=== PATIENT | female | born 1935 | race Caucasian/White ===

== ENCOUNTER → 2017-01-18 | Outpatient (CLI) | payer MEDICARE ==
[2017-01-18 13:00] LABS: Anion Gap 7 mmol/L; Blood Urea Nitrogen 14 mg/dL (7-17); Carbon Dioxide 29 mmol/L (22-30); Chloride 103 mmol/L (98-107); Non-African American GFR(MDRD) >60 (>60 ml/min/1.73 sqM); Potassium 4.6 mmol/L (3.5-5.1); Sodium 139 mmol/L (137-145)
== END | disposition home or self-care (01) ==
LOC: LABWHC1 11:47
PROVIDERS: ATTEND Internal Medicine Interventional Cardiology
DX: R06.02 Shortness of breath (principal); R60.0 Localized edema
CPT/HCPCS: 36415; 80051; 82565; 84520

== ENCOUNTER 2017-02-07 15:11 | Emergency (ER) | payer MEDICARE ==
[2017-02-07 15:19] VITALS: TEMP 97.7
--- NOTE | 2017-02-07 15:45 | ED ---
General Adult HPI - General Chief complaint: Shortness of Breath Stated complaint: fluid retention Time Seen by Provider: 02/07/17 15:21 Source: patient, RN notes reviewed, old records reviewed Mode of arrival: ambulatory Limitations: no limitations - History of Present Illness Initial comments: Chief complaint and history of present illness an 81-year-old female here because she had a 5 pound weight gain over the last day or so. Patient denies any shortness of breath or peripheral swelling. Has no other complaints. She was sent here for an investigation of the 5 pound weight gain. - Related Data Home Medications Medication Instructions Recorded Confirmed ALPRAZolam [Xanax] 0.5 mg PO BID 11/11/14 01/20/16 Aspirin 81 mg PO DAILY 11/11/14 01/26/16 Cholecalciferol [Vitamin D3] 2,000 unit PO DAILY 11/11/14 01/20/16 Doxycycline Hyclate [Vibramycin] 100 mg PO HS 11/11/14 01/20/16 Multivitamin/Iron/Folic Acid 1 tab PO DAILY 11/11/14 01/20/16 [Centrum Complete Multivit Tab] Simvastatin [Zocor] 10 mg PO HS 11/11/14 01/20/16 Temazepam [Restoril] 30 mg PO HS 11/11/14 01/20/16 DULoxetine HCL [Cymbalta] 30 mg PO HS 11/12/14 01/20/16 Baclofen [Lioresal] 10 mg PO BID 12/17/15 01/20/16 Fish Oil/Dha/Epa [Fish Oil 1,200 1 cap PO DAILY 12/18/15 01/20/16 mg Fish Oil] Folic Acid 0.8 mg PO DAILY 12/18/15 01/20/16 Sodium Bicarbonate 325 mg PO DAILY 12/18/15 01/20/16 Vitamin E (Dl,Tocopheryl Acet) 400 unit PO DAILY 12/18/15 01/20/16 [Vitamin E] Carvedilol [Coreg] 12.5 mg PO BID 01/20/16 01/20/16 amLODIPine [Norvasc] 5 mg PO HS 01/20/16 01/20/16 Previous Rx's Medication Instructions Recorded Furosemide [Lasix] 20 mg PO DAILY #10 tab 02/07/17 Allergies Allergy/AdvReac Type Severity Reaction Status Date / Time codeine Allergy Rash/Hives Verified 02/07/17 15:19 shellfish derived [Shellfish] Allergy Rash/Hives Verified 02/07/17 15:19 Review of Systems ROS Statement: Those systems with pertinent positive or pertinent negative responses have been documented in the HPI. Review of systems no headache or visual acuity changes no shortness of breath no wheezing no GI/ complaints no neuro complaints no deficits. All systems are reviewed Past medical problems significant for CHF, dementia, hyperlipidemia, hypertension, non-Hodgkin's lymphoma. Surgeries appendectomy, hysterectomy, tonsillectomy, total left knee replacement. Family history mother grandmother and aunt breast cancer. Patient has ALLERGIES to codeine and shellfish. Nonsmoker occasional glass of wine. ROS Other: All systems not noted in ROS Statement are negative. 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 per dr Reyna History of Any Multi-Drug Resistant Organisms: MRSA Date of last positivie culture/infection: 2013 MDRO Source:: unknown Past Surgical History: Appendectomy, Hysterectomy, Tonsillectomy Additional Past Surgical History / Comment(s): left knee replacement, breast biopsy which were benign - daughter states they there was some type of metal implanted in both breasts Past Anesthesia/Blood Transfusion Reactions: Previous Problems w/ Anesthesia Additional Past Anesthesia/Blood Transfusion Reaction / Comment(s): severe confusion for 2 weeks after surgery Past Psychological History: Depression Smoking Status: Never smoker - Past Family History Mother History Unknown: Yes Family Medical History: Cancer Additional Family Medical History / Comment(s): Breast Cancer General Exam - General Exam Comments Initial Comments: General: The patient is awake and alert, in no distress, and does not appear acutely ill. Here because of a 5 pound weight gain. Vital signs shows temperature 97.7 pulse 77 respiratory 20 pulse ox 170/77 and a pulse ox of 97% room air Eye: Pupils are equal, round and reactive to light, extra-ocular movements are intact ; there is normal conjunctiva bilaterally. No signs of icterus. History of cataract removal. Ears, nose, mouth and throat: There are moist mucous membranes and no oral lesions. Neck: The neck is supple, there is no tenderness , no JVD. Thyroid not enlarged, no anterior cervical lymphadenopathy. Cardiovascular: There is a regular rate and rhythm. No murmur, rub or gallop is appreciated. Respiratory: Lungs are clear to auscultation, respirations are non-labored, breath sounds are equal. No wheezes, stridor, rales, or rhonchi. Gastrointestinal: Soft, non-distended, non-tender abdomen without masses or organomegaly noted. There is no rebound or guarding present. No CVA tenderness. Bowel sounds are unremarkable. Back: There is no tenderness to palpation in the midline. There is no obvious deformity. No rashes noted. Musculoskeletal: Normal ROM, no tenderness, There is no pedal edema. There is no calf tenderness or swelling. Sensation intact. Pulses equal bilaterally 2+. Neurological: No complaint of a neuro deficits, no focal or lateralizing findings noted. No balance problems. Skin: Skin is warm and dry and no rashes or lesions are noted. Psychiatric: dementia Limitations: no limitations Course Vital Signs 02/07/17 15:15 Temperature 97.7 F Pulse Rate 77 Respiratory 20 Rate Blood Pressure 170/77 O2 Sat by Pulse 97 Oximetry Medical Decision Making - Medical Decision Making Medical decision making the patient's white count is 9 hemoglobin 13 hematocrit 39, potassium 4.4 with a BUN 19 creatinine 0.7 and GFR greater than 60. Glucose 12. BNP only 155. Chest x-ray was done and reviewed by radiologist his impression is heart is enlarged. There is no gross heart failure. Costophrenic angles are clear. There are no hilar masses. Thoracic aorta shows mild atheromatous change. Bony thorax is intact. Impression cardiomegaly. No active cardiopulmonary disease. No change. As read by Dr. Knight This time the patient does not show any indication of worsening failure. Advised to get her weight rechecked. And a follow with her family physician. The patient will be given 10 Lasix tablets 20 mg each to be taken if she continues to put on water weight. - Lab Data Result diagrams: 02/07/17 16:05 02/07/17 16:05 Lab Results 02/07/17 02/07/17 02/07/17 Range/Units 16:05 16:05 16:05 WBC 9.5 (3.8-10.6) k/uL RBC 3.76 L (3.80-5.40) m/uL Hgb 13.3 (11.4-16.0) gm/dL Hct 39.5 (34.0-46.0) % MCV 105.0 H (80.0-100.0) fL MCH 35.5 H (25.0-35.0) pg MCHC 33.8 (31.0-37.0) g/dL RDW 14.5 (11.5-15.5) % Plt Count 335 (150-450) k/uL Neutrophils % (Manual) 43.5 % Band Neutrophils % 2.5 % Lymphocytes % (Manual) 42.5 % Monocytes % (Manual) 6.0 % Eosinophils % (Manual) 5.0 % Basophils % (Manual) 0.5 % Neutrophils # (Manual) 4.4 (1.3-7.7) k/uL Lymphocytes # (Manual) 4.0 (1.0-4.8) k/uL Monocytes # (Manual) 0.6 (0-1.0) k/uL Eosinophils # (Manual) 0.5 (0-0.7) k/uL Basophils # (Manual) 0.0 (0-0.2) k/uL Nucleated RBCs 1 H (0-0) /100 WBC Manual Slide Review Performed Macrocytosis Moderate Target Cells Present Stomatocytes Present Sodium 138 (137-145) mmol/L Potassium 4.4 (3.5-5.1) mmol/L Chloride 102 (98-107) mmol/L Carbon Dioxide 27 (22-30) mmol/L Anion Gap 9 mmol/L BUN 19 H (7-17) mg/dL Creatinine 0.70 (0.52-1.04) mg/dL Est GFR (MDRD) Af Amer >60 (>60 ml/min/1.73 sqM) Est GFR (MDRD) Non-Af >60 (>60 ml/min/1.73 sqM) Glucose 102 H (74-99) mg/dL Calcium 9.2 (8.4-10.2) mg/dL Total Bilirubin 0.4 (0.2-1.3) mg/dL AST 40 H (14-36) U/L ALT 50 (9-52) U/L Alkaline Phosphatase 107 (38-126) U/L NT-Pro-B Natriuret Pep 155 pg/mL Total Protein 6.0 L (6.3-8.2) g/dL Albumin 3.9 (3.5-5.0) g/dL Disposition Clinical Impression: History of chronic CHF Disposition: HOME SELF-CARE Condition: Fair Instructions: Heart Failure (ED) Additional Instructions: Take 1 Lasix if you gained another several pounds and follow-up with your family physician. Return emergency room or see her family doctor developed shortness of breath. Prescriptions: Furosemide [Lasix] 20 mg PO DAILY #10 tab Referrals: Marcus Garrett MD [Primary Care Provider] - 1-2 days Time of Disposition: 17:19
[2017-02-07 16:24] LABS: ALT 50 U/L (9-52); AST 40 U/L (14-36); Alkaline Phosphatase 107 U/L (38-126); Anion Gap 9 mmol/L; Blood Urea Nitrogen 19 mg/dL (7-17); Calcium 9.2 mg/dL (8.4-10.2); Carbon Dioxide 27 mmol/L (22-30); Chloride 102 mmol/L (98-107); Glucose 102 mg/dL (74-99); Non-African American GFR(MDRD) >60 (>60 ml/min/1.73 sqM); Potassium 4.4 mmol/L (3.5-5.1); Sodium 138 mmol/L (137-145); Total Bilirubin 0.4 mg/dL (0.2-1.3)
[2017-02-07 16:38] LABS: Aty Lym Flag Slight; CH 35.7; CHCM 34.1; HCT 39.5 % (34.0-46.0); HDW 2.52; HGB 13.3 gm/dL (11.4-16.0); MCH 35.5 pg (25.0-35.0); MCHC 33.8 g/dL (31.0-37.0); Macrocytosis Moderate; Mean Platelet Volume 7.1; RBC 3.76 m/uL (3.80-5.40); RDW 14.5 % (11.5-15.5); WBC (Perox) 10.04
[2017-02-07 16:52] LABS: Add Differential Manual Differential; Manual Review Performed
[2017-02-07 16:58] LABS: Band Neutrophils % 2.5 %; Nucleated Red Blood Cells 1 /100 WBC (0-0); Total Cells Counted 200; WBC 9.5 k/uL (3.8-10.6)
[2017-02-07 17:01] LABS: Stomatocytes Present; Target Cells Present
--- NOTE | 2017-02-07 17:08 | XR ---
EXAMINATION TYPE: XR chest 2V DATE OF EXAM: 02/07/2017 COMPARISON: 01/17/2016 HISTORY: Fluid retention TECHNIQUE: Frontal and lateral views of the chest are obtained. FINDINGS: Heart is enlarged. There is no gross heart failure. Costophrenic angles are clear. There a re no hilar masses. Thoracic aorta shows mild atheromatous change. Bony thorax is intact. IMPRESSION: Cardiomegaly. No active cardiopulmonary disease. No change.
[2017-02-07 17:22] VITALS: BP 159/95; PULSE 83; RESP 16
== END 2017-02-07 18:30 | disposition home or self-care (01) ==
LOC: EC 15:11
DX: I50.9 Heart failure, unspecified (principal); E78.5 Hyperlipidemia, unspecified; I10 Essential (primary) hypertension; F32.9 Major depressive disorder, single episode, unspecified; F03.90 Unspecified dementia, unspecified severity, without behavioral disturbance, psychotic disturbance, mood disturbance, and anxiety; Z79.82 Long term (current) use of aspirin; Z79.899 Other long term (current) drug therapy; Z88.5 Allergy status to narcotic agent; Z91.013 Allergy to seafood; Z85.72 Personal history of non-Hodgkin lymphomas
CPT/HCPCS: 36415; 71020; 80053; 83880; 85025; 99285

== ENCOUNTER 2017-03-20 22:36 | Inpatient (IN) | payer MEDICARE ==
[2017-03-20] MEDS ORDERED: SODIUM CHLORIDE 0.9% 1,000 ML IV STA (23:13)
--- NOTE | 2017-03-20 23:15 | ED ---
SOB HPI - General Chief Complaint: Shortness of Breath Stated Complaint: chest pain Time Seen by Provider: 03/20/17 22:39 Source: patient Mode of arrival: EMS Limitations: no limitations - History of Present Illness Initial Comments: 81 years [place]. Noticed palpitation and chest pain around 9:30 and lasted for about a half an hour and no chest pain as his wall but she still short winded, she was nauseous and pain gets worse with deep breaths she denies any fever no chills. No headaches no neck stiffness no abdominal pain frequency urgency dysuria no symptoms of TIA or CVA - Related Data Home Medications Medication Instructions Recorded Confirmed ALPRAZolam [Xanax] 0.5 mg PO BID 11/11/14 03/20/17 Aspirin 81 mg PO DAILY 11/11/14 03/20/17 Cholecalciferol [Vitamin D3] 2,000 unit PO DAILY 11/11/14 03/20/17 Doxycycline Hyclate [Vibramycin] 100 mg PO HS 11/11/14 03/20/17 Multivitamin/Iron/Folic Acid 1 tab PO DAILY 11/11/14 03/20/17 [Centrum Complete Multivit Tab] Simvastatin [Zocor] 10 mg PO HS 11/11/14 03/20/17 Temazepam [Restoril] 30 mg PO HS 11/11/14 03/20/17 DULoxetine HCL [Cymbalta] 30 mg PO HS 11/12/14 03/20/17 Baclofen [Lioresal] 5 mg PO BID 12/17/15 03/20/17 Fish Oil/Dha/Epa [Fish Oil 1,200 1 cap PO DAILY 12/18/15 03/20/17 mg Fish Oil] Folic Acid 0.8 mg PO DAILY 12/18/15 03/20/17 Sodium Bicarbonate 325 mg PO DAILY 12/18/15 03/20/17 Vitamin E (Dl,Tocopheryl Acet) 400 unit PO DAILY 12/18/15 03/20/17 [Vitamin E] Carvedilol [Coreg] 12.5 mg PO BID 01/20/16 03/20/17 amLODIPine [Norvasc] 5 mg PO HS 01/20/16 03/20/17 Nitroglycerin Sl Tabs [Nitrostat] 0.4 mg PO Q5M PRN 03/20/17 03/20/17 Allergies Allergy/AdvReac Type Severity Reaction Status Date / Time codeine Allergy Rash/Hives Verified 02/07/17 15:19 iodine Allergy Rash/Hives Verified 03/20/17 23:13 shellfish derived [Shellfish] Allergy Rash/Hives Verified 03/20/17 23:13 Review of Systems ROS Statement: Those systems with pertinent positive or pertinent negative responses have been documented in the HPI. ROS Other: All systems not noted in ROS Statement are negative. 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 per dr Reyna History of Any Multi-Drug Resistant Organisms: MRSA Date of last positivie culture/infection: 2013 MDRO Source:: unknown Past Surgical History: Appendectomy, Hysterectomy, Tonsillectomy Additional Past Surgical History / Comment(s): left knee replacement, breast biopsy which were benign - daughter states they there was some type of metal implanted in both breasts Past Anesthesia/Blood Transfusion Reactions: Previous Problems w/ Anesthesia Additional Past Anesthesia/Blood Transfusion Reaction / Comment(s): severe confusion for 2 weeks after surgery Past Psychological History: Depression Smoking Status: Never smoker - Past Family History Mother History Unknown: Yes Family Medical History: Cancer Additional Family Medical History / Comment(s): Breast Cancer General Exam - General Exam Comments Initial Comments: General: The patient is awake and alert, in no distress, and does not appear acutely ill. Skin: Skin is warm and dry and no rashes or lesions are noted. Eye: Pupils are equal, round and reactive to light, extra-ocular movements are intact; there is normal conjunctiva bilaterally. Ears, nose, mouth and throat: There are moist mucous membranes and no oral lesions. Neck: The neck is supple, there is no tenderness or JVD. Cardiovascular: There is a regular rate and rhythm. No murmur, rub or gallop is appreciated. Respiratory: To auscultation bilateral, no wheezing no rhonchi no distress respiratory baires noticed Gastrointestinal: Soft, non-distended, non-tender abdomen without masses or organomegaly noted. There is no rebound or guarding present. Bowel sounds are unremarkable. Back: There is no tenderness to palpation in the midline. There is no obvious deformity. Musculoskeletal: Normal ROM, no tenderness, There is no pedal edema. There is no calf tenderness or swelling. No cords were appreciated. Neurological: CN II-XII intact, Cranial nerves III through XII are intact. There are no obvious motor or sensory deficits. Coordination appears grossly intact. Speech is normal. Psychiatric: Cooperative, appropriate mood & affect, normal judgment. Limitations: no limitations Course Vital Signs 03/20/17 03/20/17 03/21/17 22:40 23:26 00:24 Temperature 98.2 F 97.8 F Pulse Rate 85 89 82 Respiratory 20 16 18 Rate Blood Pressure 199/93 173/87 188/104 O2 Sat by Pulse 96 97 97 Oximetry EKG is normal sinus rhythm ventricular rate is 85 NV interval is 162 QRS duration is 98 QT/QTC 390/473 review of this EKG does not reveal any ST elevation or ST depression - Reevaluation(s) Reevaluation #1: 03/21/17 00:52 Visit was reassessed at 1245 her CBC, d-dimer, troponin, EKG are unremarkable chest x-ray showed myocardial megaly considering her high blood pressure and blood pressure was noticed on arrival is 199/93 and stating the same diamond Gaines is chest pain-free now considering her age and risk factors short episode for serial cardiac markers and cardiology consult she be admitted to Dr. Shamir wilson Medical Decision Making - Lab Data Result diagrams: 03/20/17 23:20 03/20/17 23:20 Lab Results 03/20/17 03/20/17 03/20/17 Range/Units 23:20 23:20 23:20 WBC 11.1 H (3.8-10.6) k/uL RBC 4.22 (3.80-5.40) m/uL Hgb 14.5 (11.4-16.0) gm/dL Hct 43.0 (34.0-46.0) % MCV 101.8 H (80.0-100.0) fL MCH 34.3 (25.0-35.0) pg MCHC 33.7 (31.0-37.0) g/dL RDW 14.3 (11.5-15.5) % Plt Count 395 (150-450) k/uL Neutrophils % 63 % Lymphocytes % 25 % Monocytes % 7 % Eosinophils % 1 % Basophils % 1 % Neutrophils # 7.0 (1.3-7.7) k/uL Lymphocytes # 2.8 (1.0-4.8) k/uL Monocytes # 0.8 (0-1.0) k/uL Eosinophils # 0.1 (0-0.7) k/uL Basophils # 0.1 (0-0.2) k/uL Macrocytosis Slight PT (9.0-12.0) sec INR (<1.2) APTT (22.0-30.0) sec D-Dimer (<0.60) mg/L FEU Sodium 132 L (137-145) mmol/L Potassium 4.0 (3.5-5.1) mmol/L Chloride 99 (98-107) mmol/L Carbon Dioxide 20 L (22-30) mmol/L Anion Gap 13 mmol/L BUN 12 (7-17) mg/dL Creatinine 0.70 (0.52-1.04) mg/dL Est GFR (MDRD) Af Amer >60 (>60 ml/min/1.73 sqM) Est GFR (MDRD) Non-Af >60 (>60 ml/min/1.73 sqM) Glucose 150 H (74-99) mg/dL Calcium 9.9 (8.4-10.2) mg/dL Total Bilirubin 0.8 (0.2-1.3) mg/dL AST 34 (14-36) U/L ALT 39 (9-52) U/L Alkaline Phosphatase 81 (38-126) U/L Total Creatine Kinase 134 (30-135) U/L CK-MB (CK-2) 2.9 H* (0.0-2.4) ng/mL CK-MB (CK-2) Rel Index 2.2 Troponin I <0.012 (0.000-0.034) ng/mL NT-Pro-B Natriuret Pep pg/mL Total Protein 6.8 (6.3-8.2) g/dL Albumin 4.6 (3.5-5.0) g/dL 03/20/17 03/20/17 Range/Units 23:20 23:20 WBC (3.8-10.6) k/uL RBC (3.80-5.40) m/uL Hgb (11.4-16.0) gm/dL Hct (34.0-46.0) % MCV (80.0-100.0) fL MCH (25.0-35.0) pg MCHC (31.0-37.0) g/dL RDW (11.5-15.5) % Plt Count (150-450) k/uL Neutrophils % % Lymphocytes % % Monocytes % % Eosinophils % % Basophils % % Neutrophils # (1.3-7.7) k/uL Lymphocytes # (1.0-4.8) k/uL Monocytes # (0-1.0) k/uL Eosinophils # (0-0.7) k/uL Basophils # (0-0.2) k/uL Macrocytosis PT 10.7 (9.0-12.0) sec INR 1.1 (<1.2) APTT 24.3 (22.0-30.0) sec D-Dimer 0.28 (<0.60) mg/L FEU Sodium (137-145) mmol/L Potassium (3.5-5.1) mmol/L Chloride (98-107) mmol/L Carbon Dioxide (22-30) mmol/L Anion Gap mmol/L BUN (7-17) mg/dL Creatinine (0.52-1.04) mg/dL Est GFR (MDRD) Af Amer (>60 ml/min/1.73 sqM) Est GFR (MDRD) Non-Af (>60 ml/min/1.73 sqM) Glucose (74-99) mg/dL Calcium (8.4-10.2) mg/dL Total Bilirubin (0.2-1.3) mg/dL AST (14-36) U/L ALT (9-52) U/L Alkaline Phosphatase (38-126) U/L Total Creatine Kinase (30-135) U/L CK-MB (CK-2) (0.0-2.4) ng/mL CK-MB (CK-2) Rel Index Troponin I (0.000-0.034) ng/mL NT-Pro-B Natriuret Pep 873 pg/mL Total Protein (6.3-8.2) g/dL Albumin (3.5-5.0) g/dL Disposition Clinical Impression: Chest pain Disposition: ADMITTED IP TO THIS HOSP Condition: Good Referrals: Marcus Garrett MD [Primary Care Provider] - 1-2 days
[2017-03-20 23:33] LABS: Basophils # (A) 0.1 k/uL (0-0.2); Basophils % (A) 1 %; CH 35.6; CHCM 35.2; Eosinophils # (A) 0.1 k/uL (0-0.7); Eosinophils % (A) 1 %; HDW 2.58; HGB 14.5 gm/dL (11.4-16.0); Luc # (Auto) 0.33; Luc % (Auto) 3; Lymphocytes # (A) 2.8 k/uL (1.0-4.8); Lymphocytes % (A) 25 %; MCH 34.3 pg (25.0-35.0); MCHC 33.7 g/dL (31.0-37.0); MCV 101.8 fL (80.0-100.0); Macrocytosis Slight; Mean Platelet Volume 7.3; Monocytes # (A) 0.8 k/uL (0-1.0); Monocytes % (A) 7 %; Neutrophils % (A) 63 %; RBC 4.22 m/uL (3.80-5.40); RDW 14.3 % (11.5-15.5); WBC 11.1 k/uL (3.8-10.6); WBC (Perox) 11.09
[2017-03-20 23:51] LABS: ALT 39 U/L (9-52); AST 34 U/L (14-36); Alkaline Phosphatase 81 U/L (38-126); Anion Gap 13 mmol/L; Blood Urea Nitrogen 12 mg/dL (7-17); Calcium 9.9 mg/dL (8.4-10.2); Carbon Dioxide 20 mmol/L (22-30); Chloride 99 mmol/L (98-107); Glucose 150 mg/dL (74-99); Non-African American GFR(MDRD) >60 (>60 ml/min/1.73 sqM); Sodium 132 mmol/L (137-145); Total Bilirubin 0.8 mg/dL (0.2-1.3); Total Protein 6.8 g/dL (6.3-8.2)
[2017-03-20 23:52] LABS: INR 1.1 (<1.2); Partial Thromboplastin Time 24.3 sec (22.0-30.0); Prothrombin Time 10.7 sec (9.0-12.0)
[2017-03-20 23:57] LABS: Creatine Kinase 134 U/L (30-135)
--- NOTE | 2017-03-21 00:06 | XR ---
EXAM: XR Chest, 2 Views CLINICAL HISTORY: Reason: difficulty breathing TECHNIQUE: Frontal and lateral views of the chest. COMPARISON: No relevant prior studies available. FINDINGS: Lungs: Unremarkable. No consolidation. Pleural space: No pleural effusion. No pneumothorax. Heart: Stable mild cardiomegaly. Mediastinum: Unremarkable. Bones/joints: No acute findings. IMPRESSION: Stable mild cardiomegaly. No consolidation or edema.
[2017-03-21 00:10] LABS: Troponin I <0.012 ng/mL (0.000-0.034)
[2017-03-21 00:22] LABS: Creatine Kinase MB 2.9 ng/mL (0.0-2.4)
[2017-03-21] MEDS ORDERED: HEPARIN SODIUM,PORCINE 5,000 UNIT/ML 1 ML VIAL IV ONE (00:54)
[2017-03-21] MEDS ORDERED: NITROGLYCERIN SL TABS 0.4 MG TAB SUBLINGUAL PRN (00:54)
[2017-03-21] MEDS ORDERED: HEPARIN SODIUM,PORCINE/D5W PMX 25,000 UNIT in DEXTROSE/WATER 1 500ML.BAG IV SCH (01:00)
[2017-03-21] MEDS ORDERED: NITROGLYCERIN OINT 1 INCH/GM PACKET TOPICAL STA (01:03)
[2017-03-21] MEDS ORDERED: ENALAPRILAT 1.25 MG/ML 1 ML VIAL IVP STA (01:04)
[2017-03-21] MEDS ORDERED: amLODIPine 5 MG TAB PO STA (01:56)
[2017-03-21] MEDS ORDERED: LORazepam 1 MG TAB PO STA (01:57)
[2017-03-21 03:02] VITALS: BMI 23.3
[2017-03-21] MEDS: SODIUM CHLORIDE 0.9% 1,000 ML IV SCH ×2 (04:02→12:33)
[2017-03-21 07:16] LABS: Creatine Kinase 127 U/L (30-135)
[2017-03-21 07:28] LABS: Troponin I <0.012 ng/mL (0.000-0.034)
[2017-03-21 07:31] LABS: Creatine Kinase MB 3.3 ng/mL (0.0-2.4)
[2017-03-21] MEDS ORDERED: NON-FORMULARY DRUG (Fish Oil/Dha/Epa [Fish Oil 1,200 Mg Fish Oil] 1 CAP) PO SCH (09:00)
[2017-03-21] MEDS ORDERED: ACETAMINOPHEN TAB 325 MG TAB PO PRN (09:18)
[2017-03-21] MEDS ORDERED: DOBUTamine DRIP for NUC MED 500 MG in DEXTROSE/WATER 1 250ML.BAG IV ONE (09:35)
[2017-03-21] MEDS ORDERED: cloNIDine 0.1 MG/24HR PATCH 1 PATCH PATCH TRANSDERM SCH (11:00)
[2017-03-21 12:19] LABS: Creatine Kinase 154 U/L (30-135)
[2017-03-21] MEDS: FOLIC ACID 1 MG TAB PO SCH (12:28)
[2017-03-21] MEDS: MULTIVITAMINS, THERA 1 EACH TAB PO SCH (12:28)
[2017-03-21 12:29] LABS: Troponin I <0.012 ng/mL (0.000-0.034)
[2017-03-21] MEDS: SODIUM BICARBONATE TAB 650 MG TAB PO SCH (12:29)
[2017-03-21] MEDS: CHOLECALCIFEROL 1,000 UNIT TAB PO SCH (12:29)
[2017-03-21] MEDS: BACLOFEN 10 MG TAB PO SCH ×2 (12:29→20:54)
[2017-03-21] MEDS: VITAMIN E (DL,TOCOPHERYL ACET) 400 UNIT CAP PO SCH (12:29)
[2017-03-21] MEDS: CARVEDILOL 12.5 MG TAB PO SCH ×2 (12:29→20:55)
[2017-03-21] MEDS: ALPRAZolam 0.5 MG TAB PO SCH ×2 (12:29→20:56)
[2017-03-21 12:33] LABS: Creatine Kinase MB 3.5 ng/mL (0.0-2.4)
--- NOTE | 2017-03-21 13:39 | P.HPIM ---
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 Patient presented complaining of shortness of breath with sweats along with left-sided chest pain that was squeezing and grabbing which started while she was working on a water pump. She stopped what she was doing and called EMS. She denies any nausea or vomiting. She states she has had 3 total episodes of the same with activity in the past few weeks. She denies any trauma to her chest. Patient was placed on the observation unit. Echocardiogram reveals mild tricuspid regurgitation, mild pulmonary hypertension, small pericardial effusion, mild concentric left ventricular hypertrophy, EF 50-55%, LV mildly dilated at 29-33. Cardiology has scheduled her for loop recorder to be placed tomorrow. Review of Systems All systems: negative Constitutional: Denies chills, Denies fever Eyes: denies blurred vision, denies pain Ears, nose, mouth and throat: Denies headache, Denies sore throat Cardiovascular: Reports chest pain, Reports shortness of breath, Denies palpitations Respiratory: Denies cough Gastrointestinal: Denies abdominal pain, Denies diarrhea, Denies nausea, Denies vomiting Genitourinary: Denies dysuria, Denies hematuria Musculoskeletal: Denies myalgias Integumentary: Denies pruritus, Denies rash Neurological: Denies numbness, Denies weakness Psychiatric: Denies anxiety, Denies depression Endocrine: Denies fatigue, Denies weight change 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 per dr Reyna History of Any Multi-Drug Resistant Organisms: MRSA Date of last positivie culture/infection: 2013 MDRO Source:: unknown Past Surgical History: Appendectomy, Hysterectomy, Orthopedic Surgery, Tonsillectomy Additional Past Surgical History / Comment(s): left knee replacement, breast biopsy which were benign - daughter states they there was some type of metal implanted in both breasts, bilat cataracts removed Past Anesthesia/Blood Transfusion Reactions: Previous Problems w/ Anesthesia Additional Past Anesthesia/Blood Transfusion Reaction / Comment(s): severe confusion for 2 weeks after surgery Past Psychological History: Depression Additional Psychological History / Comment(s): loss short term memory Smoking Status: Never smoker Past Alcohol Use History: None Reported, Occasional Past Drug Use History: None Reported - Past Family History Mother History Unknown: Yes Family Medical History: Cancer Additional Family Medical History / Comment(s): Mother in her 70s with history of heart murmur and Breast Cancer Father Additional Family Medical History / Comment(s): Patient does not know anything about her father. Brother(s) Additional Family Medical History / Comment(s): Patient has one half-brother with no history of coronary artery disease. Medications and Allergies Home Medications Medication Instructions Recorded Confirmed Type ALPRAZolam [Xanax] 0.5 mg PO BID 11/11/14 03/21/17 History Aspirin 81 mg PO DAILY 11/11/14 03/21/17 History Cholecalciferol [Vitamin D3] 2,000 unit PO DAILY 11/11/14 03/21/17 History Doxycycline Hyclate [Vibramycin] 100 mg PO HS 11/11/14 03/21/17 History Multivitamin/Iron/Folic Acid 1 tab PO DAILY 11/11/14 03/21/17 History [Centrum Complete Multivit Tab] Simvastatin [Zocor] 10 mg PO HS 11/11/14 03/21/17 History Temazepam [Restoril] 30 mg PO HS 11/11/14 03/21/17 History DULoxetine HCL [Cymbalta] 30 mg PO HS 11/12/14 03/21/17 History Baclofen [Lioresal] 5 mg PO BID 12/17/15 03/21/17 History Fish Oil/Dha/Epa [Fish Oil 1,200 1 cap PO DAILY 12/18/15 03/21/17 History mg Fish Oil] Folic Acid 0.8 mg PO DAILY 12/18/15 03/21/17 History Sodium Bicarbonate 325 mg PO DAILY 12/18/15 03/21/17 History Vitamin E (Dl,Tocopheryl Acet) 400 unit PO DAILY 12/18/15 03/21/17 History [Vitamin E] Carvedilol [Coreg] 12.5 mg PO BID 01/20/16 03/21/17 History amLODIPine [Norvasc] 5 mg PO HS 01/20/16 03/21/17 History Nitroglycerin Sl Tabs [Nitrostat] 0.4 mg PO Q5M PRN 03/20/17 03/21/17 History Allergies Allergy/AdvReac Type Severity Reaction Status Date / Time codeine Allergy Rash/Hives Verified 03/21/17 03:28 iodine Allergy Rash/Hives Verified 03/21/17 03:28 shellfish derived [Shellfish] Allergy Rash/Hives Verified 03/21/17 03:28 Physical Exam Vitals: Vital Signs Temp Pulse Pulse Pulse Resp BP BP 03/21/17 07:50 97.7 F 94 18 149/81 03/21/17 04:00 88 16 03/21/17 03:49 97.9 F 87 16 177/89 03/21/17 01:53 85 187/90 03/21/17 01:29 84 187/95 03/21/17 01:19 77 20 189/95 03/21/17 00:24 97.8 F 82 18 188/104 03/20/17 23:26 89 16 173/87 03/20/17 22:40 98.2 F 85 20 199/93 Pulse Ox 03/21/17 07:50 97 03/21/17 04:00 03/21/17 03:49 92 L 03/21/17 01:53 97 03/21/17 01:29 97 03/21/17 01:19 97 03/21/17 00:24 97 03/20/17 23:26 97 03/20/17 22:40 96 Intake and Output 03/20/17 03/21/17 03/21/17 22:59 06:59 14:59 Intake Total 280 Balance 280 Intake: Intake, IV Titration 280 Amount Heparin Sodium,Porcine/ 120 D5w Pmx 25,000 unit In Dextrose/Water 1 500ml. bag @ 12 UNITS/KG/HR 15. 45 mls/hr IV .Q24H SUDEEP Rx #:[id number] Sodium Chloride 0.9% 1, 160 000 ml @ 20 mls/hr IV . Q24H SUDEEP Rx#:[id number] Other: Voiding Method Bedpan # Voids 1 Weight 64.41 kg 58 kg Gen: This is an 81-year-old female. She is found in bed and appears to be in no acute distress. HEENT: Head is atraumatic, normocephalic. Pupils equal, round. Sclerae is anicteric. NECK: Supple. No JVD. No lymphadenopathy. No thyromegaly. LUNGS: Clear to auscultation. No wheezes or rhonchi. No intercostal retractions. HEART: Regular rate and rhythm. No murmur. Left anterior upper chest wall tenderness. ABDOMEN: Soft. Bowel sounds are present. No masses. No tenderness. EXTREMITIES: No pedal edema. No calf tenderness. NEUROLOGICAL: Patient is awake, alert and oriented x3. Cranial nerves 2 through 12 are grossly intact. Results CBC & Chem 7: 03/20/17 23:20 03/20/17 23:20 Labs: Abnormal Lab Results - Last 24 Hours (Table) 03/20/17 03/20/17 03/20/17 Range/Units 23:20 23:20 23:20 WBC 11.1 H (3.8-10.6) k/uL MCV 101.8 H (80.0-100.0) fL APTT (22.0-30.0) sec Sodium 132 L (137-145) mmol/L Carbon Dioxide 20 L (22-30) mmol/L Glucose 150 H (74-99) mg/dL CK-MB (CK-2) 2.9 H* (0.0-2.4) ng/mL 03/21/17 03/21/17 Range/Units 06:11 06:11 WBC (3.8-10.6) k/uL MCV (80.0-100.0) fL APTT 59.7 H (22.0-30.0) sec Sodium (137-145) mmol/L Carbon Dioxide (22-30) mmol/L Glucose (74-99) mg/dL CK-MB (CK-2) 3.3 H* (0.0-2.4) ng/mL Thrombosis Risk Factor Assmnt - DVT/VTE Prophylaxis DVT/VTE Prophylaxis: Pharmacologic Prophylaxis ordered - Choose All That Apply Each Factor Represents 1 point: Medical pt on bed rest Each Risk Factor Represents 3 Points: Age 75 years or older Thrombosis Risk Factor Assessment Total Risk Factor Score: 4 Thrombosis Risk Factor Assessment Level: Moderate Risk Assessment and Plan Plan: 1. Chest pain: Cardiology consult appreciated. Patient is scheduled for loop recorder tomorrow. 2. CAD: Continue aspirin, Lipitor, Coreg, Nitrostat 3. Hypertension: Continue Coreg 12.5 mg twice daily, Norvasc 5 mg at bedtime, Catapres patch. 4. Hyperlipidemia: On simvastatin 10 mg a day. 5. Anxiety attacks: On Xanax 0.5 mg twice a day as needed. 6. Chronic rosacea: On combination of doxycycline and MetroCream. Patient placed on the observation unit. Discharge plan: Return home Impression and plan of care have been directed as dictated by the signing physician. Caitlyn Bryan nurse practitioner acting as scribe for signing physician.
--- NOTE | 2017-03-21 13:57 | P.CRDCN ---
History of Present Illness Consult date: 03/21/17 Consult reason: sycope, chest pain, shortness of breath, other (weakness) History of present illness: This is an 81-year-old female who presented to ED with c/o chest pain and hypertension. She states she was cutting the grass and began to feel weak. She then started to feel some chest pain and became dizzy. She states she had a syncopal episode with positive loss of consciousness and woke up on the floor. She states upon waking up her pain was still there as a dull ache. Patient lives alone. She states she has had a similar episode 3 times over the previous month. She follows with Dr. Joann segundo as an outpatient. Her last visit with him was 09/26/2016. Upon examination today she is seen resting in bed in no acute distress. She denies any further episodes of chest pain, shortness of breath, dizziness, weakness, nausea, vomiting or diaphoresis. Her most recent echo done in the office 12/16/2015 shows ejection fraction of 40% with global left ventricular hypokinesis without heterogenicity. Left ventricular filling pattern suggests diastolic dysfunction. Repeat today shows ejection fraction has improved to 50-55%, mild tricuspid regurg, mild pulmonary hypertension, small pericardial effusion and mild LVH. Cardiac medications include Norvasc 5 mg by mouth daily, simvastatin 10 mg by mouth daily carvedilol 12.5 mg by mouth twice a day and aspirin 81 mg by mouth daily. Troponins are negative 3, hemoglobin 14.5, potassium 4.0. Review of Systems REVIEW OF SYSTEMS: Patient denies any chest discomfort. No shortness of breath. No diaphoresis. He denies headache, dizziness, blurred vision, double vision. No dyspnea on exertion. Patient denies any stomach discomfort. No nausea, vomiting. No hematochezia. No hematemesis. Denies any black stools or blood in his stools. No syncope. No palpitations. No cough. No recent fever or chills. Denies dysuria or hematuria. No muscle weakness or numbness. 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 per dr Axel History of Any Multi-Drug Resistant Organisms: MRSA Date of last positivie culture/infection: 2013 MDRO Source:: unknown Past Surgical History: Appendectomy, Hysterectomy, Orthopedic Surgery, Tonsillectomy Additional Past Surgical History / Comment(s): left knee replacement, breast biopsy which were benign - daughter states they there was some type of metal implanted in both breasts, bilat cataracts removed Past Anesthesia/Blood Transfusion Reactions: Previous Problems w/ Anesthesia Additional Past Anesthesia/Blood Transfusion Reaction / Comment(s): severe confusion for 2 weeks after surgery Past Psychological History: Depression Additional Psychological History / Comment(s): loss short term memory Smoking Status: Never smoker Past Alcohol Use History: None Reported, Occasional Past Drug Use History: None Reported - Past Family History Mother History Unknown: Yes Family Medical History: Cancer Additional Family Medical History / Comment(s): Breast Cancer Father Additional Family Medical History / Comment(s): Patient does not know anything about her father. Brother(s) Additional Family Medical History / Comment(s): Patient has one half-brother with no history of coronary artery disease. Medications and Allergies Home Medications Medication Instructions Recorded Confirmed Type ALPRAZolam [Xanax] 0.5 mg PO BID 11/11/14 03/21/17 History Aspirin 81 mg PO DAILY 11/11/14 03/21/17 History Cholecalciferol [Vitamin D3] 2,000 unit PO DAILY 11/11/14 03/21/17 History Doxycycline Hyclate [Vibramycin] 100 mg PO HS 11/11/14 03/21/17 History Multivitamin/Iron/Folic Acid 1 tab PO DAILY 11/11/14 03/21/17 History [Centrum Complete Multivit Tab] Simvastatin [Zocor] 10 mg PO HS 11/11/14 03/21/17 History Temazepam [Restoril] 30 mg PO HS 11/11/14 03/21/17 History DULoxetine HCL [Cymbalta] 30 mg PO HS 11/12/14 03/21/17 History Baclofen [Lioresal] 5 mg PO BID 12/17/15 03/21/17 History Fish Oil/Dha/Epa [Fish Oil 1,200 1 cap PO DAILY 12/18/15 03/21/17 History mg Fish Oil] Folic Acid 0.8 mg PO DAILY 12/18/15 03/21/17 History Sodium Bicarbonate 325 mg PO DAILY 12/18/15 03/21/17 History Vitamin E (Dl,Tocopheryl Acet) 400 unit PO DAILY 12/18/15 03/21/17 History [Vitamin E] Carvedilol [Coreg] 12.5 mg PO BID 01/20/16 03/21/17 History amLODIPine [Norvasc] 5 mg PO HS 01/20/16 03/21/17 History Nitroglycerin Sl Tabs [Nitrostat] 0.4 mg PO Q5M PRN 03/20/17 03/21/17 History Allergies Allergy/AdvReac Type Severity Reaction Status Date / Time codeine Allergy Rash/Hives Verified 03/21/17 03:28 iodine Allergy Rash/Hives Verified 03/21/17 03:28 shellfish derived [Shellfish] Allergy Rash/Hives Verified 03/21/17 03:28 Physical Exam Vitals: Vital Signs Temp Pulse Pulse Pulse Resp BP BP 03/21/17 08:00 18 03/21/17 07:50 97.7 F 94 18 149/81 03/21/17 04:00 88 16 03/21/17 03:49 97.9 F 87 16 177/89 03/21/17 01:53 85 187/90 03/21/17 01:29 84 187/95 03/21/17 01:19 77 20 189/95 03/21/17 00:24 97.8 F 82 18 188/104 03/20/17 23:26 89 16 173/87 03/20/17 22:40 98.2 F 85 20 199/93 Pulse Ox 03/21/17 08:00 03/21/17 07:50 97 03/21/17 04:00 03/21/17 03:49 92 L 03/21/17 01:53 97 03/21/17 01:29 97 03/21/17 01:19 97 03/21/17 00:24 97 03/20/17 23:26 97 03/20/17 22:40 96 Intake and Output 03/20/17 03/21/17 03/21/17 22:59 06:59 14:59 Intake Total 280 Balance 280 Intake: Intake, IV Titration 280 Amount Heparin Sodium,Porcine/ 120 D5w Pmx 25,000 unit In Dextrose/Water 1 500ml. bag @ 12 UNITS/KG/HR 15. 45 mls/hr IV .Q24H SUDEEP Rx #:[id number] Sodium Chloride 0.9% 1, 160 000 ml @ 20 mls/hr IV . Q24H SUDEEP Rx#:[id number] Other: Voiding Method Bedpan Bedpan # Voids 1 Weight 64.41 kg 58 kg GENERAL: This is a 81-year-old female in no apparent distress at the time of my examination. HEENT: Head is atraumatic, normocephalic. Pupils are equal, round. Sclerae anicteric. Conjunctivae are clear. Mucous membranes of the mouth are moist. Neck is supple. There is no jugular venous distention. No carotid bruit is heard. LUNGS: Clear to auscultation and precussion. No chest wall tenderness is noted on palpation or with deep breathing. HEART: Regular rate and rhythm without murmurs, rubs or gallops. S1 and S2 heard. ABDOMEN: Soft, nontender. Bowel sounds are heard. No organomegaly noted. EXTREMITIES: 2+ peripheral pulses with no evidence of peripheral edema and no calf tenderness noted]. NEUROLOGIC: Patient is awake, alert and oriented x3. Results 03/20/17 23:20 03/20/17 23:20 Cardiac Enzymes 03/20/17 03/20/17 03/21/17 Range/Units 23:20 23:20 06:11 AST 34 (14-36) U/L CK-MB (CK-2) 2.9 H* 3.3 H* (0.0-2.4) ng/mL Troponin I <0.012 <0.012 (0.000-0.034) ng/mL Coagulation 03/20/17 03/21/17 Range/Units 23:20 06:11 PT 10.7 (9.0-12.0) sec APTT 24.3 59.7 H (22.0-30.0) sec CBC 03/20/17 Range/Units 23:20 WBC 11.1 H (3.8-10.6) k/uL RBC 4.22 (3.80-5.40) m/uL Hgb 14.5 (11.4-16.0) gm/dL Hct 43.0 (34.0-46.0) % Plt Count 395 (150-450) k/uL Comprehensive Metabolic Panel 03/20/17 Range/Units 23:20 Sodium 132 L (137-145) mmol/L Potassium 4.0 (3.5-5.1) mmol/L Chloride 99 (98-107) mmol/L Carbon Dioxide 20 L (22-30) mmol/L BUN 12 (7-17) mg/dL Creatinine 0.70 (0.52-1.04) mg/dL Glucose 150 H (74-99) mg/dL Calcium 9.9 (8.4-10.2) mg/dL AST 34 (14-36) U/L ALT 39 (9-52) U/L Alkaline Phosphatase 81 (38-126) U/L Total Protein 6.8 (6.3-8.2) g/dL Albumin 4.6 (3.5-5.0) g/dL Current Medications Generic Name Dose Route Start Last Admin Trade Name Freq PRN Reason Stop Dose Admin Acetaminophen 650 mg 03/21/17 09:18 Tylenol Tab PO Q4HR PRN Fever and/ or Mild Pain Alprazolam 0.5 mg 03/21/17 09:00 Xanax PO BID [facility] Amlodipine Besylate 5 mg 03/21/17 21:00 Norvasc PO HS [facility] Aspirin 325 mg 03/22/17 09:00 Aspirin PO DAILY [facility] Atorvastatin Calcium 10 mg 03/21/17 21:00 Lipitor PO HS [facility] Baclofen 5 mg 03/21/17 09:00 Lioresal PO BID [facility] Carvedilol 12.5 mg 03/21/17 09:00 Coreg PO BID [facility] Cholecalciferol 2,000 unit 03/21/17 09:00 Vitamin D3 PO DAILY [facility] Clonidine HCl 1 patch 03/21/17 11:00 Catapres-Tts 0.1mg Patch TRANSDERM Q7D [facility] Doxycycline Monohydrate 100 mg 03/21/17 21:00 Vibramycin PO HS [facility] Duloxetine HCl 30 mg 03/21/17 21:00 Cymbalta PO HS [facility] Folic Acid 1 mg 03/21/17 09:00 Folic Acid PO DAILY [facility] Sodium Chloride 1,000 mls @ 20 mls/hr 03/21/17 01:00 03/21/17 04:02 Saline 0.9% IV 20 mls/hr .Q24H SUDEEP Administration Multivitamins 1 each 03/21/17 09:00 Theragran PO DAILY [facility] Nitroglycerin 0.4 mg 03/21/17 00:54 Nitrostat SUBLINGUAL Q5M PRN Chest Pain Sodium Bicarbonate 325 mg 03/21/17 09:00 Sodium Bicarbonate Tab PO DAILY [facility] Temazepam 30 mg 03/21/17 21:00 Restoril PO HS [facility] Vitamin E 400 unit 03/21/17 09:00 Vitamin E PO DAILY [facility] Intake and Output 03/20/17 03/21/17 03/21/17 22:59 06:59 14:59 Intake Total 280 Balance 280 Intake: Intake, IV Titration 280 Amount Heparin Sodium,Porcine/ 120 D5w Pmx 25,000 unit In Dextrose/Water 1 500ml. bag @ 12 UNITS/KG/HR 15. 45 mls/hr IV .Q24H SUDEEP Rx #:[id number] Sodium Chloride 0.9% 1, 160 000 ml @ 20 mls/hr IV . Q24H SUDEEP Rx#:[id number] Other: Voiding Method Bedpan Bedpan # Voids 1 Weight 64.41 kg 58 kg 03/20/17 23:20 03/20/17 23:20 - Imaging and Cardiology Echo: report reviewed - EKG Interpretation EKG: sinus rhythm, normal ST/T, no acute changes (When compared with EKG from ) Assessment and Plan Plan: ASSESSMENT 1. Chest pain, not indicative of acute coronary syndrome.. 2. Chronic stable CAD. 3. Hypertension. 4. Hyperlipidemia. 5. Syncopal episode. PLAN We will repeat echocardiogram. Dr. Pérez will place a loop recorder tomorrow. Risks and benefits explained to the patient with verbalized understanding. Questions answered. Patient is understanding of the procedure and fully prepared to move forward as recommended. Nurse Practitioner note has been reviewed, I agree with a documented findings and plan of care. Patient was seen and examined.
[2017-03-21] MEDS ORDERED: TEMAZEPAM 30 MG CAP PO SCH (21:00)
[2017-03-21] MEDS ORDERED: amLODIPine 5 MG TAB PO SCH (21:00)
[2017-03-21] MEDS ORDERED: ATORVASTATIN 10 MG TAB PO SCH (21:00)
[2017-03-21] MEDS ORDERED: DOXYCYCLINE 50 MG CAP PO SCH (21:00)
[2017-03-21] MEDS ORDERED: DULoxetine HCL 30 MG CAPSULE.DR PO SCH (21:00)
[2017-03-22] MEDS: SODIUM BICARBONATE TAB 650 MG TAB PO SCH (06:38)
[2017-03-22] MEDS: VITAMIN E (DL,TOCOPHERYL ACET) 400 UNIT CAP PO SCH (06:39)
[2017-03-22] MEDS: MULTIVITAMINS, THERA 1 EACH TAB PO SCH (06:40)
[2017-03-22] MEDS: FOLIC ACID 1 MG TAB PO SCH (06:40)
[2017-03-22] MEDS: CHOLECALCIFEROL 1,000 UNIT TAB PO SCH (06:40)
[2017-03-22] MEDS: BACLOFEN 10 MG TAB PO SCH (06:41)
[2017-03-22] MEDS: CARVEDILOL 12.5 MG TAB PO SCH (06:41)
[2017-03-22] MEDS: SODIUM CHLORIDE 0.9% 1,000 ML IV SCH ×2 (06:42→17:10)
[2017-03-22 07:30] VITALS: RESP 16
[2017-03-22 07:40] LABS: Cholesterol 163 mg/dL (<200); HDL Cholesterol 56 mg/dL (40-60); Triglycerides 193 mg/dL (<150)
--- NOTE | 2017-03-22 08:20 | ECHOF ---
Referral Reason:chest pain MEASUREMENTS -------- HEIGHT: 160.0 cm WEIGHT: 57.6 kg BP: 149/81 RVIDd: 3.4 cm (< 3.3) IVSd: 1.3 cm (0.6 - 1.1) LVIDd: 3.6 cm (3.9 - 5.3) LVPWd: 1.2 cm (0.6 - 1.1) IVSs: 1.7 cm LVIDs: 2.6 cm LVPWs: 1.8 cm LA Diam: 2.5 cm (2.7 - 3.8) LAESV Index (A-L): 32.53 ml/m Ao Diam: 3.5 cm (2.0 - 3.7) AV Cusp: 1.7 cm (1.5 - 2.6) MV EXCURSION: 14.230 mm (> 18.000) MV EF SLOPE: 91 mm/s (70 - 150) EPSS: 1.0 cm MV E Hayes: 0.67 m/s MV DecT: 197 ms MV A Hayes: 1.25 m/s MV E/A Ratio: 0.53 RAP: 5.00 mmHg RVSP: 36.61 mmHg FINDINGS -------- This was a technically difficult study with suboptimal apical views. The left ventricular size is normal. There is mild concentric left ventricular hypertrophy. Overall left ventricular systolic function is low-normal with, an EF between 50 - 55 %. The right ventricle is mildly enlarged. LA is midly dilated 29-33ml/m2. The right atrium is normal in size. 1.5mg of Definity was utilized for enhancement of images Interatrial septal aneurysm. Aortic valve is trileaflet and is mildly thickened. Mild mitral annular calcification present. Mild tricuspid regurgitation present. There is mild pulmonary hypertension. The right ventricular systolic pressure, as measured by Doppler, is 36.61mmHg. The pulmonic valve was not well visualized. The aortic root size is normal. Normal inferior vena cava with normal inspiratory collapse consistent with estimated right atrial pressure of 5 mmHg. There is a small pericardial effusion is located near the right ventricle. CONCLUSIONS -------- 1. This was a technically difficult study with suboptimal apical views. 2. Aortic valve is trileaflet and is mildly thickened. 3. Mild mitral annular calcification present. 4. Mild tricuspid regurgitation present. 5. There is mild pulmonary hypertension. 6. The right ventricular systolic pressure, as measured by Doppler, is 36.61mmHg. 7. The pulmonic valve was not well visualized. 8. The aortic root size is normal. 9. Normal inferior vena cava with normal inspiratory collapse consistent with estimated right atrial pressure of 5 mmHg. 10. There is a small pericardial effusion is located near the right ventricle. 11. The left ventricular size is normal. 12. There is mild concentric left ventricular hypertrophy. 13. Overall left ventricular systolic function is low-normal with, an EF between 50 - 55 %. 14. The right ventricle is mildly enlarged. 15. LA is midly dilated 29-33ml/m2. 16. The right atrium is normal in size. 17. 1.5mg of Definity was utilized for enhancement of images 18. Interatrial septal aneurysm. INTELLIGENCE CLERK: Quynh Mckee RDCS [facility] CAMPUSShirley
[2017-03-22] MEDS ORDERED: ASPIRIN 325 MG TAB PO SCH (09:00)
[2017-03-22] MEDS ORDERED: LIDOCAINE 2% INJ 20 MG/ML (20 ML MDV) ONE (10:16)
[2017-03-22] MEDS ORDERED: ceFAZolin 2 GM in SODIUM CHLORIDE 0.9% 100 ML IVPB STA (10:21)
[2017-03-22] MEDS ORDERED: SODIUM CHLORIDE 0.9% 500 ML IV ONE (10:26)
[2017-03-22] MEDS ORDERED: fentaNYL (PF) 50 MCG/ML 2 ML AMP ONE (10:43)
[2017-03-22] MEDS ORDERED: fentaNYL (PF) 50 MCG/ML 2 ML AMP IV ONE (10:45)
[2017-03-22] MEDS ORDERED: LIDOCAINE 2% INJ 20 MG/ML SQ ONE (10:53)
--- NOTE | 2017-03-22 11:15 | P.PCN ---
Date of Procedure: 03/22/17 Preoperative Diagnosis: Dizziness, palpitations and near syncope Postoperative Diagnosis: The same Procedure(s) Performed: Insertion of the loop recorder Implants: Indications for Procedure: Operative Findings: Description of Procedure: This 81-year-old female is admitted to the hospital with complaints of dizziness , palpitation and near syncope. Patient was evaluated by Dr. VC Jarquin. A loop recorder and chest was requested. Patient was brought to the lab in a fasting state. She was prepped and draped in the usual fashion. The skin in the third intercostal space on the left side was infiltrated with lidocaine. An incision was made after patient was given conscious sedation. The loop recorder was inserted in the standard fashion. Patient tolerated the procedure well. The signal strength was about 0.2. Stable segments are noted. The incision was closed with a single suture. Patient tolerated the procedure well. Final impression: 61 implantation of loop recorder. Conscious sedation: Patient was given 25 g of fentanyl for sedation. The duration is 20 minutes. Plan, patient is being transferred to the floor. Patient will be discharged later today
--- NOTE | 2017-03-22 12:14 | P.DS ---
Providers Date of admission: 03/21/17 00:54 Expected date of discharge: 03/22/17 Attending physician: Frederic Santamaria Consults: 03/21/17 00:54 Consult Physician Urgent Consulting Provider: Noel Pérez Consult Reason/Comments: Chest pain Do you want consulting provider notified?: Yes [facility] Course: This is an 81-year-old female patient of Dr. 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 David with past history of CVA, non-Hodgkin's lymphoma, chronic back pain, hypertension, hyperlipidemia. Patient presented complaining of shortness of breath with sweats along with left-sided chest pain that was squeezing and grabbing which started while she was working on a water pump. She stopped what she was doing and called EMS. She denies any nausea or vomiting. She states she has had 3 total episodes of the same with activity in the past few weeks. She denies any trauma to her chest. Patient was placed on the observation unit. Echocardiogram reveals mild tricuspid regurgitation, mild pulmonary hypertension, small pericardial effusion, mild concentric left ventricular hypertrophy, EF 50-55%, LV mildly dilated at 29-33. Cardiology has scheduled her for loop recorder to be placed tomorrow. 03/22: Cardiology has started the patient on a Catapres patch which they want for discharge. Patient underwent loop recorder placement today with Dr. Pérez. Patient is cleared for discharge home today. Patient lives at home with her daughter and there is concern the daughter needs more help taking care of her and case management is following. Discharge diagnoses: 1. Chest pain, chest wall pain reproducible 2. CAD 3. Hypertension 4. Hyperlipidemia 5. Anxiety attacks 6. Chronic rosacea Discharge plan: Return home Impression and plan of care have been directed as dictated by the signing physician. Caitlyn Bryan nurse practitioner acting as scribe for signing physician. Patient Condition at Discharge: Good Plan - Discharge Summary New Discharge Prescriptions: New cloNIDine 0.1 MG/24HR PATCH [Catapres-TTS] 1 patch TRANSDERM Q7D #4 patch Continue Simvastatin [Zocor] 10 mg PO HS Temazepam [Restoril] 30 mg PO HS Doxycycline Hyclate [Vibramycin] 100 mg PO HS ALPRAZolam [Xanax] 0.5 mg PO BID Cholecalciferol [Vitamin D3] 2,000 unit PO DAILY Aspirin 81 mg PO DAILY Multivitamin/Iron/Folic Acid [Centrum Complete Multivit Tab] 1 tab PO DAILY DULoxetine HCL [Cymbalta] 30 mg PO HS Baclofen [Lioresal] 5 mg PO BID Sodium Bicarbonate 325 mg PO DAILY Fish Oil/Dha/Epa [Fish Oil 1,200 mg Fish Oil] 1 cap PO DAILY Vitamin E (Dl,Tocopheryl Acet) [Vitamin E] 400 unit PO DAILY Folic Acid 0.8 mg PO DAILY Carvedilol [Coreg] 12.5 mg PO BID amLODIPine [Norvasc] 5 mg PO HS Nitroglycerin Sl Tabs [Nitrostat] 0.4 mg PO Q5M PRN PRN Reason: Chest Pain Discharge Medication List ALPRAZolam [Xanax] 0.5 mg PO BID 11/11/14 [History] Aspirin 81 mg PO DAILY 11/11/14 [History] Cholecalciferol [Vitamin D3] 2,000 unit PO DAILY 11/11/14 [History] Doxycycline Hyclate [Vibramycin] 100 mg PO HS 11/11/14 [History] Multivitamin/Iron/Folic Acid [Centrum Complete Multivit Tab] 1 tab PO DAILY [History] Simvastatin [Zocor] 10 mg PO HS 11/11/14 [History] Temazepam [Restoril] 30 mg PO HS 11/11/14 [History] DULoxetine HCL [Cymbalta] 30 mg PO HS 11/12/14 [History] Baclofen [Lioresal] 5 mg PO BID 12/17/15 [History] Fish Oil/Dha/Epa [Fish Oil 1,200 mg Fish Oil] 1 cap PO DAILY 12/18/15 [History] Folic Acid 0.8 mg PO DAILY 12/18/15 [History] Sodium Bicarbonate 325 mg PO DAILY 12/18/15 [History] Vitamin E (Dl,Tocopheryl Acet) [Vitamin E] 400 unit PO DAILY 12/18/15 [History] Carvedilol [Coreg] 12.5 mg PO BID 01/20/16 [History] amLODIPine [Norvasc] 5 mg PO HS 01/20/16 [History] Nitroglycerin Sl Tabs [Nitrostat] 0.4 mg PO Q5M PRN 03/20/17 [History] cloNIDine 0.1 MG/24HR PATCH [Catapres-TTS] 1 patch TRANSDERM Q7D #4 patch [Rx] Follow up Appointment(s)/Referral(s): Kristie David MD [STAFF PHYSICIAN] - 1 Week Marcsu Garrett MD [Primary Care Provider] - 1 Week Discharge Disposition: HOME WITH HOME HEALTH SERVICES
[2017-03-22 14:23] LABS: Potassium 4.1 mmol/L (3.5-5.1)
[2017-03-22 15:23] VITALS: BP 171/90; PULSE 75; TEMP 96.9
[2017-03-22] MEDS: ALPRAZolam 0.5 MG TAB PO SCH (17:10)
== END 2017-03-22 16:29 | disposition home health service (06) | DRG 261 ==
LOC: EC 22:36 → INTOOBSV 03-21 00:54 → OBSVTOIN 03-21 00:54 → 3OBS 03-21 00:54 → OBSVTOIN 03-22 11:09
PROVIDERS: ADMIT Internal Medicine; ATTEND Internal Medicine
PROC: 0JH602Z Insertion of Monitoring Device into Chest Subcutaneous Tissue and Fascia, Open Approach (ICD-10-PCS; principal; 2017-03-22 11:00)
DX: R07.89 Other chest pain (principal); I31.3 Pericardial effusion (noninflammatory); I25.10 Atherosclerotic heart disease of native coronary artery without angina pectoris; I11.0 Hypertensive heart disease with heart failure; F03.90 Unspecified dementia, unspecified severity, without behavioral disturbance, psychotic disturbance, mood disturbance, and anxiety; I50.9 Heart failure, unspecified; I27.2 Other secondary pulmonary hypertension; I36.1 Nonrheumatic tricuspid (valve) insufficiency; E78.5 Hyperlipidemia, unspecified; F32.9 Major depressive disorder, single episode, unspecified; R00.2 Palpitations; R06.02 Shortness of breath; R53.1 Weakness; R55 Syncope and collapse; G89.29 Other chronic pain; M54.9 Dorsalgia, unspecified; R93.1 Abnormal findings on diagnostic imaging of heart and coronary circulation; L71.9 Rosacea, unspecified; R41.3 Other amnesia; R11.0 Nausea; F41.9 Anxiety disorder, unspecified; M19.90 Unspecified osteoarthritis, unspecified site; Z79.2 Long term (current) use of antibiotics; Z90.49 Acquired absence of other specified parts of digestive tract; Z79.82 Long term (current) use of aspirin; Z79.899 Other long term (current) drug therapy; Z80.3 Family history of malignant neoplasm of breast; Z86.73 Personal history of transient ischemic attack (TIA), and cerebral infarction without residual deficits; Z96.652 Presence of left artificial knee joint; Z86.14 Personal history of Methicillin resistant Staphylococcus aureus infection; Z91.041 Radiographic dye allergy status; Z88.5 Allergy status to narcotic agent; Z91.013 Allergy to seafood; Z90.710 Acquired absence of both cervix and uterus; Z82.49 Family history of ischemic heart disease and other diseases of the circulatory system; Z98.42 Cataract extraction status, left eye; Z98.41 Cataract extraction status, right eye; Z85.72 Personal history of non-Hodgkin lymphomas; Z87.19 Personal history of other diseases of the digestive system
CPT/HCPCS: 33282; 36415; 71020; 80051; 80053; 80061; 82550; 82553; 83880; 84484; 85025; 85379; 85610; 85730; 93005; 93306; 93350

== ENCOUNTER 2019-01-14 14:59 | Observation (INO) | payer MEDICARE ==
[2019-01-14] MEDS ORDERED: SODIUM CHLORIDE 0.9% 500 ML 500 ML IV ONE (15:20)
[2019-01-14 15:39] LABS: Basophils % (A) 0 %; Eosinophils # (A) 0.1 k/uL (0-0.7); Eosinophils % (A) 0 %; HCT 44.2 % (34.0-46.0); HGB 14.8 gm/dL (11.4-16.0); Lymphocytes # (A) 1.9 k/uL (1.0-4.8); Lymphocytes % (A) 17 %; MCH 33.2 pg (25.0-35.0); MCHC 33.5 g/dL (31.0-37.0); MCV 98.9 fL (80.0-100.0); Mean Platelet Volume 7.2; Monocytes # (A) 0.6 k/uL (0-1.0); Monocytes % (A) 5 %; Neutrophils # (A) 8.6 k/uL (1.3-7.7); Neutrophils % (A) 76 %; Platelet Count 362 k/uL (150-450); RBC 4.47 m/uL (3.80-5.40); WBC 11.4 k/uL (3.8-10.6)
[2019-01-14 15:43] LABS: Glucose,Whole Blood 150 mg/dL (75-99)
--- NOTE | 2019-01-14 15:45 | ED ---
General Adult HPI - General Chief complaint: Altered Mental Status Stated complaint: Alterd Mental Status Time Seen by Provider: 01/14/19 15:19 Source: patient, RN notes reviewed, old records reviewed Mode of arrival: EMS Limitations: no limitations - History of Present Illness Initial comments: 83-year-old female history of dementia presents for evaluation of confusion and altered mental status. "EMS patient is normally alert and oriented 4. Throu ghout the day today she has been somewhat more confused. She is alert and oriented x 2 time my evaluation. She does seem confused. Unknown her exact degree of dementia. Patient denies any physical complaints time my evaluation. There is no reported vomiting or diarrhea. No reported fever. No pain complaints. She does take CBD oil, and states she took this this morning which is not atypical. - Related Data Home Medications Medication Instructions Recorded Confirmed Cholecalciferol [Vitamin D3 (25 2,000 unit PO DAILY 11/11/14 01/14/19 Mcg = 1000 Iu)] Doxycycline Hyclate [Vibramycin] 100 mg PO DAILY 11/11/14 01/14/19 Simvastatin [Zocor] 10 mg PO HS 11/11/14 01/14/19 Temazepam [Restoril] 30 mg PO HS PRN 11/11/14 01/14/19 DULoxetine HCL [Cymbalta] 30 mg PO DAILY 11/12/14 01/14/19 Baclofen [Lioresal] 5 mg PO BID 12/17/15 01/14/19 Folic Acid 0.8 mg PO DAILY 12/18/15 01/14/19 Sodium Bicarbonate 162.5 mg PO BID 12/18/15 01/14/19 Nitroglycerin Sl Tabs [Nitrostat] 0.4 mg PO Q5M PRN 03/20/17 01/14/19 Aspirin EC [Ecotrin Low Dose] 81 mg PO DAILY 01/14/19 01/14/19 Carvedilol [Coreg] 25 mg PO BID 01/14/19 01/14/19 Furosemide [Lasix] 20 mg PO BID 01/14/19 01/14/19 Potassium Chloride 10 meq PO DAILY 01/14/19 01/14/19 amLODIPine [Norvasc] 2.5 mg PO DAILY 01/14/19 01/14/19 Allergies Allergy/AdvReac Type Severity Reaction Status Date / Time codeine Allergy Rash/Hives Verified 01/14/19 15:45 iodine Allergy Rash/Hives Verified 01/14/19 15:45 shellfish derived [Shellfish] Allergy Rash/Hives Verified 01/14/19 15:45 Review of Systems ROS Statement: Those systems with pertinent positive or pertinent negative responses have been documented in the HPI. ROS Other: All systems not noted in ROS Statement are negative. 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 per dr Reyna History of Any Multi-Drug Resistant Organisms: MRSA Date of last positivie culture/infection: 2013 MDRO Source:: unknown Past Surgical History: Appendectomy, Hysterectomy, Orthopedic Surgery, Tonsillectomy Additional Past Surgical History / Comment(s): left knee replacement, breast biopsy which were benign - daughter states they there was some type of metal implanted in both breasts, bilat cataracts removed Past Anesthesia/Blood Transfusion Reactions: Previous Problems w/ Anesthesia Additional Past Anesthesia/Blood Transfusion Reaction / Comment(s): severe confusion for 2 weeks after surgery Past Psychological History: Depression Smoking Status: Never smoker Past Alcohol Use History: None Reported, Occasional Past Drug Use History: None Reported - Past Family History Father Additional Family Medical History / Comment(s): Patient does not know anything about her father. Brother(s) Additional Family Medical History / Comment(s): Patient has one half-brother with no history of coronary artery disease. Mother History Unknown: Yes Family Medical History: Cancer Additional Family Medical History / Comment(s): Mother in her 70s with history of heart murmur and Breast Cancer General Exam Limitations: no limitations General appearance: alert, in no apparent distress Head exam: Present: atraumatic, normocephalic Eye exam: Present: normal appearance, PERRL ENT exam: Present: mucous membranes dry Neck exam: Present: normal inspection. Absent: tenderness, meningismus Respiratory exam: Present: normal lung sounds bilaterally. Absent: respiratory distress, wheezes Cardiovascular Exam: Present: regular rate, normal rhythm GI/Abdominal exam: Present: soft. Absent: distended, tenderness, guarding, rebound Extremities exam: Present: normal inspection, normal capillary refill Neurological exam: Present: alert, CN II-XII intact. Absent: oriented X3, motor sensory deficit Psychiatric exam: Present: normal affect, normal mood Skin exam: Present: warm, dry, intact. Absent: cyanosis, diaphoretic Course Vital Signs 01/14/19 01/14/19 15:02 17:52 Temperature 98.6 F 98.6 F Pulse Rate 78 76 Respiratory 20 20 Rate Blood Pressure 157/83 141/75 O2 Sat by Pulse 96 97 Oximetry EKG Findings - EKG Comments: EKG Findings:: EKG: Normal sinus rhythm rate of 72, VA interval 158, QRS duration 84, QTC 470, no ST segment elevation Medical Decision Making - Medical Decision Making 83 -year-old female presenting for evaluation of confusion and altered mental status. Patient has nonfocal exam, moving all extremity. CT negative for intracranial hemorrhage or mass effect. Chest x-ray negative for focal pneumonia. She has mild leukocytosis 11.4, sodium is low at 131, she was ketones in her urine as well as 8 red blood cells. Consistent with dehydration and concern for UTI. Urine culture is pending. She will be admitted for IV antibiotics, IV hydration, as well as neurology consultation. Case is discussed with admitting physician. - Lab Data Result diagrams: 01/14/19 15:08 01/14/19 15:08 Lab Results 01/14/19 01/14/19 01/14/19 Range/Units 15:08 15:08 15:08 WBC 11.4 H (3.8-10.6) k/uL RBC 4.47 (3.80-5.40) m/uL Hgb 14.8 (11.4-16.0) gm/dL Hct 44.2 (34.0-46.0) % MCV 98.9 (80.0-100.0) fL MCH 33.2 (25.0-35.0) pg MCHC 33.5 (31.0-37.0) g/dL RDW 15.0 (11.5-15.5) % Plt Count 362 (150-450) k/uL Neutrophils % 76 % Lymphocytes % 17 % Monocytes % 5 % Eosinophils % 0 % Basophils % 0 % Neutrophils # 8.6 H (1.3-7.7) k/uL Lymphocytes # 1.9 (1.0-4.8) k/uL Monocytes # 0.6 (0-1.0) k/uL Eosinophils # 0.1 (0-0.7) k/uL Basophils # 0.0 (0-0.2) k/uL PT 10.6 (9.0-12.0) sec INR 1.0 (<1.2) APTT 23.1 (22.0-30.0) sec Sodium 131 L (137-145) mmol/L Potassium 3.6 (3.5-5.1) mmol/L Chloride 92 L (98-107) mmol/L Carbon Dioxide 28 (22-30) mmol/L Anion Gap 11 mmol/L BUN 14 (7-17) mg/dL Creatinine 0.59 (0.52-1.04) mg/dL Est GFR (CKD-EPI)AfAm >90 (>60 ml/min/1.73 sqM) Est GFR (CKD-EPI)NonAf 86 (>60 ml/min/1.73 sqM) Glucose 147 H (74-99) mg/dL POC Glucose (mg/dL) (75-99) mg/dL POC Glu Truck Crane Operator ID Calcium 10.3 H (8.4-10.2) mg/dL Total Bilirubin 1.2 (0.2-1.3) mg/dL AST 37 H (14-36) U/L ALT 20 (9-52) U/L Alkaline Phosphatase 64 (38-126) U/L Troponin I (0.000-0.034) ng/mL Total Protein 7.2 (6.3-8.2) g/dL Albumin 4.6 (3.5-5.0) g/dL Urine Color Urine Appearance (Clear) Urine pH (5.0-8.0) Ur Specific [place] (1.001-1.035) Urine Protein (Negative) Urine Glucose (UA) (Negative) Urine Ketones (Negative) Urine Blood (Negative) Urine Nitrite (Negative) Urine Bilirubin (Negative) Urine Urobilinogen (<2.0) mg/dL Ur Leukocyte Esterase (Negative) Urine RBC (0-5) /hpf Urine WBC (0-5) /hpf Urine Mucus (None) /hpf Urine Opiates Screen (NotDetected) Ur Oxycodone Screen (NotDetected) Urine Methadone Screen (NotDetected) Ur Propoxyphene Screen (NotDetected) Ur Barbiturates Screen (NotDetected) U Tricyclic Antidepress (NotDetected) Ur Phencyclidine Scrn (NotDetected) Ur Amphetamines Screen (NotDetected) U Methamphetamines Scrn (NotDetected) U Benzodiazepines Scrn (NotDetected) Urine Cocaine Screen (NotDetected) U Marijuana (THC) Screen (NotDetected) 01/14/19 01/14/19 01/14/19 Range/Units 15:08 15:40 15:41 WBC (3.8-10.6) k/uL RBC (3.80-5.40) m/uL Hgb (11.4-16.0) gm/dL Hct (34.0-46.0) % MCV (80.0-100.0) fL MCH (25.0-35.0) pg MCHC (31.0-37.0) g/dL RDW (11.5-15.5) % Plt Count (150-450) k/uL Neutrophils % % Lymphocytes % % Monocytes % % Eosinophils % % Basophils % % Neutrophils # (1.3-7.7) k/uL Lymphocytes # (1.0-4.8) k/uL Monocytes # (0-1.0) k/uL Eosinophils # (0-0.7) k/uL Basophils # (0-0.2) k/uL PT (9.0-12.0) sec INR (<1.2) APTT (22.0-30.0) sec Sodium (137-145) mmol/L Potassium (3.5-5.1) mmol/L Chloride (98-107) mmol/L Carbon Dioxide (22-30) mmol/L Anion Gap mmol/L BUN (7-17) mg/dL Creatinine (0.52-1.04) mg/dL Est GFR (CKD-EPI)AfAm (>60 ml/min/1.73 sqM) Est GFR (CKD-EPI)NonAf (>60 ml/min/1.73 sqM) Glucose (74-99) mg/dL POC Glucose (mg/dL) 150 H (75-99) mg/dL POC Glu Truck Crane Operator ID Radha Fontenot Calcium (8.4-10.2) mg/dL Total Bilirubin (0.2-1.3) mg/dL AST (14-36) U/L ALT (9-52) U/L Alkaline Phosphatase (38-126) U/L Troponin I 0.023 (0.000-0.034) ng/mL Total Protein (6.3-8.2) g/dL Albumin (3.5-5.0) g/dL Urine Color Light Yellow Urine Appearance Clear (Clear) Urine pH 6.5 (5.0-8.0) Ur Specific [place] 1.011 (1.001-1.035) Urine Protein 1+ H (Negative) Urine Glucose (UA) Negative (Negative) Urine Ketones 1+ H (Negative) Urine Blood Small H (Negative) Urine Nitrite Negative (Negative) Urine Bilirubin Negative (Negative) Urine Urobilinogen <2.0 (<2.0) mg/dL Ur Leukocyte Esterase Negative (Negative) Urine RBC 8 H (0-5) /hpf Urine WBC <1 (0-5) /hpf Urine Mucus Rare H (None) /hpf Urine Opiates Screen Not Detected (NotDetected) Ur Oxycodone Screen Not Detected (NotDetected) Urine Methadone Screen Not Detected (NotDetected) Ur Propoxyphene Screen Not Detected (NotDetected) Ur Barbiturates Screen Not Detected (NotDetected) U Tricyclic Antidepress Not Detected (NotDetected) Ur Phencyclidine Scrn Not Detected (NotDetected) Ur Amphetamines Screen Not Detected (NotDetected) U Methamphetamines Scrn Not Detected (NotDetected) U Benzodiazepines Scrn Detected H (NotDetected) Urine Cocaine Screen Not Detected (NotDetected) U Marijuana (THC) Screen Not Detected (NotDetected) Disposition Clinical Impression: Altered mental status, Hyponatremia, Dehydration Disposition: [facility] Condition: Stable Is patient prescribed a controlled substance at d/c from ED?: No Referrals: Marcus Garrett MD [Primary Care Provider] - 1-2 days Decision to Admit Reason: Admit from EC Decision Date: 01/14/19 Decision Time: 19:06
[2019-01-14 15:54] LABS: ALT 20 U/L (9-52); AST 37 U/L (14-36); Albumin 4.6 g/dL (3.5-5.0); Alkaline Phosphatase 64 U/L (38-126); Anion Gap 11 mmol/L; Blood Urea Nitrogen 14 mg/dL (7-17); Calcium 10.3 mg/dL (8.4-10.2); Carbon Dioxide 28 mmol/L (22-30); Chloride 92 mmol/L (98-107); Glucose 147 mg/dL (74-99); Potassium 3.6 mmol/L (3.5-5.1); Sodium 131 mmol/L (137-145); Total Bilirubin 1.2 mg/dL (0.2-1.3); Total Protein 7.2 g/dL (6.3-8.2)
[2019-01-14 16:08] LABS: Partial Thromboplastin Time 23.1 sec (22.0-30.0); Prothrombin Time 10.6 sec (9.0-12.0)
[2019-01-14 16:09] LABS: Appearance,Urine Clear (Clear); Bilirubin,Urine Negative (Negative); Blood,Urine Small (Negative); Color,Urine Light Yellow; Glucose,Urine (UA) Negative (Negative); Ketones,Urine 1+ (Negative); Leukocyte Esterase,Urine Negative (Negative); Mucus,Urine Rare /hpf; Nitrite,Urine Negative (Negative); PH, Urine 6.5 (5.0-8.0); Protein,Urine 1+ (Negative); RBC,Urine 8 /hpf (0-5); Specific Gravity,Urine 1.011 (1.001-1.035); Urobilinogen,Urine <2.0 mg/dL (<2.0); WBC,Urine <1 /hpf (0-5)
[2019-01-14 16:15] LABS: Amphetamine Screen,Urine Not Detected (NotDetected); Barbiturate Screen,Urine Not Detected (NotDetected); Benzodiazepines Screen,Urine Detected (NotDetected); Cocaine Screen,Urine Not Detected (NotDetected); Methadone Screen, Urine Not Detected (NotDetected); Opiate Screen,Urine Not Detected (NotDetected); Oxycodone Screen, Urine Not Detected (NotDetected); Phencyclidine Screen,Urine Not Detected (NotDetected); Tricyclic Antidepressant,Urine Not Detected (NotDetected); Urn Cannabinoid Scrn Not Detected (NotDetected)
--- NOTE | 2019-01-14 16:27 | XR ---
EXAMINATION TYPE: XR chest 2V DATE OF EXAM: 01/14/2019 COMPARISON: Prior chest x-ray 03/20/2017 HISTORY: Altered mental status, history of stage IV non-Hodgkin's lymphoma TECHNIQUE: Frontal and lateral views of the chest are obtained. FINDINGS: There is no focal air space opacity, pleural effusion, or pneumothorax seen. The cardiac silhouette size is stable. The osseous structures are intact. There is an overlying loop recorder o bryan the left heart. Eventration of the right hemidiaphragm is stable. Surgical clips present in the u pper abdomen. IMPRESSION: No acute cardiopulmonary process. Stable cardiomegaly.
--- NOTE | 2019-01-14 16:55 | CT ---
EXAMINATION TYPE: CT brain wo con DATE OF EXAM: 01/14/2019 COMPARISON: CT brain 11/11/2014 HISTORY: AMS, pt feeling nauseated CT DLP: 1083.4 mGycm Automated exposure control for dose reduction was used. Helical imaging through the brain FINDINGS: There is no hemorrhage or hydrocephalus. Cerebral vascular calcifications are present. Cortical atrop hy is stable. White matter low-attenuation shows a similar appearance to prior exam. The calvarium is intact. Paranasal sinuses and mastoid air cells are well aerated. IMPRESSION: STABLE EXAM, NO ACUTE ABNORMALITY. AGE-RELATED CHANGES OF ATROPHY AND PROBABLE CHRONIC SMALL VESSEL I SCHEMIA.
[2019-01-14] MEDS ORDERED: cefTRIAXone IN SWFI 1,000 MG/10 ML SYRINGE IVP STA (19:00)
[2019-01-14] MEDS ORDERED: ACETAMINOPHEN TAB 325 MG TAB PO PRN (19:02)
[2019-01-14] MEDS ORDERED: NALOXONE 0.4 MG/ML 1 ML VIAL IV PRN (19:02)
[2019-01-14] MEDS: SODIUM CHLORIDE 0.9% 1,000 ML IV SCH (19:07)
[2019-01-14] MEDS ORDERED: LORazepam 2 MG/ML INJ IV STA (19:35)
[2019-01-14 20:56] VITALS: BMI 23.8
[2019-01-15] MEDS ORDERED: NITROGLYCERIN SL TABS 0.4 MG TAB SUBLINGUAL PRN (01:18)
[2019-01-15] MEDS: TEMAZEPAM 30 MG CAP PO PRN ×2 (02:32→21:26)
[2019-01-15] MEDS: ATORVASTATIN 10 MG TAB PO SCH ×2 (02:32→21:25)
[2019-01-15] MEDS: BACLOFEN 10 MG TAB PO SCH ×3 (02:32→21:25)
[2019-01-15] MEDS: SODIUM CHLORIDE 0.9% 1,000 ML IV SCH ×2 (08:39→17:37)
[2019-01-15] MEDS ORDERED: FUROSEMIDE 20 MG TAB PO SCH (09:00)
[2019-01-15] MEDS ORDERED: DOXYCYCLINE 100 MG CAP PO SCH (09:00)
[2019-01-15] MEDS: DULoxetine HCL 30 MG CAPSULE.DR PO SCH (09:46)
[2019-01-15] MEDS: CARVEDILOL 12.5 MG TAB PO SCH ×2 (09:46→17:25)
[2019-01-15] MEDS: amLODIPine 2.5 MG TAB PO SCH (09:47)
[2019-01-15] MEDS: SODIUM BICARBONATE TAB 650 MG TAB PO SCH ×2 (09:47→21:26)
[2019-01-15] MEDS: ASPIRIN 81 MG PO SCH (09:47)
[2019-01-15] MEDS: POTASSIUM CHLORIDE ER 10 MEQ TAB.ER.PRT PO SCH (09:47)
[2019-01-15] MEDS: CHOLECALCIFEROL 1,000 UNIT TAB PO SCH (09:47)
[2019-01-15] MEDS: FOLIC ACID 1 MG TAB PO SCH (09:47)
--- NOTE | 2019-01-15 14:15 | P.HPIM ---
History of Present Illness H&P Date: 01/15/19 Chief Complaint: Confusion HISTORY AND PHYSICAL AND DISCHARGE SUMMARY: This is an 83-year-old female patient of Dr. Garrett with past medical history of dementia, hypertension, hyperlipidemia, TIA, non-Hodgkin's lymphoma in remission, stomach tumor which apparently is benign followed by Dr. Reyna. The patient came into [facility] emergency center due to confusion and altered mental status. She doesn't have known dementia. No nausea vomiting. No fever no chills. Patient is seen in the observation unit unable to give a reliable history and understands that she is confused. Patient presented to [facility] emergency center for evaluation, she was afebrile, vital signs stable, white count 11.4, creatinine 0.59. Blood sugar was 147, sodium 131 chloride 92. Potassium was 3.6. Hemoglobin 14.8. She underwent a CAT scan of the brain that was negative for intracranial hemorrhage or mass effect. Chest x-ray negative. Urinalysis revealed small amount of blood, nitrate and leukoesterase negative. Urine drug screen was positive for benzodiazepines, troponin 0.023. Patient was provided 1 dose of IV Rocephin, started on IV fluids and placed on the observation unit and consult placed with neurology. We will plan to continue IV fluids at 75 mL per hour and await input from neurology. Patient will be started on Aricept 5 mg daily. Review of Systems All systems: negative Constitutional: Reports weakness, Denies chills, Denies fatigue, Denies fever, Denies lethargy, Denies malaise, Denies poor appetite Eyes: denies blurred vision, denies pain Ears, nose, mouth and throat: Denies dysphagia, Denies headache, Denies sore throat, Denies vertigo Cardiovascular: Denies chest pain, Denies dyspnea on exertion, Denies edema, Denies leg edema, Denies shortness of breath, Denies syncope Respiratory: Denies cough, Denies cough with sputum, Denies dyspnea, Denies excessive sputum, Denies hemoptysis, Denies home oxygen Gastrointestinal: Denies abdominal pain, Denies diarrhea, Denies loss of appetit e, Denies nausea, Denies vomiting Genitourinary: Denies dysuria, Denies hematuria Musculoskeletal: Reports muscle weakness, Denies frequent falls, Denies myalgias Integumentary: Denies pruritus, Denies rash, Denies wounds Neurological: Reports confusion, Denies numbness, Denies weakness Psychiatric: Denies anxiety, Denies depression Endocrine: Denies fatigue, Denies weight change 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 per dr Reyna History of Any Multi-Drug Resistant Organisms: MRSA Date of last positivie culture/infection: 2013 MDRO Source:: unknown Past Surgical History: Appendectomy, Hysterectomy, Orthopedic Surgery, Tonsillectomy Additional Past Surgical History / Comment(s): left knee replacement, breast biopsy which were benign - daughter states they there was some type of metal implanted in both breasts, bilat cataracts removed Past Anesthesia/Blood Transfusion Reactions: Previous Problems w/ Anesthesia Additional Past Anesthesia/Blood Transfusion Reaction / Comment(s): severe confusion for 2 weeks after surgery Past Psychological History: Depression Additional Psychological History / Comment(s): loss short term memory Smoking Status: Never smoker Past Alcohol Use History: None Reported, Occasional Past Drug Use History: None Reported - Past Family History Father Additional Family Medical History / Comment(s): Patient does not know anything about her father. Brother(s) Additional Family Medical History / Comment(s): Patient has one half-brother with no history of coronary artery disease. Mother History Unknown: Yes Family Medical History: Cancer Additional Family Medical History / Comment(s): Mother in her 70s with his tory of heart murmur and Breast Cancer Medications and Allergies Home Medications Medication Instructions Recorded Confirmed Type Cholecalciferol [Vitamin D3 (25 2,000 unit PO DAILY 11/11/14 01/14/19 History Mcg = 1000 Iu)] Doxycycline Hyclate [Vibramycin] 100 mg PO DAILY 11/11/14 01/14/19 History Simvastatin [Zocor] 10 mg PO HS 11/11/14 01/14/19 History Temazepam [Restoril] 30 mg PO HS PRN 11/11/14 01/14/19 History DULoxetine HCL [Cymbalta] 30 mg PO DAILY 11/12/14 01/14/19 History Baclofen [Lioresal] 5 mg PO BID 12/17/15 01/14/19 History Folic Acid 0.8 mg PO DAILY 12/18/15 01/14/19 History Sodium Bicarbonate 162.5 mg PO BID 12/18/15 01/14/19 History Nitroglycerin Sl Tabs [Nitrostat] 0.4 mg PO Q5M PRN 03/20/17 01/14/19 History Aspirin EC [Ecotrin Low Dose] 81 mg PO DAILY 01/14/19 01/14/19 History Carvedilol [Coreg] 25 mg PO BID 01/14/19 01/14/19 History Furosemide [Lasix] 20 mg PO BID 01/14/19 01/14/19 History Potassium Chloride 10 meq PO DAILY 01/14/19 01/14/19 History amLODIPine [Norvasc] 2.5 mg PO DAILY 01/14/19 01/14/19 History Allergies Allergy/AdvReac Type Severity Reaction Status Date / Time codeine Allergy Rash/Hives Verified 01/14/19 15:45 iodine Allergy Rash/Hives Verified 01/14/19 15:45 shellfish derived [Shellfish] Allergy Rash/Hives Verified 01/14/19 15:45 Physical Exam Vitals: Vital Signs Temp Pulse Pulse Resp BP BP BP 01/15/19 07:25 97.8 F 77 18 127/67 01/15/19 03:16 98.7 F 79 18 129/62 01/15/19 03:14 18 01/14/19 23:53 70 18 01/14/19 20:20 98.2 F 70 18 146/75 01/14/19 20:00 17 01/14/19 19:45 98.0 F 75 18 109/65 01/14/19 19:18 17 01/14/19 17:52 98.6 F 76 20 141/75 01/14/19 15:02 98.6 F 78 20 157/83 Pulse Ox 01/15/19 07:25 95 01/15/19 03:16 95 01/15/19 03:14 01/14/19 23:53 01/14/19 20:20 93 L 01/14/19 20:00 01/14/19 19:45 97 01/14/19 19:18 01/14/19 17:52 97 01/14/19 15:02 96 Intake and Output 01/14/19 01/15/19 01/15/19 22:59 06:59 14:59 Other: # Voids 1 1 Weight 63.049 kg Gen: This is an 83-year-old female. Patient is resting in bed and appears to be comfortable and in no acute distress. HEENT: Head is atraumatic, normocephalic. Pupils equal, round. Sclerae is anicte shantelle. NECK: Supple. No JVD. No lymphadenopathy. No thyromegaly. LUNGS: Clear to auscultation. No wheezes or rhonchi. No intercostal retractions. HEART: Regular rate and rhythm. Systolic ejection murmur. ABDOMEN: Soft. Bowel sounds are present. No masses. No tenderness. EXTREMITIES: No pedal edema. No calf tenderness. NEUROLOGICAL: Patient is awake, alert and oriented x1. Cranial nerves 2 through 12 are grossly intact. Results CBC & Chem 7: 01/14/19 15:08 01/14/19 15:08 Labs: Abnormal Lab Results - Last 24 Hours (Table) 01/14/19 01/14/19 01/14/19 Range/Units 15:08 15:08 15:40 WBC 11.4 H (3.8-10.6) k/uL Neutrophils # 8.6 H (1.3-7.7) k/uL Sodium 131 L (137-145) mmol/L Chloride 92 L (98-107) mmol/L Glucose 147 H (74-99) mg/dL POC Glucose (mg/dL) (75-99) mg/dL Calcium 10.3 H (8.4-10.2) mg/dL AST 37 H (14-36) U/L Urine Protein 1+ H (Negative) Urine Ketones 1+ H (Negative) Urine Blood Small H (Negative) Urine RBC 8 H (0-5) /hpf Urine Mucus Rare H (None) /hpf U Benzodiazepines Scrn Detected H (NotDetected) 01/14/19 Range/Units 15:41 WBC (3.8-10.6) k/uL Neutrophils # (1.3-7.7) k/uL Sodium (137-145) mmol/L Chloride (98-107) mmol/L Glucose (74-99) mg/dL POC Glucose (mg/dL) 150 H (75-99) mg/dL Calcium (8.4-10.2) mg/dL AST (14-36) U/L Urine Protein (Negative) Urine Ketones (Negative) Urine Blood (Negative) Urine RBC (0-5) /hpf Urine Mucus (None) /hpf U Benzodiazepines Scrn (NotDetected) Microbiology - Last 24 Hours (Table) 01/14/19 17:02 Urine Culture - Preliminary Urine,Catheterized Thrombosis Risk Factor Assmnt - Choose All That Apply Each Risk Factor Represents 3 Points: Age 75 years or older Other congenital or acquired thrombophilia - If yes, enter type in comment: No Thrombosis Risk Factor Assessment Total Risk Factor Score: 3 Thrombosis Risk Factor Assessment Level: Moderate Risk Assessment and Plan Plan: 1. Mild hyponatremia secondary to dehydration. Continue IV fluids at 0.9 normal saline 75 mL per hour and hold Lasix. Repeat BMP in the morning. 2. Mental status changes secondary to dehydration and worsening dementia. Patient will be started on Aricept. Consult with neurology. 3. Dementia, possibly Alzheimer type. Continue folic acid 1 mg daily 4. Hyperlipidemia. Continue atorvastatin. 5. Hypertension. Continue Coreg 25 mg twice daily, Norvasc 2.5 mg daily, hold Lasix. 6. Recurrent depression. Continue Cymbalta 30 mg daily. 7. Chronic rosacea on doxycycline. Patient placed in the observation unit. Discharge plan: Impression and plan of care have been directed as dictated by the signing physician. Caitlyn Bryan nurse practitioner acting as scribe for signing physician.
[2019-01-15] MEDS ORDERED: DONEPEZIL 5 MG TAB PO SCH (21:00)
--- NOTE | 2019-01-15 21:14 | P.CNNES ---
History of Present Illness Consult date: 01/15/19 Reason for Consult: Altered mental status History of Present Illness: Patient is a 83-year-old female who came to the hospital for feeling weakness, heart bothering, heart fluttering, and chest pain. She states he has CHF also has non-Hodgkin's lymphoma stage IV, currently in remission. Neurology has been consulted first memory issues. Patient states that she has some history of word finding problems, occasionally, but has gotten worse in the last couple months. She feels her memory is getting worse. She forgets days, time, but still has not gotten lost. Denies any hallucinations. Denies any focal symptoms. Patient has been started on Aricept 5 mg daily in the hospital. Patient denies any history of tobacco use, drinks 1 glass of wine occasionally. Denies any hypertension or diabetes. Patient denies any family history of d ementia. Patient underwent computed tomography scan of the head, which revealed no acute process. Chest x-ray shows stable cardiomegaly EKG shows normal sinus rhythm. Her blood test shows a BBC 11.4 hemoglobin 14.8, platelets 362. PT/PTT is normal. Sodium 131, potassium 3.6, renal functions normal. Her AST is mildly elevated 37 but normal ALT. UA showed no signs of infection. Review of Systems As above. All other review of systems negative. 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 per dr Reyna History of Any Multi-Drug Resistant Organisms: MRSA Date of last positivie culture/infection: 2013 MDRO Source:: unknown Past Surgical History: Appendectomy, Hysterectomy, Orthopedic Surgery, Tonsillectomy Additional Past Surgical History / Comment(s): left knee replacement, breast biopsy which were benign - daughter states they there was some type of metal implanted in both breasts, bilat cataracts removed Past Anesthesia/Blood Transfusion Reactions: Previous Problems w/ Anesthesia Additional Past Anesthesia/Blood Transfusion Reaction / Comment(s): severe conf usion for 2 weeks after surgery Past Psychological History: Depression Additional Psychological History / Comment(s): loss short term memory Smoking Status: Never smoker Past Alcohol Use History: None Reported, Occasional Past Drug Use History: None Reported - Past Family History Father Additional Family Medical History / Comment(s): Patient does not know anything about her father. Brother(s) Additional Family Medical History / Comment(s): Patient has one half-brother with no history of coronary artery disease. Mother History Unknown: Yes Family Medical History: Cancer Additional Family Medical History / Comment(s): Mother in her 70s with history of heart murmur and Breast Cancer Medications and Allergies Home Medications Medication Instructions Recorded Confirmed Type Cholecalciferol [Vitamin D3 (25 2,000 unit PO DAILY 11/11/14 01/14/19 History Mcg = 1000 Iu)] Doxycycline Hyclate [Vibramycin] 100 mg PO DAILY 11/11/14 01/14/19 History Simvastatin [Zocor] 10 mg PO HS 11/11/14 01/14/19 History Temazepam [Restoril] 30 mg PO HS PRN 11/11/14 01/14/19 History DULoxetine HCL [Cymbalta] 30 mg PO DAILY 11/12/14 01/14/19 History Baclofen [Lioresal] 5 mg PO BID 12/17/15 01/14/19 History Folic Acid 0.8 mg PO DAILY 12/18/15 01/14/19 History Sodium Bicarbonate 162.5 mg PO BID 12/18/15 01/14/19 History Nitroglycerin Sl Tabs [Nitrostat] 0.4 mg PO Q5M PRN 03/20/17 01/14/19 History Aspirin EC [Ecotrin Low Dose] 81 mg PO DAILY 01/14/19 01/14/19 History Carvedilol [Coreg] 25 mg PO BID 01/14/19 01/14/19 History Furosemide [Lasix] 20 mg PO BID 01/14/19 01/14/19 History Potassium Chloride 10 meq PO DAILY 01/14/19 01/14/19 History amLODIPine [Norvasc] 2.5 mg PO DAILY 01/14/19 01/14/19 History Allergies Allergy/AdvReac Type Severity Reaction Status Date / Time codeine Allergy Rash/Hives Verified 01/14/19 15:45 iodine Allergy Rash/Hives Verified 01/14/19 15:45 shellfish derived [Shellfish] Allergy Rash/Hives Verified 01/14/19 15:45 Physical Examination - Vital Signs Vital Signs: Vital Signs Temp Pulse Resp BP BP Pulse Ox 01/15/19 19:14 97.6 F 77 14 128/62 98 01/15/19 16:00 97.7 F 78 16 94/55 91 L 01/15/19 15:06 77 18 01/15/19 11:49 77 18 01/15/19 08:00 77 18 01/15/19 07:25 97.8 F 77 18 127/67 95 01/15/19 03:16 98.7 F 79 18 129/62 95 01/15/19 03:14 18 01/14/19 23:53 70 18 Intake and Output 01/15/19 01/15/19 01/15/19 06:59 14:59 22:59 Intake Total 240 Balance 240 Intake: Oral 240 Other: # Voids 1 1 On examination patient is an elderly female, in no distress. She is alert and awake. She states it is spring season, but couldn't tell the month. She thinks is November, or December. She knows that she is in the hospital but does not know the name. He knows that she is in [facility] in [facility]. She thinks it's , although actually is Monday. 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 There is no carotid bruit or murmur heard. S1 and S2 audible. Her speech and language functions are normal. Attention and concentration fund of knowledge adequate. Sometimes she is word finding problem. Patient has positive palmomental reflex bilaterally, negative visuospatial apraxia. Clock drawing test was performed and appeared normal. On cranial nerve examination pupils are round and reacting, visual arnold are full, face is symmetric, tongue protrudes the midline, palatal elevation and sensation normal muscle strength is normal no ataxia. Reflexes are symmetric plantars downgoing. Sensory touch is normal. Tone and bulk of muscles normal. Results - Laboratory Findings CBC and BMP: 01/14/19 15:08 01/14/19 15:08 Abnormal Lab Findings: Abnormal Labs 01/14/19 01/14/19 01/14/19 15:08 15:08 15:40 WBC 11.4 H Neutrophils # 8.6 H Sodium 131 L Chloride 92 L Glucose 147 H POC Glucose (mg/dL) Calcium 10.3 H AST 37 H Urine Protein 1+ H Urine Ketones 1+ H Urine Blood Small H Urine RBC 8 H Urine Mucus Rare H U Benzodiazepines Scrn Detected H 01/14/19 15:41 WBC Neutrophils # Sodium Chloride Glucose POC Glucose (mg/dL) 150 H Calcium AST Urine Protein Urine Ketones Urine Blood Urine RBC Urine Mucus U Benzodiazepines Scrn Assessment and Plan Assessment: * Probable mild cognitive impairment versus early Alzheimer's dementia. * History of non-Hodgkin's lymphoma, stage IV, currently in remission. * CHF. Plan: * Agree with starting Aricept 5 mg daily for now. After 1 month, the dose can be increased to 10 mg daily. * We will check B12, folate, TSH. * Patient is otherwise neurologically clear for discharge.
[2019-01-16] MEDS: SODIUM CHLORIDE 0.9% 1,000 ML IV SCH (03:01)
[2019-01-16 04:48] LABS: Folate, Serum >24.0 ng/mL
[2019-01-16 08:08] VITALS: BP 109/62; PULSE 90; RESP 18; TEMP 97.8
[2019-01-16 08:26] LABS: Anion Gap 8 mmol/L; Blood Urea Nitrogen 19 mg/dL (7-17); Calcium 9.1 mg/dL (8.4-10.2); Carbon Dioxide 26 mmol/L (22-30); Chloride 104 mmol/L (98-107); Glucose 138 mg/dL (74-99); Potassium 3.2 mmol/L (3.5-5.1); Sodium 138 mmol/L (137-145)
--- NOTE | 2019-01-16 08:27 | P.DS ---
Providers Date of admission: 01/14/19 19:04 Expected date of discharge: 01/16/19 Attending physician: Junito Marcos Consults: 01/14/19 19:03 Consult Physician Routine Consulting Provider: Orestes Mccracken Consult Reason/Comments: Altered Mental status Do you want consulting provider notified?: Yes Primary care physician: [place] Hospital Course: This is an 83-year-old female patient of Dr. Garrett with past medical history of dementia, hypertension, hyperlipidemia, TIA, non-Hodgkin's lymphoma in remission, stomach tumor which apparently is benign followed by Dr. Reyna. The patient came into [facility] emergency center due to confusion and altered mental status. She doesn't have known dementia. No nausea vomiting. No fever no chills. Patient is seen in the observation unit unable to give a reliable history and understands that she is confused. Patient presented to [facility] emergency center for evaluation, she was afebrile, vital signs stable, white count 11.4, creatinine 0.59. Blood sugar was 147, sodium 131 chloride 92. Potassium was 3.6. Hemoglobin 14.8. She underwent a CAT scan of the brain that was negative for intracranial hemorrhage or mass effect. Chest x-ray negative. Urinalysis revealed small amount of blood, nitrate and leukoesterase negative. Urine drug screen was positive for benzodiazepines, troponin 0.023. Patient was provided 1 dose of IV Rocephin, started on IV fluids and placed on the observation unit and consult placed with neurology. We will plan to continue IV fluids at 75 mL per hour and await input from neurology. Patient will be started on Aricept 5 mg daily. 01/16: Patient has been seen by Dr. Mccracken and he agrees with starting Aricept and plan to increase after 1 month to 10 mg daily. B12, folate and TSH to be checked. Patient was cleared for discharge home. TSH 3.180, folate greater than 24 and vitamin B12 649. Repeat electrolytes today reveals sodium 138, potassium 3.2 and rhythm. Placed prior to discharge, chloride 104, CO2 26, BUN 19 creatinine 0.67. Patient's son is at the bedside and ready to take her home. Patient states that she is feeling much better from yesterday but still concerned regarding her memory. Patient is currently residing at [facility] and will return there with increased care. Patient will be discharged home today in stable condition. Discharge diagnoses: 1. Mild hyponatremia secondary to dehydration. 2. Mental status changes secondary to dehydration and worsening dementia. 3. Dementia, possibly Alzheimer type. 4. Hyperlipidemia. 5. Hypertension. 6. Recurrent depression. 7. Chronic rosacea Discharge plan: Return to [facility] Impression and plan of care have been directed as dictated by the signing physician. Caitlyn Bryan nurse practitioner acting as scribe for signing physician. Patient Condition at Discharge: Good Plan - Discharge Summary Discharge Rx Participant: Yes New Discharge Prescriptions: New Donepezil [Aricept] 5 mg PO HS #30 tab Continue Simvastatin [Zocor] 10 mg PO HS Temazepam [Restoril] 30 mg PO HS PRN PRN Reason: Insomnia Doxycycline Hyclate [Vibramycin] 100 mg PO DAILY Cholecalciferol [Vitamin D3 (25 Mcg = 1000 Iu)] 2,000 unit PO DAILY DULoxetine HCL [Cymbalta] 30 mg PO DAILY Baclofen [Lioresal] 5 mg PO BID Sodium Bicarbonate 162.5 mg PO BID Folic Acid 0.8 mg PO DAILY Nitroglycerin Sl Tabs [Nitrostat] 0.4 mg PO Q5M PRN PRN Reason: Chest Pain amLODIPine [Norvasc] 2.5 mg PO DAILY Aspirin EC [Ecotrin Low Dose] 81 mg PO DAILY Carvedilol [Coreg] 25 mg PO BID Potassium Chloride 10 meq PO DAILY Changed Furosemide [Lasix] 20 mg PO DAILY #0 Discharge Medication List Cholecalciferol [Vitamin D3 (25 Mcg = 1000 Iu)] 2,000 unit PO DAILY 11/11/14 [History] Doxycycline Hyclate [Vibramycin] 100 mg PO DAILY 11/11/14 [History] Simvastatin [Zocor] 10 mg PO HS 11/11/14 [History] Temazepam [Restoril] 30 mg PO HS PRN 11/11/14 [History] DULoxetine HCL [Cymbalta] 30 mg PO DAILY 11/12/14 [History] Baclofen [Lioresal] 5 mg PO BID 12/17/15 [History] Folic Acid 0.8 mg PO DAILY 12/18/15 [History] Sodium Bicarbonate 162.5 mg PO BID 12/18/15 [History] Nitroglycerin Sl Tabs [Nitrostat] 0.4 mg PO Q5M PRN 03/20/17 [History] Aspirin EC [Ecotrin Low Dose] 81 mg PO DAILY 01/14/19 [History] Carvedilol [Coreg] 25 mg PO BID 01/14/19 [History] Potassium Chloride 10 meq PO DAILY 01/14/19 [History] amLODIPine [Norvasc] 2.5 mg PO DAILY 01/14/19 [History] Donepezil [Aricept] 5 mg PO HS #30 tab 01/16/19 [Rx] Furosemide [Lasix] 20 mg PO DAILY #0 01/16/19 [Rx] Follow up Appointment(s)/Referral(s): Marcus Garrett MD [Primary Care Provider] - 1 Week Discharge Disposition: HOME WITH HOME HEALTH SERVICES
[2019-01-16] MEDS: BACLOFEN 10 MG TAB PO SCH (09:32)
[2019-01-16] MEDS: ASPIRIN 81 MG PO SCH (09:32)
[2019-01-16] MEDS: DULoxetine HCL 30 MG CAPSULE.DR PO SCH (09:33)
[2019-01-16] MEDS: FOLIC ACID 1 MG TAB PO SCH (09:33)
[2019-01-16] MEDS: CARVEDILOL 12.5 MG TAB PO SCH (09:33)
[2019-01-16] MEDS: SODIUM BICARBONATE TAB 650 MG TAB PO SCH (09:33)
[2019-01-16] MEDS: POTASSIUM CHLORIDE ER 10 MEQ TAB.ER.PRT PO SCH (09:33)
[2019-01-16] MEDS: CHOLECALCIFEROL 1,000 UNIT TAB PO SCH (09:33)
[2019-01-16] MEDS: amLODIPine 2.5 MG TAB PO SCH (09:33)
[2019-01-16] MEDS ORDERED: POTASSIUM CHLORIDE ER 20 MEQ TAB.ER PO STA (13:20)
== END 2019-01-16 14:04 | disposition home health service (06) ==
LOC: EC 14:59 → 1SOBS 19:04
PROVIDERS: ADMIT Internal Medicine; ATTEND Internal Medicine
DX: E86.0 Dehydration (principal); F03.90 Unspecified dementia, unspecified severity, without behavioral disturbance, psychotic disturbance, mood disturbance, and anxiety; E87.1 Hypo-osmolality and hyponatremia; I11.0 Hypertensive heart disease with heart failure; I50.9 Heart failure, unspecified; E78.5 Hyperlipidemia, unspecified; F33.9 Major depressive disorder, recurrent, unspecified; R41.3 Other amnesia; D13.1 Benign neoplasm of stomach; M19.90 Unspecified osteoarthritis, unspecified site; L71.9 Rosacea, unspecified; Z79.82 Long term (current) use of aspirin; Z79.2 Long term (current) use of antibiotics; Z79.899 Other long term (current) drug therapy; Z88.5 Allergy status to narcotic agent; Z91.013 Allergy to seafood; Z91.048 Other nonmedicinal substance allergy status; Z90.710 Acquired absence of both cervix and uterus; Z86.73 Personal history of transient ischemic attack (TIA), and cerebral infarction without residual deficits; Z85.71 Personal history of Hodgkin lymphoma; Z86.14 Personal history of Methicillin resistant Staphylococcus aureus infection; Z90.49 Acquired absence of other specified parts of digestive tract; Z98.42 Cataract extraction status, left eye; Z98.41 Cataract extraction status, right eye; Z98.82 Breast implant status; Z96.652 Presence of left artificial knee joint; Z80.3 Family history of malignant neoplasm of breast; Z82.49 Family history of ischemic heart disease and other diseases of the circulatory system
CPT/HCPCS: 96361 ×4; 96374; 96375; 99285; 36415; 93005; 80053; 80048; 84443; 82607; 82746; 84484; 85025; 85610; 85730; 81001; 80306; 87086; 71046; 70450; G0378 ×3; J2060; J0696

== ENCOUNTER 2019-01-28 20:31 | Observation (INO) | payer MEDICARE ==
[2019-01-28 20:59] LABS: Basophils # (A) 0.1 k/uL (0-0.2); Basophils % (A) 1 %; Eosinophils # (A) 0.3 k/uL (0-0.7); Eosinophils % (A) 2 %; HCT 41.2 % (34.0-46.0); HGB 14.1 gm/dL (11.4-16.0); Lymphocytes # (A) 2.7 k/uL (1.0-4.8); Lymphocytes % (A) 23 %; MCH 34.8 pg (25.0-35.0); MCHC 34.1 g/dL (31.0-37.0); MCV 101.9 fL (80.0-100.0); Macrocytosis Slight; Mean Platelet Volume 7.3; Monocytes # (A) 0.9 k/uL (0-1.0); Monocytes % (A) 8 %; Neutrophils # (A) 7.4 k/uL (1.3-7.7); Neutrophils % (A) 63 %; Platelet Count 402 k/uL (150-450); RBC 4.05 m/uL (3.80-5.40); RDW 15.2 % (11.5-15.5); WBC 11.6 k/uL (3.8-10.6)
[2019-01-28] MEDS ORDERED: NITROGLYCERIN OINT 1 INCH/GM PACKET TOPICAL STA (21:05)
[2019-01-28] MEDS ORDERED: ASPIRIN 81 MG PO STA (21:05)
[2019-01-28 21:07] LABS: Calcium 9.6 mg/dL (8.4-10.2); Magnesium 1.9 mg/dL (1.6-2.3); Total Bilirubin 0.5 mg/dL (0.2-1.3); Total Protein 6.4 g/dL (6.3-8.2)
[2019-01-28 21:16] LABS: Potassium 4.5 mmol/L (3.5-5.1)
[2019-01-28 21:19] LABS: INR 0.9 (<1.2); Partial Thromboplastin Time 22.6 sec (22.0-30.0); Prothrombin Time 9.8 sec (9.0-12.0)
--- NOTE | 2019-01-28 22:08 | ED ---
Chest Pain HPI - General Chief Complaint: Chest Pain Stated Complaint: Difficulty Breathing Time Seen by Provider: 01/28/19 20:59 Source: patient, EMS Mode of arrival: EMS Limitations: no limitations - History of Present Illness Initial Comments: This 83-year-old white female does present with a complaint of some chest pain and shortness of breath. She states that it came on earlier today. The chest pain was more on the left side and a pressure-like nonradiating pain. It is resolved at this time. She states that the shortness of breath was moderate but improved now as well. She was sent here from the [facility]. She denies any known coronary artery disease but does have a history of congestive heart failure and non-Hodgkin's lymphoma. She denies any leg pain or swelling or history of DVT or PE. She denies any previous similar incidents. She does have memory difficulties but family is present and do help with history as well. - Related Data Home Medications Medication Instructions Recorded Confirmed Cholecalciferol [Vitamin D3 (25 2,000 unit PO DAILY 11/11/14 01/28/19 Mcg = 1000 Iu)] Doxycycline Hyclate [Vibramycin] 100 mg PO DAILY 11/11/14 01/28/19 Simvastatin [Zocor] 10 mg PO HS 11/11/14 01/28/19 Temazepam [Restoril] 30 mg PO HS PRN 11/11/14 01/28/19 DULoxetine HCL [Cymbalta] 30 mg PO DAILY 11/12/14 01/28/19 Baclofen [Lioresal] 5 mg PO BID 12/17/15 01/28/19 Folic Acid 0.8 mg PO DAILY 12/18/15 01/28/19 Sodium Bicarbonate 162.5 mg PO BID 12/18/15 01/28/19 Nitroglycerin Sl Tabs [Nitrostat] 0.4 mg PO Q5M PRN 03/20/17 01/28/19 Aspirin EC [Ecotrin Low Dose] 81 mg PO DAILY 01/14/19 01/28/19 Carvedilol [Coreg] 25 mg PO BID 01/14/19 01/28/19 Potassium Chloride 10 meq PO DAILY 01/14/19 01/28/19 amLODIPine [Norvasc] 2.5 mg PO DAILY 01/14/19 01/28/19 Previous Rx's Medication Instructions Recorded Donepezil [Aricept] 5 mg PO HS #30 tab 01/16/19 Furosemide [Lasix] 20 mg PO DAILY #0 01/16/19 Allergies Allergy/AdvReac Type Severity Reaction Status Date / Time codeine Allergy Rash/Hives Verified 01/28/19 20:46 iodine Allergy Rash/Hives Verified 01/28/19 20:46 shellfish derived [Shellfish] Allergy Rash/Hives Verified 01/28/19 20:46 Review of Systems ROS Statement: Those systems with pertinent positive or pertinent negative responses have been documented in the HPI. ROS Other: All systems not noted in ROS Statement are negative. 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 per dr Reyna History of Any Multi-Drug Resistant Organisms: MRSA Date of last positivie culture/infection: 2013 MDRO Source:: unknown Past Surgical History: Appendectomy, Hysterectomy, Orthopedic Surgery, Tonsillectomy Additional Past Surgical History / Comment(s): left knee replacement, breast bi opsy which were benign - daughter states they there was some type of metal implanted in both breasts, bilat cataracts removed Past Anesthesia/Blood Transfusion Reactions: Previous Problems w/ Anesthesia Additional Past Anesthesia/Blood Transfusion Reaction / Comment(s): severe confusion for 2 weeks after surgery Past Psychological History: Depression Smoking Status: Never smoker Past Alcohol Use History: None Reported, Occasional Past Drug Use History: None Reported - Past Family History Father Additional Family Medical History / Comment(s): Patient does not know anything about her father. Brother(s) Additional Family Medical History / Comment(s): Patient has one half-brother with no history of coronary artery disease. Mother History Unknown: Yes Family Medical History: Cancer Additional Family Medical History / Comment(s): Mother in her 70s with history of heart murmur and Breast Cancer General Exam - General Exam Comments Initial Comments: GENERAL: The patient is well nourished and well hydrated. VITAL SIGNS: Heart rate, blood pressure, respiratory rate reviewed as recorded in nurse's notes. EYES: Pupils are round and reactive. Extraocular movements are intact. No conjunctival / lid redness or swelling. ENT: No external evidence of injury, swelling, or ecchymosis. Airway is patent. Throat is clear. NECK: Nontender. No swelling or evidence of injury. No subcutaneous emphysema. Trachea is midline. No thyroid mass. HEART: Regular rate and rhythm. Good peripheral pulses. LUNGS/CHEST: Breath sounds clear and equal bilaterally. No rales, rhonchi, or wheezes. No ecchymosis, subcutaneous emphysema, or tenderness. ABDOMEN: Abdomen soft without tenderness. No palpable masses or organomegaly. No peritoneal signs. No abdominal wall swelling or ecchymosis. EXTREMITIES: No extremity tenderness. Normal muscle tone and function. No thoracolumbar tenderness. NEUROLOGIC: Sensation is grossly intact. Cranial nerve exam reveals face is symmetrical, tongue is midline, speech is clear. SKIN: No abrasions or ecchymosis is noted. No induration or masses noted. PSYCHIATRIC: Alert and pleasant. Limitations: no limitations Course Vital Signs 01/28/19 01/28/19 20:35 20:50 Temperature 98.4 F Pulse Rate 79 Respiratory 20 20 Rate Blood Pressure 152/86 O2 Sat by Pulse 96 Oximetry Chest Pain MDM - MDM The patient was seen and examined. All diagnostics were reviewed. An IV is established and she is placed on a pharmacy technician per diem. The EKG shows a normal sinus rhythm at a rate of 72. There is some minimal artifact but overall no acute abnormalities are identified. The NM intervals 152, QRS duration is 90, and QTc interval is 386. No acute ST-T wave changes noted. The chest x-ray does not show any acute processes per my review with final radiologic review pending. The cardiac profile labs are all essentially within normal limits. She does receive aspirin as well as Nitropaste. The chest x-ray was also read out negative per radiology eventually. The patient is doing well on recheck. Nevertheless, the possibility of acute coronary syndrome certainly is a potential. She and family are agreeable with her being admitted for further evaluation. The case will be discussed with internal medicine in the near future. Disposition Clinical Impression: Chest pain, Unstable angina, Dyspnea, Hypertension Disposition: ADMITTED IP TO THIS [facility] Condition: Good Is patient prescribed a controlled substance at d/c from ED?: No Time of Disposition: 22:48 Decision Date: 01/28/19 Decision Time: 22:48
--- NOTE | 2019-01-28 22:39 | XR ---
EXAMINATION: XR chest 2V DATE AND TIME: 01/28/2019 9:52 PM CLINICAL INDICATION: PHH; Chest Pain TECHNIQUE: Departmental protocol COMPARISON: 01/14/2019 FINDINGS: The lungs are clear. The pleural spaces are negative. The cardiac silhouette is mildly enlarged. The remainder of the mediastinal silhouette is unremarkabl e. The skeletal structures and soft tissues are negative for acute findings. IMPRESSION: NO ACUTE PROCESS.
[2019-01-28] MEDS ORDERED: NITROGLYCERIN SL TABS 0.4 MG TAB SUBLINGUAL PRN (22:53)
[2019-01-29] MEDS ORDERED: TEMAZEPAM 30 MG CAP PO PRN (01:00)
[2019-01-29] MEDS: NITROGLYCERIN OINT 1 INCH/GM PACKET TOPICAL SCH ×2 (01:07→03:57)
[2019-01-29] MEDS ORDERED: ATORVASTATIN 10 MG TAB PO SCH ×2 (01:08→21:00)
[2019-01-29] MEDS ORDERED: DONEPEZIL 5 MG TAB PO SCH ×2 (01:15→21:00)
[2019-01-29] MEDS: SODIUM BICARBONATE TAB 650 MG TAB PO SCH ×2 (01:21→10:21)
[2019-01-29] MEDS: CARVEDILOL 12.5 MG TAB PO SCH ×2 (01:22→10:36)
[2019-01-29] MEDS: BACLOFEN 10 MG TAB PO SCH ×2 (01:22→10:36)
[2019-01-29 02:56] LABS: Cholesterol 184 mg/dL (<200); HDL Cholesterol 45 mg/dL (40-60); LDL Cholesterol,Calculated 91 mg/dL (0-99); Triglycerides 239 mg/dL (<150)
[2019-01-29 07:36] VITALS: RESP 18
[2019-01-29] MEDS ORDERED: FOLIC ACID 1 MG TAB PO SCH (09:00)
[2019-01-29] MEDS ORDERED: ASPIRIN 325 MG TAB PO SCH (09:00)
[2019-01-29] MEDS ORDERED: LOSARTAN 25 MG TAB PO SCH (09:00)
[2019-01-29] MEDS ORDERED: CARVEDILOL 12.5 MG TAB PO SCH (09:00)
[2019-01-29] MEDS ORDERED: DULoxetine HCL 30 MG CAPSULE.DR PO SCH (09:00)
[2019-01-29] MEDS ORDERED: FUROSEMIDE 20 MG TAB PO SCH (09:00)
[2019-01-29] MEDS ORDERED: CHOLECALCIFEROL 1,000 UNIT TAB PO SCH (09:00)
[2019-01-29] MEDS ORDERED: SODIUM BICARBONATE TAB 650 MG TAB PO SCH (09:00)
[2019-01-29] MEDS ORDERED: POTASSIUM CHLORIDE ER 10 MEQ TAB.ER.PRT PO SCH (09:00)
[2019-01-29] MEDS ORDERED: ENOXAPARIN 40 MG/0.4 ML SYRINGE SQ SCH (09:00)
[2019-01-29] MEDS ORDERED: amLODIPine 2.5 MG TAB PO SCH (09:00)
[2019-01-29] MEDS ORDERED: BACLOFEN 10 MG TAB PO SCH (09:00)
[2019-01-29] MEDS ORDERED: ISOSORBIDE MONONITRATE ER 30 MG TAB.ER.24H PO SCH (09:00)
[2019-01-29] MEDS: DOXYCYCLINE 100 MG CAP PO SCH (10:28)
--- NOTE | 2019-01-29 10:35 | P.CRDCN ---
History of Present Illness History of present illness: This is a pleasant 83-year-old female past medical history significant for mild non-obstructive coronary artery disease per catheterization in 2016, hypertension, dyslipidemia, cardiomyopathy and memory impairment. She follows in the office with Joann. She is a poor historian, information is obtained from the chart and the nursing staff as well as the patient. She states she had a sharp pain under her left breast yesterday while at home that radiated to her jaw bilaterally. She doesn't recall if there was any radiation to the back, arm or neck. She doesn't recall any associated symptoms or aggravating/alleviating factors. ED noted indicated she came in from [facility] with pressure like pain in the left precordial region that was not radiating anywhere that was relieved by the time she came to ED. She is seen and examined laying completely flat in bed in no acute distress. She denies current chest pain, shortness of breath, palpitations, dizziness, nausea, vomiting or diaphoresis. EKG reveals sinus mechanism no acute ST or T wave abnormalities noted. Chest x-ray is negative for an acute cardiopulmonary process. Laboratory data reviewed, WBC 11.6, hemoglobin 14.1, platelets 402, d-dimer 0.45, sodium 139, potassium 4.5, creatinine 0.78, magnesium 1.9, cardiac enzymes negative 3, LDL 91 HDL 45. Current cardiac medications include amlodipine 2.5 mg daily, simvastatin 10 mg daily, Lasix 20 mg daily, carvedilol 25 mg twice a day and aspirin 81 mg daily. Most recent echocardiogram obtained in the office reveals impaired LV systolic function with ejection fraction 40%. Catheterization performed in 2016 revealed the left main without significant obstructive disease, LAD with no obstructive disease, circumflex no obstructive disease, the first OM has mild plaque and mild calcifications but there is stenosis 10-20%, RCA with no obstructive disease. At the time of my exam: CONSTITUTIONAL: Denies fever. Denies chills. EYES: Denies blurred vision. Denies vision changes. Denies eye pain. EARS, NOSE, MOUTH & THROAT: Denies headache. Denies sore throat. Denies ear pain. CARDIOVASCULAR: Denies chest pain. Denies shortness of breath. Denies orthopnea. Denies PND. Denies palpitations. RESPIRATORY: Denies cough. GASTROINTESTINAL: Denies abdominal pain. Denies diarrhea. Denies constipation. Denies nausea. Denies vomiting. MUSCULOSKELETAL: Denies myalgias. INTEGUMENTARY: Denies pruitis. Denies rash. NEUROLOGIC: Denies numbness. Denies tingling. Denies weakness. PSYCHIATRIC: Denies anxiety. Denies depression. ENDOCRINE: Denies fatigue. Denies weight change. Denies polydipsia. Denies polyurina. GENITOURINARY: Denies burning, hematuria or urgency with micturation. HEMATOLOGIC: Denies history of anemia. Denies bleeding. Blood pressure 171/77 heart rate 64 afebrile maintaining oxygen saturation on room air GENERAL: This is a 83-year-old female in no apparent distress at the time of my examination. HEENT: Head is atraumatic, normocephalic. Pupils are equal, round. Sclerae anicteric. Conjunctivae are clear. Mucous membranes of the mouth are moist. Neck is supple. There is no jugular venous distention. No carotid bruit is heard. LUNGS: Clear to auscultation no wheezes, rales or rhonchi. No chest wall tenderness is noted on palpation or with deep breathing. HEART: Regular rate and rhythm without murmurs, rubs or gallops. S1 and S2 heard. ABDOMEN: Soft, nontender. Bowel sounds are heard. No organomegaly noted. EXTREMITIES: No evidence of peripheral edema and no calf tenderness noted. VASCULAR: Radial and dorsalis pedis pulses palpated, no evidence of clubbing. NEUROLOGIC: Patient is awake, alert and oriented x3. ASSESSMENT Chest pain, atypical for angina. An acute coronary event has been ruled out. Hypertension, uncontrolled Dyslipidemia Non-ischemic cardiomyopathy Memory impairment PLAN An acute coronary event has been ruled out. Discontinue nitropaste. Echocardiogram has been obtained and will be reviewed. Recommend optimizing her medication profile by initiating on losartan 25 mg daily and Imdur 30 mg daily. Increase atorvastatin to 20 mg daily. Discontinue amlodipine. Increase activity and ambulation in the halls. Assess for exertional chest discomfort. If she remains chest pain-free she may be discharged home to follow-up with Dr. David in the office in 2 weeks. Thank you kindly for this consultation. Nurse Practitioner note has been reviewed, I agree with a documented findings and plan of care. Patient was seen and examined. 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 per dr Reyna History of Any Multi-Drug Resistant Organisms: MRSA Date of last positivie culture/infection: 07/28/09 MDRO Source:: unknown Past Surgical History: Appendectomy, Hysterectomy, Orthopedic Surgery, Tonsillectomy Additional Past Surgical History / Comment(s): left knee replacement, breast biopsy which were benign - daughter states they there was some type of metal implanted in both breasts, bilat cataracts removed Past Anesthesia/Blood Transfusion Reactions: Previous Problems w/ Anesthesia Additional Past Anesthesia/Blood Transfusion Reaction / Comment(s): severe confusion for 2 weeks after surgery Smoking Status: Never smoker - Past Family History Father Additional Family Medical History / Comment(s): Patient does not know anything about her father. Brother(s) Additional Family Medical History / Comment(s): Patient has one half-brother with no history of coronary artery disease. Mother History Unknown: Yes Family Medical History: Cancer Additional Family Medical History / Comment(s): Mother in her 70s with his tory of heart murmur and Breast Cancer Medications and Allergies Home Medications Medication Instructions Recorded Confirmed Type RX: Cholecalciferol [Vitamin D3 2,000 unit PO DAILY 11/11/14 01/29/19 History (25 Mcg = 1000 Iu)] RX: Doxycycline Hyclate 100 mg PO DAILY 11/11/14 01/29/19 History [Vibramycin] RX: Simvastatin [Zocor] 10 mg PO HS 11/11/14 01/29/19 History RX: Temazepam [Restoril] 30 mg PO HS PRN 11/11/14 01/29/19 History RX: DULoxetine HCL [Cymbalta] 30 mg PO DAILY 11/12/14 01/29/19 History RX: Baclofen [Lioresal] 5 mg PO BID 12/17/15 01/29/19 History RX: Folic Acid 0.8 mg PO DAILY 12/18/15 01/29/19 History RX: Sodium Bicarbonate 162.5 mg PO BID 12/18/15 01/29/19 History RX: Nitroglycerin Sl Tabs 0.4 mg PO Q5M PRN 03/20/17 01/29/19 History [Nitrostat] RX: Aspirin EC [Ecotrin Low Dose] 81 mg PO DAILY 01/14/19 01/29/19 History RX: Carvedilol [Coreg] 25 mg PO BID 01/14/19 01/29/19 History RX: Potassium Chloride 10 meq PO DAILY 01/14/19 01/29/19 History RX: amLODIPine [Norvasc] 2.5 mg PO DAILY 01/14/19 01/29/19 History RX: Donepezil [Aricept] 5 mg PO HS #30 tab 01/16/19 01/29/19 Rx RX: Furosemide [Lasix] 20 mg PO DAILY #0 01/16/19 01/29/19 Rx Allergies Allergy/AdvReac Type Severity Reaction Status Date / Time codeine Allergy Rash/Hives Verified 01/29/19 00:41 iodine Allergy Rash/Hives Verified 01/29/19 00:41 shellfish derived [Shellfish] Allergy Rash/Hives Verified 01/29/19 00:41 Physical Exam Vitals: Vital Signs Temp Pulse Pulse Resp BP BP Pulse Ox 01/29/19 08:40 95 01/29/19 07:05 97.6 F 64 18 171/77 95 01/29/19 03:36 16 01/29/19 03:35 98.1 F 71 16 124/63 97 01/29/19 01:58 16 01/29/19 00:37 97.9 F 81 16 156/81 96 01/28/19 23:36 74 20 158/78 97 01/28/19 20:50 20 01/28/19 20:35 98.4 F 79 20 152/86 96 Intake and Output 01/28/19 01/29/19 01/29/19 22:59 06:59 14:59 Intake Total 20 Balance 20 Intake: Amount of Fluid Infused ( 20 ml) Other: # Voids 1 Weight 63.04 kg Results 01/28/19 20:39 01/28/19 20:39 Cardiac Enzymes 01/28/19 01/28/19 01/29/19 Range/Units 20:39 20:39 02:20 AST 29 (14-36) U/L Troponin I <0.012 <0.012 (0.000-0.034) ng/mL 01/29/19 Range/Units 08:58 AST (14-36) U/L Troponin I <0.012 (0.000-0.034) ng/mL Coagulation 01/28/19 Range/Units 20:39 PT 9.8 (9.0-12.0) sec APTT 22.6 (22.0-30.0) sec Lipids 01/29/19 Range/Units 02:20 Triglycerides 239 H (<150) mg/dL Cholesterol 184 (<200) mg/dL HDL Cholesterol 45 (40-60) mg/dL CBC 01/28/19 Range/Units 20:39 WBC 11.6 H (3.8-10.6) k/uL RBC 4.05 (3.80-5.40) m/uL Hgb 14.1 (11.4-16.0) gm/dL Hct 41.2 (34.0-46.0) % Plt Count 402 (150-450) k/uL Comprehensive Metabolic Panel 01/28/19 Range/Units 20:39 Sodium 139 (137-145) mmol/L Potassium 4.5 (3.5-5.1) mmol/L Chloride 108 H (98-107) mmol/L Carbon Dioxide 25 (22-30) mmol/L BUN 17 (7-17) mg/dL Creatinine 0.78 (0.52-1.04) mg/dL Glucose 132 H (74-99) mg/dL Calcium 9.6 (8.4-10.2) mg/dL AST 29 (14-36) U/L ALT 14 (9-52) U/L Alkaline Phosphatase 66 (38-126) U/L Total Protein 6.4 (6.3-8.2) g/dL Albumin 4.0 (3.5-5.0) g/dL Current Medications Generic Name Dose Route Start Last Admin Trade Name Freq PRN Reason Stop Dose Admin Aspirin 325 mg 01/29/19 09:00 Aspirin PO DAILY [facility] Atorvastatin Calcium 20 mg 01/29/19 21:00 Lipitor PO HS SUDEEP Baclofen 5 mg 01/29/19 01:15 01/29/19 01:22 Lioresal PO 5 mg BID SUDEEP Administration Carvedilol 25 mg 01/29/19 01:15 01/29/19 01:22 Coreg PO 25 mg BID [facility] Administration Cholecalciferol 2,000 unit 01/29/19 09:00 Vitamin D3 (25 Mcg = 1000 Iu) PO DAILY [facility] Donepezil HCl 5 mg 01/29/19 01:15 01/29/19 01:21 Aricept PO 5 mg HS SUDEEP Administration Doxycycline Monohydrate 100 mg 01/29/19 09:00 Vibramycin PO DAILY [facility] Duloxetine HCl 30 mg 01/29/19 09:00 Cymbalta PO DAILY [facility] Enoxaparin Sodium 40 mg 01/29/19 09:00 Lovenox SQ DAILY [facility] Folic Acid 1 mg 01/29/19 09:00 Folic Acid PO DAILY SUDEEP Furosemide 20 mg 01/29/19 09:00 Lasix PO DAILY [facility] Isosorbide Mononitrate 30 mg 01/29/19 09:00 Imdur PO DAILY [facility] Losartan Potassium 25 mg 01/29/19 09:00 Cozaar PO DAILY [facility] Nitroglycerin 0.4 mg 01/28/19 22:53 Nitrostat SUBLINGUAL Q5M PRN Chest Pain Potassium Chloride 10 meq 01/29/19 09:00 K-Dur 10 PO DAILY [facility] Sodium Bicarbonate 162.5 mg 01/29/19 01:15 01/29/19 01:21 Sodium Bicarbonate Tab PO 162.5 mg BID SUDEEP Administration Temazepam 30 mg 01/29/19 01:00 01/29/19 01:22 Restoril PO 30 mg HS PRN Administration Insomnia Intake and Output 01/28/19 01/29/19 01/29/19 22:59 06:59 14:59 Intake Total 20 Balance 20 Intake: Amount of Fluid Infused ( 20 ml) Other: # Voids 1 Weight 63.04 kg 01/28/19 20:39 01/28/19 20:39
[2019-01-29 12:10] VITALS: BP 123/69; PULSE 86; TEMP 97.5
--- NOTE | 2019-01-29 13:24 | P.HPIM ---
History of Present Illness H&P Date: 01/29/19 This is an 83-year-old female patient of Dr. Garrett and Dr. David with past medical history of dementia, hypertension, hyperlipidemia, TIA, non- Hodgkin's lymphoma in remission, stomach tumor which apparently is benign followed by Dr. Reyna. The patient was recently here as an observation status on January 14 and treated for altered mental status secondary to mild hyponatremia and dehydration and also worsening dementia possibly Alzheimer's type. Patient was started on Aricept during her hospitalization. She was evaluated by Dr. Thomson and he agreed with starting Aricept and recommended increasing this to 10 mg in 1 month. Patient was discharged back to [facility] with increased care. Patient is now having chest pain and shortness of breath that started yesterday on the left side pressure-like nonradiating. At this time, patient is unable to recall the events of her chest pain and denies any chest pain or shortness of breath at this time. She has ambulated in the hallway without any chest pain or shortness of breath. Patient presented to [facility] emergency center for evaluation, she was afebrile, vital signs stable, WBC 11.6, hemoglobin 14.1, p latelets 402, d-dimer 0.45, sodium 139, potassium 4.5, creatinine 0.78, magnesium 1.9, cardiac enzymes negative 3, LDL 91 HDL 45. Chest x-ray was negative for any acute cardiopulmonary process. EKG was a sinus rhythm with no acute ST-T wave changes. Patient was placed on the observation unit in cardiology consult requested. The patient has subsequently been seen by cardiology and acute coronary syndrome ruled out. Nitropaste was discontinued. Echocardiogram ordered. Losartan 25 mg daily and Imdur 30 mg daily was added as well as atorvastatin was increased to 20 mg daily. Amlodipine was discontinued. Plan was to increase activity and is pain-free patient can follow-up in the office with Dr. David in 2 weeks. Review of Systems All systems: negative Constitutional: Denies anorexia, Denies chills, Denies fatigue, Denies fever, Denies lethargy, Denies malaise, Denies poor appetite, Denies weakness, Denies weight loss Eyes: denies blurred vision, denies pain Ears, nose, mouth and throat: Denies dysphagia, Denies headache, Denies nasal congestion, Denies nasal discharge, Denies sore throat, Denies vertigo Cardiovascular: Reports chest pain, Denies dyspnea on exertion, Denies edema, Denies leg edema, Denies lightheadedness, Denies shortness of breath, Denies syncope Respiratory: Denies cough, Denies cough with sputum, Denies dyspnea, Denies excessive sputum, Denies hemoptysis, Denies home oxygen, Denies wheezing Gastrointestinal: Denies abdominal pain, Denies diarrhea, Denies loss of appetite, Denies nausea, Denies vomiting Genitourinary: Denies dysuria, Denies hematuria Musculoskeletal: Denies frequent falls, Denies gait dysfunction, Denies muscle weakness, Denies myalgias Integumentary: Denies pruritus, Denies rash, Denies wounds Neurological: Denies aphasia, Denies change in mentation, Denies change in speech, Denies numbness, Denies seizures, Denies syncope, Denies vertigo, Denies weakness Psychiatric: Denies anxiety, Denies depression Endocrine: Denies fatigue, Denies weight change 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 per dr Reyna History of Any Multi-Drug Resistant Organisms: MRSA Date of last positivie culture/infection: 07/28/09 MDRO Source:: unknown Past Surgical History: Appendectomy, Hysterectomy, Orthopedic Surgery, Tonsillectomy Additional Past Surgical History / Comment(s): left knee replacement, breast biopsy which were benign - daughter states they there was some type of metal implanted in both breasts, bilat cataracts removed Past Anesthesia/Blood Transfusion Reactions: Previous Problems w/ Anesthesia Additional Past Anesthesia/Blood Transfusion Reaction / Comment(s): severe confusion for 2 weeks after surgery Smoking Status: Never smoker - Past Family History Father Additional Family Medical History / Comment(s): Patient does not know anything about her father. Brother(s) Additional Family Medical History / Comment(s): Patient has one half-brother with no history of coronary artery disease. Mother History Unknown: Yes Family Medical History: Cancer Additional Family Medical History / Comment(s): Mother in her 70s with history of heart murmur and Breast Cancer Medications and Allergies Home Medications Medication Instructions Recorded Confirmed Type Cholecalciferol [Vitamin D3 (25 2,000 unit PO DAILY 11/11/14 01/29/19 History Mcg = 1000 Iu)] Doxycycline Hyclate [Vibramycin] 100 mg PO DAILY 11/11/14 01/29/19 History Temazepam [Restoril] 30 mg PO HS PRN 11/11/14 01/29/19 History DULoxetine HCL [Cymbalta] 30 mg PO DAILY 11/12/14 01/29/19 History Baclofen [Lioresal] 5 mg PO BID 12/17/15 01/29/19 History Folic Acid 0.8 mg PO DAILY 12/18/15 01/29/19 History Sodium Bicarbonate 162.5 mg PO BID 12/18/15 01/29/19 History Nitroglycerin Sl Tabs [Nitrostat] 0.4 mg PO Q5M PRN 03/20/17 01/29/19 History Aspirin EC [Ecotrin Low Dose] 81 mg PO DAILY 01/14/19 01/29/19 History Carvedilol [Coreg] 25 mg PO BID 01/14/19 01/29/19 History Potassium Chloride 10 meq PO DAILY 01/14/19 01/29/19 History Donepezil [Aricept] 5 mg PO HS #30 tab 01/16/19 01/29/19 Rx Furosemide [Lasix] 20 mg PO DAILY #0 01/16/19 01/29/19 Rx Atorvastatin [Lipitor] 20 mg PO HS #30 tab 01/29/19 Rx Isosorbide Mononitrate ER [Imdur] 30 mg PO DAILY #30 tab.er.24h 01/29/19 Rx Losartan [Cozaar] 25 mg PO DAILY #30 tab 01/29/19 Rx Allergies Allergy/AdvReac Type Severity Reaction Status Date / Time codeine Allergy Rash/Hives Verified 01/29/19 00:41 iodine Allergy Rash/Hives Verified 01/29/19 00:41 shellfish derived [Shellfish] Allergy Rash/Hives Verified 01/29/19 00:41 Physical Exam Vitals: Vital Signs Temp Pulse Pulse Resp BP BP Pulse Ox 01/29/19 08:40 95 01/29/19 07:05 97.6 F 64 18 171/77 95 01/29/19 03:36 16 01/29/19 03:35 98.1 F 71 16 124/63 97 01/29/19 01:58 16 01/29/19 00:37 97.9 F 81 16 156/81 96 01/28/19 23:36 74 20 158/78 97 01/28/19 20:50 20 01/28/19 20:35 98.4 F 79 20 152/86 96 Intake and Output 01/28/19 01/29/19 01/29/19 22:59 06:59 14:59 Intake Total 20 Balance 20 Intake: Amount of Fluid Infused ( 20 ml) Other: # Voids 1 Weight 63.04 kg Review of Systems Constitutional: Reports weakness, Denies chills, Denies fatigue, Denies fever, Denies lethargy, Denies malaise, Denies poor appetite Eyes: denies blurred vision, denies pain Ears, nose, mouth and throat: Denies dysphagia, Denies headache, Denies sore throat, Denies vertigo Cardiovascular: Denies chest pain, Denies dyspnea on exertion, Denies edema, Denies leg edema, Denies shortness of breath, Denies syncope Respiratory: Denies cough, Denies cough with sputum, Denies dyspnea, Denies excessive sputum, Denies hemoptysis, Denies home oxygen Gastrointestinal: Denies abdominal pain, Denies diarrhea, Denies loss of appetite, Denies nausea, Denies vomiting Genitourinary: Denies dysuria, Denies hematuria Musculoskeletal: Reports muscle weakness, Denies frequent falls, Denies myalgias Integumentary: Denies pruritus, Denies rash, Denies wounds Neurological: Reports confusion, Denies numbness, Denies weakness Psychiatric: Denies anxiety, Denies depression Endocrine: Denies fatigue, Denies weight change Gen: This is an 83-year-old female. Patient is resting in bed and appears to be comfortable and in no acute distress. HEENT: Head is atraumatic, normocephalic. Pupils equal, round. Sclerae is anicteric. NECK: Supple. No JVD. No lymphadenopathy. No thyromegaly. LUNGS: Clear to auscultation. No wheezes or rhonchi. No intercostal retractions. HEART: Regular rate and rhythm. No murmur. ABDOMEN: Soft. Bowel sounds are present. No masses. No tenderness. EXTREMITIES: No pedal edema. No calf tenderness. NEUROLOGICAL: Patient is awake, alert and oriented x1. Cranial nerves 2 through 12 are grossly intact. Results CBC & Chem 7: 01/28/19 20:39 01/28/19 20:39 Labs: Abnormal Lab Results - Last 24 Hours (Table) 01/28/19 01/28/19 01/29/19 Range/Units 20:39 20:39 02:20 WBC 11.6 H (3.8-10.6) k/uL MCV 101.9 H (80.0-100.0) fL Chloride 108 H (98-107) mmol/L Glucose 132 H (74-99) mg/dL Triglycerides 239 H (<150) mg/dL Thrombosis Risk Factor Assmnt - Choose All That Apply Each Risk Factor Represents 3 Points: Age 75 years or older Thrombosis Risk Factor Assessment Total Risk Factor Score: 3 Thrombosis Risk Factor Assessment Level: Moderate Risk Assessment and Plan Plan: 1. Chest pain. Acute coronary syndrome ruled out. Cardiology consult appreciated. Echocardiogram as above. 2. Uncontrolled hypertension. Amlodipine was discontinued. Patient was started on losartan 25 mg daily, Imdur 30 mg daily. 3. Dementia, possibly Alzheimer type. Continue folic acid 1 mg daily. Continue Aricept 5 mg daily to be increased to 10 mg after 1 month. 4. Hyperlipidemia. Continue atorvastatin. 5. Hypertension. Continue Coreg 25 mg twice daily, losartan 25 mg daily, Imdur 30 mg daily, Lasix 20 mg daily Norvasc discontinued. 6. Recurrent depression. Continue Cymbalta 30 mg daily. 7. Chronic rosacea on doxycycline. 8. Nonischemic cardiomyopathy with chronic systolic heart failure. Continue Lasix and Coreg. Patient placed in the observation unit. Discharge plan: Home to [facility] Discharge Medication List Cholecalciferol [Vitamin D3 (25 Mcg = 1000 Iu)] 2,000 unit PO DAILY 11/11/14 [History] Doxycycline Hyclate [Vibramycin] 100 mg PO DAILY 11/11/14 [History] Temazepam [Restoril] 30 mg PO HS PRN 11/11/14 [History] DULoxetine HCL [Cymbalta] 30 mg PO DAILY 11/12/14 [History] Baclofen [Lioresal] 5 mg PO BID 12/17/15 [History] Folic Acid 0.8 mg PO DAILY 12/18/15 [History] Sodium Bicarbonate 162.5 mg PO BID 12/18/15 [History] Nitroglycerin Sl Tabs [Nitrostat] 0.4 mg PO Q5M PRN 03/20/17 [History] Aspirin EC [Ecotrin Low Dose] 81 mg PO DAILY 01/14/19 [History] Carvedilol [Coreg] 25 mg PO BID 01/14/19 [History] Potassium Chloride 10 meq PO DAILY 01/14/19 [History] Donepezil [Aricept] 5 mg PO HS #30 tab 01/16/19 [Rx] Furosemide [Lasix] 20 mg PO DAILY #0 01/16/19 [Rx] Atorvastatin [Lipitor] 20 mg PO HS #30 tab 01/29/19 [Rx] Isosorbide Mononitrate ER [Imdur] 30 mg PO DAILY #30 tab.er.24h 01/29/19 [Rx] Losartan [Cozaar] 25 mg PO DAILY #30 tab 01/29/19 [Rx] Impression and plan of care have been directed as dictated by the signing physician. Caitlyn Bryan nurse practitioner acting as scribe for signing physician.
--- NOTE | 2019-01-29 19:14 | ECHOF ---
Referral Reason:cp and sob MEASUREMENTS -------- HEIGHT: 162.6 cm WEIGHT: 62.6 kg BP: 124/63 IVSd: 0.9 cm (0.6 - 1.1) LVIDd: 4.0 cm (3.9 - 5.3) LVPWd: 1.5 cm (0.6 - 1.1) IVSs: 1.5 cm LVIDs: 3.3 cm LVPWs: 1.5 cm RVIDd: 3.0 cm (< 3.3) LAESV Index (A-L): 33.59 ml/m Ao Diam: 2.7 cm (2.0 - 3.7) LA Diam: 4.1 cm (2.7 - 3.8) AV Cusp: 1.8 cm (1.5 - 2.6) EPSS: 1.3 cm MV E Hayes: 0.74 m/s MV DecT: 287 ms MV A Hayes: 1.21 m/s MV E/A Ratio: 0.61 RAP: 5.00 mmHg RVSP: 36.36 mmHg MV EF SLOPE: 26.96 mm/s (70 - 150) MV EXCURSION: 0.61 cm (> 18.000) FINDINGS -------- Sinus rhythm. This was a technically adequate study. The left ventricular size is normal. Left ventricular wall thickness is normal. Overall left vent ricular systolic function is low-normal with, an EF between 50 - 55 %. The right ventricle is normal in size. Left atrium is mildly dilated by volume. The right atrial size is normal. Interatrial and interventricular septum intact. Aortic valve is trileaflet and is mildly thickened. Mild mitral annular calcification present. Mild mitral regurgitation is present. Mild tricuspid regurgitation present. There is mild pulmonary hypertension. The right ventricular systolic pressure, as measured by Doppler, is 36.36mmHg. Trace/mild (physiologic) pulmonic regurgitation. The aortic root size is normal. The inferior vena cava was not well visualized. There is no pericardial effusion. CONCLUSIONS -------- 1. Sinus rhythm. 2. This was a technically adequate study. 3. The left ventricular size is normal. 4. Left ventricular wall thickness is normal. 5. Overall left ventricular systolic function is low-normal with, an EF between 50 - 55 %. 6. The right ventricle is normal in size. 7. Left atrium is mildly dilated by volume. 8. The right atrial size is normal. 9. Interatrial and interventricular septum intact. 10. Aortic valve is trileaflet and is mildly thickened. 11. Mild mitral annular calcification present. 12. Mild mitral regurgitation is present. 13. Mild tricuspid regurgitation present. 14. There is mild pulmonary hypertension. 15. The right ventricular systolic pressure, as measured by Doppler, is 36.36mmHg. 16. Trace/mild (physiologic) pulmonic regurgitation. 17. The aortic root size is normal. 18. The inferior vena cava was not well visualized. 19. There is no pericardial effusion. RULES EXAMINER: Анна Camarillo RDCS
[2019-01-29] MEDS ORDERED: ATORVASTATIN 20 MG TAB PO SCH (21:00)
== END 2019-01-29 14:33 | disposition home or self-care (01) ==
LOC: EC 20:31 → 1SOBS 22:54
PROVIDERS: ADMIT Family Medicine; ATTEND Family Medicine
DX: R07.89 Other chest pain (principal); I11.0 Hypertensive heart disease with heart failure; I50.22 Chronic systolic (congestive) heart failure; I42.9 Cardiomyopathy, unspecified; I25.10 Atherosclerotic heart disease of native coronary artery without angina pectoris; E78.5 Hyperlipidemia, unspecified; F03.90 Unspecified dementia, unspecified severity, without behavioral disturbance, psychotic disturbance, mood disturbance, and anxiety; M19.90 Unspecified osteoarthritis, unspecified site; D13.1 Benign neoplasm of stomach; R41.3 Other amnesia; F33.9 Major depressive disorder, recurrent, unspecified; L71.9 Rosacea, unspecified; Z79.2 Long term (current) use of antibiotics; Z79.82 Long term (current) use of aspirin; Z79.899 Other long term (current) drug therapy; Z88.5 Allergy status to narcotic agent; Z91.013 Allergy to seafood; Z91.048 Other nonmedicinal substance allergy status; Z85.72 Personal history of non-Hodgkin lymphomas; Z86.14 Personal history of Methicillin resistant Staphylococcus aureus infection; Z86.73 Personal history of transient ischemic attack (TIA), and cerebral infarction without residual deficits; Z90.710 Acquired absence of both cervix and uterus; Z90.49 Acquired absence of other specified parts of digestive tract; Z96.652 Presence of left artificial knee joint; Z98.42 Cataract extraction status, left eye; Z98.41 Cataract extraction status, right eye; Z80.3 Family history of malignant neoplasm of breast
CPT/HCPCS: 96372; 99285; 36415; 94760; 93005; 93306; 85379; 80061; 80053; 83735; 84484 ×2; 85025; 85610; 85730; 71046; G0378 ×2; J1650

== ENCOUNTER 2020-01-01 18:05 | Observation (INO) | payer MEDICARE ==
--- NOTE | 2020-01-01 19:03 | XR ---
EXAMINATION TYPE: XR chest 2V DATE OF EXAM: 01/01/2020 COMPARISON: Chest x-ray January 28, 2019 HISTORY: Shortness of breath. TECHNIQUE: Frontal and lateral views of the chest are obtained. FINDINGS: There is chronic parenchymal without suspicious focal air space opacity, pleural effusion, or pneumothorax seen. The cardiac silhouette size remains enlarged with loop recorder left anterior chest wall. New mild central vascular congestion thought present. The osseous structures are intact . IMPRESSION: Cardiomegaly with suspected mild central vascular congestion. Correlate for CHF exacerba tion.
[2020-01-01 19:10] LABS: ALT 19 U/L (4-34); AST 35 U/L (14-36); African American GFR (CKD) >90 (>60 ml/min/1.73 sqM); Albumin 4.4 g/dL (3.5-5.0); Alkaline Phosphatase 70 U/L (38-126); Anion Gap 8 mmol/L; Blood Urea Nitrogen 14 mg/dL (7-17); Calcium 9.7 mg/dL (8.4-10.2); Carbon Dioxide 25 mmol/L (22-30); Chloride 104 mmol/L (98-107); Glucose 114 mg/dL (74-99); Non-African American GFR(CKD) 78 (>60 ml/min/1.73 sqM); Potassium 4.4 mmol/L (3.5-5.1); Sodium 137 mmol/L (137-145); Total Bilirubin 0.8 mg/dL (0.2-1.3)
[2020-01-01 19:21] LABS: HCT 42.8 % (34.0-46.0); HGB 13.6 gm/dL (11.4-16.0); MCH 33.5 pg (25.0-35.0); MCHC 31.8 g/dL (31.0-37.0); MCV 105.4 fL (80.0-100.0); Macrocytosis Moderate; Mean Platelet Volume 7.8; Platelet Count 376 k/uL (150-450); RBC 4.06 m/uL (3.80-5.40); RDW 13.8 % (11.5-15.5); WBC 12.7 k/uL (3.8-10.6)
[2020-01-01 19:23] LABS: D-Dimer 0.47 mg/L FEU (<0.60); Partial Thromboplastin Time 23.2 sec (22.0-30.0)
[2020-01-01 19:54] LABS: Basophils # (M) 0.25 k/uL (0-0.2); Eosinophils # (M) 0.25 k/uL (0-0.7); Lymphocytes # (M) 3.43 k/uL (1.0-4.8); Monocytes # (M) 0.76 k/uL (0-1.0); Neutrophils % (M) 63 %; Nucleated Red Blood Cells 0 /100 WBC (0-0); Total Cells Counted 100
[2020-01-01 19:55] LABS: Howell-Jolly Bodies Present
[2020-01-01] MEDS ORDERED: ASPIRIN 325 MG TAB PO STA (19:55)
[2020-01-01] MEDS ORDERED: FUROSEMIDE 10 MG/ML 2 ML VIAL IV STA (19:55)
[2020-01-01] MEDS ORDERED: NITROGLYCERIN SL TABS 0.4 MG TAB SUBLINGUAL PRN (20:27)
--- NOTE | 2020-01-01 20:31 | ED ---
General Adult HPI - General Chief complaint: Shortness of Breath Stated complaint: chest pain Time Seen by Provider: 01/01/20 18:14 Source: EMS, RN notes reviewed, old records reviewed Mode of arrival: EMS Limitations: no limitations - History of Present Illness Initial comments: 84-year-old female patient past history of coronary artery disease status post stent placement, non-Hodgkin lymphoma in remission presents to ED for chief complaint of shortness of breath. Patient reports that she "has some shortness of breath at approximately 2 PM she still has some mild shortness of breath this time. Patient was that she did have some very mild chest pain for approximately 2 PM to 6 PM underneath her left breast which was dull in nature. This has reso lved upon time of admission. Denies any other complaints. Systemic: Pt denies fatigue, fever/chills, rash. Pt denies weakness, night sweats, weight loss. Neuro: Pt denies headache, visual disturbances, syncope or pre-syncope. HEENT: Pt denies ocular discharge or irritation, otalgia, rhinorrhea, p haryngitis or notable lymphadenopathy. Cardiopulmonary: Pt denies heart palpitations, dyspnea on exertion. Abdominal/GI: Pt denies abdominal pain, n/v/d. : Pt denies dysuria, burning w/ urination, frequency/urgency. Denies new onset urinary or bowel incontinence. MSK: Pt denies myalgia, loss of strength or function in extremities. Neuro: Pt denies new onset weakness, paresthesias. - Related Data Home Medications Medication Instructions Recorded Confirmed Temazepam [Restoril] 30 mg PO HS PRN 11/11/14 01/01/20 DULoxetine HCL [Cymbalta] 30 mg PO DAILY@1000 11/12/14 01/01/20 Nitroglycerin Sl Tabs [Nitrostat] 0.4 mg SL Q5M PRN 03/20/17 01/01/20 Carvedilol [Coreg] 25 mg PO BID@1000,219901/14/19 01/01/20 ALPRAZolam [Xanax] 0.5 mg PO BID@1000,219901/01/20 01/01/20 Donepezil [Aricept] 5 mg PO HS@219901/01/20 01/01/20 Furosemide [Lasix] 20 mg PO DAILY PRN 01/01/20 01/01/20 Isosorbide Mononitrate ER [Imdur] 30 mg PO DAILY@1000 01/01/20 01/01/20 Simvastatin [Zocor] 10 mg PO HS@2200 01/01/20 01/01/20 Allergies Allergy/AdvReac Type Severity Reaction Status Date / Time codeine Allergy Rash/Hives Verified 01/01/20 18:59 iodine Allergy Rash/Hives Verified 01/01/20 18:59 shellfish derived [Shellfish] Allergy Rash/Hives Verified 01/01/20 18:59 Review of Systems ROS Statement: Those systems with pertinent positive or pertinent negative responses have been documented in the HPI. ROS Other: All systems not noted in ROS Statement are negative. 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 per dr Reyna History of Any Multi-Drug Resistant Organisms: MRSA Date of last positivie culture/infection: 07/28/09 MDRO Source:: unknown Past Surgical History: Appendectomy, Hysterectomy, Orthopedic Surgery, Tonsillectomy Additional Past Surgical History / Comment(s): left knee replacement, breast biopsy which were benign - daughter states they there was some type of metal i mplanted in both breasts, bilat cataracts removed Past Anesthesia/Blood Transfusion Reactions: Previous Problems w/ Anesthesia Additional Past Anesthesia/Blood Transfusion Reaction / Comment(s): severe confusion for 2 weeks after surgery Past Psychological History: Depression Smoking Status: Never smoker Past Alcohol Use History: None Reported Past Drug Use History: None Reported - Past Family History Father Additional Family Medical History / Comment(s): Patient does not know anything about her father. Brother(s) Additional Family Medical History / Comment(s): Patient has one half-brother with no history of coronary artery disease. Mother History Unknown: Yes Family Medical History: Cancer Additional Family Medical History / Comment(s): Mother in her 70s with history of heart murmur and Breast Cancer General Exam - General Exam Comments Initial Comments: Constitutional: NAD, AOX3, Pt has pleasant affect. HEENT: NC/AT, trachea midline, neck supple, no lymphadenopathy. Posterior phary nx non erythematous, without exudates. External ears appear normal, without discharge. Mucous membranes moist. Eyes PERRLA, EOM intact. There is no scleral icterus. No pallor noted. Cardiopulmonary: RRR, no murmurs, rubs or gallops, no JVD noted. Lungs CTAB in anterior and posterior arnold. No peripheral edema. Abdominal exam: Abdomen soft and non-distended. Abdomen non-tender to palpation in all 4 quadrants. Bowel sounds active in LLQ. No hepatosplenomegaly. No ecchymosis Neuro: CN II-XII grossly intact. No nuchal rigidity. No raccon eyes, no crump sign, no hemotympanum. No cervical spinal tenderness. MSK: No posterior calf tenderness bilaterally, homans sign negative bilaterally. Posterior tibialis and radial pulse +2 bilaterally. Sensation intact in upper and lower extremities. Full active ROM in upper and lower extremities, 5/5 stregnth. Limitations: no limitations Course Vital Signs 01/01/20 01/01/20 01/01/20 18:07 19:37 20:21 Temperature 98.5 F Pulse Rate 73 72 75 Respiratory 18 20 18 Rate Blood Pressure 175/88 172/87 173/82 O2 Sat by Pulse 97 96 94 L Oximetry Medical Decision Making - Medical Decision Making 84-year-old female patient past history of coronary artery disease status post stent placement, non-Hodgkin lymphoma in remission presents to ED for chief complaint of shortness of breath. Patient reports that she "has some shortness of breath at approximately 2 PM she still has some mild shortness of breath this time. Patient was that she did have some very mild chest pain for approximately 2 PM to 6 PM underneath her left breast which was dull in nature. This has resolved upon time of admission. Denies any other complaints. Patient bowel sounds are stable, afebrile. Physical exam dentist acute pathology. Laboratory investigations are overall unremarkable, mild leukocytosis. Troponin negative. D-dimer negative. BNP 936. Chest x-ray display cart evaluated central vascular congestion, correlate for CHF exacerbation. Patient has not been taking her Lasix at home. It was to be used as needed. Adminstered home dose of Lasix IV. Patient continues to be pain- free. We'll be admitted for serial troponins cardiology evaluation. Case discussed with Dr. Franklin. - Lab Data Result diagrams: 01/01/20 18:24 01/01/20 18:24 Lab Results 01/01/20 01/01/20 01/01/20 Range/Units 18:24 18:24 18:24 WBC 12.7 H (3.8-10.6) k/uL RBC 4.06 (3.80-5.40) m/uL Hgb 13.6 (11.4-16.0) gm/dL Hct 42.8 (34.0-46.0) % MCV 105.4 H (80.0-100.0) fL MCH 33.5 (25.0-35.0) pg MCHC 31.8 (31.0-37.0) g/dL RDW 13.8 (11.5-15.5) % Plt Count 376 (150-450) k/uL Neutrophils % (Manual) 63 % Lymphocytes % (Manual) 27 % Monocytes % (Manual) 6 % Eosinophils % (Manual) 2 % Basophils % (Manual) 2 % Neutrophils # (Manual) 8.00 H (1.3-7.7) k/uL Lymphocytes # (Manual) 3.43 (1.0-4.8) k/uL Monocytes # (Manual) 0.76 (0-1.0) k/uL Eosinophils # (Manual) 0.25 (0-0.7) k/uL Basophils # (Manual) 0.25 H (0-0.2) k/uL Nucleated RBCs 0 (0-0) /100 WBC Manual Slide Review Performed Macrocytosis Moderate Rios-Winters Bodies Present PT 10.0 (9.0-12.0) sec INR 1.0 (<1.2) APTT 23.2 (22.0-30.0) sec D-Dimer 0.47 (<0.60) mg/L FEU Sodium 137 (137-145) mmol/L Potassium 4.4 (3.5-5.1) mmol/L Chloride 104 (98-107) mmol/L Carbon Dioxide 25 (22-30) mmol/L Anion Gap 8 mmol/L BUN 14 (7-17) mg/dL Creatinine 0.72 (0.52-1.04) mg/dL Est GFR (CKD-EPI)AfAm >90 (>60 ml/min/1.73 sqM) Est GFR (CKD-EPI)NonAf 78 (>60 ml/min/1.73 sqM) Glucose 114 H (74-99) mg/dL Plasma Lactic Acid Boby (0.7-2.0) mmol/L Calcium 9.7 (8.4-10.2) mg/dL Total Bilirubin 0.8 (0.2-1.3) mg/dL AST 35 (14-36) U/L ALT 19 (4-34) U/L Alkaline Phosphatase 70 (38-126) U/L Troponin I (0.000-0.034) ng/mL NT-Pro-B Natriuret Pep pg/mL Total Protein 7.0 (6.3-8.2) g/dL Albumin 4.4 (3.5-5.0) g/dL 01/01/20 01/01/20 01/01/20 Range/Units 18:24 18:24 19:38 WBC (3.8-10.6) k/uL RBC (3.80-5.40) m/uL Hgb (11.4-16.0) gm/dL Hct (34.0-46.0) % MCV (80.0-100.0) fL MCH (25.0-35.0) pg MCHC (31.0-37.0) g/dL RDW (11.5-15.5) % Plt Count (150-450) k/uL Neutrophils % (Manual) % Lymphocytes % (Manual) % Monocytes % (Manual) % Eosinophils % (Manual) % Basophils % (Manual) % Neutrophils # (Manual) (1.3-7.7) k/uL Lymphocytes # (Manual) (1.0-4.8) k/uL Monocytes # (Manual) (0-1.0) k/uL Eosinophils # (Manual) (0-0.7) k/uL Basophils # (Manual) (0-0.2) k/uL Nucleated RBCs (0-0) /100 WBC Manual Slide Review Macrocytosis Rios-Winters Bodies PT (9.0-12.0) sec INR (<1.2) APTT (22.0-30.0) sec D-Dimer (<0.60) mg/L FEU Sodium (137-145) mmol/L Potassium (3.5-5.1) mmol/L Chloride (98-107) mmol/L Carbon Dioxide (22-30) mmol/L Anion Gap mmol/L BUN (7-17) mg/dL Creatinine (0.52-1.04) mg/dL Est GFR (CKD-EPI)AfAm (>60 ml/min/1.73 sqM) Est GFR (CKD-EPI)NonAf (>60 ml/min/1.73 sqM) Glucose (74-99) mg/dL Plasma Lactic Acid Boby 1.2 (0.7-2.0) mmol/L Calcium (8.4-10.2) mg/dL Total Bilirubin (0.2-1.3) mg/dL AST (14-36) U/L ALT (4-34) U/L Alkaline Phosphatase (38-126) U/L Troponin I <0.012 (0.000-0.034) ng/mL NT-Pro-B Natriuret Pep 936 pg/mL Total Protein (6.3-8.2) g/dL Albumin (3.5-5.0) g/dL - EKG Data -: EKG Interpreted by Me (and Dr. Franklin ) EKG Comments: Ventricular rate 76, MT interval 160, QRS 136, QT/QTc 446/501. NSR, nonsignificant intraventricular block. Possible lateral infarct age undetermined. No concern for acute ischemia. No significant change from prior. Disposition Clinical Impression: Chest pain, CHF exacerbation Disposition: ADMITTED IP TO THIS HOSP Condition: Fair Is patient prescribed a controlled substance at d/c from ED?: No Referrals: Marcus Garrett MD [Primary Care Provider] - 1-2 days
[2020-01-02] MEDS ORDERED: NITROGLYCERIN SL TABS 0.4 MG TAB SUBLINGUAL PRN (00:12)
[2020-01-02] MEDS ORDERED: FUROSEMIDE 20 MG TAB PO PRN (00:30)
[2020-01-02] MEDS: ALPRAZolam 0.5 MG TAB PO SCH ×2 (00:36→09:18)
[2020-01-02 04:51] VITALS: RESP 17
[2020-01-02 06:56] LABS: Cholesterol 213 mg/dL (<200); HDL Cholesterol 73 mg/dL (40-60); LDL Cholesterol,Calculated 92 mg/dL (0-99); Triglycerides 238 mg/dL (<150)
[2020-01-02] MEDS ORDERED: ASPIRIN 325 MG TAB PO SCH (09:00)
[2020-01-02] MEDS ORDERED: ISOSORBIDE MONONITRATE ER 30 MG TAB.ER.24H PO SCH (10:00)
[2020-01-02] MEDS ORDERED: DULoxetine HCL 30 MG CAPSULE.DR PO SCH (10:00)
[2020-01-02] MEDS ORDERED: CARVEDILOL 12.5 MG TAB PO SCH (10:00)
[2020-01-02] MEDS ORDERED: FUROSEMIDE 20 MG TAB PO SCH (10:15)
[2020-01-02 11:12] VITALS: TEMP 96.6
--- NOTE | 2020-01-02 12:01 | P.HPIM ---
History of Present Illness H&P Date: 01/02/20 Chief Complaint: Chest pain, shortness of breath HISTORY AND PHYSICAL AND DISCHARGE SUMMARY: This is an 84-year-old female patient of Dr. Garrett and Dr. 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 Reyna. The patient states that she is feeling weak and confused. She is not ready remembering what happened. Patient presented to [facility] emergency center due to chest pain and shortness of breath. According to the patient's daughter, this started in the afternoon and by the time EMS arrived she was are feeling better. On transportation by EMS she was having PVCs. Daughter states that she has been on Lasix as needed since her last doctor's appointment and has not been taking it at all. She has had a loop recorder placed a couple years ago. At the time of this evaluation. Patient denies having any chest pain or shortness of breath. She is pleasantly confused and concerned that her family know that she is in the hospital. Patient resides at [facility] and will be returning there at the time of discharge. Patient presented to [facility] emergency center for evaluation, she was afebrile, heart rate 73, blood pressure 175/88, pulse ox 97% on room air. WBC 12.7, hemoglobin 13.6, platelets 376, d-dimer was 0.47, electrolytes and renal function normal, blood sugar 114, liver function tests normal. Lactic acid 1.2, proBNP 936. EKG is a sinus rhythm at rate of 76. Troponins have been negative on 3 draws. Triglycerides 238, cholesterol 213, LDL 92, HDL 73. Patient has been placed on the cardiac stepdown unit and status post 1 dose of IV Lasix 20 mg. Cardiology consult in place Review of Systems Constitutional: Denies chills, Denies chronic headaches, Denies chronic pain, Denies fatigue, Denies fever, Denies lethargy, Denies poor appetite, Denies weakness, Denies weight loss Eyes: denies blurred vision, denies pain Ears, nose, mouth and throat: Denies headache, Denies nasal congestion, Denies nasal discharge, Denies sore throat, Denies vertigo Cardiovascular: Denies chest pain, Denies decreased exercise tolerance, Denies dyspnea on exertion, Denies edema, Denies leg edema, Denies lightheadedness, Denies palpitations, Denies shortness of breath, Denies syncope Respiratory: Denies cough, Denies cough with sputum, Denies dyspnea, Denies excessive sputum, Denies hemoptysis, Denies home oxygen, Denies respiratory infections, Denies wheezing Gastrointestinal: Denies abdominal pain, Denies BRBPR, Denies diarrhea, Denies loss of appetite, Denies melena, Denies nausea, Denies vomiting Genitourinary: Denies dysuria, Denies hematuria, Denies urgency, Denies urinary frequency Menstruation: Reports postmenopausal Musculoskeletal: Denies frequent falls, Denies gait dysfunction, Denies muscle weakness, Denies myalgias Integumentary: Denies pruritus, Denies rash, Denies wounds Neurological: Denies change in mentation, Denies change in speech, Denies headaches, Denies numbness, Denies weakness Psychiatric: Denies anxiety, Denies depression Endocrine: Denies fatigue, Denies weight change 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 per dr Reyna History of Any Multi-Drug Resistant Organisms: MRSA Date of last positivie culture/infection: 07/28/09 MDRO Source:: unknown Past Surgical History: Appendectomy, Hysterectomy, Orthopedic Surgery, Tonsillectomy Additional Past Surgical History / Comment(s): left knee replacement, breast biopsy which were benign - daughter states they there was some type of metal implanted in both breasts, bilat cataracts removed Past Anesthesia/Blood Transfusion Reactions: Previous Problems w/ Anesthesia Additional Past Anesthesia/Blood Transfusion Reaction / Comment(s): severe confusion for 2 weeks after surgery Past Psychological History: Depression Additional Psychological History / Comment(s): loss short term memory Smoking Status: Never smoker Past Alcohol Use History: None Reported Past Drug Use History: None Reported - Past Family History Father Additional Family Medical History / Comment(s): Patient does not know anything about her father. Brother(s) Additional Family Medical History / Comment(s): Patient has one half-brother with no history of coronary artery disease. Mother History Unknown: Yes Family Medical History: Cancer Additional Family Medical History / Comment(s): Mother in her 70s with history of heart murmur and Breast Cancer Medications and Allergies Home Medications Medication Instructions Recorded Confirmed Type Temazepam [Restoril] 30 mg PO HS PRN 11/11/14 01/01/20 History DULoxetine HCL [Cymbalta] 30 mg PO DAILY@1000 11/12/14 01/01/20 History Nitroglycerin Sl Tabs [Nitrostat] 0.4 mg SL Q5M PRN 03/20/17 01/01/20 History Carvedilol [Coreg] 25 mg PO BID@1000,219901/14/19 01/01/20 History ALPRAZolam [Xanax] 0.5 mg PO BID@1000,0 01/01/20 01/01/20 History Donepezil [Aricept] 5 mg PO HS@2200 01/01/20 01/01/20 History Isosorbide Mononitrate ER [Imdur] 30 mg PO DAILY@1000 01/01/20 01/01/20 History Simvastatin [Zocor] 10 mg PO HS@2200 01/01/20 01/01/20 History Aspirin 81 mg PO DAILY chew 01/02/20 Rx Furosemide [Lasix] 20 mg PO MOWEFR #0 01/02/20 01/01/20 Rx amLODIPine [Norvasc] 5 mg PO DAILY #30 tab 01/02/20 Rx Allergies Allergy/AdvReac Type Severity Reaction Status Date / Time codeine Allergy Rash/Hives Verified 01/01/20 18:59 iodine Allergy Rash/Hives Verified 01/01/20 18:59 shellfish derived [Shellfish] Allergy Rash/Hives Verified 01/01/20 18:59 Physical Exam Vitals: Vital Signs Temp Pulse Pulse Resp BP BP Pulse Ox 01/02/20 04:00 98.1 F 84 17 143/79 97 01/02/20 00:00 97.6 F 73 15 179/93 98 01/01/20 22:26 97.6 F 73 17 179/93 98 01/01/20 22:01 98.7 F 01/01/20 21:30 77 18 161/98 96 01/01/20 20:21 75 18 173/82 94 L 01/01/20 19:37 72 20 172/87 96 01/01/20 18:07 98.5 F 73 18 175/88 97 Intake and Output 01/01/20 01/02/20 01/02/20 22:59 06:59 14:59 Other: Voiding Method Toilet Weight 61.689 kg 68.3 kg Gen: This is an 84-year-old female. Patient is resting in bed and appears to be comfortable and in no acute distress. HEENT: Head is atraumatic, normocephalic. Pupils equal, round. Sclerae is anicteric. NECK: Supple. No JVD. No lymphadenopathy. No thyromegaly. LUNGS: Clear to auscultation. No wheezes or rhonchi. No intercostal retractions. HEART: Regular rate and rhythm. No murmur. ABDOMEN: Soft. Bowel sounds are present. No masses. No tenderness. EXTREMITIES: No pedal edema. No calf tenderness. NEUROLOGICAL: Patient is awake, alert and oriented x3 pleasant lady confused with poor memory recall. Cranial nerves 2 through 12 are grossly intact. Results CBC & Chem 7: 01/01/20 18:24 01/01/20 18:24 Labs: Abnormal Lab Results - Last 24 Hours (Table) 01/01/20 01/01/20 01/02/20 Range/Units 18:24 18:24 06:16 WBC 12.7 H (3.8-10.6) k/uL MCV 105.4 H (80.0-100.0) fL Neutrophils # (Manual) 8.00 H (1.3-7.7) k/uL Basophils # (Manual) 0.25 H (0-0.2) k/uL Glucose 114 H (74-99) mg/dL Triglycerides 238 H (<150) mg/dL Cholesterol 213 H (<200) mg/dL HDL Cholesterol 73 H (40-60) mg/dL Thrombosis Risk Factor Assmnt - Choose All That Apply Any of the Below Risk Factors Present?: No Other Risk Factors: Yes Each Risk Factor Represents 3 Points: Age 75 years or older Other congenital or acquired thrombophilia - If yes, enter type in comment: No Thrombosis Risk Factor Assessment Total Risk Factor Score: 3 Thrombosis Risk Factor Assessment Level: Moderate Risk Assessment and Plan Plan: 1. Chest pain and shortness of breath most likely secondary to chronic systolic heart failure and missing Lasix dosing. Acute coronary syndrome ruled out. Cardiology consult appreciated. 2. Uncontrolled hypertension. Continue Coreg 25 mg twice daily, Imdur 30 mg daily, Lasix. 3. Dementia, possibly Alzheimer type. Continue Aricept 5 mg daily. 4. Hyperlipidemia. Continue simvastatin. 5. Hypertension. Continue Coreg 25 mg twice daily, losartan 25 mg daily, Imdur 30 mg daily, Lasix 20 mg daily. 6. Recurrent depression. Continue Cymbalta 30 mg daily. 7. Chronic rosacea on doxycycline. 8. Nonischemic cardiomyopathy with chronic systolic heart failure. Continue Lasix and Coreg. 9. COVID-19 testing not completed due to poor specimen. COVID-19 infection not present. Patient placed as observation status. Discharge plan: Return home to [facility]. Discharge Medication List Temazepam [Restoril] 30 mg PO HS PRN 11/11/14 [History] DULoxetine HCL [Cymbalta] 30 mg PO DAILY@1000 11/12/14 [History] Nitroglycerin Sl Tabs [Nitrostat] 0.4 mg SL Q5M PRN 03/20/17 [History] Carvedilol [Coreg] 25 mg PO BID@1000,219901/14/19 [History] ALPRAZolam [Xanax] 0.5 mg PO BID@1000,219901/01/20 [History] Donepezil [Aricept] 5 mg PO HS@219901/01/20 [History] Isosorbide Mononitrate ER [Imdur] 30 mg PO DAILY@1000 01/01/20 [History] Simvastatin [Zocor] 10 mg PO HS@219901/01/20 [History] Aspirin 81 mg PO DAILY chew 01/02/20 [Rx] Furosemide [Lasix] 20 mg PO MOWEFR #0 01/02/20 [Rx] amLODIPine [Norvasc] 5 mg PO DAILY #30 tab 01/02/20 [Rx] Impression and plan of care have been directed as dictated by the signing physician. Caitlyn Bryan nurse practitioner acting as scribe for signing physician.
--- NOTE | 2020-01-02 12:58 | P.CRDCN ---
History of Present Illness Consult date: 01/02/20 Chief complaint: Chest pain History of present illness: This is a pleasant 84-year-old female who follows regularly with Dr. David in the office. She has a known history of hypertension, hyperlipidemia, prior cardiac catheterization in 2016 which revealed minimal coronary artery disease, her documented ejection fraction at that time was 50%, she also had an echo performed in the office in January 2019 which revealed an EF of 50% with mild MR, and mild TR. Patient has history of dementia, non-Hodgkin's lymphoma, in remission, prior TIA, stomach tumor which is benign. Most of the history was obtained from the medical record, as the patient is quite confused. Patient apparently presented to the hospital with symptoms of chest discomfort and shortness of breath. Her chest x-ray on presentation here showed mild central vascular congestion. EKG showed normal sinus rhythm with nonspecific ST-T wave changes. Blood pressure 142/80 with a heart rate in the 80s, respirations 16. White blood cell count 12.7, hemoglobin 13.6, platelet count 376. D-dimer 0.4. Sodium 137, potassium 4.4, BUN 14 and creatinine 0.7. Troponins negative 3. Cholesterol 213, triglycerides 238, LDL 92, HDL 73, reyes virus testing has been performed and is yet pending. 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 per dr Reyna History of Any Multi-Drug Resistant Organisms: MRSA Date of last positivie culture/infection: 07/28/09 MDRO Source:: unknown Past Surgical History: Appendectomy, Hysterectomy, Orthopedic Surgery, To nsillectomy Additional Past Surgical History / Comment(s): left knee replacement, breast biopsy which were benign - daughter states they there was some type of metal implanted in both breasts, bilat cataracts removed Past Anesthesia/Blood Transfusion Reactions: Previous Problems w/ Anesthesia Additional Past Anesthesia/Blood Transfusion Reaction / Comment(s): severe confusion for 2 weeks after surgery Past Psychological History: Depression Additional Psychological History / Comment(s): loss short term memory Smoking Status: Never smoker Past Alcohol Use History: None Reported Past Drug Use History: None Reported - Past Family History Father Additional Family Medical History / Comment(s): Patient does not know anything about her father. Brother(s) Additional Family Medical History / Comment(s): Patient has one half-brother with no history of coronary artery disease. Mother History Unknown: Yes Family Medical History: Cancer Additional Family Medical History / Comment(s): Mother in her 70s with history of heart murmur and Breast Cancer Medications and Allergies Home Medications Medication Instructions Recorded Confirmed Type Temazepam [Restoril] 30 mg PO HS PRN 11/11/14 01/01/20 History DULoxetine HCL [Cymbalta] 30 mg PO DAILY@1000 11/12/14 01/01/20 History Nitroglycerin Sl Tabs [Nitrostat] 0.4 mg SL Q5M PRN 03/20/17 01/01/20 History Carvedilol [Coreg] 25 mg PO BID@1000,0 01/14/19 01/01/20 History ALPRAZolam [Xanax] 0.5 mg PO BID@1000,219901/01/20 01/01/20 History Donepezil [Aricept] 5 mg PO HS@2200 01/01/20 01/01/20 History Furosemide [Lasix] 20 mg PO DAILY PRN 01/01/20 01/01/20 History Isosorbide Mononitrate ER [Imdur] 30 mg PO DAILY@1000 01/01/20 01/01/20 History Simvastatin [Zocor] 10 mg PO HS@2200 01/01/20 01/01/20 History Allergies Allergy/AdvReac Type Severity Reaction Status Date / Time codeine Allergy Rash/Hives Verified 01/01/20 18:59 iodine Allergy Rash/Hives Verified 01/01/20 18:59 shellfish derived [Shellfish] Allergy Rash/Hives Verified 01/01/20 18:59 Physical Exam Vitals: Vital Signs Temp Pulse Pulse Resp BP BP Pulse Ox 01/02/20 08:00 96.6 F L 91 180/99 94 L 01/02/20 04:00 98.1 F 84 17 143/79 97 01/02/20 00:00 97.6 F 73 15 179/93 98 01/01/20 22:26 97.6 F 73 17 179/93 98 01/01/20 22:01 98.7 F 01/01/20 21:30 77 18 161/98 96 01/01/20 20:21 75 18 173/82 94 L 01/01/20 19:37 72 20 172/87 96 01/01/20 18:07 98.5 F 73 18 175/88 97 Intake and Output 01/01/20 01/02/20 01/02/20 22:59 06:59 14:59 Other: Voiding Method Toilet Weight 61.689 kg 68.3 kg PHYSICAL EXAMINATION: GENERAL: 84-year-old female in no acute distress at the time of my examination HEENT: Head is atraumatic, normocephalic. Pupils equal, round. Sclera anicteric. Conjunctiva are clear. Mucous membranes of the mouth are moist. Neck is supple. There is no elevated jugular venous pressure. No carotid bruit is heard. HEART EXAMINATION: Heart S1 and S2 systolic ejection murmur is heard CHEST EXAMINATION: Lungs are clear to auscultation and precussion. No chest wall tenderness is noted on palpation or with deep breathing. ABDOMEN: Soft, nontender. Bowel sounds are heard. No organomegaly noted. EXTREMITIES: 2+ peripheral pulses with no evidence of peripheral edema and no calf tenderness noted. NEUROLOGIC patient is awake, alert and oriented 1 . . Results 01/01/20 18:24 01/01/20 18:24 Cardiac Enzymes 01/01/20 01/01/20 01/02/20 Range/Units 18:24 18:24 00:42 AST 35 (14-36) U/L Troponin I <0.012 <0.012 (0.000-0.034) ng/mL 01/02/20 Range/Units 06:16 AST (14-36) U/L Troponin I <0.012 (0.000-0.034) ng/mL Coagulation 01/01/20 Range/Units 18:24 PT 10.0 (9.0-12.0) sec APTT 23.2 (22.0-30.0) sec Lipids 01/02/20 Range/Units 06:16 Triglycerides 238 H (<150) mg/dL Cholesterol 213 H (<200) mg/dL HDL Cholesterol 73 H (40-60) mg/dL CBC 01/01/20 Range/Units 18:24 WBC 12.7 H (3.8-10.6) k/uL RBC 4.06 (3.80-5.40) m/uL Hgb 13.6 (11.4-16.0) gm/dL Hct 42.8 (34.0-46.0) % Plt Count 376 (150-450) k/uL Comprehensive Metabolic Panel 01/01/20 Range/Units 18:24 Sodium 137 (137-145) mmol/L Potassium 4.4 (3.5-5.1) mmol/L Chloride 104 (98-107) mmol/L Carbon Dioxide 25 (22-30) mmol/L BUN 14 (7-17) mg/dL Creatinine 0.72 (0.52-1.04) mg/dL Glucose 114 H (74-99) mg/dL Calcium 9.7 (8.4-10.2) mg/dL AST 35 (14-36) U/L ALT 19 (4-34) U/L Alkaline Phosphatase 70 (38-126) U/L Total Protein 7.0 (6.3-8.2) g/dL Albumin 4.4 (3.5-5.0) g/dL Current Medications Generic Name Dose Route Start Last Admin Trade Name Freq PRN Reason Stop Dose Admin Alprazolam 0.5 mg 01/02/20 00:21 01/02/20 09:18 Xanax PO 0.5 mg BID@1000,2200 SUDEEP Administration Aspirin 325 mg 01/02/20 09:00 01/02/20 09:18 Aspirin PO 325 mg DAILY SUDEEP Administration Atorvastatin Calcium 10 mg 01/02/20 22:00 Lipitor PO HS@2200 SUDEEP Carvedilol 25 mg 01/02/20 10:00 01/02/20 09:18 Coreg PO 25 mg BID@1000,2200 SUDEEP Administration Donepezil HCl 5 mg 01/02/20 22:00 Aricept PO HS@2200 SUDEEP Duloxetine HCl 30 mg 01/02/20 10:00 01/02/20 09:18 Cymbalta PO 30 mg DAILY@1000 SUDEEP Administration Furosemide 20 mg 01/02/20 10:15 Lasix PO DAILY [facility] Isosorbide Mononitrate 30 mg 01/02/20 10:00 01/02/20 09:18 Imdur PO 30 mg DAILY@1000 SUDEEP Administration Nitroglycerin 0.4 mg 01/02/20 00:12 Nitrostat SUBLINGUAL Q5M PRN Chest Pain Intake and Output 01/01/20 01/02/20 01/02/20 22:59 06:59 14:59 Other: Voiding Method Toilet Weight 61.689 kg 68.3 kg 01/01/20 18:24 01/01/20 18:24 EKG Interpretations (text) EKG shows a normal sinus rhythm with nonspecific ST-T wave changes. Assessment and Plan Plan: Assessment and plan #1 chest pain, troponins negative 3. EKG shows a normal sinus rhythm with nonspecific ST-T wave changes. #2 no clear-cut evidence of congestive cardiac failure, BNP level 9036 on admission which is normal for the patient's age. Mild vascular congestion on chest x-ray. Lungs are clear. Most recent LV function in the office last year was documented to be normal at 50%. #3 accelerated hypertension #4 hyperlipidemia #5 prior TIA #6 non-Hodgkin's lymphoma, in remission Plan Patient's blood pressure this afternoon is 180/99, we will add Norvasc to her medication regime to optimize blood pressure control, her LV function is normal. We will decrease the aspirin to 81 mg daily. DNP note has been reviewed, I agree with a documented findings and plan of care. Patient was seen and examined.
[2020-01-02] MEDS ORDERED: amLODIPine 5 MG TAB PO SCH (13:00)
[2020-01-02 13:16] VITALS: BP 123/55; PULSE 88
--- NOTE | 2020-01-02 15:43 | CONS ---
CONSULTATION CHIEF COMPLAINT: Shortness of breath and chest pain. This is an 84-year-old lady with history of congestive heart failure, diabetes and dementia who comes to hospital complaining of feeling weak and somewhat confused. She also has some chest discomfort and shortness of breath. She called EMS at home and became symptom-free by the time EMS got there. At the time of my evaluation, she is symptom-free and appears confused at rest. She is at [email or web address]. States that she has a cat at home. I am not sure if that is true or not. She has non-Hodgkin's lymphoma which is in remission. Has a loop recorder, which she states that she has had for a while. PAST MEDICAL HISTORY: Past medical history is significant for hypertension, dyslipidemia, dementia, osteoarthritis and non-Hodgkin's lymphoma. PAST SURGICAL HISTORY: Past surgical history is significant for knee replacement, tonsillectomy, appendectomy, hysterectomy. MEDICATIONS: Medications at home included Restoril, Cymbalta, Coreg, Xanax, Aricept, Lasix, Imdur and simvastatin. ALLERGIES: CODEINE, IODINE AND SHELLFISH. REVIEW OF SYSTEMS: HEENT is unremarkable. CARDIAC: As described above. RESPIRATORY: As described above. GI: Negative. GENITOURINARY: As described above. PSYCHOSOCIAL: Negative. ENDOCRINE: Negative. DERMATOLOGICAL: Negative. CONSTITUTIONAL: As described above. Rest of the system review is not relevant. PHYSICAL EXAMINATION: Comfortable at rest. Blood pressure is elevated. There is no jugular venous distention. Chest exam reveals good air entry bilaterally. Heart exam reveals first and second heart sounds. An S4 is heard. Abdomen is soft. Examination of extremities did not reveal any edema. Peripheral pulses are felt. LABS: Hemoglobin 13.6. Potassium is 4.4. Troponins are negative. LDL cholesterol is 92. HDL is 33. EKG shows sinus rhythm with intraventricular conduction delay. ASSESSMENT: 1. Precordial chest pain. 2. Shortness of breath. PLAN: Patient's chest discomfort is atypical. She had a cardiac catheterization in 2016 that was negative for significant obstructive CAD. She had an echocardiogram last year that showed normal LV systolic function. Patient has history of chronic diastolic heart failure, so the plan at this stage is to discharge her home, arrange followup with Dr. David. Her chest pain is atypical. AK is ruled out. She does not require any further workup at this time. She does not seem to be in significant congestive heart failure at the moment. However, she had some pulmonary congestion on presentation, so it could be an acute exacerbation of chronic diastolic heart failure. MMODL / IJN: [id number] /
[2020-01-02] MEDS ORDERED: ATORVASTATIN 10 MG TAB PO SCH (22:00)
[2020-01-02] MEDS ORDERED: DONEPEZIL 5 MG TAB PO SCH (22:00)
[2020-01-03] MEDS ORDERED: ASPIRIN 81 MG PO SCH (09:00)
== END 2020-01-02 15:26 | disposition home or self-care (01) ==
LOC: EC 18:05 → 3SCARD 21:54
PROVIDERS: ADMIT Internal Medicine; ATTEND Internal Medicine
DX: I50.22 Chronic systolic (congestive) heart failure (principal); I11.0 Hypertensive heart disease with heart failure; F03.90 Unspecified dementia, unspecified severity, without behavioral disturbance, psychotic disturbance, mood disturbance, and anxiety; E78.5 Hyperlipidemia, unspecified; F33.9 Major depressive disorder, recurrent, unspecified; L71.9 Rosacea, unspecified; I42.8 Other cardiomyopathies; D72.829 Elevated white blood cell count, unspecified; I45.4 Nonspecific intraventricular block; I49.3 Ventricular premature depolarization; I25.10 Atherosclerotic heart disease of native coronary artery without angina pectoris; C85.90 Non-Hodgkin lymphoma, unspecified, unspecified site; M19.90 Unspecified osteoarthritis, unspecified site; D13.1 Benign neoplasm of stomach; E11.9 Type 2 diabetes mellitus without complications; Z95.5 Presence of coronary angioplasty implant and graft; Z79.899 Other long term (current) drug therapy; Z88.5 Allergy status to narcotic agent; Z91.048 Other nonmedicinal substance allergy status; Z91.013 Allergy to seafood; Z86.73 Personal history of transient ischemic attack (TIA), and cerebral infarction without residual deficits; Z86.14 Personal history of Methicillin resistant Staphylococcus aureus infection; Z90.49 Acquired absence of other specified parts of digestive tract; Z90.710 Acquired absence of both cervix and uterus; Z98.890 Other specified postprocedural states; Z90.89 Acquired absence of other organs; Z96.652 Presence of left artificial knee joint; Z98.42 Cataract extraction status, left eye; Z98.41 Cataract extraction status, right eye; Z91.89 Other specified personal risk factors, not elsewhere classified; Z95.818 Presence of other cardiac implants and grafts; Z84.89 Family history of other specified conditions; Z80.3 Family history of malignant neoplasm of breast
CPT/HCPCS: 96374; 99285; 36415; 93005; 85379; 83880; 80061; 80053; 83605; 84484 ×2; 85025; 85610; 85730; 71046; G0378 ×2; J1940; 87635

== ENCOUNTER 2020-06-15 17:16 | Emergency (ER) | payer MEDICARE ==
[2020-06-15] MEDS ORDERED: ASPIRIN 81 MG PO STA (17:36)
--- NOTE | 2020-06-15 17:38 | ED ---
General Adult HPI - General Chief complaint: Chest Pain Stated complaint: altered mental status Time Seen by Provider: 06/15/20 17:23 Source: patient, EMS Mode of arrival: EMS Limitations: altered mental status - History of Present Illness Initial comments: Dictation was produced using [employer] dictation software. please excuse any grammatical, word or spelling errors. This patient was cared for during a federal and state declared state of emerge ncy secondary to Covid 19 Chief Complaint: 85-year-old male presents with chest pain History of Present Illness: 85-year-old female presents today with chest pressure. Patient states her symptoms began today. Patient's been under a lot of stress recently. She just moved to [facility]. She's been there for one week when all of a sudden she encountered some conflict with other people regarding rumors stating that she was dating another resident. State that earlier today she began experiencing some pressure in the epigastric and lower chest area. Patient reports she has a history of heart failure. He states that she does not have as much pressure as earlier. Patient was brought in for EMS. She allegedly has a history of dementia. EMS reports that their call was for increased confusion. She denies any shortness of breath. Denies any radiation of symptoms to the shoulder or jaw. No associated diaphoresis or clamminess of the skin.according to EMS patient has shown signs of altered mental status. She allegedly heard music over the area, there was no music at the [place].she does have a history of dementia The ROS documented in this emergency department record has been reviewed and confirmed by me. Those systems with pertinent positive or negative responses have been documented in the HPI. All other systems are other negative and/or noncontributory. PHYSICAL EXAM: General Impression: Alert and oriented x3, not in acute distress HEENT: Normocephalic atraumatic, extra-ocular movements intact, pupils equal and reactive to light bilaterally, mucous membranes moist. Cardiovascular: Heart regular rate and rhythm Chest: Able to complete full sentences, no retractions, no tachypnea Abdomen: abdomen soft, non-tender, non-distended, no organomegaly Musculoskeletal: Pulses present and equal in all extremities, no peripheral edema Motor: no focal deficits noted Neurological: CN II-XII grossly intact, no focal motor or sensory deficits noted Skin: Intact with no visualized rashes Psych: Normal affect and mood ED course: 85ear-old feel presents with chest pain. EMS reports that she is here in emergency department for altered mental status. Allegedly EMS was called by patient's daughter. Signs upon arrival are within acceptable limits. Patient is very pleasant at bedside. She does not appear to be in any sort of acute distress. She is completely coherent. Laboratory evaluation obtained. Mild leukocytosis of 13.9 with a secondary distress. Coag panel metabolic panel is unremarkable. Troponin is negative. Urinalysis shows 8 white blood cells. She does not have any urinary symptoms. Computed tomography scan of the brain is unremarkable. Chest x-ray is nonacute. Chest the patient I would recommend keeping her in the hospital overnight for surgical and sick and medical monitoring. She rather instead go back to [place] where she is from. She understands the risk of leaving. Return precautions explained. Patient is understandable and agreeable. Patient received aspirin. She is told to follow-up with her primary care physician as soon as possible. EKG interpretation: Ventricular rate 72, sinus rhythm, MS interval 160, QRS 96, QTC 475. No MS prolongation, no QTC prolongation, no ST or T-wave changes noted. EKG compared to 04/02/2020 showing no changes. Overall, this EKG is unremarkable - Related Data Home Medications Medication Instructions Recorded Confirmed Temazepam [Restoril] 30 mg PO HS PRN 11/11/14 06/15/20 DULoxetine HCL [Cymbalta] 30 mg PO DAILY@1000 11/12/14 06/15/20 Nitroglycerin Sl Tabs [Nitrostat] 0.4 mg SL Q5M PRN 03/20/17 06/15/20 Carvedilol [Coreg] 25 mg PO BID@999,219901/14/19 06/15/20 ALPRAZolam [Xanax] 0.5 mg PO BID@999,219901/01/20 06/15/20 Donepezil [Aricept] 5 mg PO HS@219901/01/20 06/15/20 Isosorbide Mononitrate ER [Imdur] 30 mg PO DAILY@1000 01/01/20 06/15/20 Simvastatin [Zocor] 10 mg PO HS@219901/01/20 06/15/20 Furosemide [Lasix] 20 mg PO DAILY PRN 06/15/20 06/15/20 Furosemide [Lasix] 20 mg PO DAILY@1000 06/15/20 06/15/20 amLODIPine [Norvasc] 5 mg PO DAILY@1000 06/15/20 06/15/20 Allergies Allergy/AdvReac Type Severity Reaction Status Date / Time codeine Allergy Rash/Hives Verified 06/15/20 17:52 iodine Allergy Rash/Hives Verified 06/15/20 17:52 Penicillins Allergy Unknown Verified 06/15/20 17:52 shellfish derived [Shellfish] Allergy Rash/Hives Verified 06/15/20 17:52 Review of Systems ROS Statement: Those systems with pertinent positive or pertinent negative responses have been documented in the HPI. ROS Other: All systems not noted in ROS Statement are negative. 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 per dr Reyna History of Any Multi-Drug Resistant Organisms: MRSA Date of last positivie culture/infection: 07/28/09 MDRO Source:: unknown Past Surgical History: Appendectomy, Hysterectomy, Orthopedic Surgery, Tonsillectomy Additional Past Surgical History / Comment(s): left knee replacement, breast b iopsy which were benign - daughter states they there was some type of metal implanted in both breasts, bilat cataracts removed Past Anesthesia/Blood Transfusion Reactions: Previous Problems w/ Anesthesia Additional Past Anesthesia/Blood Transfusion Reaction / Comment(s): severe confusion for 2 weeks after surgery Past Psychological History: Depression Smoking Status: Never smoker Past Alcohol Use History: None Reported Past Drug Use History: None Reported - Past Family History Father Additional Family Medical History / Comment(s): Patient does not know anything about her father. Brother(s) Additional Family Medical History / Comment(s): Patient has one half-brother with no history of coronary artery disease. Mother History Unknown: Yes Family Medical History: Cancer Additional Family Medical History / Comment(s): Mother in her 70s with history of heart murmur and Breast Cancer General Exam Limitations: altered mental status Course Vital Signs 06/15/20 17:22 Temperature 98.3 F Pulse Rate 74 Respiratory 18 Rate Blood Pressure 181/92 O2 Sat by Pulse 96 Oximetry Medical Decision Making - Lab Data Result diagrams: 06/15/20 17:45 06/15/20 17:45 Lab Results 06/15/20 06/15/20 06/15/20 Range/Units 17:45 17:45 17:45 WBC 13.9 H (3.8-10.6) k/uL RBC 4.29 (3.80-5.40) m/uL Hgb 14.4 (11.4-16.0) gm/dL Hct 44.1 (34.0-46.0) % MCV 102.7 H (80.0-100.0) fL MCH 33.6 (25.0-35.0) pg MCHC 32.7 (31.0-37.0) g/dL RDW 13.5 (11.5-15.5) % Plt Count 419 (150-450) k/uL Neutrophils % 75 % Lymphocytes % 15 % Monocytes % 6 % Eosinophils % 1 % Basophils % 1 % Neutrophils # 10.5 H (1.3-7.7) k/uL Lymphocytes # 2.0 (1.0-4.8) k/uL Monocytes # 0.9 (0-1.0) k/uL Eosinophils # 0.1 (0-0.7) k/uL Basophils # 0.2 (0-0.2) k/uL Macrocytosis Slight PT 11.0 (9.0-12.0) sec INR 1.1 (<1.2) APTT 23.7 (22.0-30.0) sec Sodium 133 L (137-145) mmol/L Potassium 3.8 (3.5-5.1) mmol/L Chloride 98 (98-107) mmol/L Carbon Dioxide 26 (22-30) mmol/L Anion Gap 9 mmol/L BUN 14 (7-17) mg/dL Creatinine 0.79 (0.52-1.04) mg/dL Est GFR (CKD-EPI)AfAm 80 (>60 ml/min/1.73 sqM) Est GFR (CKD-EPI)NonAf 70 (>60 ml/min/1.73 sqM) Glucose 133 H (74-99) mg/dL Calcium 9.6 (8.4-10.2) mg/dL Magnesium 1.8 (1.6-2.3) mg/dL Total Bilirubin 0.7 (0.2-1.3) mg/dL AST 30 (14-36) U/L ALT 17 (4-34) U/L Alkaline Phosphatase 66 (38-126) U/L Troponin I (0.000-0.034) ng/mL Total Protein 6.7 (6.3-8.2) g/dL Albumin 4.2 (3.5-5.0) g/dL Urine Color Urine Appearance (Clear) Urine pH (5.0-8.0) Ur Specific [place] (1.001-1.035) Urine Protein (Negative) Urine Glucose (UA) (Negative) Urine Ketones (Negative) Urine Blood (Negative) Urine Nitrite (Negative) Urine Bilirubin (Negative) Urine Urobilinogen (<2.0) mg/dL Ur Leukocyte Esterase (Negative) Urine RBC (0-5) /hpf Urine WBC (0-5) /hpf Ur Squamous Epith Cells (0-4) /hpf Hyaline Casts (0-2) /lpf Urine Mucus (None) /hpf 06/15/20 06/15/20 Range/Units 17:45 17:45 WBC (3.8-10.6) k/uL RBC (3.80-5.40) m/uL Hgb (11.4-16.0) gm/dL Hct (34.0-46.0) % MCV (80.0-100.0) fL MCH (25.0-35.0) pg MCHC (31.0-37.0) g/dL RDW (11.5-15.5) % Plt Count (150-450) k/uL Neutrophils % % Lymphocytes % % Monocytes % % Eosinophils % % Basophils % % Neutrophils # (1.3-7.7) k/uL Lymphocytes # (1.0-4.8) k/uL Monocytes # (0-1.0) k/uL Eosinophils # (0-0.7) k/uL Basophils # (0-0.2) k/uL Macrocytosis PT (9.0-12.0) sec INR (<1.2) APTT (22.0-30.0) sec Sodium (137-145) mmol/L Potassium (3.5-5.1) mmol/L Chloride (98-107) mmol/L Carbon Dioxide (22-30) mmol/L Anion Gap mmol/L BUN (7-17) mg/dL Creatinine (0.52-1.04) mg/dL Est GFR (CKD-EPI)AfAm (>60 ml/min/1.73 sqM) Est GFR (CKD-EPI)NonAf (>60 ml/min/1.73 sqM) Glucose (74-99) mg/dL Calcium (8.4-10.2) mg/dL Magnesium (1.6-2.3) mg/dL Total Bilirubin (0.2-1.3) mg/dL AST (14-36) U/L ALT (4-34) U/L Alkaline Phosphatase (38-126) U/L Troponin I <0.012 (0.000-0.034) ng/mL Total Protein (6.3-8.2) g/dL Albumin (3.5-5.0) g/dL Urine Color Yellow Urine Appearance Clear (Clear) Urine pH 6.0 (5.0-8.0) Ur Specific [place] 1.009 (1.001-1.035) Urine Protein Negative (Negative) Urine Glucose (UA) Negative (Negative) Urine Ketones Negative (Negative) Urine Blood Small H (Negative) Urine Nitrite Negative (Negative) Urine Bilirubin Negative (Negative) Urine Urobilinogen <2.0 (<2.0) mg/dL Ur Leukocyte Esterase Moderate H (Negative) Urine RBC 2 (0-5) /hpf Urine WBC 8 H (0-5) /hpf Ur Squamous Epith Cells <1 (0-4) /hpf Hyaline Casts 3 H (0-2) /lpf Urine Mucus Rare H (None) /hpf Disposition Clinical Impression: Chest pain Disposition: HOME SELF-CARE Condition: Good Instructions (If sedation given, give patient instructions): Chest Pain (ED) Is patient prescribed a controlled substance at d/c from ED?: No Referrals: Marcus Garrett MD [Primary Care Provider] - 1-2 days Time of Disposition: 19:16
[2020-06-15 17:56] LABS: Basophils # (A) 0.2 k/uL (0-0.2); Basophils % (A) 1 %; Eosinophils # (A) 0.1 k/uL (0-0.7); Eosinophils % (A) 1 %; HCT 44.1 % (34.0-46.0); HGB 14.4 gm/dL (11.4-16.0); Lymphocytes % (A) 15 %; MCH 33.6 pg (25.0-35.0); MCHC 32.7 g/dL (31.0-37.0); MCV 102.7 fL (80.0-100.0); Macrocytosis Slight; Mean Platelet Volume 6.8; Monocytes # (A) 0.9 k/uL (0-1.0); Monocytes % (A) 6 %; Neutrophils # (A) 10.5 k/uL (1.3-7.7); Neutrophils % (A) 75 %; Platelet Count 419 k/uL (150-450); RBC 4.29 m/uL (3.80-5.40); RDW 13.5 % (11.5-15.5); WBC 13.9 k/uL (3.8-10.6)
[2020-06-15 18:08] LABS: INR 1.1 (<1.2)
[2020-06-15 18:09] LABS: Partial Thromboplastin Time 23.7 sec (22.0-30.0)
[2020-06-15 18:17] LABS: Albumin 4.2 g/dL (3.5-5.0); Calcium 9.6 mg/dL (8.4-10.2); Magnesium 1.8 mg/dL (1.6-2.3); Potassium 3.8 mmol/L (3.5-5.1); Total Bilirubin 0.7 mg/dL (0.2-1.3); Total Protein 6.7 g/dL (6.3-8.2)
--- NOTE | 2020-06-15 18:40 | CT ---
EXAMINATION TYPE: CT brain wo con DATE OF EXAM: 06/15/2020 COMPARISON: 01/14/2019 HISTORY: Altered mental status. CT DLP: 1111.4 mGycm Automated exposure control for dose reduction was used. Ventricles have fairly normal size. There is no mass effect nor midline shift. There is no sign of in tracranial hemorrhage. There is mild cerebral atrophy. Calvarium is intact. IMPRESSION: Mild atrophy. No acute intracranial abnormality. No change.
--- NOTE | 2020-06-15 18:43 | XR ---
EXAMINATION TYPE: XR chest 2V DATE OF EXAM: 06/15/2020 COMPARISON: 01/01/2020 HISTORY: Chest pain TECHNIQUE: FINDINGS: Heart and mediastinum are normal. Lungs are clear. Diaphragm is normal. There are chest almita ds. Costophrenic angles are clear. IMPRESSION: No active cardiopulmonary disease. No change.
[2020-06-15 19:10] LABS: Appearance,Urine Clear (Clear); Bilirubin,Urine Negative (Negative); Blood,Urine Small (Negative); Color,Urine Yellow; Glucose,Urine (UA) Negative (Negative); Hyaline Casts,Urine 3 /lpf (0-2); Ketones,Urine Negative (Negative); Leukocyte Esterase,Urine Moderate (Negative); Mucus,Urine Rare /hpf; Nitrite,Urine Negative (Negative); Protein,Urine Negative (Negative); RBC,Urine 2 /hpf (0-5); Specific Gravity,Urine 1.009 (1.001-1.035); Squamous Epithelial Cell,Urine <1 /hpf (0-4); Urobilinogen,Urine <2.0 mg/dL (<2.0); WBC,Urine 8 /hpf (0-5)
[2020-06-15 19:27] VITALS: BP 156/70; RESP 17; TEMP 98.2
[2020-06-15 20:02] VITALS: PULSE 80
== END 2020-06-15 20:03 | disposition home or self-care (01) ==
LOC: EC 17:16
DX: R07.9 Chest pain, unspecified (principal); R41.82 Altered mental status, unspecified; I11.0 Hypertensive heart disease with heart failure; I50.9 Heart failure, unspecified; F03.90 Unspecified dementia, unspecified severity, without behavioral disturbance, psychotic disturbance, mood disturbance, and anxiety; F32.9 Major depressive disorder, single episode, unspecified; E78.5 Hyperlipidemia, unspecified; M19.90 Unspecified osteoarthritis, unspecified site; Z79.02 Long term (current) use of antithrombotics/antiplatelets; Z79.899 Other long term (current) drug therapy; Z88.5 Allergy status to narcotic agent; Z88.0 Allergy status to penicillin; Z91.048 Other nonmedicinal substance allergy status; Z91.013 Allergy to seafood; Z86.73 Personal history of transient ischemic attack (TIA), and cerebral infarction without residual deficits; Z85.72 Personal history of non-Hodgkin lymphomas; Z96.652 Presence of left artificial knee joint
CPT/HCPCS: 36415; 70450; 71046; 80053; 81001; 83735; 84484; 85025; 85610; 85730; 93005; 99285

== ENCOUNTER 2020-06-18 19:49 | Observation (INO) | payer MEDICARE ==
[2020-06-18] MEDS ORDERED: SODIUM CHLORIDE 0.9% 500 ML 500 ML IV ONE (20:21)
[2020-06-18 21:11] LABS: Basophils # (A) 0.1 k/uL (0-0.2); Basophils % (A) 1 %; Eosinophils # (A) 0.2 k/uL (0-0.7); Eosinophils % (A) 1 %; HCT 44.5 % (34.0-46.0); HGB 14.6 gm/dL (11.4-16.0); Lymphocytes # (A) 2.8 k/uL (1.0-4.8); Lymphocytes % (A) 18 %; MCH 33.6 pg (25.0-35.0); MCHC 32.8 g/dL (31.0-37.0); MCV 102.5 fL (80.0-100.0); Macrocytosis Slight; Monocytes # (A) 1.5 k/uL (0-1.0); Monocytes % (A) 10 %; Neutrophils # (A) 11.1 k/uL (1.3-7.7); Neutrophils % (A) 69 %; Platelet Count 424 k/uL (150-450); RBC 4.34 m/uL (3.80-5.40)
--- NOTE | 2020-06-18 21:16 | XR ---
EXAMINATION TYPE: XR chest 2V DATE OF EXAM: 06/18/2020 COMPARISON: 06/15/2020 HISTORY: Chest pain TECHNIQUE: 2 views FINDINGS: There is no heart failure nor confluent pneumonic infiltrate. Costophrenic angles are clear . There are no hilar masses. Bony thorax is intact. IMPRESSION: No active cardiopulmonary disease. Normal heart. No change.
[2020-06-18 21:19] LABS: Partial Thromboplastin Time 23.9 sec (22.0-30.0); Prothrombin Time 10.4 sec (9.0-12.0)
--- NOTE | 2020-06-18 21:19 | CT ---
EXAMINATION TYPE: CT brain wo con DATE OF EXAM: 06/18/2020 COMPARISON: 06/15/2020 HISTORY: Altered mental status. CT DLP: 1106.4 mGycm Automated exposure control for dose reduction was used. There is mild cerebral cortical atrophy. There is no mass effect nor midline shift. There is no sign of intracranial hemorrhage. There is 3.5 x 3 cm mass in the sphenoid sinus with some expansile margin s. 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 I see no focal bone destruction. IMPRESSION: Cerebral atrophy. Expansile mass in the sphenoid sinus is increased compared to 01/14/2019 and more li georgiana related to a mucocele.
[2020-06-18 21:21] LABS: Appearance,Urine Clear (Clear); Bilirubin,Urine Negative (Negative); Blood,Urine Small (Negative); Color,Urine Light Yellow; Glucose,Urine (UA) Negative (Negative); Hyaline Casts,Urine 1 /lpf (0-2); Ketones,Urine Negative (Negative); Leukocyte Esterase,Urine Moderate (Negative); Nitrite,Urine Negative (Negative); PH, Urine 5.5 (5.0-8.0); Protein,Urine Negative (Negative); RBC,Urine 1 /hpf (0-5); Specific Gravity,Urine 1.005 (1.001-1.035); Squamous Epithelial Cell,Urine <1 /hpf (0-4); Urobilinogen,Urine <2.0 mg/dL (<2.0); WBC,Urine 16 /hpf (0-5)
[2020-06-18 21:21] LABS: Glucose,Whole Blood 136 mg/dL (75-99)
[2020-06-18 21:22] LABS: Albumin 4.3 g/dL (3.5-5.0); Calcium 9.5 mg/dL (8.4-10.2); Potassium 3.4 mmol/L (3.5-5.1); Total Bilirubin 0.7 mg/dL (0.2-1.3); Total Protein 6.6 g/dL (6.3-8.2)
[2020-06-18 21:29] LABS: Amphetamine Screen,Urine Not Detected (NotDetected); Barbiturate Screen,Urine Not Detected (NotDetected); Benzodiazepines Screen,Urine Detected (NotDetected); Cocaine Screen,Urine Not Detected (NotDetected); Methadone Screen, Urine Not Detected (NotDetected); Opiate Screen,Urine Detected (NotDetected); Oxycodone Screen, Urine Not Detected (NotDetected); Phencyclidine Screen,Urine Not Detected (NotDetected); Tricyclic Antidepressant,Urine Not Detected (NotDetected); Urn Cannabinoid Scrn Not Detected (NotDetected)
[2020-06-18] MEDS ORDERED: NALOXONE 0.4 MG/ML 1 ML VIAL IV PRN (21:29)
[2020-06-18] MEDS ORDERED: ACETAMINOPHEN TAB 325 MG TAB PO PRN (21:29)
--- NOTE | 2020-06-18 21:32 | ED ---
General Adult HPI - General Chief complaint: Altered Mental Status Stated complaint: Altered Mental Status Time Seen by Provider: 06/18/20 20:04 Source: patient, EMS, RN notes reviewed, old records reviewed Mode of arrival: EMS Limitations: altered mental status - History of Present Illness Initial comments: 85-year-old female patient past medical history of dementia, CHF, non-Hodgkin's lymphoma in remission to ED for evaluation. Patient was assisted living facility. They report the patient has been acting more confused recently. Patient is denying any focal area of pain however patient does report that she has been hearing some auditory hallucinations denies any other acute complaints. Systemic: Pt denies fatigue, fever/chills, rash. Pt denies weakness, night sweats, weight loss. Neuro: Pt denies headache, visual disturbances, syncope or pre-syncope. HEENT: Pt denies ocular discharge or irritation, otalgia, rhinorrhea, pharyngitis or notable lymphadenopathy. Cardiopulmonary: Pt denies chest pain, SOB, heart palpitations, dyspnea on ex ertion. Abdominal/GI: Pt denies abdominal pain, n/v/d. : Pt denies dysuria, burning w/ urination, frequency/urgency. Denies new onset urinary or bowel incontinence. MSK: Pt denies myalgia, loss of strength or function in extremities. Neuro: Pt denies new onset weakness, paresthesias. - Related Data Home Medications Medication Instructions Recorded Confirmed Temazepam [Restoril] 30 mg PO HS PRN 11/11/14 06/18/20 DULoxetine HCL [Cymbalta] 30 mg PO DAILY@1000 11/12/14 06/18/20 Nitroglycerin Sl Tabs [Nitrostat] 0.4 mg SL Q5M PRN 03/20/17 06/18/20 Carvedilol [Coreg] 25 mg PO BID@999,219901/14/19 06/18/20 ALPRAZolam [Xanax] 0.5 mg PO BID@1000,219901/01/20 06/18/20 Donepezil [Aricept] 5 mg PO HS@219901/01/20 06/18/20 Isosorbide Mononitrate ER [Imdur] 30 mg PO DAILY@99901/01/20 06/18/20 Simvastatin [Zocor] 10 mg PO HS@2200 01/01/20 06/18/20 Furosemide [Lasix] 20 mg PO DAILY PRN 06/15/20 06/18/20 Furosemide [Lasix] 20 mg PO DAILY@1000 06/15/20 06/18/20 amLODIPine [Norvasc] 5 mg PO DAILY@1000 06/15/20 06/18/20 Allergies Allergy/AdvReac Type Severity Reaction Status Date / Time codeine Allergy Rash/Hives Verified 06/18/20 21:09 iodine Allergy Rash/Hives Verified 06/18/20 21:09 Penicillins Allergy Unknown Verified 06/18/20 21:09 shellfish derived [Shellfish] Allergy Rash/Hives Verified 06/18/20 21:09 Review of Systems ROS Statement: Those systems with pertinent positive or pertinent negative responses have been documented in the HPI. ROS Other: All systems not noted in ROS Statement are negative. 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 per dr Reyna History of Any Multi-Drug Resistant Organisms: MRSA Date of last positivie culture/infection: 07/28/09 MDRO Source:: unknown Past Surgical History: Appendectomy, Hysterectomy, Orthopedic Surgery, Tonsillectomy Additional Past Surgical History / Comment(s): left knee replacement, breast bio psy which were benign - daughter states they there was some type of metal implanted in both breasts, bilat cataracts removed Past Anesthesia/Blood Transfusion Reactions: Previous Problems w/ Anesthesia Additional Past Anesthesia/Blood Transfusion Reaction / Comment(s): severe confusion for 2 weeks after surgery Past Psychological History: Depression Smoking Status: Never smoker Past Alcohol Use History: None Reported Past Drug Use History: None Reported - Past Family History Father Additional Family Medical History / Comment(s): Patient does not know anything about her father. Brother(s) Additional Family Medical History / Comment(s): Patient has one half-brother with no history of coronary artery disease. Mother History Unknown: Yes Family Medical History: Cancer Additional Family Medical History / Comment(s): Mother in her 70s with history of heart murmur and Breast Cancer General Exam - General Exam Comments Initial Comments: Constitutional: NAD, AOX3, Pt has pleasant affect. HEENT: NC/AT, trachea midline, neck supple, no lymphadenopathy. External ears appear normal, without discharge. Mucous membranes moist. Eyes PERRLA, EOM intact. There is no scleral icterus. No pallor noted. Cardiopulmonary: RRR, no murmurs, rubs or gallops, no JVD noted. Lungs CTAB in anterior and posterior arnold. No peripheral edema. Abdominal exam: Abdomen soft and non-distended. Abdomen non-tender to palpation in all 4 quadrants. Bowel sounds active in LLQ. No hepatosplenomegaly. No ecchymosis Neuro: CN II-XII intact. No nuchal rigidity. MSK: No posterior calf tenderness bilaterally, homans sign negative bilaterally. Posterior tibialis and radial pulse +2 bilaterally. Sensation intact in upper and lower extremities. Full active ROM in upper and lower extremities, 5/5 stregnth. Limitations: altered mental status Course Vital Signs 06/18/20 19:52 Temperature 98.3 F Pulse Rate 73 Respiratory 18 Rate Blood Pressure 133/70 O2 Sat by Pulse 95 Oximetry Medical Decision Making - Medical Decision Making 85-year-old female patient to ED after nursing facility sent patient and thing that she has been more confused recently. Patient denies any focal area of pain however she does endorse that she has been having some auditory hallucinations recently. Left exam is intact. His exam negative for acute pathology. Laboratory investigations reveal leukocytosis which is increasing from couple days prior. Mild urinary tract infection. Mild hypernatremia, mild dehydration. CT brain negative for acute pathology. Chest: Negative for any acute cardiopulmonary process. Patient's will be admitted for gentle rehydration, IV antibiotics. Case discussed with Dr. Franklin. - Lab Data Result diagrams: 06/18/20 20:36 06/18/20 20:36 Lab Results 06/18/20 06/18/20 06/18/20 Range/Units 20:36 20:36 20:36 WBC 16.0 H (3.8-10.6) k/uL RBC 4.34 (3.80-5.40) m/uL Hgb 14.6 (11.4-16.0) gm/dL Hct 44.5 (34.0-46.0) % MCV 102.5 H (80.0-100.0) fL MCH 33.6 (25.0-35.0) pg MCHC 32.8 (31.0-37.0) g/dL RDW 14.0 (11.5-15.5) % Plt Count 424 (150-450) k/uL Neutrophils % 69 % Lymphocytes % 18 % Monocytes % 10 % Eosinophils % 1 % Basophils % 1 % Neutrophils # 11.1 H (1.3-7.7) k/uL Lymphocytes # 2.8 (1.0-4.8) k/uL Monocytes # 1.5 H (0-1.0) k/uL Eosinophils # 0.2 (0-0.7) k/uL Basophils # 0.1 (0-0.2) k/uL Macrocytosis Slight PT 10.4 (9.0-12.0) sec INR 1.0 (<1.2) APTT 23.9 (22.0-30.0) sec Sodium (137-145) mmol/L Potassium (3.5-5.1) mmol/L Chloride (98-107) mmol/L Carbon Dioxide (22-30) mmol/L Anion Gap mmol/L BUN (7-17) mg/dL Creatinine (0.52-1.04) mg/dL Est GFR (CKD-EPI)AfAm (>60 ml/min/1.73 sqM) Est GFR (CKD-EPI)NonAf (>60 ml/min/1.73 sqM) Glucose (74-99) mg/dL POC Glucose (mg/dL) (75-99) mg/dL POC Glu Inspector Electromechanical ID Calcium (8.4-10.2) mg/dL Total Bilirubin (0.2-1.3) mg/dL AST (14-36) U/L ALT (4-34) U/L Alkaline Phosphatase (38-126) U/L Ammonia (<30) umol/L Troponin I (0.000-0.034) ng/mL Total Protein (6.3-8.2) g/dL Albumin (3.5-5.0) g/dL Urine Color Light Yellow Urine Appearance Clear (Clear) Urine pH 5.5 (5.0-8.0) Ur Specific [place] 1.005 (1.001-1.035) Urine Protein Negative (Negative) Urine Glucose (UA) Negative (Negative) Urine Ketones Negative (Negative) Urine Blood Small H (Negative) Urine Nitrite Negative (Negative) Urine Bilirubin Negative (Negative) Urine Urobilinogen <2.0 (<2.0) mg/dL Ur Leukocyte Esterase Moderate H (Negative) Urine RBC 1 (0-5) /hpf Urine WBC 16 H (0-5) /hpf Ur Squamous Epith Cells <1 (0-4) /hpf Hyaline Casts 1 (0-2) /lpf Urine Opiates Screen Detected H (NotDetected) Ur Oxycodone Screen Not Detected (NotDetected) Urine Methadone Screen Not Detected (NotDetected) Ur Propoxyphene Screen Not Detected (NotDetected) Ur Barbiturates Screen Not Detected (NotDetected) U Tricyclic Antidepress Not Detected (NotDetected) Ur Phencyclidine Scrn Not Detected (NotDetected) Ur Amphetamines Screen Not Detected (NotDetected) U Methamphetamines Scrn Not Detected (NotDetected) U Benzodiazepines Scrn Detected H (NotDetected) Urine Cocaine Screen Not Detected (NotDetected) U Marijuana (THC) Screen Not Detected (NotDetected) 06/18/20 06/18/20 06/18/20 Range/Units 20:36 20:36 20:36 WBC (3.8-10.6) k/uL RBC (3.80-5.40) m/uL Hgb (11.4-16.0) gm/dL Hct (34.0-46.0) % MCV (80.0-100.0) fL MCH (25.0-35.0) pg MCHC (31.0-37.0) g/dL RDW (11.5-15.5) % Plt Count (150-450) k/uL Neutrophils % % Lymphocytes % % Monocytes % % Eosinophils % % Basophils % % Neutrophils # (1.3-7.7) k/uL Lymphocytes # (1.0-4.8) k/uL Monocytes # (0-1.0) k/uL Eosinophils # (0-0.7) k/uL Basophils # (0-0.2) k/uL Macrocytosis PT (9.0-12.0) sec INR (<1.2) APTT (22.0-30.0) sec Sodium 130 L (137-145) mmol/L Potassium 3.4 L (3.5-5.1) mmol/L Chloride 93 L (98-107) mmol/L Carbon Dioxide 29 (22-30) mmol/L Anion Gap 8 mmol/L BUN 24 H (7-17) mg/dL Creatinine 0.96 (0.52-1.04) mg/dL Est GFR (CKD-EPI)AfAm 63 (>60 ml/min/1.73 sqM) Est GFR (CKD-EPI)NonAf 55 (>60 ml/min/1.73 sqM) Glucose 130 H (74-99) mg/dL POC Glucose (mg/dL) (75-99) mg/dL POC Glu Inspector Electromechanical ID Calcium 9.5 (8.4-10.2) mg/dL Total Bilirubin 0.7 (0.2-1.3) mg/dL AST 34 (14-36) U/L ALT 17 (4-34) U/L Alkaline Phosphatase 69 (38-126) U/L Ammonia <9 (<30) umol/L Troponin I <0.012 (0.000-0.034) ng/mL Total Protein 6.6 (6.3-8.2) g/dL Albumin 4.3 (3.5-5.0) g/dL Urine Color Urine Appearance (Clear) Urine pH (5.0-8.0) Ur Specific [place] (1.001-1.035) Urine Protein (Negative) Urine Glucose (UA) (Negative) Urine Ketones (Negative) Urine Blood (Negative) Urine Nitrite (Negative) Urine Bilirubin (Negative) Urine Urobilinogen (<2.0) mg/dL Ur Leukocyte Esterase (Negative) Urine RBC (0-5) /hpf Urine WBC (0-5) /hpf Ur Squamous Epith Cells (0-4) /hpf Hyaline Casts (0-2) /lpf Urine Opiates Screen (NotDetected) Ur Oxycodone Screen (NotDetected) Urine Methadone Screen (NotDetected) Ur Propoxyphene Screen (NotDetected) Ur Barbiturates Screen (NotDetected) U Tricyclic Antidepress (NotDetected) Ur Phencyclidine Scrn (NotDetected) Ur Amphetamines Screen (NotDetected) U Methamphetamines Scrn (NotDetected) U Benzodiazepines Scrn (NotDetected) Urine Cocaine Screen (NotDetected) U Marijuana (THC) Screen (NotDetected) 06/18/20 Range/Units 21:20 WBC (3.8-10.6) k/uL RBC (3.80-5.40) m/uL Hgb (11.4-16.0) gm/dL Hct (34.0-46.0) % MCV (80.0-100.0) fL MCH (25.0-35.0) pg MCHC (31.0-37.0) g/dL RDW (11.5-15.5) % Plt Count (150-450) k/uL Neutrophils % % Lymphocytes % % Monocytes % % Eosinophils % % Basophils % % Neutrophils # (1.3-7.7) k/uL Lymphocytes # (1.0-4.8) k/uL Monocytes # (0-1.0) k/uL Eosinophils # (0-0.7) k/uL Basophils # (0-0.2) k/uL Macrocytosis PT (9.0-12.0) sec INR (<1.2) APTT (22.0-30.0) sec Sodium (137-145) mmol/L Potassium (3.5-5.1) mmol/L Chloride (98-107) mmol/L Carbon Dioxide (22-30) mmol/L Anion Gap mmol/L BUN (7-17) mg/dL Creatinine (0.52-1.04) mg/dL Est GFR (CKD-EPI)AfAm (>60 ml/min/1.73 sqM) Est GFR (CKD-EPI)NonAf (>60 ml/min/1.73 sqM) Glucose (74-99) mg/dL POC Glucose (mg/dL) 136 H (75-99) mg/dL POC Glu Inspector Electromechanical ID [place] Calcium (8.4-10.2) mg/dL Total Bilirubin (0.2-1.3) mg/dL AST (14-36) U/L ALT (4-34) U/L Alkaline Phosphatase (38-126) U/L Ammonia (<30) umol/L Troponin I (0.000-0.034) ng/mL Total Protein (6.3-8.2) g/dL Albumin (3.5-5.0) g/dL Urine Color Urine Appearance (Clear) Urine pH (5.0-8.0) Ur Specific [place] (1.001-1.035) Urine Protein (Negative) Urine Glucose (UA) (Negative) Urine Ketones (Negative) Urine Blood (Negative) Urine Nitrite (Negative) Urine Bilirubin (Negative) Urine Urobilinogen (<2.0) mg/dL Ur Leukocyte Esterase (Negative) Urine RBC (0-5) /hpf Urine WBC (0-5) /hpf Ur Squamous Epith Cells (0-4) /hpf Hyaline Casts (0-2) /lpf Urine Opiates Screen (NotDetected) Ur Oxycodone Screen (NotDetected) Urine Methadone Screen (NotDetected) Ur Propoxyphene Screen (NotDetected) Ur Barbiturates Screen (NotDetected) U Tricyclic Antidepress (NotDetected) Ur Phencyclidine Scrn (NotDetected) Ur Amphetamines Screen (NotDetected) U Methamphetamines Scrn (NotDetected) U Benzodiazepines Scrn (NotDetected) Urine Cocaine Screen (NotDetected) U Marijuana (THC) Screen (NotDetected) - EKG Data -: EKG Interpreted by Me (and Dr. Franklin ) EKG Comments: Ventricular rate 66, PT interval 156, QRS 104, QT/QTc 472/494. Normal Sinus rhythm. No concern for acute ischemia at this time. Disposition Clinical Impression: UTI (urinary tract infection), Auditory hallucinations, Dementia, Dehydration, Hyponatremia Disposition: ADMITTED IP TO THIS HOSP Condition: Serious Is patient prescribed a controlled substance at d/c from ED?: No Referrals: Marcus Garrett MD [Primary Care Provider] - 1-2 days
[2020-06-18] MEDS: SODIUM CHLORIDE 0.9% 1,000 ML IV SCH (21:42)
[2020-06-18] MEDS ORDERED: NITROGLYCERIN SL TABS 0.4 MG TAB SUBLINGUAL PRN (22:13)
[2020-06-18] MEDS ORDERED: FUROSEMIDE 20 MG TAB PO PRN (22:30)
[2020-06-18] MEDS ORDERED: TEMAZEPAM 15 MG CAP PO PRN (22:30)
[2020-06-18] MEDS: ALPRAZolam 0.5 MG TAB PO SCH (22:44)
[2020-06-18] MEDS: ATORVASTATIN 10 MG TAB PO SCH (22:44)
[2020-06-18] MEDS: carvediloL 12.5 MG TAB PO SCH (22:44)
[2020-06-18] MEDS: DONEPEZIL 5 MG TAB PO SCH (23:30)
[2020-06-19 07:13] LABS: Glucose,Whole Blood 131 mg/dL (75-99)
[2020-06-19] MEDS: HEPARIN SODIUM,PORCINE 5,000 UNIT/ML 1 ML VIAL SQ SCH ×2 (08:37→21:32)
[2020-06-19] MEDS: amLODIPine 5 MG TAB PO SCH (10:29)
[2020-06-19] MEDS: carvediloL 12.5 MG TAB PO SCH ×2 (10:29→21:33)
[2020-06-19] MEDS: ISOSORBIDE MONONITRATE ER 30 MG TAB.ER.24H PO SCH (10:29)
[2020-06-19] MEDS: ALPRAZolam 0.5 MG TAB PO SCH ×2 (10:29→21:33)
[2020-06-19] MEDS: DULoxetine HCL 30 MG CAPSULE.DR PO SCH (10:30)
--- NOTE | 2020-06-19 10:58 | P.HPIM ---
History of Present Illness H&P Date: 06/19/20 HISTORY OF PRESENT ILLNESS This is an 84-year-old female patient of Dr. Garrett and Dr. David with past medical history of dementia, Alzheimer's type, hypertension, h yperlipidemia, TIA, non-Hodgkin's lymphoma in remission, stomach tumor which apparently is benign followed by Dr. Reyna. Patient resides at [facility]. She was seen in the emergency center on June 15 for altered mental status and all laboratory studies were negative and CAT scan of the brain was unremarkable. Chest x-ray showed no acute findings. Patient was discharged back to assisted living. Patient was confused recently and having auditory hallucinations, calling out which was abnormal for her. She was sent into the hospital for further evaluation. Patient [facility] and states that she feels like her muscles are all achy. She denies any localized pain. She continues to have confusion. Patient presented to [facility] emergency center for evaluation, she was afebrile, heart rate 73, blood pressure 133/70, pulse ox 95% on room air. WBC 12.7, hemoglobin 16.0. Hemoglobin 14.6, platelet count 424. Sodium 130, potassium 3.4, chloride 93, CO2 29, BUN 24 and creatinine 0.96. Blood sugar 130. Urine drug screen was positive for opioids and benzodiazepine. Urinalysis reveals small amount of blood, leukoesterase moderate, WBC 16. Troponin was negative. Patient was provided dose of ceftriaxone and admitted to the [facility] floor. REVIEW OF SYSTEMS Constitutional: No fever, no chills, no night sweats. No weight change. Reports weakness, reports fatigue. Reports generalized malaise. EENT: No headache. No blurred vision or double vision, no loss of vision. No nasal drainage or congestion. No epistaxis. Lungs: No shortness of breath, cough, no sputum production. No wheezing. Cardiovascular: No chest pain, no lower extremity edema. No palpitations. No paroxysmal nocturnal dyspnea. No orthopnea. No lightheadedness or dizziness. No syncopal episodes. Abdominal: No abdominal pain. No nausea, vomiting. No diarrhea. No constipation. No bloody or tarry stools.. No loss of appetite. Genitourinary: No dysuria, increased frequency, urgency. No urinary retention. Musculoskeletal: Reports generalized muscle aches. No muscle weakness, no gait dysfunction, no frequent falls. No back pain. No neck pain. Integumentary: No wounds, no lesions. No rash or pruritus. No unusual brui sing. No change in hair or nails. Neurologic: No aphasia. No facial droop. Reports change in mentation. No head injury. No headache. Reports hallucinations. Psychiatric: No depression. No anxiety. No mood swings. Endocrine: No abnormal blood sugars. No weight change. No excessive sweating or thirst. No cold intolerance. PHYSICAL EXAMINATION Gen: This is an 84-year-old female. Patient is resting in bed and appears to be comfortable and in no acute distress. HEENT: Head is atraumatic, normocephalic. Pupils equal, round. Sclerae is anicteric. NECK: Supple. No JVD. No lymphadenopathy. No thyromegaly. LUNGS: Clear to auscultation. No wheezes or rhonchi. No intercostal retractions. HEART: Regular rate and rhythm. No murmur. ABDOMEN: Soft. Bowel sounds are present. No masses. No abdominal tenderness. EXTREMITIES: No pedal edema. No calf tenderness. Dorsalis pedis palpable bilaterally. NEUROLOGICAL: Patient is awake, alert and oriented to person pleasant lady confused with poor memory recall. Cranial nerves 2 through 12 are grossly intact . ASSESSMENT AND PLAN 1. Acute metabolic encephalopathy and sepsis secondary to acute urinary tract infection presenting with mental status changes and leukocytosis. Patient will be placed on ceftriaxone 1 g daily. Urine culture in progress. 2. Nonischemic cardiomyopathy with chronic systolic heart failure. Continue Lasix 20 mg daily as needed. 3. Hypertension. Continue Coreg 25 mg twice daily, Imdur 30 mg daily, Lasix. 4. Dementia, Alzheimer type. Continue Aricept 5 mg at bedtime. 5. Hyperlipidemia. Continue simvastatin. 6. Recurrent depression. Continue Cymbalta 30 mg daily. 7. Chronic rosacea. 8. DVT prophylaxis. Heparin subcu. 9. GI prophylaxis. Protonix. Patient will be admitted to the hospital for a minimum of 2 night stay. Discharge plan: Return home to [facility], most likely. Consult PT and OT. Impression and plan of care have been directed as dictated by the signing physician. Caitlyn Bryan nurse practitioner acting as scribe for signing physician. 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 per dr Reyna History of Any Multi-Drug Resistant Organisms: MRSA Date of last positivie culture/infection: 07/28/09 MDRO Source:: unknown Past Surgical History: Appendectomy, Hysterectomy, Orthopedic Surgery, Tonsillectomy Additional Past Surgical History / Comment(s): left knee replacement, breast biopsy which were benign - daughter states they there was some type of metal implanted in both breasts, bilat cataracts removed Past Anesthesia/Blood Transfusion Reactions: Previous Problems w/ Anesthesia Additional Past Anesthesia/Blood Transfusion Reaction / Comment(s): severe confusion for 2 weeks after surgery Past Psychological History: Depression Additional Psychological History / Comment(s): loss short term memory Smoking Status: Never smoker Past Alcohol Use History: None Reported Past Drug Use History: None Reported - Past Family History Father Additional Family Medical History / Comment(s): Patient does not know anything about her father. Brother(s) Additional Family Medical History / Comment(s): Patient has one half-brother with no history of coronary artery disease. Mother History Unknown: Yes Family Medical History: Cancer Additional Family Medical History / Comment(s): Mother in her 70s with history of heart murmur and Breast Cancer Medications and Allergies Home Medications Medication Instructions Recorded Confirmed Type Temazepam [Restoril] 30 mg PO HS PRN 11/11/14 06/18/20 History DULoxetine HCL [Cymbalta] 30 mg PO DAILY@1000 11/12/14 06/18/20 History Nitroglycerin Sl Tabs [Nitrostat] 0.4 mg SL Q5M PRN 03/20/17 06/18/20 History Carvedilol [Coreg] 25 mg PO BID@1000,219901/14/19 06/18/20 History ALPRAZolam [Xanax] 0.5 mg PO BID@1000,0 01/01/20 06/18/20 History Donepezil [Aricept] 5 mg PO HS@219901/01/20 06/18/20 History Isosorbide Mononitrate ER [Imdur] 30 mg PO DAILY@1000 01/01/20 06/18/20 History Simvastatin [Zocor] 10 mg PO HS@2200 01/01/20 06/18/20 History Furosemide [Lasix] 20 mg PO DAILY PRN 06/15/20 06/18/20 History Furosemide [Lasix] 20 mg PO DAILY@1000 06/15/20 06/18/20 History amLODIPine [Norvasc] 5 mg PO DAILY@1000 06/15/20 06/18/20 History Allergies Allergy/AdvReac Type Severity Reaction Status Date / Time codeine Allergy Rash/Hives Verified 06/18/20 21:09 iodine Allergy Rash/Hives Verified 06/18/20 21:09 Penicillins Allergy Unknown Verified 06/18/20 21:09 shellfish derived [Shellfish] Allergy Rash/Hives Verified 06/18/20 21:09 Physical Exam Vitals: Vital Signs Temp Pulse Pulse Resp BP BP Pulse Ox 06/19/20 05:00 97.8 F 62 18 172/76 96 06/18/20 22:24 98.1 F 60 17 166/78 98 06/18/20 22:03 98.2 F 06/18/20 21:43 61 16 150/67 97 06/18/20 19:52 98.3 F 73 18 133/70 95 Intake and Output 06/18/20 06/19/20 06/19/20 22:59 06:59 14:59 Intake Total 600 1190 Balance 600 1190 Intake: Intake, IV Titration 300 600 Amount Sodium Chloride 0.9% 1, 300 600 000 ml @ 75 mls/hr IV . [id number] [facility] Rx#:[id number] Oral 300 590 Other: Voiding Method Toilet # Voids 3 1 Weight 65.317 kg 67.132 kg Results CBC & Chem 7: 06/18/20 20:36 06/18/20 20:36 Labs: Abnormal Lab Results - Last 24 Hours (Table) 06/18/20 06/18/20 06/18/20 Range/Units 20:36 20:36 20:36 WBC 16.0 H (3.8-10.6) k/uL MCV 102.5 H (80.0-100.0) fL Neutrophils # 11.1 H (1.3-7.7) k/uL Monocytes # 1.5 H (0-1.0) k/uL Sodium 130 L (137-145) mmol/L Potassium 3.4 L (3.5-5.1) mmol/L Chloride 93 L (98-107) mmol/L BUN 24 H (7-17) mg/dL Glucose 130 H (74-99) mg/dL POC Glucose (mg/dL) (75-99) mg/dL Urine Blood Small H (Negative) Ur Leukocyte Esterase Moderate H (Negative) Urine WBC 16 H (0-5) /hpf Urine Opiates Screen Detected H (NotDetected) U Benzodiazepines Scrn Detected H (NotDetected) 06/18/20 06/19/20 Range/Units 21:20 07:08 WBC (3.8-10.6) k/uL MCV (80.0-100.0) fL Neutrophils # (1.3-7.7) k/uL Monocytes # (0-1.0) k/uL Sodium (137-145) mmol/L Potassium (3.5-5.1) mmol/L Chloride (98-107) mmol/L BUN (7-17) mg/dL Glucose (74-99) mg/dL POC Glucose (mg/dL) 136 H 131 H (75-99) mg/dL Urine Blood (Negative) Ur Leukocyte Esterase (Negative) Urine WBC (0-5) /hpf Urine Opiates Screen (NotDetected) U Benzodiazepines Scrn (NotDetected) Microbiology - Last 24 Hours (Table) 06/18/20 20:36 Urine Culture - Preliminary Urine,Voided Thrombosis Risk Factor Assmnt - Choose All That Apply Each Factor Represents 1 point: Obesity (BMI >25) Each Risk Factor Represents 3 Points: Age 75 years or older Thrombosis Risk Factor Assessment Total Risk Factor Score: 4 Thrombosis Risk Factor Assessment Level: Moderate Risk
[2020-06-19 11:48] LABS: Glucose,Whole Blood 128 mg/dL (75-99)
[2020-06-19] MEDS: SODIUM CHLORIDE 0.9% 1,000 ML IV SCH ×2 (12:59→21:35)
[2020-06-19 14:22] VITALS: BMI 26.2
[2020-06-19 17:17] LABS: Glucose,Whole Blood 158 mg/dL (75-99)
[2020-06-19] MEDS ORDERED: HALOPERIDOL LACTATE 5 MG/ML 1 ML VIAL IM STA (20:00)
[2020-06-19] MEDS: ATORVASTATIN 10 MG TAB PO SCH (21:33)
[2020-06-19] MEDS: DONEPEZIL 5 MG TAB PO SCH (21:33)
[2020-06-20] MEDS: carvediloL 12.5 MG TAB PO SCH ×2 (11:23→20:23)
[2020-06-20] MEDS: ALPRAZolam 0.5 MG TAB PO SCH (11:23)
[2020-06-20] MEDS: HEPARIN SODIUM,PORCINE 5,000 UNIT/ML 1 ML VIAL SQ SCH ×2 (11:23→20:24)
[2020-06-20] MEDS: PANTOPRAZOLE 40 MG TABLET PO SCH (11:23)
[2020-06-20] MEDS: DULoxetine HCL 30 MG CAPSULE.DR PO SCH (11:24)
[2020-06-20] MEDS: ISOSORBIDE MONONITRATE ER 30 MG TAB.ER.24H PO SCH (11:24)
[2020-06-20] MEDS: amLODIPine 5 MG TAB PO SCH (11:24)
[2020-06-20] MEDS: SODIUM CHLORIDE 0.9% 1,000 ML IV SCH (12:55)
--- NOTE | 2020-06-20 13:53 | P.PN ---
Subjective Progress Note Date: 06/20/20 HISTORY OF PRESENT ILLNESS This is an 84-year-old female patient of Dr. Garrett and Dr. 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 Reyna. Patient resides at [facility]. She was seen in the emergency center on June 15 for altered mental status and all laboratory studies were negative and CAT scan of the brain was unremarkable. Chest x-ray showed no acute findings. Patient was discharged back to assisted living. Patient was confused recently and having auditory hallucinations, calling out which was abnormal for her. She was sent into the hospital for further evaluation. Patient is seen today on the MedSur floor and states that she feels like her muscles are all achy. She denies any localized pain. She continues to have confusion. Patient presented to [facility] emergency center for evaluation, she was afebrile, heart rate 73, blood pressure 133/70, pulse ox 95% on room air. WBC 12.7, hemoglobin 16.0. Hemoglobin 14.6, platelet count 424. Sodium 130, potassium 3.4, chloride 93, CO2 29, BUN 24 and creatinine 0.96. Blood sugar 130. Urine drug screen was positive for opioids and benzodiazepine. Urinalysis reveals small amount of blood, leukoesterase moderate, WBC 16. Tro ponin was negative. Patient was provided dose of ceftriaxone and [facility] 06/20:patient was having visula hallucinations last night was very restless, given haldol, pateitn slept trhu till this am and i woke her up to get lunch at 2 pm, no other deficints neur baires, has good arm and leg movement [id number] normal, able to coverse with the right answers, urine cultre no growth, b 12 and tsh will be checked, will restore noctural restorative sleep with melatonin REVIEW OF SYSTEMS Constitutional: No fever, no chills, no night sweats. No weight change. Reports weakness, reports fatigue. Reports generalized malaise. EENT: No headache. No blurred vision or double vision, no loss of vision. No nasal drainage or congestion. No epistaxis. Lungs: No shortness of breath, cough, no sputum production. No wheezing. Cardiovascular: No chest pain, no lower extremity edema. No palpitations. No paroxysmal nocturnal dyspnea. No orthopnea. No lightheadedness or dizziness. No syncopal episodes. Abdominal: No abdominal pain. No nausea, vomiting. No diarrhea. No constipation. No bloody or tarry stools.. No loss of appetite. Genitourinary: No dysuria, increased frequency, urgency. No urinary retention. Musculoskeletal: Reports generalized muscle aches. No muscle weakness, no gait dysfunction, no frequent falls. No back pain. No neck pain. Integumentary: No wounds, no lesions. No rash or pruritus. No unusual bruising. No change in hair or nails. Neurologic: No aphasia. No facial droop. Reports change in mentation. No head injury. No headache. Reports hallucinations. Psychiatric: No depression. No anxiety. No mood swings. Endocrine: No abnormal blood sugars. No weight change. No excessive sweating or thirst. No cold intolerance. Objective - Vital Signs Vital signs: Vital Signs Temp 97.6 F 06/20/20 05:00 Pulse 77 06/20/20 05:00 Resp 18 06/20/20 05:00 BP 179/79 06/20/20 05:00 Pulse Ox 95 06/20/20 05:00 Intake & Output 06/19/20 06/20/20 06/20/20 18:59 06:59 18:59 Intake Total 300 Balance 300 Weight 67.132 kg 68.5 kg Intake: Oral 300 Other: Voiding Method Toilet Toilet Toilet # Voids 1 2 1 - Constitutional General appearance: Present: average body habitus, cooperative, no acute distress - EENT Eyes: Present: anicteric sclerae, PERRLA, dentition normal, normal appearance ENT: Present: NA/AT, normal oropharynx - Neck Neck: Present: other - Respiratory Respiratory: bilateral: wheezing, negative: CTA - Cardiovascular Rhythm: regular Heart sounds: normal: S1, S2 Abnormal Heart Sounds: Absent: systolic murmur, diastolic murmur, rub, S3 Gallop, S4 Gallop, click, other - Gastrointestinal General gastrointestinal: Present: normal bowel sounds, soft - Integumentary Integumentary: Present: decreased turgor, normal - Neurologic Neurologic: Present: CNII-XII intact - Musculoskeletal Musculoskeletal: Present: gait normal, strength equal bilaterally - Labs CBC & Chem 7: 06/18/20 20:36 06/18/20 20:36 Labs: Abnormal Lab Results - Last 24 Hours (Table) 06/19/20 Range/Units 17:15 POC Glucose (mg/dL) 158 H (75-99) mg/dL Microbiology - Last 24 Hours (Table) 06/18/20 20:36 Urine Culture - Final Urine,Voided Assessment and Plan Plan: ASSESSMENT AND PLAN 1. Acute metabolic encephalopathy and sepsis to acute urinary tract infection but culture is neagative. poss has underlying dementia with hallucinations vs delirium presenting with mental status changes and leukocytosis. Patient will be placed on ceftriaxone 1 g daily. Urine culture negative 2. Nonischemic cardiomyopathy with chronic systolic heart failure. Continue Lasix 20 mg daily as needed. 3. Hypertension. Continue Coreg 25 mg twice daily, Imdur 30 mg daily, Lasix. 4. Dementia, Alzheimer type. Continue Aricept 5 mg at bedtime. 5. Hyperlipidemia. Continue simvastatin. 6. Recurrent depression. Continue Cymbalta 30 mg daily. 7. Chronic rosacea. 8. DVT prophylaxis. Heparin subcu. 9. GI prophylaxis. Protonix. Patient will be admitted to the hospital for a minimum of 2 night stay. Discharge plan: Return home to [facility], most likely. Consult PT and O T.
[2020-06-20] MEDS: DONEPEZIL 5 MG TAB PO SCH (20:23)
[2020-06-20] MEDS: MELATONIN 3 MG TABLET PO SCH (20:23)
[2020-06-20] MEDS: ATORVASTATIN 10 MG TAB PO SCH (20:24)
[2020-06-21] MEDS: ALPRAZolam 0.5 MG TAB PO SCH ×3 (01:16→21:15)
[2020-06-21] MEDS: SODIUM CHLORIDE 0.9% 1,000 ML IV SCH (05:33)
[2020-06-21 06:06] LABS: Basophils # (A) 0.1 k/uL (0-0.2); Basophils % (A) 1 %; Eosinophils # (A) 0.3 k/uL (0-0.7); Eosinophils % (A) 2 %; HCT 43.6 % (34.0-46.0); HGB 13.8 gm/dL (11.4-16.0); Lymphocytes # (A) 3.4 k/uL (1.0-4.8); Lymphocytes % (A) 28 %; MCH 33.3 pg (25.0-35.0); MCHC 31.7 g/dL (31.0-37.0); MCV 105.2 fL (80.0-100.0); Macrocytosis Moderate; Mean Platelet Volume 7.2; Monocytes # (A) 1.2 k/uL (0-1.0); Monocytes % (A) 10 %; Neutrophils # (A) 6.6 k/uL (1.3-7.7); Neutrophils % (A) 56 %; Platelet Count 416 k/uL (150-450); RBC 4.14 m/uL (3.80-5.40); RDW 14.3 % (11.5-15.5); WBC 11.9 k/uL (3.8-10.6)
[2020-06-21] MEDS: HEPARIN SODIUM,PORCINE 5,000 UNIT/ML 1 ML VIAL SQ SCH ×2 (08:23→21:17)
[2020-06-21] MEDS: amLODIPine 5 MG TAB PO SCH (08:24)
[2020-06-21] MEDS: ISOSORBIDE MONONITRATE ER 30 MG TAB.ER.24H PO SCH (08:24)
[2020-06-21] MEDS: carvediloL 12.5 MG TAB PO SCH ×2 (08:24→21:15)
[2020-06-21] MEDS: PANTOPRAZOLE 40 MG TABLET PO SCH (08:24)
[2020-06-21] MEDS: DULoxetine HCL 30 MG CAPSULE.DR PO SCH (08:25)
[2020-06-21 10:24] LABS: African American GFR (CKD) 78.5 (60.0-200.0); Albumin 3.8 g/dL (3.80-4.90); Albumin/Globulin Ratio 2.11 (1.60-3.17); Anion Gap 9.3 mmol/L (4.00-12.00); BUN/Creat Ratio 27.5 Ratio (12.00-20.00); Calcium 9.5 mg/dL (8.7-10.3); Carbon Dioxide 29.7 mmol/L (21.6-31.8); Globulin 1.8 g/dL (1.6-3.3); Non-African American GFR(CKD) 67.7 (60.0-200.0); Potassium 3.4 mmol/L (3.5-5.5); Total Bilirubin 0.6 mg/dL (0.2-1.2); Total Protein 5.6 g/dL (6.2-8.2)
[2020-06-21] MEDS ORDERED: POTASSIUM CHLORIDE ER 20 MEQ TAB.ER PO STA (10:36)
--- NOTE | 2020-06-21 11:40 | P.PN ---
Subjective Progress Note Date: 06/21/20 HISTORY OF PRESENT ILLNESS This is an 84-year-old female patient of Dr. Garrett and Dr. 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 Reyna. Patient resides at [facility]. She was seen in the emergency center on June 15 for altered mental status and all laboratory studies were negative and CAT scan of the brain was unremarkable. Chest x-ray showed no acute findings. Patient was discharged back to assisted living. Patient was confused recently and having auditory hallucinations, calling out which was abnormal for her. She was sent into the hospital for further evaluation. Patient is seen today on the MedSur floor and states that she feels like her muscles are all achy. She denies any localized pain. She continues to have confusion. Patient presented to [facility] emergency center for evaluation, she was afebrile, heart rate 73, blood pressure 133/70, pulse ox 95% on room air. WBC 12.7, hemoglobin 16.0. Hemoglobin 14.6, platelet count 424. Sodium 130, potassium 3.4, chloride 93, CO2 29, BUN 24 and creatinine 0.96. Blood sugar 130. Urine drug screen was positive for opioids and benzodiazepine. Urinalysis reveals small amount of blood, leukoesterase moderate, WBC 16. Tro ponin was negative. Patient was provided dose of ceftriaxone and [facility]. 06/20:patient was having visula hallucinations last night was very restless, given haldol, pateitn slept trhu till this am and i woke her up to get lunch at 2 pm, no other deficints neur baires, has good arm and leg movement [id number] normal, able to coverse with the right answers, urine cultre no growth, b 12 and tsh will be checked, will restore noctural restorative sleep with melatonin 06/21 controlled 06/21: Patient has slept well last night, no behaviors last night, still safety seat or arm at the hallway, we will discontinue IV today, PT OT to see the patient, discharge planning in process, doubt need for psychiatry to see the patient, underlying dementia with behavior changes anticipated, pateint might need maintenance antipsychotic however none is needed at this time. patient alert, eating well. just wants to rest encouraged to have daytime activities including ambulation and tv time during daytime. REVIEW OF SYSTEMS Constitutional: No fever, no chills, no night sweats. No weight change. Reports weakness, reports fatigue. Reports generalized malaise. EENT: No headache. No blurred vision or double vision, no loss of vision. No nasal drainage or congestion. No epistaxis. Lungs: No shortness of breath, cough, no sputum production. No wheezing. Cardiovascular: No chest pain, no lower extremity edema. No palpitations. No paroxysmal nocturnal dyspnea. No orthopnea. No lightheadedness or dizziness. No syncopal episodes. Abdominal: No abdominal pain. No nausea, vomiting. No diarrhea. No constipation. No bloody or tarry stools.. No loss of appetite. Genitourinary: No dysuria, increased frequency, urgency. No urinary retention. Musculoskeletal: Reports generalized muscle aches. No muscle weakness, no gait dysfunction, no frequent falls. No back pain. No neck pain. Integumentary: No wounds, no lesions. No rash or pruritus. No unusual bruising. No change in hair or nails. Neurologic: No aphasia. No facial droop. Reports change in mentation. No head injury. No headache. Reports hallucinations. Psychiatric: No depression. No anxiety. No mood swings. Endocrine: No abnormal blood sugars. No weight change. No excessive sweating or thirst. No cold intolerance. Objective - Vital Signs Vital signs: Vital Signs Temp 97.7 F 06/21/20 05:00 Pulse 93 06/21/20 05:00 Resp 16 06/21/20 05:00 BP 150/72 06/21/20 05:00 Pulse Ox 95 06/21/20 05:00 Intake & Output 06/20/20 06/21/20 06/21/20 19:59 06:59 18:59 Intake Total Balance Weight Intake: Intake, IV Titration Amount cefTRIAXone 1 gm In Sodium Chloride 0.9% 50 ml @ 100 mls/hr IVPB Q24HR [facility] Rx#:[id number] Oral Other: Voiding Method # Voids # Bowel Movements - Constitutional General appearance: Present: cooperative, no acute distress - EENT Eyes: Present: anicteric sclerae, PERRLA, dentition normal ENT: Present: NA/AT, normal oropharynx - Respiratory Respiratory: bilateral: CTA, negative: diminished - Cardiovascular Rhythm: regular Heart sounds: normal: S1, S2 Abnormal Heart Sounds: Absent: systolic murmur, diastolic murmur, rub, S3 Gallop, S4 Gallop, click, other - Gastrointestinal General gastrointestinal: Present: normal bowel sounds, soft - Neurologic Neurologic: Present: CNII-XII intact - Musculoskeletal Musculoskeletal: Present: gait normal, strength equal bilaterally - Psychiatric Psychiatric: Present: appropriate affect - Labs CBC & Chem 7: 06/21/20 05:45 06/21/20 05:45 Labs: Abnormal Lab Results - Last 24 Hours (Table) 06/21/20 06/21/20 Range/Units 05:45 05:45 WBC 11.9 H (3.8-10.6) k/uL MCV 105.2 H (80.0-100.0) fL Monocytes # 1.2 H (0-1.0) k/uL Potassium 3.4 L (3.5-5.5) mmol/L BUN/Creatinine Ratio 27.50 H (12.00-20.00) Ratio Glucose 122 H (70-110) mg/dL Total Protein 5.6 L (6.2-8.2) g/dL Assessment and Plan Plan: ASSESSMENT AND PLAN 1. Acute metabolic encephalopathy and sepsis rule out, also ruled out urinary tract infection but culture is neagative. poss has underlying dementia with hallucinations vs delirium presenting with mental status changes and leukocytosis. Patient will be placed on ceftriaxone 1 g daily.discontineu rocephine Urine culture negative 2. Nonischemic cardiomyopathy with chronic systolic heart failure. Continue Lasix 20 mg daily as needed. 3. Hypertension. Continue Coreg 25 mg twice daily, Imdur 30 mg daily, Lasix. 4. Dementia, Alzheimer type. Continue Aricept 5 mg at bedtime. 5. Hyperlipidemia. Continue simvastatin. 6. Recurrent depression. Continue Cymbalta 30 mg daily. 7. Chronic rosacea. 8. DVT prophylaxis. Heparin subcu. 9. GI prophylaxis. Protonix. Patient will be admitted to the hospital for a minimum of 2 night stay. Discharge plan: Return home to [facility], most likely in am. Consult PT and OT.
[2020-06-21] MEDS: MELATONIN 3 MG TABLET PO SCH (21:14)
[2020-06-21] MEDS: ATORVASTATIN 10 MG TAB PO SCH (21:14)
[2020-06-21] MEDS: DONEPEZIL 5 MG TAB PO SCH (21:16)
[2020-06-22 05:29] VITALS: BP 161/69; PULSE 72; RESP 14; TEMP 98
[2020-06-22] MEDS: carvediloL 12.5 MG TAB PO SCH (09:16)
[2020-06-22] MEDS: ALPRAZolam 0.5 MG TAB PO SCH (09:16)
[2020-06-22] MEDS: ISOSORBIDE MONONITRATE ER 30 MG TAB.ER.24H PO SCH (09:17)
[2020-06-22] MEDS: DULoxetine HCL 30 MG CAPSULE.DR PO SCH (09:17)
[2020-06-22] MEDS: PANTOPRAZOLE 40 MG TABLET PO SCH (09:17)
[2020-06-22] MEDS: HEPARIN SODIUM,PORCINE 5,000 UNIT/ML 1 ML VIAL SQ SCH (09:17)
[2020-06-22] MEDS: amLODIPine 5 MG TAB PO SCH (09:17)
[2020-06-22] MEDS ORDERED: POTASSIUM CHLORIDE ER 20 MEQ TAB.ER PO STA (10:39)
--- NOTE | 2020-06-22 10:42 | P.DS ---
Providers Date of admission: 06/19/20 10:53 Expected date of discharge: 06/22/20 Attending physician: Marcus Garrett Primary care physician: [facility] Course: HISTORY OF PRESENT ILLNESS This is an 84-year-old female patient of Dr. Garrett and Dr. David with past medical history of dementia, Alzheimer's type, hypertension, hyperlipidemia, TIA, non-Hodgkin's lymphoma in remission, stomach tumor which apparently is benign followed by Dr. Reyna. Patient resides at [facility]. She was seen in the emergency center on June 15 for altered mental status and all laboratory studies were negative and CAT scan of the brain was unremarkable. Chest x-ray showed no acute findings. Patient was discharged back to assisted living. Patient was confused recently and having auditory hallucinations, calling out which was abnormal for her. She was sent into the hospital for further evaluation. Patient is seen today on the MedSurg floor and states that she feels like her muscles are all achy. She denies any localized pain. She continues to have confusion. Patient presented to [facility] emergency center for evaluation, she was afebrile, heart rate 73, blood pressure 133/70, pulse ox 95% on room air. WBC 12.7, hemoglobin 16.0. Hemoglobin 14.6, platelet count 424. Sodium 130, potassium 3.4, chloride 93, CO2 29, BUN 24 and creatinine 0.96. Blood sugar 130. Urine drug screen was positive for opioids and benzodiazepine. Urinalysis reveals small amount of blood, leukoesterase moderate, WBC 16. Troponin was negative. Patient was provided dose of ceftriaxone and admitted to the MedSur floor. 06/20:patient was having visula hallucinations last night was very restless, given haldol, pateitn slept trhu till this am and i woke her up to get lunch at 2 pm, no other deficints neur baires, has good arm and leg movement [id number] normal, able to coverse with the right answers, urine cultre no growth, b 12 and tsh will be checked, will restore noctural restorative sleep with melatonin 06/21 controlled 06/21: Patient has slept well last night, no behaviors last night, still safety seat or arm at the hallway, we will discontinue IV today, PT OT to see the patient, discharge planning in process, doubt need for psychiatry to see the patient, underlying dementia with behavior changes anticipated, pateint might need maintenance antipsychotic however none is needed at this time. patient alert, eating well. just wants to rest encouraged to have daytime activities including ambulation and tv time during daytime. 06/22: Patient is pleasantly confused. She denies any new complaints. She denies any issues with pain. She's had no nausea or vomiting. She only drank her Ensure supplement this morning but did not eat her breakfast. Patient has been afebrile, heart rate 72, blood pressure 161/69, pulse ox 95% on room air. WBC 11.9, hemoglobin 13.8, platelet count 416. Potassium is 3.4 and will be replaced. Otherwise electrolytes and renal function are normal. Blood sugar 122. Liver function tests are normal. Attempted to reach patient's son with no answer. Multiple attempts made on Monday to discuss patient's condition with her son. There was no answer. Patient will be discharged back to [facility] today in stable condition. Discharge Diagnoses: 1. Acute metabolic encephalopathy and sepsis secondary to urinary tract infection. Patient was on antibiotics prior to urine culture wasobtained. 2. Nonischemic cardiomyopathy with chronic systolic heart failure. 3. Hypertension. 4. Dementia, Alzheimer type. 5. Hyperlipidemia. 6. Recurrent depression. 7. Chronic rosacea. Discharge plan: Return home to [facility] Impression and plan of care have been directed as dictated by the signing physician. Caitlyn Bryan nurse practitioner acting as scribe for signing physician. Patient Condition at Discharge: Good Plan - Discharge Summary Discharge Rx Participant: No New Discharge Prescriptions: New Cefuroxime [Ceftin] 250 mg PO BID 5 Days #10 tab Continue Temazepam [Restoril] 30 mg PO HS PRN PRN Reason: Insomnia DULoxetine HCL [Cymbalta] 30 mg PO DAILY@1000 Nitroglycerin Sl Tabs [Nitrostat] 0.4 mg SL Q5M PRN PRN Reason: Chest Pain Carvedilol [Coreg] 25 mg PO BID@1000,2200 Simvastatin [Zocor] 10 mg PO HS@2200 ALPRAZolam [Xanax] 0.5 mg PO BID@1000,2200 Isosorbide Mononitrate ER [Imdur] 30 mg PO DAILY@1000 Donepezil [Aricept] 5 mg PO HS@2200 Furosemide [Lasix] 20 mg PO DAILY@1000 amLODIPine [Norvasc] 5 mg PO DAILY@1000 Furosemide [Lasix] 20 mg PO DAILY PRN PRN Reason: Edema Discharge Medication List Temazepam [Restoril] 30 mg PO HS PRN 11/11/14 [History] DULoxetine HCL [Cymbalta] 30 mg PO DAILY@1000 11/12/14 [History] Nitroglycerin Sl Tabs [Nitrostat] 0.4 mg SL Q5M PRN 03/20/17 [History] Carvedilol [Coreg] 25 mg PO BID@1000,219901/14/19 [History] ALPRAZolam [Xanax] 0.5 mg PO BID@1000,219901/01/20 [History] Donepezil [Aricept] 5 mg PO HS@219901/01/20 [History] Isosorbide Mononitrate ER [Imdur] 30 mg PO DAILY@1000 01/01/20 [History] Simvastatin [Zocor] 10 mg PO HS@219901/01/20 [History] Furosemide [Lasix] 20 mg PO DAILY PRN 06/15/20 [History] Furosemide [Lasix] 20 mg PO DAILY@1000 06/15/20 [History] amLODIPine [Norvasc] 5 mg PO DAILY@1000 06/15/20 [History] Cefuroxime [Ceftin] 250 mg PO BID 5 Days #10 tab 06/22/20 [Rx] Follow up Appointment(s)/Referral(s): Marcus Garrett MD [Primary Care Provider] - 1 Week Patient Instructions/Handouts: Heart Failure (DC) Discharge Disposition: HOME WITH HOME HEALTH SERVICES
== END 2020-06-22 12:45 | disposition home health service (06) ==
LOC: EC 19:49 → 6NMEDSUR 21:34 → INTOOBSV 06-19 10:53 → OBSVTOIN 06-19 10:53 → UNDODISIN 06-22 12:45
PROVIDERS: ADMIT Internal Medicine Geriatric Medicine; ATTEND Internal Medicine Geriatric Medicine
DX: A41.9 Sepsis, unspecified organism (principal); G93.41 Metabolic encephalopathy; N39.0 Urinary tract infection, site not specified; I11.0 Hypertensive heart disease with heart failure; I50.22 Chronic systolic (congestive) heart failure; I42.8 Other cardiomyopathies; E86.0 Dehydration; E87.1 Hypo-osmolality and hyponatremia; G30.9 Alzheimer's disease, unspecified; F02.80 Dementia in other diseases classified elsewhere, unspecified severity, without behavioral disturbance, psychotic disturbance, mood disturbance, and anxiety; F33.9 Major depressive disorder, recurrent, unspecified; E78.5 Hyperlipidemia, unspecified; L71.9 Rosacea, unspecified; R45.1 Restlessness and agitation; D13.1 Benign neoplasm of stomach; Z79.899 Other long term (current) drug therapy; Z88.0 Allergy status to penicillin; Z88.5 Allergy status to narcotic agent; Z91.048 Other nonmedicinal substance allergy status; Z91.013 Allergy to seafood; Z85.72 Personal history of non-Hodgkin lymphomas; Z86.73 Personal history of transient ischemic attack (TIA), and cerebral infarction without residual deficits; Z90.710 Acquired absence of both cervix and uterus; Z96.652 Presence of left artificial knee joint; Z98.42 Cataract extraction status, left eye; Z98.41 Cataract extraction status, right eye; Z86.14 Personal history of Methicillin resistant Staphylococcus aureus infection; Z90.49 Acquired absence of other specified parts of digestive tract; Z80.3 Family history of malignant neoplasm of breast; Z82.49 Family history of ischemic heart disease and other diseases of the circulatory system
CPT/HCPCS: 96361 ×2; 96366; 96372 ×4; 96365; 99285; 36415; 94760; 93005; 97161; 97535; 97166; 80053 ×2; 84443; 82607; 82140; 84484; 85025 ×2; 85610; 85730; 81001; 80306; 87086; 71046; 70450; G0378 ×5; J1630; J1644 ×4; J0696 ×4

== ENCOUNTER 2020-06-27 19:04 | Emergency (ER) | payer MEDICARE ==
[2020-06-27 19:10] VITALS: RESP 16
--- NOTE | 2020-06-27 20:13 | CT ---
EXAMINATION TYPE: CT brain joe molina con DATE OF EXAM: 06/27/2020 COMPARISON: 06/18/2020 CT brain HISTORY: fall Headache. Neck pain CT DLP: 1252.8 mGycm Automated exposure control for dose reduction was used. There is opacification of the sphenoid sinus with calcification. I see no focal bone destruction. There is cerebral cortical atrophy. There is no mass effect nor midline shift. The calvarium is intac t. Skull base is intact. There is normal aeration of the mastoid sinuses. Cervical vertebra have normal alignment. There is spurring of the endplates from C4 to T1. There is m ultilevel cervical facet arthropathy. I see no bony destructive process. IMPRESSION: Multilevel spondylotic changes. Multilevel facet arthropathy. No fracture seen of the cervical spine. Mild cerebral atrophy. No acute intracranial abnormality. No change. Chronic sphenoid sinusitis.
[2020-06-27 21:53] VITALS: BP 121/70; PULSE 64; TEMP 97.6
[2020-06-27 21:56] LABS: Basophils # (A) 0.3 k/uL (0-0.2); Basophils % (A) 3 %; Eosinophils # (A) 0.2 k/uL (0-0.7); Eosinophils % (A) 2 %; HCT 46.7 % (34.0-46.0); HGB 15.1 gm/dL (11.4-16.0); Lymphocytes % (A) 31 %; MCH 33.6 pg (25.0-35.0); MCHC 32.3 g/dL (31.0-37.0); MCV 103.9 fL (80.0-100.0); Macrocytosis Slight; Monocytes # (A) 1.1 k/uL (0-1.0); Monocytes % (A) 11 %; Neutrophils # (A) 4.7 k/uL (1.3-7.7); Neutrophils % (A) 49 %; Platelet Count 424 k/uL (150-450); RBC 4.49 m/uL (3.80-5.40); RDW 13.6 % (11.5-15.5); WBC 9.6 k/uL (3.8-10.6)
[2020-06-27 22:09] LABS: Albumin 4.1 g/dL (3.5-5.0); Calcium 9.3 mg/dL (8.4-10.2); Potassium 3.7 mmol/L (3.5-5.1); Total Bilirubin 0.6 mg/dL (0.2-1.3); Total Protein 6.5 g/dL (6.3-8.2)
[2020-06-27 22:13] LABS: Appearance,Urine Clear (Clear); Bilirubin,Urine Negative (Negative); Blood,Urine Negative (Negative); Color,Urine Light Yellow; Glucose,Urine (UA) Negative (Negative); Ketones,Urine Negative (Negative); Leukocyte Esterase,Urine Trace (Negative); Nitrite,Urine Negative (Negative); PH, Urine 6.5 (5.0-8.0); Protein,Urine Negative (Negative); RBC,Urine 2 /hpf (0-5); Specific Gravity,Urine 1.007 (1.001-1.035); Urobilinogen,Urine <2.0 mg/dL (<2.0); WBC,Urine 3 /hpf (0-5)
--- NOTE | 2020-06-27 22:31 | ED ---
General Adult HPI - General Chief complaint: Fall Stated complaint: Fall Time Seen by Provider: 06/27/20 19:14 Source: patient, EMS, RN notes reviewed, old records reviewed Mode of arrival: EMS Limitations: no limitations - History of Present Illness Initial comments: 85-year-old female patient ED for fall. Daughter isn't patient reports the patient walks around at night she lives in assisted living facility. On recheck she was found on the grounds that she hit her head. Daughter Reports the patient is checked on by staff in regular intervals. Denies any focal area of pain. Systemic: Pt denies fatigue, fever/chills, rash. Pt denies weakness, night sweats, weight loss. Neuro: Pt denies headache, visual disturbances, syncope or pre-syncope. HEENT: Pt denies ocular discharge or irritation, otalgia, rhinorrhea, pharyngitis or notable lymphadenopathy. Cardiopulmonary: Pt denies chest pain, SOB, heart palpitations, dyspnea on exert ion. Abdominal/GI: Pt denies abdominal pain, n/v/d. : Pt denies dysuria, burning w/ urination, frequency/urgency. Denies new onset urinary or bowel incontinence. MSK: Pt denies myalgia, loss of strength or function in extremities. Neuro: Pt denies new onset weakness, paresthesias. - Related Data Home Medications Medication Instructions Recorded Confirmed Temazepam [Restoril] 30 mg PO HS PRN 11/11/14 06/27/20 DULoxetine HCL [Cymbalta] 30 mg PO DAILY@1000 11/12/14 06/27/20 Nitroglycerin Sl Tabs [Nitrostat] 0.4 mg SL Q5M PRN 03/20/17 06/27/20 Carvedilol [Coreg] 25 mg PO BID@1000,219901/14/19 06/27/20 ALPRAZolam [Xanax] 0.5 mg PO BID@1000,219901/01/20 06/27/20 Donepezil [Aricept] 5 mg PO HS@219901/01/20 06/27/20 Isosorbide Mononitrate ER [Imdur] 30 mg PO DAILY@1000 01/01/20 06/27/20 Simvastatin [Zocor] 10 mg PO HS@219901/01/20 06/27/20 Furosemide [Lasix] 20 mg PO DAILY PRN 06/15/20 06/27/20 Furosemide [Lasix] 20 mg PO DAILY@1000 06/15/20 06/27/20 Allergies Allergy/AdvReac Type Severity Reaction Status Date / Time codeine Allergy Rash/Hives Verified 06/27/20 21:06 iodine Allergy Rash/Hives Verified 06/27/20 21:06 Penicillins Allergy Unknown Verified 06/27/20 21:06 shellfish derived [Shellfish] Allergy Rash/Hives Verified 06/27/20 21:06 Review of Systems ROS Statement: Those systems with pertinent positive or pertinent negative responses have been documented in the HPI. ROS Other: All systems not noted in ROS Statement are negative. 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 per dr Reyna History of Any Multi-Drug Resistant Organisms: MRSA Date of last positivie culture/infection: 07/28/09 MDRO Source:: unknown Past Surgical History: Appendectomy, Hysterectomy, Orthopedic Surgery, Tonsillectomy Additional Past Surgical History / Comment(s): left knee replacement, breast biopsy which were benign - daughter states they there was some type of metal implanted in both breasts, bilat cataracts removed Past Anesthesia/Blood Transfusion Reactions: Previous Problems w/ Anesthesia Additional Past Anesthesia/Blood Transfusion Reaction / Comment(s): severe confusion for 2 weeks after surgery Past Psychological History: Depression Smoking Status: Never smoker Past Alcohol Use History: None Reported Past Drug Use History: None Reported - Past Family History Father Additional Family Medical History / Comment(s): Patient does not know anything about her father. Brother(s) Additional Family Medical History / Comment(s): Patient has one half-brother with no history of coronary artery disease. Mother History Unknown: Yes Family Medical History: Cancer Additional Family Medical History / Comment(s): Mother in her 70s with history of heart murmur and Breast Cancer General Exam - General Exam Comments Initial Comments: Constitutional: NAD, alert and oriented, answers questions appropriately. Pt has pleasant affect. HEENT: NC/AT, trachea midline, neck supple, no lymphadenopathy. Posterior pharynx non erythematous, without exudates. External ears appear normal, without discharge. Mucous membranes moist. Eyes PERRLA, EOM intact. There is no scleral icterus. No pallor noted. Cardiopulmonary: RRR, no murmurs, rubs or gallops, no JVD noted. Lungs CTAB in anterior and posterior arnold. No peripheral edema. Abdominal exam: Abdomen soft and non-distended. Abdomen non-tender to palpation in all 4 quadrants. Bowel sounds active in LLQ. No hepatosplenomegaly. No ecchymosis Neuro: CN II-XII intact. No nuchal rigidity. No raccon eyes, no crump sign, no hemotympanum. No cervical spinal tenderness. MSK: No posterior calf tenderness bilaterally, homans sign negative bilaterally. Posterior tibialis and radial pulse +2 bilaterally. Sensation intact in upper and lower extremities. Full active ROM in upper and lower extremities, 5/5 stregnth. All extremities palpated no signs of trauma or tenderness noted. Limitations: no limitations Course Vital Signs 06/27/20 06/27/20 06/27/20 19:05 19:55 20:33 Temperature 97.9 F Pulse Rate 78 74 Respiratory 16 16 16 Rate Blood Pressure 114/70 105/73 O2 Sat by Pulse 94 L 95 Oximetry 06/27/20 21:51 Temperature 97.6 F Pulse Rate 64 Respiratory 16 Rate Blood Pressure 121/70 O2 Sat by Pulse 96 Oximetry Medical Decision Making - Medical Decision Making 85-year-old female patient ED for fall. Daughter isn't patient reports the patient walks around at night she lives in assisted living facility. On recheck she was found on the grounds that she hit her head. Daughter Reports the patient is checked on by staff in regular intervals. Denies any focal area of pain. Pt VSS, afebrile. Physical exam negative for acute pathology. CT Brain C spine negative for actute proces. Laboratory investigations unremarkable. Patient ill be discharged to follow-up with primary care provider and return if any worsening symptoms. Case discussed with Dr. Salazar. - Lab Data Result diagrams: 06/27/20 21:47 06/27/20 21:47 Lab Results 06/27/20 06/27/20 06/27/20 Range/Units 21:47 21:47 21:47 WBC 9.6 (3.8-10.6) k/uL RBC 4.49 (3.80-5.40) m/uL Hgb 15.1 (11.4-16.0) gm/dL Hct 46.7 H (34.0-46.0) % MCV 103.9 H (80.0-100.0) fL MCH 33.6 (25.0-35.0) pg MCHC 32.3 (31.0-37.0) g/dL RDW 13.6 (11.5-15.5) % Plt Count 424 (150-450) k/uL Neutrophils % 49 % Lymphocytes % 31 % Monocytes % 11 % Eosinophils % 2 % Basophils % 3 % Neutrophils # 4.7 (1.3-7.7) k/uL Lymphocytes # 3.0 (1.0-4.8) k/uL Monocytes # 1.1 H (0-1.0) k/uL Eosinophils # 0.2 (0-0.7) k/uL Basophils # 0.3 H (0-0.2) k/uL Macrocytosis Slight Sodium 137 (137-145) mmol/L Potassium 3.7 (3.5-5.1) mmol/L Chloride 103 (98-107) mmol/L Carbon Dioxide 27 (22-30) mmol/L Anion Gap 7 mmol/L BUN 15 (7-17) mg/dL Creatinine 1.00 (0.52-1.04) mg/dL Est GFR (CKD-EPI)AfAm 60 (>60 ml/min/1.73 sqM) Est GFR (CKD-EPI)NonAf 52 (>60 ml/min/1.73 sqM) Glucose 101 H (74-99) mg/dL Calcium 9.3 (8.4-10.2) mg/dL Total Bilirubin 0.6 (0.2-1.3) mg/dL AST 44 H (14-36) U/L ALT 32 (4-34) U/L Alkaline Phosphatase 60 (38-126) U/L Total Protein 6.5 (6.3-8.2) g/dL Albumin 4.1 (3.5-5.0) g/dL Urine Color Light Yellow Urine Appearance Clear (Clear) Urine pH 6.5 (5.0-8.0) Ur Specific [place] 1.007 (1.001-1.035) Urine Protein Negative (Negative) Urine Glucose (UA) Negative (Negative) Urine Ketones Negative (Negative) Urine Blood Negative (Negative) Urine Nitrite Negative (Negative) Urine Bilirubin Negative (Negative) Urine Urobilinogen <2.0 (<2.0) mg/dL Ur Leukocyte Esterase Trace H (Negative) Urine RBC 2 (0-5) /hpf Urine WBC 3 (0-5) /hpf Disposition Clinical Impression: Fall Disposition: HOME SELF-CARE Condition: Stable Instructions (If sedation given, give patient instructions): Fall Prevention (ED) Additional Instructions: Follow up with PCP tomorrow. Return to ED with any worsening symptoms. Is patient prescribed a controlled substance at d/c from ED?: No Referrals: Marcus Garrett MD [Primary Care Provider] - 1-2 days
== END 2020-06-27 22:44 | disposition home or self-care (01) ==
LOC: EC 19:04
DX: Z04.3 Encounter for examination and observation following other accident (principal); I11.0 Hypertensive heart disease with heart failure; I50.9 Heart failure, unspecified; E78.5 Hyperlipidemia, unspecified; F32.9 Major depressive disorder, single episode, unspecified; F03.90 Unspecified dementia, unspecified severity, without behavioral disturbance, psychotic disturbance, mood disturbance, and anxiety; M19.90 Unspecified osteoarthritis, unspecified site; Z79.899 Other long term (current) drug therapy; Z88.5 Allergy status to narcotic agent; Z88.0 Allergy status to penicillin; Z91.048 Other nonmedicinal substance allergy status; Z91.013 Allergy to seafood; Z96.652 Presence of left artificial knee joint; Z85.72 Personal history of non-Hodgkin lymphomas; Z86.73 Personal history of transient ischemic attack (TIA), and cerebral infarction without residual deficits
CPT/HCPCS: 36415; 70450; 72125; 80053; 81001; 85025; 99284

== ENCOUNTER 2020-07-01 04:19 | Inpatient (IN) | payer MEDICARE ==
--- NOTE | 2020-07-01 04:46 | ED ---
Fall HPI - General Chief Complaint: Fall Stated Complaint: Fall Time Seen by Provider: 07/01/20 04:35 Source: patient, EMS Mode of arrival: EMS - History of Present Illness Initial Comments: patient is an 85-year-old woman transferred here for evaluation after fall. The patient does not recall how she ended up on the floor. She does complain of pain to the left hip and also to the low back. She denies any chest or respiratory symptoms. No abdominal pain. MD Complaint: fall -: unknown Fall From: out of bed When Fall Occurred: unsure Fall Witnessed: no Place Fall Occurred: [facility] Loss of Consciousness: unsure Prolonged Down Time?: no Location - Extremities: Left: Thigh Severity: moderate Quality: sharp Associated Symptoms: unable to walk - Related Data Home Medications Medication Instructions Recorded Confirmed Temazepam [Restoril] 30 mg PO HS 11/11/14 07/01/20 DULoxetine HCL [Cymbalta] 30 mg PO DAILY@1000 11/12/14 07/01/20 Nitroglycerin Sl Tabs [Nitrostat] 0.4 mg SL Q5M PRN 03/20/17 07/01/20 Carvedilol [Coreg] 25 mg PO BID@1000,0 01/14/19 07/01/20 ALPRAZolam [Xanax] 0.5 mg PO BID@1000,0 01/01/20 07/01/20 Donepezil [Aricept] 5 mg PO HS@2200 01/01/20 07/01/20 Isosorbide Mononitrate ER [Imdur] 30 mg PO DAILY@1000 01/01/20 07/01/20 Simvastatin [Zocor] 10 mg PO HS@2200 01/01/20 07/01/20 Furosemide [Lasix] 20 mg PO DAILY PRN 06/15/20 07/01/20 Allergies Allergy/AdvReac Type Severity Reaction Status Date / Time codeine Allergy Rash/Hives Verified 07/01/20 08:21 iodine Allergy Rash/Hives Verified 07/01/20 08:21 Penicillins Allergy Unknown Verified 07/01/20 08:21 shellfish derived [Shellfish] Allergy Rash/Hives Verified 07/01/20 08:21 Review of Systems ROS Statement: Those systems with pertinent positive or pertinent negative responses have been documented in the HPI. ROS Other: All systems not noted in ROS Statement are negative. Constitutional: Denies: fever Eyes: Denies: vision change Respiratory: Denies: cough, dyspnea Cardiovascular: Denies: chest pain, edema Gastrointestinal: Denies: abdominal pain, vomiting, diarrhea Genitourinary: Denies: dysuria Musculoskeletal: Reports: as per HPI, back pain, arthralgia Skin: Denies: lesions Neurological: Denies: headache, weakness, numbness 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 per dr Reyna History of Any Multi-Drug Resistant Organisms: MRSA Date of last positivie culture/infection: 07/28/09 MDRO Source:: unknown Past Surgical History: Appendectomy, Hysterectomy, Orthopedic Surgery, Tonsillectomy Additional Past Surgical History / Comment(s): left knee replacement, breast biopsy which were benign - daughter states they there was some type of metal implanted in both breasts, bilat cataracts removed Past Anesthesia/Blood Transfusion Reactions: Previous Problems w/ Anesthesia Additional Past Anesthesia/Blood Transfusion Reaction / Comment(s): severe confusion for 2 weeks after surgery Past Psychological History: Depression Smoking Status: Never smoker Past Alcohol Use History: None Reported Past Drug Use History: None Reported - Past Family History Father Additional Family Medical History / Comment(s): Patient does not know anything about her father. Brother(s) Additional Family Medical History / Comment(s): Patient has one half-brother with no history of coronary artery disease. Mother History Unknown: Yes Family Medical History: Cancer Additional Family Medical History / Comment(s): Mother in her 70s with history of heart murmur and Breast Cancer General Exam Limitations: altered mental status General appearance: alert, in no apparent distress Head exam: Present: atraumatic, normocephalic Eye exam: Present: normal appearance, EOMI. Absent: scleral icterus, conjunctival injection Neck exam: Present: normal inspection, full ROM. Absent: tenderness Respiratory exam: Present: normal lung sounds bilaterally. Absent: respiratory distress, wheezes, rales, rhonchi, stridor, chest wall tenderness Cardiovascular Exam: Present: regular rate, normal rhythm, normal heart sounds. Absent: systolic murmur, diastolic murmur, rubs, gallop GI/Abdominal exam: Present: soft. Absent: distended, tenderness, guarding, rebound, rigid, mass Extremities exam: Present: tenderness (left hip), normal capillary refill. Absent: full ROM, pedal edema, calf tenderness Back exam: Present: normal inspection. Absent: CVA tenderness (R), CVA tendern ess (L), vertebral tenderness Neurological exam: Present: alert. Absent: motor sensory deficit Skin exam: Present: warm, dry, intact, normal color. Absent: rash Course Vital Signs 07/01/20 07/01/20 07/01/20 04:21 05:30 06:30 Temperature 97.5 F L 97.4 F L 97.6 F Pulse Rate 62 60 62 Respiratory 16 16 16 Rate Blood Pressure 135/71 122/63 128/76 O2 Sat by Pulse 92 L 96 97 Oximetry 07/01/20 07/01/20 07/01/20 08:00 09:32 11:48 Temperature 97.5 F L 97.7 F Pulse Rate 60 68 62 Respiratory 18 18 16 Rate Blood Pressure 123/63 124/58 93/37 O2 Sat by Pulse 96 95 94 L Oximetry 07/01/20 07/01/20 07/01/20 15:00 17:29 21:23 Temperature 97.6 F 98.4 F 98.8 F Pulse Rate 67 70 69 Respiratory 18 18 16 Rate Blood Pressure 135/69 127/60 136/63 O2 Sat by Pulse 96 95 96 Oximetry - Reevaluation(s) Reevaluation #1: 07/02/20 04:12 called to the bedside as the patient had a fall while they hold patient in the emergency department. This patient is scheduled for surgery later today we will head CT scan brain and C-spine for presurgical clearance. Medical Decision Making - Lab Data Result diagrams: 07/01/20 06:32 07/01/20 06:32 - EKG Data -: EKG Interpreted by Me EKG shows normal: sinus rhythm, axis (normal), intervals (normal), QRS complexes (low-voltage QRS. Possible old septal infarct.) Rate: normal (rate 64 bpm) Disposition Clinical Impression: Closed left hip fracture Disposition: ADMITTED IP TO THIS HOSP Condition: Fair Is patient prescribed a controlled substance at d/c from ED?: No
--- NOTE | 2020-07-01 05:09 | XR ---
EXAM: XR Left Hip With Pelvis When Performed, 2 or More Views CLINICAL HISTORY: fall injury TECHNIQUE: Two or more views of the left hip with pelvis when performed. COMPARISON: No relevant prior studies available. FINDINGS: Bones/joints: Acute mildly displaced left femoral neck fracture. No dislocation. Soft tissues: Unremarkable. IMPRESSION: Acute mildly displaced left femoral neck fracture.
--- NOTE | 2020-07-01 05:12 | XR ---
EXAM: XR Chest, 1 View CLINICAL HISTORY: fall TECHNIQUE: Frontal view of the chest. COMPARISON: 06/18/2020. FINDINGS: Lungs: Stable 7 mm nodule overlying the right lung apex. No consolidation. Pleural space: Unremarkable. No pneumothorax. Heart: Unremarkable. No cardiomegaly. Mediastinum: Unremarkable. Bones/joints: Unremarkable. IMPRESSION: No radiographic evidence of acute cardiopulmonary process, allowing for portable technique, without significant interval change.
--- NOTE | 2020-07-01 05:22 | XR ---
EXAM: XR Lumbosacral Spine, 2 or 3 Views CLINICAL HISTORY: fall injury TECHNIQUE: Frontal and lateral views of the lumbar spine and sacrum. COMPARISON: No relevant prior studies available. FINDINGS: Vertebrae: Osteopenia limits evaluation. No evidence of acute fracture or traumatic malalignment. Moderate to severe posterior facet hypertrophy involving the lower lumbar spine. Sacrum/coccyx: Unremarkable as visualized. No acute fracture. Disc spaces: Mild/moderate multilevel intervertebral disc space narrowing with associated bony productive changes, most notable at L5-S1. Soft tissues: Unremarkable. IMPRESSION: 1. No radiographic evidence of acute fracture or traumatic malalignment. 2. Degenerative changes, as above. CT versus MRI of the lumbar spine may be obtained for further evaluation, if clinically indicated.
--- NOTE | 2020-07-01 05:42 | CT ---
EXAM: CT Head Without Intravenous Contrast CLINICAL HISTORY: fall TECHNIQUE: Axial computed tomography images of the head/brain without intravenous contrast. CTDI is 45.2 mGy and DLP is 1008 mGy-cm. This CT exam was performed using one or more of the following dose reduction techniques: automated exposure control, adjustment of the mA and/or kV according to patient size, and/or use of iterative reconstruction technique. COMPARISON: 06/27/2020 FINDINGS: Brain: Unremarkable. No hemorrhage. Mild microangiopathy. No edema. Ventricles: Unremarkable. No ventriculomegaly. Bones/joints: Unremarkable. No acute fracture. Soft tissues: Unremarkable. Sinuses: Hyperattenuating left sphenoid sinus opacification, which may represent inspissated secretions versus fungal sinus disease, as seen on the prior study. Mastoid air cells: Unremarkable as visualized. No mastoid effusion. IMPRESSION: 1. No evidence of acute intracranial pathology without significant interval change. 2. Hyperattenuating left sphenoid sinus opacification, which may represent inspissated secretions versus fungal sinus disease, as seen on the prior study. EXAM: CT Cervical Spine Without Intravenous Contrast CLINICAL HISTORY: fall TECHNIQUE: Axial computed tomography images of the cervical spine without intravenous contrast. CTDI is 10.97 mGy and DLP is 305.9 mGy-cm. This CT exam was performed using one or more of the following dose reduction techniques: automated exposure control, adjustment of the mA and/or kV according to patient size, and/or use of iterative reconstruction technique. COMPARISON: 06/27/2020. FINDINGS: Vertebrae: No evidence of acute fracture or traumatic malalignment. Cervical spondylosis with varying degrees of central canal and foramina stenoses, unchanged. Discs/spinal canal/neural foramina: See above. Soft tissues: Unremarkable. IMPRESSION: No evidence of acute fracture or traumatic malalignment. No significant interval change.
--- NOTE | 2020-07-01 05:48 | CT ---
EXAM: CT Left Lower Extremity Without Intravenous Contrast, Hip CLINICAL HISTORY: fall TECHNIQUE: Axial computed tomography images of the left hip without intravenous contrast. CTDI is 17.527 mGy and DLP is 600.9 mGy-cm. This CT exam was performed using one or more of the following dose reduction techniques: automated exposure control, adjustment of the mA and/or kV according to patient size, and/or use of iterative reconstruction technique. COMPARISON: No relevant prior studies available. FINDINGS: Bones/joints: Acute, comminuted mildly displaced left subcapital femoral neck fracture with associated surrounding soft tissue swelling. Mild left hip osteoarthropathy. No dislocation. Soft tissues: See above. Reproductive: Status post hysterectomy. IMPRESSION: Acute, comminuted mildly displaced left subcapital femoral neck fracture with associated surrounding soft tissue swelling.
[2020-07-01] MEDS ORDERED: NALOXONE 0.4 MG/ML 1 ML VIAL IV PRN (06:20)
[2020-07-01] MEDS ORDERED: ONDANSETRON 4 MG/2 ML VIAL IVP PRN (06:20)
[2020-07-01] MEDS ORDERED: TEMAZEPAM 30 MG CAP PO PRN (06:22)
[2020-07-01] MEDS: SODIUM CHLORIDE 0.9% 1,000 ML IV SCH ×2 (06:45→15:02)
[2020-07-01 06:53] LABS: Basophils # (A) 0.1 k/uL (0-0.2); Basophils % (A) 1 %; Eosinophils # (A) 0.2 k/uL (0-0.7); Eosinophils % (A) 2 %; HCT 40.6 % (34.0-46.0); HGB 13.8 gm/dL (11.4-16.0); Lymphocytes # (A) 1.8 k/uL (1.0-4.8); Lymphocytes % (A) 18 %; MCH 34.3 pg (25.0-35.0); MCV 100.9 fL (80.0-100.0); Macrocytosis Slight; Mean Platelet Volume 7.4; Monocytes # (A) 0.9 k/uL (0-1.0); Monocytes % (A) 9 %; Neutrophils # (A) 7.1 k/uL (1.3-7.7); Neutrophils % (A) 69 %; Platelet Count 370 k/uL (150-450); RBC 4.02 m/uL (3.80-5.40); RDW 13.5 % (11.5-15.5); WBC 10.3 k/uL (3.8-10.6)
[2020-07-01 06:59] LABS: Calcium 8.9 mg/dL (8.4-10.2); Potassium 3.5 mmol/L (3.5-5.1)
[2020-07-01 08:40] LABS: Appearance,Urine Clear (Clear); Bacteria,Urine Rare /hpf; Bilirubin,Urine Negative (Negative); Blood,Urine Trace (Negative); Color,Urine Light Yellow; Glucose,Urine (UA) Negative (Negative); Ketones,Urine Negative (Negative); Leukocyte Esterase,Urine Negative (Negative); Nitrite,Urine Negative (Negative); Protein,Urine Negative (Negative); RBC,Urine 1 /hpf (0-5); Specific Gravity,Urine 1.007 (1.001-1.035); Squamous Epithelial Cell,Urine <1 /hpf (0-4); Urobilinogen,Urine <2.0 mg/dL (<2.0); WBC,Urine <1 /hpf (0-5)
[2020-07-01 08:57] LABS: Prothrombin Time 10.6 sec (9.0-12.0)
[2020-07-01] MEDS ORDERED: FUROSEMIDE 20 MG TAB PO PRN (09:00)
[2020-07-01] MEDS: ALPRAZolam 0.5 MG TAB PO SCH ×2 (09:31→21:18)
[2020-07-01] MEDS: carvediloL 12.5 MG TAB PO SCH ×2 (09:31→21:19)
[2020-07-01] MEDS: DULoxetine HCL 30 MG CAPSULE.DR PO SCH (09:32)
[2020-07-01] MEDS: FAMOTIDINE 20 MG TAB PO SCH ×2 (09:32→21:19)
[2020-07-01] MEDS: ISOSORBIDE MONONITRATE ER 30 MG TAB.ER.24H PO SCH (09:32)
--- NOTE | 2020-07-01 10:55 | P.HPOR ---
History of Present Illness H&P Date: 07/01/20 Chief Complaint: Left femoral neck fracture Patient is an 85-year-old female who was brought to [facility] early this morning after a suspected fall. Patient is in an assisted living home in the area, she has nursing care from 6 and 6 PM. Currently the patient was found on the floor, she was unable to ambulate, EMS to bring the patient to the hospital. Upon arrival to the hospital, multiple labs and imaging test were done. Images demonstrated a subcapital femur fracture on the left side. I attending Dr. Woodruff was contacted by the emergency room staff, the case was discussed, she was admitted under our orthopedic care. Proper consults were placed for internal medicine. Patient was examined today by myself in the emergency room, patient was resting comfortably. She has history of very severe dementia, and review of systems along with history of present illness was very hard to achieve. I was able to contact the daughter today and she provided me with most of her history. She's been in and out of the hospital over the last month or so with multiple falls and worsening dementia. The patient at bedside today stated she was having very confused where she was at an while she was in the hospital. Her daughter states this is getting progressively worse over the last year or so. According to the patient's daughter, the patient does ambulate with a walker. The patient is not complaining of any other orthopedic complaints at this time. 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 per dr Reyna History of Any Multi-Drug Resistant Organisms: MRSA Date of last positivie culture/infection: 07/28/09 MDRO Source:: unknown Past Surgical History: Appendectomy, Hysterectomy, Orthopedic Surgery, Tonsillectomy Additional Past Surgical History / Comment(s): left knee replacement, breast biopsy which were benign - daughter states they there was some type of metal implanted in both breasts, bilat cataracts removed Past Anesthesia/Blood Transfusion Reactions: Previous Problems w/ Anesthesia Additional Past Anesthesia/Blood Transfusion Reaction / Comment(s): severe confusion for 2 weeks after surgery Past Psychological History: Depression Smoking Status: Never smoker Past Alcohol Use History: None Reported Past Drug Use History: None Reported - Past Family History Father Additional Family Medical History / Comment(s): Patient does not know anything about her father. Brother(s) Additional Family Medical History / Comment(s): Patient has one half-brother wi th no history of coronary artery disease. Mother History Unknown: Yes Family Medical History: Cancer Additional Family Medical History / Comment(s): Mother in her 70s with history of heart murmur and Breast Cancer Medications and Allergies Home Medications Medication Instructions Recorded Confirmed Type Temazepam [Restoril] 30 mg PO HS 11/11/14 07/01/20 History DULoxetine HCL [Cymbalta] 30 mg PO DAILY@1000 11/12/14 07/01/20 History Nitroglycerin Sl Tabs [Nitrostat] 0.4 mg SL Q5M PRN 03/20/17 07/01/20 History Carvedilol [Coreg] 25 mg PO BID@1000,0 01/14/19 07/01/20 History ALPRAZolam [Xanax] 0.5 mg PO BID@1000,0 01/01/20 07/01/20 History Donepezil [Aricept] 5 mg PO HS@219901/01/20 07/01/20 History Isosorbide Mononitrate ER [Imdur] 30 mg PO DAILY@1000 01/01/20 07/01/20 History Simvastatin [Zocor] 10 mg PO HS@2200 01/01/20 07/01/20 History Furosemide [Lasix] 20 mg PO DAILY PRN 06/15/20 07/01/20 History Allergies Allergy/AdvReac Type Severity Reaction Status Date / Time codeine Allergy Rash/Hives Verified 07/01/20 08:21 iodine Allergy Rash/Hives Verified 07/01/20 08:21 Penicillins Allergy Unknown Verified 07/01/20 08:21 shellfish derived [Shellfish] Allergy Rash/Hives Verified 07/01/20 08:21 Physical Examination General orthopedic exam: Patient demonstrates no tenderness with palpation throughout the cervical, thoracic or lumbar spine Patient can actively move all her upper extremities and no difficulty, this includes shoulder abduction, elbow extension and flexion along with wrist extension and flexion. She demonstrates no tenderness with palpation throughout the bilateral upper extremities Left lower extremity: No obvious open lesions or sores are visualized. Significant areas of erythema or soft tissue swelling. She's tender with p alpation of the proximal femur, logroll maneuver reproduces pain. She is unable to straight leg raise. She is nontender with palpation surrounding the knee or lower leg. Plantar flexion, dorsiflexion, EHL, FHL are intact. Her sensory exam to light touch throughout the extremity is intact. Calf is soft, no tenderness with palpation. Dorsalis pedis pulses 2+ Right lower extremity: No obvious open lesions or sores are visualized throughout the extremity. She is nontender with palpation throughout the extremity. Logroll maneuver of the leg reproduces no pain, she is able to straight leg raise. Sensory exam to light touch throughout the extremity is intact, calf is soft, no tenderness with palpation. Plantar flexion, dorsiflexion, EHL, FHL are intact. Dorsalis pedis pulses 2+. Results - Labs Labs: Abnormal Lab Results - Last 24 Hours (Table) 07/01/20 07/01/20 07/01/20 Range/Units 06:32 06:32 06:32 MCV 100.9 H (80.0-100.0) fL Sodium 135 L (137-145) mmol/L Glucose 112 H (74-99) mg/dL Urine Blood Trace H (Negative) Urine Bacteria Rare H (None) /hpf H & H 07/01/20 Range/Units 06:32 Hgb 13.8 (11.4-16.0) gm/dL Hct 40.6 (34.0-46.0) % Coagulation 07/01/20 Range/Units 08:30 INR 1.0 (<1.2) Result Diagrams: 07/01/20 06:32 07/01/20 06:32 - Diagnostic results Hip x-ray: report reviewed, image reviewed Hip CT: report reviewed, image reviewed (Images of the left hip do demonstrate a impacted and mildly displaced left subcapital femur fracture.) Assessment and Plan Assessment: Minimally displaced left subcapital femur fracture Status post fall, history of recent falls Severe dementia Other medical comorbidities Plan: I was able to discuss the case, including with physical exam findings and imaging studies my attending Dr. Woodruff. We would like to proceed with surgical intervention, more specifically a left hip hemiarthroplasty. This has been tentatively scheduled for 07/02/2020. I did discuss with the daughter over the phone regarding treatment options, this to include nonsurgical versus surgical. She would like to discuss this with her son who is the power of civil rights attorney along with Dr. Garrett. Tentatively patient will be made nothing by mouth after midnight Obtain consent Pain control, use narcotic sparingly due to dementia Nonweightbearing left lower extremity at this time DVT prophylaxis, will begin subcu medication after surgery Medical recommendations Further recommendations to follow Time with Patient: Less than 30
[2020-07-01] MEDS: MORPHINE SULFATE 4 MG/ML SYRINGE IV PRN ×2 (15:01→23:40)
[2020-07-01] MEDS: ATORVASTATIN 10 MG TAB PO SCH (21:22)
--- NOTE | 2020-07-01 22:23 | P.CONS ---
History of Present Illness - Reason for Consult Consult date: 07/01/20 Medical management and medical clearance Requesting physician: Abdiaziz Woodruff - Chief Complaint Left hip fracture post fall, severe cognitive impairment, multiple TIA and - History of Present Illness 85-year-old female one of my office patient for many years with history of dementia hypertension hyperlipidemia and non-Hodgkin lymphoma has been remission for the last 5 years, patient had lost her independency this last year and has been in the water [place] she has been having worsening memory loss worsening dementia she is fighting with her family about her placement, having spent time in assisted living with help, worsening confusion and dementia and not been able to sleep good part of the night. Family were started her on smaller dose of Xanax this past week which had, her sleep cycle down quite bed and help to be more relaxed. Patient had a fall at home doesn't remember any of the detail she was seen by the caregiver few hours early and found on the floor of her own place complaining of severe left hip pain not been able to move it or put any pressure weight on it. Ended up coming to demurs department by EMS x-ray showed left hip acute mildly displaced left femoral neck fracture with no dislocation with slight soft tissue swelling. She was seen and evaluated by orthopedic and they're planning to do hemiarthroplasty of the left hip which patient currently doesn't want to go for any invasive procedure. The cardia and family would be communicated to her current management and based on their agreement patient will be going for hemiarthroplasty next 24 hours. Review of Systems CONSTITUTIONAL: Well-developed no acute respiratory distress. EYES: No icterus sclerae, no conjunctivitis. EARS, NOSE, MOUTH, THROAT, and FACE: No sore throat, lymphadenopathy, carotid bruits or deformity. Mild facial droop RESPIRATORY: Mild shortness of breath cough and wheezes. CARDIOVASCULAR: No CP, Palpitation, PND, Orthopnea, or angina. Mild arrhythmia GASTROINTESTINAL: No Abd pain, Nausea or vomiting, no Diarrhea or constipation, No GI Bleed, no distention or masses. GENITOURINARY: Negative for Hematuria or UTI, no kidney stones. Significant incontinence INTEGUMENT/BREAST: Negative for any muscular injury with mild osteoarthritis.. HEMATOLOGIC/LYMPHATIC: Negative for bleed or purpura. MUSCULOSKELTAL: Negative for Myalgia or arthralgia. Positive severe pain in the left hip area. NEURLOGICAL: No LOC, Sz or syncope, blurred vision dizziness or abnormality.. BEHAVIORAL/PSYCH: Negative. ENDOCRINE: Negative. 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 per dr Reyna History of Any Multi-Drug Resistant Organisms: MRSA Year Discovered:: 07/28/09 MDRO Source:: unknown Past Surgical History: Appendectomy, Hysterectomy, Orthopedic Surgery, Tonsillectomy Additional Past Surgical History / Comment(s): left knee replacement, breast biopsy which were benign - daughter states they there was some type of metal implanted in both breasts, bilat cataracts removed Past Anesthesia/Blood Transfusion Reactions: Previous Problems w/ Anesthesia Additional Past Anesthesia/Blood Transfusion Reaction / Comm: severe confusion for 2 weeks after surgery Past Psychological History: Depression Smoking Status: Never smoker Past Alcohol Use History: None Reported Past Drug Use History: None Reported - Past Family History Father Additional Family Medical History / Comment(s): Patient does not know anything about her father. Brother(s) Additional Family Medical History / Comment(s): Patient has one half-brother with no history of coronary artery disease. Mother History Unknown: Yes Family Medical History: Cancer Additional Family Medical History / Comment(s): Mother in her 70s with history of heart murmur and Breast Cancer Medications and Allergies Home Medications Medication Instructions Recorded Confirmed Type Temazepam [Restoril] 30 mg PO HS 11/11/14 07/01/20 History DULoxetine HCL [Cymbalta] 30 mg PO DAILY@1000 11/12/14 07/01/20 History Nitroglycerin Sl Tabs [Nitrostat] 0.4 mg SL Q5M PRN 03/20/17 07/01/20 History Carvedilol [Coreg] 25 mg PO BID@1000,219901/14/19 07/01/20 History ALPRAZolam [Xanax] 0.5 mg PO BID@1000,219901/01/20 07/01/20 History Donepezil [Aricept] 5 mg PO HS@219901/01/20 07/01/20 History Isosorbide Mononitrate ER [Imdur] 30 mg PO DAILY@1000 01/01/20 07/01/20 History Simvastatin [Zocor] 10 mg PO HS@2200 01/01/20 07/01/20 History Furosemide [Lasix] 20 mg PO DAILY PRN 06/15/20 07/01/20 History Allergies Allergy/AdvReac Type Severity Reaction Status Date / Time codeine Allergy Rash/Hives Verified 07/01/20 08:21 iodine Allergy Rash/Hives Verified 07/01/20 08:21 Penicillins Allergy Unknown Verified 07/01/20 08:21 shellfish derived [Shellfish] Allergy Rash/Hives Verified 07/01/20 08:21 Physical Exam Vitals: Vital Signs Temp Pulse Resp BP Pulse Ox 07/01/20 11:48 97.7 F 62 16 93/37 94 L 07/01/20 09:32 68 18 124/58 95 07/01/20 08:00 97.5 F L 60 18 123/63 96 07/01/20 06:30 97.6 F 62 16 128/76 97 07/01/20 05:30 97.4 F L 60 16 122/63 96 07/01/20 04:21 97.5 F L 62 16 135/71 92 L Intake and Output 06/30/20 07/01/20 07/01/20 22:59 06:59 14:59 Other: Weight 65.771 kg General Appearance: Alert, cooperative, no distress, appears stated age. Neck HEENT: Supple, no lymphadenopathy, no thyroid enlargement, no carotid bruits. Lungs: Decreased breath some bilateral Rhonchi No Crackles or Wheezes. Chest Wall: Chest wall normal expansion with deep inspiration no tenderness and no deformity was found on exam, no costochondral pain or discomfort. Heart: Regular rate and rhythm, S1, S2 normal, no murmur, rub or gallop. Mild arrhythmia. Back: Symmetric, no curvature, ROM normal, no CVA tenderness. Abdomen: Soft, non-tender, bowel sounds active all four quadrants, no masses, no organomegaly. Extremities: Extremities normal, atraumatic, no cyanosis or edema. Pulses: 2+ and symmetric. Skin: Skin color, texture, tugor normal, no rashes or lesions. Neurologic: Alert oriented x3 cranial nerves II through XII intact, no motor deficit, no abnormal balance or gait. Results CBC & Chem 7: 07/01/20 06:32 07/01/20 06:32 Labs: Abnormal Lab Results - Last 24 Hours (Table) 07/01/20 07/01/20 07/01/20 Range/Units 06:32 06:32 06:32 MCV 100.9 H (80.0-100.0) fL Sodium 135 L (137-145) mmol/L Glucose 112 H (74-99) mg/dL Urine Blood Trace H (Negative) Urine Bacteria Rare H (None) /hpf Assessment and Plan Assessment: 1 left hip fracture: Patient be going to go for hemiarthroplasty scheduled by Dr. Dallas for tomorrow, in the meanwhile continue to take patient off any anticoagulation medication, patient currently is not doing ROM this severe 2 cognitive impairment and worsening dementia: Patient has been on Donepazil on duloxetine continue medication. 3 previous history of non-Hodgkin lymphoma: Has been in full remission still repeat lab to see if there is any abnormality or nonconventional treatment needed. 4 hyperlipidemia: Remain on simvastatin 10 mg daily. 5 chronic fluid overload: Remain on diuretics and regular basis. 6 atherosclerotic heart disease: Remain on nitroglycerin and isosorbide mononitrate as an outpatient. 7 mild arrhythmia: Remain on Coreg 25 mg twice a day with good result so far. 8 DVT prophylaxis: Will be on Pepcid 20 mg daily. 9 GI prophylaxis: Can benefit from Pepcid 20 mg daily. CODE STATUS: Full code. Admit patient to the inpatient service for more than 2 night stay.
[2020-07-01] MEDS: DONEPEZIL 5 MG TAB PO SCH (23:57)
--- NOTE | 2020-07-02 04:12 | XR ---
EXAM: XR Pelvis, 1 or 2 Views CLINICAL HISTORY: fall TECHNIQUE: Frontal view of the pelvis. COMPARISON: 07/01/2020. FINDINGS/IMPRESSION: Interval impaction of previously noted acute left femoral neck fracture. No other significant interval change.
--- NOTE | 2020-07-02 04:27 | CT ---
EXAM: CT Head Without Intravenous Contrast CLINICAL HISTORY: fall TECHNIQUE: Axial computed tomography images of the head/brain without intravenous contrast. CTDI is 45.2 mGy and DLP is 1008 mGy-cm. This CT exam was performed using one or more of the following dose reduction techniques: automated exposure control, adjustment of the mA and/or kV according to patient size, and/or use of iterative reconstruction technique. COMPARISON: 07/01/2020. FINDINGS: Brain: Age-appropriate senescent changes. There is no evidence of an acute transcortical infarct or acute intracranial hemorrhage. Patchy areas of decreased attenuation are seen involving bilateral periventricular and subcortical white matter, likely representing mild microangiopathy. Ventricles: Unremarkable. No ventriculomegaly. Bones/joints: Unremarkable. No acute fracture. Soft tissues: Unremarkable. Sinuses: Hyperattenuating left sphenoid sinus opacification, which may represent inspissated secretions versus fungal sinus disease, as seen on the prior study. Mastoid air cells: Unremarkable as visualized. No mastoid effusion. IMPRESSION: No evidence of acute intracranial pathology. Other findings, as above. EXAM: CT Cervical Spine Without Intravenous Contrast CLINICAL HISTORY: fall TECHNIQUE: Axial computed tomography images of the cervical spine without intravenous contrast. CTDI is 11.47 mGy and DLP is 330.1 mGy-cm. This CT exam was performed using one or more of the following dose reduction techniques: automated exposure control, adjustment of the mA and/or kV according to patient size, and/or use of iterative reconstruction technique. COMPARISON: 07/01/2020 FINDINGS: Vertebrae: No evidence of acute fracture or traumatic malalignment. Cervical spondylosis with varying degrees of central canal and foramina stenoses, unchanged. 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 Discs/spinal canal/neural foramina: See above. Soft tissues: Unremarkable. IMPRESSION: No evidence of acute fracture or traumatic malalignment. No significant interval change.
[2020-07-02] MEDS: SODIUM CHLORIDE 0.9% 1,000 ML IV SCH ×3 (06:27→20:10)
[2020-07-02] MEDS: MORPHINE SULFATE 4 MG/ML SYRINGE IV PRN (07:15)
[2020-07-02] MEDS: ALPRAZolam 0.5 MG TAB PO SCH ×2 (08:50→20:10)
[2020-07-02] MEDS: FAMOTIDINE 20 MG TAB PO SCH (08:50)
[2020-07-02] MEDS: carvediloL 12.5 MG TAB PO SCH ×2 (08:51→20:11)
[2020-07-02] MEDS: DULoxetine HCL 30 MG CAPSULE.DR PO SCH (08:51)
[2020-07-02] MEDS: ISOSORBIDE MONONITRATE ER 30 MG TAB.ER.24H PO SCH (10:57)
[2020-07-02] MEDS: LACTATED RINGERS 1,000 ML IV SCH ×3 (10:57→16:17)
--- NOTE | 2020-07-02 13:30 | P.PN ---
Subjective Progress Note Date: 07/02/20 HISTORY OF PRESENT ILLNESS 85-year-old female one of my office patient for many years with history of dementia hypertension hyperlipidemia and non-Hodgkin lymphoma has been remission for the last 5 years, patient had lost her independency this last year and has been in the [place] she has been having worsening memory loss worsening dementia she is fighting with her family about her placement, having spent time in assisted living with help, worsening confusion and dementia and not been able to sleep good part of the night. Family were started her on smaller dose of Xanax this past week which had, her sleep cycle down quite bed and help to be more relaxed. Patient had a fall at home doesn't remember any of the detail she was seen by the caregiver few hours early and found on the floor of her own place complaining of severe left hip pain not been able to move it or put any pressure weight on it. Ended up coming to demurs department by EMS x-ray showed left hip acute mildly displaced left femoral neck fracture with no dislocation with slight soft tissue swelling. She was seen and evaluated by orthopedic and they're planning to do hemiarthroplasty of the left hip which patient currently doesn't want to go for any invasive procedure. The cardia and family would be communicated to her current management and based on their agreement patient will be going for hemiarthroplasty next 24 hours. 07/02: Patient apparently having a fall while in the emergency room early this morning. CAT scan of the brain showed no evidence of acute intracranial pathology. Pelvic x-ray showed interval impaction previously noted acute left femoral neck fracture. No other significant interval change. This morning, she was transferred to the [facility] floor. Patient denies having any injury. Patient has baseline confusion. She has been afebrile, heart rate 77, blood pressure 152/67, pulse ox 95% on room air. REVIEW OF SYSTEMS CONSTITUTIONAL: Well-developed no acute respiratory distress. EYES: No icterus sclerae, no conjunctivitis. EARS, NOSE, MOUTH, THROAT, and FACE: No sore throat, lymphadenopathy, carotid bruits or deformity. Mild facial droop RESPIRATORY: Mild shortness of breath cough and wheezes. CARDIOVASCULAR: No CP, Palpitation, PND, Orthopnea, or angina. Mild arrhythmia GASTROINTESTINAL: No Abd pain, Nausea or vomiting, no Diarrhea or constipation, No GI Bleed, no distention or masses. GENITOURINARY: Negative for Hematuria or UTI, no kidney stones. Significant incontinence INTEGUMENT/BREAST: Negative for any muscular injury with mild osteoarthritis.. HEMATOLOGIC/LYMPHATIC: Negative for bleed or purpura. MUSCULOSKELTAL: Negative for Myalgia or arthralgia. Positive severe pain in the left hip area. NEURLOGICAL: No LOC, Sz or syncope, blurred vision dizziness or abnormality.. BEHAVIORAL/PSYCH: Negative. ENDOCRINE: Negative. PHYSICAL EXAMINATION General Appearance: Alert, cooperative, no distress, appears stated age. Neck HEENT: Supple, no lymphadenopathy, no thyroid enlargement, no carotid bruits. Lungs: Decreased breath some bilateral Rhonchi No Crackles or Wheezes. Chest Wall: Chest wall normal expansion with deep inspiration no tenderness and no deformity was found on exam, no costochondral pain or discomfort. Heart: Regular rate and rhythm, S1, S2 normal, no murmur, rub or gallop. Mild arrhythmia. Back: Symmetric, no curvature, ROM normal, no CVA tenderness. Abdomen: Soft, non-tender, bowel sounds active all four quadrants, no masses, no organomegaly. Extremities: Extremities normal, atraumatic, no cyanosis or edema. Pulses: 2+ and symmetric. Skin: Skin color, texture, tugor normal, no rashes or lesions. Neurologic: Alert oriented to person cranial nerves II through XII intact, no motor deficit, no abnormal balance or gait. ASSESSMENT AND PLAN 1 left hip fracture: Patient be going to go for hemiarthroplasty scheduled by Dr. Woodruff for today. 2 cognitive impairment and worsening dementia: Patient has been on Donepazil on duloxetine continue medication. 3 previous history of non-Hodgkin lymphoma: Has been in full remission still repeat lab to see if there is any abnormality or nonconventional treatment needed. 4 hyperlipidemia: Remain on simvastatin 10 mg daily. 5 chronic fluid overload: Remain on diuretics and regular basis. 6 atherosclerotic heart disease: Remain on nitroglycerin and isosorbide mononitrate as an outpatient. 7 mild arrhythmia: Remain on Coreg 25 mg twice a day with good result so far. 8 DVT prophylaxis: Will be on Pepcid 20 mg daily. 9 GI prophylaxis: Can benefit from Pepcid 20 mg daily. CODE STATUS: Full code. DISCHARGE PLAN Patient resides at [facility]. Plan is for [facility] at the time of discharge. Impression and plan of care have been directed as dictated by the signing physician. Caitlyn Bryan nurse practitioner acting as scribe for signing physician. Objective - Vital Signs Vital signs: Vital Signs Temp 98 F 07/02/20 04:32 Pulse 77 07/02/20 04:32 Resp 16 07/02/20 04:32 BP 161/74 07/02/20 04:32 Pulse Ox 97 07/02/20 04:32 Intake & Output 07/01/20 07/02/20 07/02/20 18:59 06:59 18:59 Output Total 1400 Balance -1400 Output: Urine 1400 - Labs CBC & Chem 7: 07/01/20 06:32 07/01/20 06:32 Labs: Abnormal Lab Results - Last 24 Hours (Table) 07/01/20 Range/Units 06:32 Urine Blood Trace H (Negative) Urine Bacteria Rare H (None) /hpf
[2020-07-02] MEDS ORDERED: DEXAMETHASONE SOD PHOSPHATE 4 MG/ML 1 ML VIAL IVP ONE (16:17)
[2020-07-02] MEDS ORDERED: ONDANSETRON 4 MG/2 ML VIAL IVP ONE (16:17)
[2020-07-02] MEDS ORDERED: KETAMINE 10 MG/ML 20 ML VIAL ONE (16:17)
[2020-07-02] MEDS ORDERED: MIDAZOLAM 2 MG/2 ML VIAL ONE (16:17)
[2020-07-02] MEDS ORDERED: fentaNYL (PF) 50 MCG/ML 2 ML AMP ONE (16:17)
[2020-07-02] MEDS ORDERED: SODIUM CHLORIDE 0.9% 50 ML with ceFAZolin 2,000 MG IV ONE ×2 (16:33)
--- NOTE | 2020-07-02 18:02 | P.OP ---
Date of Procedure: 07/02/20 Preoperative Diagnosis: Left displaced subcapital femoral neck fracture Postoperative Diagnosis: Same Procedure(s) Performed: Left hip hemiarthroplastypress-fit Implants: Depuy Corail size 12 press-fit collared femoral stem, 0 neck, 42 mm unipolar head. Anesthesia: spinal Surgeon: Abdiaziz Woodruff Junior Accountant #1: Alfredo Arroyo Estimated Blood Loss (ml): 100 Pathology: other (Femoral head) Condition: stable Disposition: PACU Indications for Procedure: The patient's a 5-year-old female who presents after falling injuring her left hip. Upon evaluation she is noted of displaced left subcapital femoral neck fracture. He discussion the risks and benefits of operative intervention was made with patient and her family. They opted to proceed. Operative risks to include infection, neurovascular injury, fracture, instability, possible loosening, possible need for subsequent procedures was discussed. Informed consent was obtained. Operative Findings: As below Description of Procedure: The patient was brought to the operating room, and after induction of spinal anesthesia was placed in the lateral decubitus position. Bony prominences were appropriately padded. The pelvis was stabilized perpendicular to the floor with a pegboard. The left lower extremity was prepped and draped in normal fashion. A 12 cm incision was then made centered over the greater trochanter extending superiorly to level ASIS and distally along the femoral shaft. Skin and subcutaneous tissues were divided sharply. Electrocautery was used for hemostasis. The fascia mikki and gluteus sonya fascia was split in line with the skin incision. Muscle fibers were bluntly dissected proximally. A self- retaining retractor was placed. The anterior and posterior margins of the glut eus medius muscles identified in the into two thirds detached the greater trochanter with electrocautery. The gluteus minimus tendon was identified and detached in a similar fashion. A T-shaped capsulotomy was performed. The capsular flaps were tagged with #2 Ethibond suture. The femoral neck fracture was then identified. A lower neck cut was made at 45 the shaft with a sagittal saw to help facilitate head extraction. Head was then extracted with a corkscrew. It measured 52 millimeters . The acetabulum was inspected. No significant chondral injury was noted. Attention was then paid towards preparing the proximal femur. A box chisel was used to open the metaphyseal region. A canal finder was used to find the femoral canal. Sequential broaching was performed up to a size 12 broach with the leg perpendicular to the floor in 15 of anteversion. There was good rotational stability. A calcar mill was used to fashion the medial calcar. A 0 neck and 52 mm unipolar head was placed. The hip was gently reduced. It was taken through range of motion and felt to be stable in flexion and extension with internal and external rotation. I felt there was adequate rastafarian of soft tissue tension. Hip was gently dislocated. The trial components were then removed. Pulsatile lavage was utilized. The final size 12 standard collared femoral stem was inserted again with the leg perpendicular to the floor in 15 of anteversion. This was fully seated. Again there was good rotational stability. A 0 neck and 52 mm unipolar head was gently impacted. Hip was gently reduced. Again it was taken through range of motion felt to be stable in flexion and extension with internal and external rotation. Again I felt there was adequate rastafarian of soft tissue tension. Pulsatile lavage was again utilized. The capsular layer was closed with interrupted #2 Ethibond suture. The gluteus minimus and medius tendons reattached the greater trochanter with #2 Ethibond suture. The fascia mikki and gluteus sonya fascia was closed with running #2 Ethibond suture. There is minimal drainage therefore a deep drain was not placed. The subcutaneous tissues were reapproximated interrupted 2-0 Vicryl sutures. Skin was reapproximated with 3-0 subcuticular strata fix suture. Skin tape and adhesive was applied. A sterile dressing was applied. The patient was then awoken from sedation and transferred to recovery room in fair condition. Blood loss was estimated at 100 mL. No complications were incurred. Sponge and needle counts were correct at the end the case. Michael GRAY assisted during the major components the case to include positioning, exposure, implantation, and closure.
--- NOTE | 2020-07-02 18:43 | XR ---
EXAMINATION TYPE: XR Hip Limited LT DATE OF EXAM: 07/02/2020 COMPARISON: NONE HISTORY: Postop TECHNIQUE: Single view FINDINGS: There is left hip prosthesis. Components appear in anatomic position. IMPRESSION: No complicating process seen.
[2020-07-02] MEDS: ATORVASTATIN 10 MG TAB PO SCH (20:11)
[2020-07-02] MEDS: traMADol 50 MG TAB PO PRN (20:12)
[2020-07-02] MEDS: DONEPEZIL 5 MG TAB PO SCH (20:45)
[2020-07-03] MEDS: traMADol 50 MG TAB PO PRN (01:34)
[2020-07-03] MEDS: SODIUM CHLORIDE 0.9% 1,000 ML IV SCH ×2 (05:05→19:28)
[2020-07-03 08:18] LABS: Basophils % (A) 0 %; Eosinophils % (A) 0 %; HCT 31.5 % (34.0-46.0); Lymphocytes # (A) 1.4 k/uL (1.0-4.8); Lymphocytes % (A) 6 %; MCH 33.1 pg (25.0-35.0); MCHC 32.2 g/dL (31.0-37.0); MCV 102.7 fL (80.0-100.0); Macrocytosis Slight; Mean Platelet Volume 7.7; Monocytes % (A) 4 %; Neutrophils # (A) 20.6 k/uL (1.3-7.7); Neutrophils % (A) 89 %; Platelet Count 302 k/uL (150-450); RBC 3.07 m/uL (3.80-5.40); RDW 14.3 % (11.5-15.5); WBC 23.1 k/uL (3.8-10.6)
[2020-07-03] MEDS: ENOXAPARIN 40 MG/0.4 ML SYRINGE SQ SCH (08:22)
[2020-07-03] MEDS: FAMOTIDINE 20 MG TAB PO SCH (08:22)
[2020-07-03 08:27] LABS: HGB 10.2 gm/dL (11.4-16.0)
[2020-07-03] MEDS: ALPRAZolam 0.5 MG TAB PO SCH ×2 (09:09→22:46)
[2020-07-03] MEDS: carvediloL 12.5 MG TAB PO SCH ×2 (09:09→22:34)
[2020-07-03] MEDS: ISOSORBIDE MONONITRATE ER 30 MG TAB.ER.24H PO SCH (09:10)
[2020-07-03] MEDS: DULoxetine HCL 30 MG CAPSULE.DR PO SCH (10:46)
--- NOTE | 2020-07-03 11:02 | P.PN ---
Subjective Progress Note Date: 07/03/20 HISTORY OF PRESENT ILLNESS 85-year-old female one of my office patient for many years with history of dementia hypertension hyperlipidemia and non-Hodgkin lymphoma has been remission for the last 5 years, patient had lost her independency this last year and has been in the [facility] she has been having worsening memory loss worsening dementia she is fighting with her family about her placement, having spent time in assisted living with help, worsening confusion and dementia and not been able to sleep good part of the night. Family were started her on smaller dose of Xanax this past week which had, her sleep cycle down quite bed and help to be more relaxed. Patient had a fall at home doesn't remember any of the detail she was seen by the caregiver few hours early and found on the floor of her own place complaining of severe left hip pain not been able to move it or put any pressure weight on it. Ended up coming to demurs department by EMS x-ray showed left hip acute mildly displaced left femoral neck fracture with no dislocation with slight soft tissue swelling. She was seen and evaluated by orthopedic and they're planning to do hemiarthroplasty of the left hip which patient currently doesn't want to go for any invasive procedure. The cardia and family would be communicated to her current management and based on their agreement patient will be going for hemiarthroplasty next 24 hours. 07/02: Patient apparently having a fall while in the emergency room early this morning. CAT scan of the brain showed no evidence of acute intracranial pathology. Pelvic x-ray showed interval impaction previously noted acute left femoral neck fracture. No other significant interval change. This morning, she was transferred to the [facility] floor. Patient denies having any injury. Patient has baseline confusion. She has been afebrile, heart rate 77, blood pressure 152/67, pulse ox 95% on room air. 07/03: Patient is postop day 1 for left hip hemiarthroplasty. Patient has had no concerns. No complaints of pain. She has been afebrile, heart rate 96, blood pressure 108/61, pulse ox 96% on room air. Repeat blood work reveals Nicole BC 23.1, hemoglobin 10.2. Patient has been very active following surgery and sitter is at the bedside for safety. Rosalba May possibly except patient for subacute rehab. Backup plan is for patient to return to [facility] with paid caregiver's. REVIEW OF SYSTEMS CONSTITUTIONAL: Well-developed no acute respiratory distress. No documented fevers. EYES: No icterus sclerae, no conjunctivitis. EARS, NOSE, MOUTH, THROAT, and FACE: No sore throat, lymphadenopathy, carotid bruits or deformity. Mild facial droop RESPIRATORY: Mild shortness of breath cough and wheezes. CARDIOVASCULAR: No CP, Palpitation, PND, Orthopnea, or angina. Mild arrhythmia GASTROINTESTINAL: No Abd pain, Nausea or vomiting, no Diarrhea or constipation, No GI Bleed, no distention or masses. GENITOURINARY: Negative for Hematuria or UTI, no kidney stones. Significant incontinence INTEGUMENT/BREAST: Negative for any muscular injury with mild osteoarthritis.. HEMATOLOGIC/LYMPHATIC: Negative for bleed or purpura. MUSCULOSKELTAL: Negative for Myalgia or arthralgia. Positive severe pain in the left hip area. NEURLOGICAL: No LOC, Sz or syncope, blurred vision dizziness or abnormality.. BEHAVIORAL/PSYCH: Negative. ENDOCRINE: Negative. PHYSICAL EXAMINATION General Appearance: Alert, cooperative, no distress, appears stated age. Patient is in no acute distress. Neck HEENT: Supple, no lymphadenopathy, no thyroid enlargement, no carotid bruits. Lungs: Decreased breath some bilateral Rhonchi No Crackles or Wheezes. Chest Wall: Chest wall normal expansion with deep inspiration no tenderness and no deformity was found on exam, no costochondral pain or discomfort. Heart: Regular rate and rhythm, S1, S2 normal, no murmur, rub or gallop. Mild arrhythmia. Back: Symmetric, no curvature, ROM normal, no CVA tenderness. Abdomen: Soft, non-tender, bowel sounds active all four quadrants, no masses, no organomegaly. Extremities: Extremities normal, atraumatic, no cyanosis or edema. Pulses: 2+ and symmetric. Skin: Skin color, texture, tugor normal, no rashes or lesions. Neurologic: Alert oriented to person cranial nerves II through XII intact, no motor deficit, no abnormal balance or gait. ASSESSMENT AND PLAN 1 left hip fracture status post hemiarthroplasty with Dr. Woodruff, postop day #1. 2 cognitive impairment and worsening dementia: Patient has been on Donepazil on duloxetine continue medication. 3 previous history of non-Hodgkin lymphoma: Has been in full remission still repeat lab to see if there is any abnormality or nonconventional treatment needed. 4 hyperlipidemia: Remain on simvastatin 10 mg daily. 5 chronic fluid overload: Remain on diuretics and regular basis. 6 atherosclerotic heart disease: Remain on nitroglycerin and isosorbide mononitrate as an outpatient. 7 mild arrhythmia: Remain on Coreg 25 mg twice a day with good result so far. 8 DVT prophylaxis: Will be on Pepcid 20 mg daily. 9 GI prophylaxis: Can benefit from Pepcid 20 mg daily. 10. Leukocytosis most likely secondary to Decadron during surgery. Repeat CBC tomorrow CODE STATUS: Full code. DISCHARGE PLAN Patient resides at [facility]. Plan is for [facility] at the time of discharge. Impression and plan of care have been directed as dictated by the signing physician. Caitlyn Bryan nurse practitioner acting as scribe for signing rony padilla. Objective - Vital Signs Vital signs: Vital Signs Temp 97.6 F 07/03/20 07:19 Pulse 96 07/03/20 08:00 Resp 13 07/03/20 08:00 BP 108/61 07/03/20 07:19 Pulse Ox 96 07/03/20 07:19 Intake & Output 07/02/20 07/03/20 07/03/20 18:59 06:59 18:59 Intake Total 650 1260 Output Total 2150 700 Balance -1500 560 Weight 65.771 kg Intake: IV 650 Intake, IV Titration 960 Amount Sodium Chloride 0.9% 1, 910 000 ml @ 105 mls/hr IV . Q9H32M [facility] Rx#:[id number] ceFAZolin 2 gm In Sodium 50 Chloride 0.9% 50 ml @ 100 mls/hr IVPB Q8HR [facility] Rx# :[id number] Oral 300 Output: Urine 2050 700 Estimated Blood Loss 100 Other: Voiding Method Indwelling Catheter Indwelling Catheter # Voids 0 1 - Labs CBC & Chem 7: 07/03/20 06:49 07/01/20 06:32 Labs: Abnormal Lab Results - Last 24 Hours (Table) 07/03/20 Range/Units 06:49 WBC 23.1 H (3.8-10.6) k/uL RBC 3.07 L (3.80-5.40) m/uL Hgb 10.2 L D (11.4-16.0) gm/dL Hct 31.5 L (34.0-46.0) % MCV 102.7 H (80.0-100.0) fL Neutrophils # 20.6 H (1.3-7.7) k/uL
--- NOTE | 2020-07-03 11:23 | P.PN ---
Subjective Progress Note Date: 07/03/20 Principal diagnosis: Status post left hemiarthroplasty Patient was examined today at bedside, she is resting comfortably. According to nursing, patient was very agitated last night, she seems better today. She is taking very minimal narcotics at this time. With her dementia, review of systems is slightly difficult. She tells me she is not short of breath and having no chest pain. She denies any fevers, chills, nausea vomiting. Objective - Vital Signs Vital signs: Vital Signs Temp 97.6 F 07/03/20 07:19 Pulse 96 07/03/20 08:00 Resp 13 07/03/20 08:00 BP 108/61 07/03/20 07:19 Pulse Ox 96 07/03/20 07:19 Intake & Output 07/02/20 07/03/20 07/03/20 18:59 06:59 18:59 Intake Total 650 1260 Output Total 2150 700 Balance -1500 560 Weight 65.771 kg Intake: IV 650 Intake, IV Titration 960 Amount Sodium Chloride 0.9% 1, 910 000 ml @ 105 mls/hr IV . Q9H32M [facility] Rx#:[id number] ceFAZolin 2 gm In Sodium 50 Chloride 0.9% 50 ml @ 100 mls/hr IVPB Q8HR [facility] Rx# :[id number] Oral 300 Output: Urine 2050 700 Estimated Blood Loss 100 Other: Voiding Method Indwelling Catheter Indwelling Catheter # Voids 0 1 - Exam Left lower extremity: Incision is clean, dry, and intact. The exofin fusion tape is in good condition. There is minimal soft tissue swelling and ecchymosis surrounding the medial and lateral aspects of the incision. Calf is soft, no tenderness with palpation. Plantar flexion, dorsiflexion, EHL, FHL are intact. Sensory exam to light touch throughout the extremity is intact, dorsal pedis pulses 2+. - Labs CBC & Chem 7: 07/03/20 06:49 07/01/20 06:32 Labs: Abnormal Lab Results - Last 24 Hours (Table) 07/03/20 Range/Units 06:49 WBC 23.1 H (3.8-10.6) k/uL RBC 3.07 L (3.80-5.40) m/uL Hgb 10.2 L D (11.4-16.0) gm/dL Hct 31.5 L (34.0-46.0) % MCV 102.7 H (80.0-100.0) fL Neutrophils # 20.6 H (1.3-7.7) k/uL Assessment and Plan Assessment: Status post left hip hemiarthroplasty Plan: Pain control, continue use of Tylenol. Avoid heavier narcotics at this time DVT prophylaxis, continue subcu medication at this time. We'll likely utilize aspirin 81 mg twice a day of discharge Discussed with nursing to discontinuing the catheter today Continue work with physical therapy Encourage incentive spirometer Weight-bear as tolerated with walker Discharge planning: Possible discharge tomorrow Time with Patient: Less than 30
[2020-07-03] MEDS: ACETAMINOPHEN TAB 325 MG TAB PO PRN (16:27)
[2020-07-03] MEDS: MELATONIN 3 MG TABLET PO SCH (22:45)
[2020-07-03] MEDS: DONEPEZIL 5 MG TAB PO SCH (22:45)
[2020-07-03] MEDS: ATORVASTATIN 10 MG TAB PO SCH (22:46)
[2020-07-03] MEDS: MIRTAZAPINE 15 MG TAB PO SCH (22:46)
[2020-07-04] MEDS: SODIUM CHLORIDE 0.9% 1,000 ML IV SCH ×3 (01:47→21:21)
[2020-07-04 06:52] LABS: HCT 25.7 % (34.0-46.0); MCH 33.6 pg (25.0-35.0); MCHC 33.1 g/dL (31.0-37.0); MCV 101.6 fL (80.0-100.0); Macrocytosis Slight; Mean Platelet Volume 7.5; Platelet Count 264 k/uL (150-450); RBC 2.53 m/uL (3.80-5.40); RDW 14.5 % (11.5-15.5); WBC 19.4 k/uL (3.8-10.6)
[2020-07-04 06:55] LABS: HGB 8.5 gm/dL (11.4-16.0)
[2020-07-04] MEDS: LACTATED RINGERS 1,000 ML IV SCH (07:27)
[2020-07-04] MEDS: carvediloL 12.5 MG TAB PO SCH ×2 (09:05→21:20)
[2020-07-04] MEDS: ALPRAZolam 0.5 MG TAB PO SCH ×2 (09:05→21:20)
[2020-07-04] MEDS: FAMOTIDINE 20 MG TAB PO SCH (09:05)
[2020-07-04] MEDS: ISOSORBIDE MONONITRATE ER 30 MG TAB.ER.24H PO SCH (09:05)
[2020-07-04] MEDS: DULoxetine HCL 30 MG CAPSULE.DR PO SCH (09:05)
[2020-07-04] MEDS: ENOXAPARIN 40 MG/0.4 ML SYRINGE SQ SCH (09:05)
--- NOTE | 2020-07-04 09:23 | P.PN ---
Subjective Progress Note Date: 07/04/20 Principal diagnosis: Status post left hemiarthroplasty Patient was examined today at bedside, she is resting comfortably. We're waiting on authorization from insurance for placement for rehab. Her hemoglobin did drop from 07/03/2020 1114, continue to monitor. Objective - Vital Signs Vital signs: Vital Signs Temp 97.4 F L 07/04/20 07:45 Pulse 81 07/04/20 07:45 Resp 18 07/04/20 07:45 BP 132/64 07/04/20 07:45 Pulse Ox 93 L 07/04/20 07:45 Intake & Output 07/03/20 07/04/20 07/04/20 18:59 06:59 18:59 Intake Total 50 Output Total 250 Balance -200 Intake: Intake, IV Titration 50 Amount ceFAZolin 2 gm In Sodium 50 Chloride 0.9% 50 ml @ 100 mls/hr IVPB Q8HR [facility] Rx# :[id number] Output: Urine 250 Other: Voiding Method Indwelling Catheter Bedside Commode # Voids 2 - Exam Left lower extremity: Incision is clean, dry, and intact. The exofin fusion tape is in good condition. There is minimal soft tissue swelling and ecchymosis surrounding the medial and lateral aspects of the incision. Calf is soft, no tenderness with palpation. Plantar flexion, dorsiflexion, EHL, FHL are intact. Sensory exam to light touch throughout the extremity is intact, dorsal pedis pulses 2+. - Labs CBC & Chem 7: 07/04/20 06:12 07/01/20 06:32 Labs: Abnormal Lab Results - Last 24 Hours (Table) 07/04/20 Range/Units 06:12 WBC 19.4 H (3.8-10.6) k/uL RBC 2.53 L (3.80-5.40) m/uL Hgb 8.5 L D (11.4-16.0) gm/dL Hct 25.7 L (34.0-46.0) % MCV 101.6 H (80.0-100.0) fL Assessment and Plan Assessment: Status post left hip hemiarthroplasty Acute blood loss anemia, expected surgical outcome Plan: We'll check hemoglobin on 07/06/2020 Pain control, continue use of Tylenol. Avoid heavier narcotics at this time DVT prophylaxis, continue subcu medication Continue work with physical therapy Encourage incentive spirometer Weight-bear as tolerated with walker Discharge planning: Plan for discharge to rehab when authorization is approved Time with Patient: Less than 30
[2020-07-04 09:44] LABS: Anion Gap 7.1 mmol/L (4.00-12.00); Calcium 8.6 mg/dL (8.7-10.3); Carbon Dioxide 27.9 mmol/L (21.6-31.8); Non-African American GFR(CKD) 83.7 (60.0-200.0); Potassium 3.8 mmol/L (3.5-5.5)
[2020-07-04] MEDS: FERROUS SULFATE 325 MG TAB PO SCH ×2 (12:11→16:33)
--- NOTE | 2020-07-04 12:47 | P.PN ---
Subjective Progress Note Date: 07/04/20 85-year-old female one of my office patient for many years with history of dementia hypertension hyperlipidemia and non-Hodgkin lymphoma has been remission for the last 5 years, patient had lost her independency this last year and has been in the [facility] [place] she has been having worsening memory loss worsening dementia she is fighting with her family about her placement, having spent time in assisted living with help, worsening confusion and dementia and not been able to sleep good part of the night. Family were started her on smaller dose of Xanax this past week which had, her sleep cycle down quite bed and help to be more relaxed. Patient had a fall at home doesn't remember any of the detail she was seen by the caregiver few hours early and found on the floor of her own place complaining of severe left hip pain not been able to move it or put any pressure weight on it. Ended up coming to demurs department by EMS x-ray showed left hip acute mildly displaced left femoral neck fracture with no dislocation with slight soft tissue swelling. She was seen and evaluated by orthopedic and they're planning to do hemiarthroplasty of the left hip which patient currently doesn't want to go for any invasive procedure. The cardia and family would be communicated to her current management and based on their agreement patient will be going for hemiarthroplasty next 24 hours. 07/02: Patient apparently having a fall while in the emergency room early this morning. CAT scan of the brain showed no evidence of acute intracranial pathology. Pelvic x-ray showed interval impaction previously noted acute left femoral neck fracture. No other significant interval change. This morning, she was transferred to the [facility] floor. Patient denies having any injury. Patient has baseline confusion. She has been afebrile, heart rate 77, blood pressure 152/67, pulse ox 95% on room air. 07/03: Patient is postop day 1 for left hip hemiarthroplasty. Patient has had no concerns. No complaints of pain. She has been afebrile, heart rate 96, blood pressure 108/61, pulse ox 96% on room air. Repeat blood work reveals Nicole BC 23.1, hemoglobin 10.2. Patient has been very active following surgery and sitter is at the bedside for safety. Rosalba May possibly except patient for subacute rehab. Backup plan is for patient to return to [facility] [place] with paid caregiver's. 07/04: Patient is postop day 2 for a left hip hemiarthroplasty. Patient has no complaints or concerns at this time she is not in any acute distress. Anticipated discharge to [facility] today will be moved to Monday due to authorization. Repeat blood work reveals a WBC of 19.4 today, hemoglobin 8.5. We will repeat CBC tomorrow. Patient is unable for discharge to [facility] we'll plan to go to [facility]. REVIEW OF SYSTEMS CONSTITUTIONAL: Well-developed no acute respiratory distress. No documented fevers. EYES: No icterus sclerae, no conjunctivitis. EARS, NOSE, MOUTH, THROAT, and FACE: No sore throat, lymphadenopathy, carotid bruits or deformity. Mild facial droop RESPIRATORY: Mild shortness of breath cough and wheezes. CARDIOVASCULAR: No CP, Palpitation, PND, Orthopnea, or angina. Mild arrhythmia GASTROINTESTINAL: No Abd pain, Nausea or vomiting, no Diarrhea or constipation, No GI Bleed, no distention or masses. GENITOURINARY: Negative for Hematuria or UTI, no kidney stones. Significant incontinence INTEGUMENT/BREAST: Negative for any muscular injury with mild osteoarthritis.. HEMATOLOGIC/LYMPHATIC: Negative for bleed or purpura. MUSCULOSKELTAL: Negative for Myalgia or arthralgia. Positive severe pain in the left hip area. NEURLOGICAL: No LOC, Sz or syncope, blurred vision dizziness or abnormality.. BEHAVIORAL/PSYCH: Negative. ENDOCRINE: Negative. PHYSICAL EXAMINATION General Appearance: Alert, cooperative, no distress, appears stated age. Patient is in no acute distress. Neck HEENT: Supple, no lymphadenopathy, no thyroid enlargement, no carotid bruits. Lungs: Decreased breath some bilateral Rhonchi No Crackles or Wheezes. Chest Wall: Chest wall normal expansion with deep inspiration no tenderness and no deformity was found on exam, no costochondral pain or discomfort. Heart: Regular rate and rhythm, S1, S2 normal, no murmur, rub or gallop. Mild arrhythmia. Back: Symmetric, no curvature, ROM normal, no CVA tenderness. Abdomen: Soft, non-tender, bowel sounds active all four quadrants, no masses, no organomegaly. Extremities: Extremities normal, atraumatic, no cyanosis or edema. Pulses: 2+ and symmetric. Skin: Skin color, texture, tugor normal, no rashes or lesions. Neurologic: Alert oriented to person cranial nerves II through XII intact, no motor deficit, no abnormal balance or gait. ASSESSMENT AND PLAN 1 left hip fracture status post hemiarthroplasty with Dr. Woodruff, postop day #2. 2 cognitive impairment and worsening dementia: Patient has been on Donepazil on duloxetine continue medication. 3 previous history of non-Hodgkin lymphoma: Has been in full remission still repeat lab to see if there is any abnormality or nonconventional treatment needed. 4 hyperlipidemia: Remain on simvastatin 10 mg daily. 5 chronic fluid overload: Remain on diuretics and regular basis. 6 atherosclerotic heart disease: Remain on nitroglycerin and isosorbide mononitrate as an outpatient. 7 mild arrhythmia: Remain on Coreg 25 mg twice a day with good result so far. 8 DVT prophylaxis: Will be on Pepcid 20 mg daily. 9 GI prophylaxis: Can benefit from Pepcid 20 mg daily. 10. Leukocytosis most likely secondary to Decadron during surgery. WBC is 19.4 we'll repeat CBC tomorrow. CODE STATUS: Full code. DISCHARGE PLAN Patient resides at [facility]. Plan is for [facility] at the time of discharge which will occur hopefully Monday.. Impression and plan of care have been directed as dictated by the signing physician. Luly Fischer nurse practitioner acting as scribe for signing physician. Objective - Vital Signs Vital signs: Vital Signs Temp 97.4 F L 07/04/20 07:45 Pulse 81 07/04/20 07:45 Resp 18 07/04/20 07:45 BP 132/64 07/04/20 07:45 Pulse Ox 93 L 07/04/20 07:45 Intake & Output 07/03/20 07/04/20 07/04/20 18:59 06:59 18:59 Intake Total 50 Output Total 250 Balance -200 Intake: Intake, IV Titration 50 Amount ceFAZolin 2 gm In Sodium 50 Chloride 0.9% 50 ml @ 100 mls/hr IVPB Q8HR [facility] Rx# :[id number] Output: Urine 250 Other: Voiding Method Indwelling Catheter Bedside Commode # Voids 2 - Labs CBC & Chem 7: 07/04/20 06:12 07/04/20 06:12 Labs: Abnormal Lab Results - Last 24 Hours (Table) 07/04/20 07/04/20 Range/Units 06:12 06:12 WBC 19.4 H (3.8-10.6) k/uL RBC 2.53 L (3.80-5.40) m/uL Hgb 8.5 L D (11.4-16.0) gm/dL Hct 25.7 L (34.0-46.0) % MCV 101.6 H (80.0-100.0) fL BUN/Creatinine Ratio 25.00 H (12.00-20.00) Ratio Glucose 114 H (70-110) mg/dL Calcium 8.6 L (8.7-10.3) mg/dL
[2020-07-04] MEDS: ATORVASTATIN 10 MG TAB PO SCH (21:20)
[2020-07-04] MEDS: MIRTAZAPINE 15 MG TAB PO SCH (21:20)
[2020-07-04] MEDS: DONEPEZIL 5 MG TAB PO SCH (21:20)
[2020-07-04] MEDS: MELATONIN 3 MG TABLET PO SCH (21:20)
[2020-07-04] MEDS: SENNOSIDES-DOCUSATE SODIUM 1 EACH TAB PO SCH (21:20)
[2020-07-05] MEDS: SODIUM CHLORIDE 0.9% 1,000 ML IV SCH ×2 (03:00→11:55)
[2020-07-05 06:34] LABS: Basophils # (A) 0.1 k/uL (0-0.2); Basophils % (A) 0 %; Eosinophils # (A) 0.4 k/uL (0-0.7); Eosinophils % (A) 3 %; HCT 24.4 % (34.0-46.0); HGB 8.1 gm/dL (11.4-16.0); Lymphocytes # (A) 2.6 k/uL (1.0-4.8); Lymphocytes % (A) 18 %; MCH 34.1 pg (25.0-35.0); MCHC 33.3 g/dL (31.0-37.0); MCV 102.2 fL (80.0-100.0); Macrocytosis Slight; Mean Platelet Volume 8.7; Monocytes # (A) 1.2 k/uL (0-1.0); Monocytes % (A) 9 %; Neutrophils # (A) 9.7 k/uL (1.3-7.7); Neutrophils % (A) 68 %; Platelet Count 279 k/uL (150-450); RBC 2.38 m/uL (3.80-5.40); RDW 13.8 % (11.5-15.5); WBC 14.1 k/uL (3.8-10.6)
[2020-07-05] MEDS: LACTATED RINGERS 1,000 ML IV SCH (07:40)
[2020-07-05] MEDS: ISOSORBIDE MONONITRATE ER 30 MG TAB.ER.24H PO SCH (07:42)
[2020-07-05] MEDS: ENOXAPARIN 40 MG/0.4 ML SYRINGE SQ SCH (07:42)
[2020-07-05] MEDS: SENNOSIDES-DOCUSATE SODIUM 1 EACH TAB PO SCH ×2 (07:43→21:12)
[2020-07-05] MEDS: FERROUS SULFATE 325 MG TAB PO SCH ×2 (07:43→17:31)
[2020-07-05] MEDS: ALPRAZolam 0.5 MG TAB PO SCH ×2 (07:43→21:12)
[2020-07-05] MEDS: FAMOTIDINE 20 MG TAB PO SCH (07:43)
[2020-07-05] MEDS: carvediloL 12.5 MG TAB PO SCH ×2 (07:43→21:15)
[2020-07-05] MEDS: DULoxetine HCL 30 MG CAPSULE.DR PO SCH (07:44)
--- NOTE | 2020-07-05 09:32 | P.PN ---
Subjective Progress Note Date: 07/05/20 Principal diagnosis: Status post left hemiarthroplasty Patient was examined today at bedside, she is resting comfortably. Patient's hemoglobin has stayed around 8. I did start ferrous sulfate 325 mg twice a day. Plan for discharge to rehab tomorrow pending authorization is approved. Objective - Vital Signs Vital signs: Vital Signs Temp 98.2 F 07/05/20 07:16 Pulse 68 07/05/20 07:16 Resp 17 07/05/20 07:16 BP 107/62 07/05/20 07:16 Pulse Ox 95 07/05/20 07:16 Intake & Output 07/04/20 07/05/20 07/05/20 18:59 06:59 18:59 Intake Total 540 Balance 540 Intake: Oral 540 Other: Voiding Method Bedside Commode Bedside Commode # Voids 1 1 - Exam Left lower extremity: Incision is clean, dry, and intact. The exofin fusion tape is in good condition. There is minimal soft tissue swelling and ecchymosis surrounding the medial and lateral aspects of the incision. Calf is soft, no tenderness with palpation. Plantar flexion, dorsiflexion, EHL, FHL are intact. Sensory exam to light touch throughout the extremity is intact, dorsal pedis pulses 2+. - Labs CBC & Chem 7: 07/05/20 06:15 07/04/20 06:12 Labs: Abnormal Lab Results - Last 24 Hours (Table) 07/04/20 07/05/20 Range/Units 06:12 06:15 WBC 14.1 H (3.8-10.6) k/uL RBC 2.38 L (3.80-5.40) m/uL Hgb 8.1 L (11.4-16.0) gm/dL Hct 24.4 L (34.0-46.0) % MCV 102.2 H (80.0-100.0) fL Neutrophils # 9.7 H (1.3-7.7) k/uL Monocytes # 1.2 H (0-1.0) k/uL BUN/Creatinine Ratio 25.00 H (12.00-20.00) Ratio Glucose 114 H (70-110) mg/dL Calcium 8.6 L (8.7-10.3) mg/dL Assessment and Plan Assessment: Status post left hip hemiarthroplasty Acute blood loss anemia, expected surgical outcome Plan: Pain control, continue use of Tylenol. Avoid heavier narcotics at this time DVT prophylaxis, continue subcu medication Continue work with physical therapy Encourage incentive spirometer Weight-bear as tolerated with walker Discharge planning: Plan for discharge to rehab 07/06/2020 Time with Patient: Less than 30
[2020-07-05 10:04] LABS: African American GFR (CKD) 92.2 (60.0-200.0); Anion Gap 5.8 mmol/L (4.00-12.00); BUN/Creat Ratio 21.43 Ratio (12.00-20.00); Calcium 8.4 mg/dL (8.7-10.3); Carbon Dioxide 30.2 mmol/L (21.6-31.8); Non-African American GFR(CKD) 79.6 (60.0-200.0)
--- NOTE | 2020-07-05 11:10 | P.PN ---
Subjective Progress Note Date: 07/05/20 85-year-old female one of my office patient for many years with history of dementia hypertension hyperlipidemia and non-Hodgkin lymphoma has been remission for the last 5 years, patient had lost her independency this last year and has been in the [facility] [place] she has been having worsening memory loss worsening dementia she is fighting with her family about her placement, having spent time in assisted living with help, worsening confusion and dementia and not been able to sleep good part of the night. Family were started her on smaller dose of Xanax this past week which had, her sleep cycle down quite bed and help to be more relaxed. Patient had a fall at home doesn't remember any of the detail she was seen by the caregiver few hours early and found on the floor of her own place complaining of severe left hip pain not been able to move it or put any pressure weight on it. Ended up coming to demurs department by EMS x-ray showed left hip acute mildly displaced left femoral neck fracture with no dislocation with slight soft tissue swelling. She was seen and evaluated by orthopedic and they're planning to do hemiarthroplasty of the left hip which patient currently doesn't want to go for any invasive procedure. The cardia and family would be communicated to her current management and based on their agreement patient will be going for hemiarthroplasty next 24 hours. 07/02: Patient apparently having a fall while in the emergency room early this morning. CAT scan of the brain showed no evidence of acute intracranial pathology. Pelvic x-ray showed interval impaction previously noted acute left femoral neck fracture. No other significant interval change. This morning, she was transferred to the [facility] floor. Patient denies having any injury. Patient has baseline confusion. She has been afebrile, heart rate 77, blood pressure 152/67, pulse ox 95% on room air. 07/03: Patient is postop day 1 for left hip hemiarthroplasty. Patient has had no concerns. No complaints of pain. She has been afebrile, heart rate 96, blood pressure 108/61, pulse ox 96% on room air. Repeat blood work reveals Nicole BC 23.1, hemoglobin 10.2. Patient has been very active following surgery and sitter is at the bedside for safety. Rosalba May possibly except patient for subacute rehab. Backup plan is for patient to return to [facility] [place] with paid caregiver's. 07/04: Patient is postop day 2 for a left hip hemiarthroplasty. Patient has no complaints or concerns at this time she is not in any acute distress. Anticipated discharge to [facility] today will be moved to Monday due to authorization. Repeat blood work reveals a WBC of 19.4 today, hemoglobin 8.5. We will repeat CBC tomorrow. Patient is unable for discharge to [facility] we'll plan to go to [facility]. 07/05: Patient is postop day 3 for left hip arthroplasty. She is to have any complaints or concerns at this time. In acute distress. Anticipate discharge tomorrow to [facility] depending on authorization. Patient is found lying in bed resting comfortably. Patient is afebrile, heart rate 68, respirations 17 nonlabored, blood pressure 107/62 pulse ox a 95% on room air REVIEW OF SYSTEMS CONSTITUTIONAL: Well-developed no acute respiratory distress. No documented fevers. EYES: No icterus sclerae, no conjunctivitis. EARS, NOSE, MOUTH, THROAT, and FACE: No sore throat, lymphadenopathy, carotid bruits or deformity. Mild facial droop RESPIRATORY: Mild shortness of breath cough and wheezes. CARDIOVASCULAR: No CP, Palpitation, PND, Orthopnea, or angina. Mild arrhythmia GASTROINTESTINAL: No Abd pain, Nausea or vomiting, no Diarrhea or constipation, No GI Bleed, no distention or masses. GENITOURINARY: Negative for Hematuria or UTI, no kidney stones. Significant incontinence INTEGUMENT/BREAST: Negative for any muscular injury with mild osteoarthritis.. HEMATOLOGIC/LYMPHATIC: Negative for bleed or purpura. MUSCULOSKELTAL: Negative for Myalgia or arthralgia. Positive severe pain in the left hip area. NEURLOGICAL: No LOC, Sz or syncope, blurred vision dizziness or abnormality.. BEHAVIORAL/PSYCH: Negative. ENDOCRINE: Negative. PHYSICAL EXAMINATION General Appearance: Alert, cooperative, no distress, appears stated age. Patient is in no acute distress. Neck HEENT: Supple, no lymphadenopathy, no thyroid enlargement, no carotid bruits. Lungs: Decreased breath some bilateral Rhonchi No Crackles or Wheezes. Chest Wall: Chest wall normal expansion with deep inspiration no tenderness and no deformity was found on exam, no costochondral pain or discomfort. Heart: Regular rate and rhythm, S1, S2 normal, no murmur, rub or gallop. Mild arrhythmia. Back: Symmetric, no curvature, ROM normal, no CVA tenderness. Abdomen: Soft, non-tender, bowel sounds active all four quadrants, no masses, no organomegaly. Extremities: Extremities normal, atraumatic, no cyanosis or edema. Pulses: 2+ and symmetric. Skin: Skin color, texture, tugor normal, no rashes or lesions. Neurologic: Alert oriented to person cranial nerves II through XII intact, no motor deficit, no abnormal balance or gait. ASSESSMENT AND PLAN 1 left hip fracture status post hemiarthroplasty with Dr. Woodruff, postop day #2. 2 cognitive impairment and worsening dementia: Patient has been on Donepazil on duloxetine continue medication. 3 previous history of non-Hodgkin lymphoma: Has been in full remission still repeat lab to see if there is any abnormality or nonconventional treatment needed. 4 hyperlipidemia: Remain on simvastatin 10 mg daily. 5 chronic fluid overload: Remain on diuretics and regular basis. 6 atherosclerotic heart disease: Remain on nitroglycerin and isosorbide mononitrate as an outpatient. 7 mild arrhythmia: Remain on Coreg 25 mg twice a day with good result so far. 8 DVT prophylaxis: Will be on Pepcid 20 mg daily. 9 GI prophylaxis: Can benefit from Pepcid 20 mg daily. 10. Leukocytosis most likely secondary to Decadron during surgery. WBC is 19.4 we'll repeat CBC tomorrow. CODE STATUS: Full code. DISCHARGE PLAN Patient resides at [facility]. Plan is for [facility] at the time of discharge which will occur hopefully Monday.. Impression and plan of care have been directed as dictated by the signing physician. Luly Fischer nurse practitioner acting as scribe for signing physician. Objective - Vital Signs Vital signs: Vital Signs Temp 98.2 F 07/05/20 07:16 Pulse 68 07/05/20 07:16 Resp 17 07/05/20 07:16 BP 107/62 07/05/20 07:16 Pulse Ox 95 07/05/20 07:16 Intake & Output 07/04/20 07/05/20 07/05/20 18:59 06:59 18:59 Intake Total 540 Balance 540 Intake: Oral 540 Other: Voiding Method Bedside Commode Bedside Commode # Voids 1 1 - Labs CBC & Chem 7: 07/05/20 06:15 07/05/20 06:15 Labs: Abnormal Lab Results - Last 24 Hours (Table) 07/05/20 07/05/20 Range/Units 06:15 06:15 WBC 14.1 H (3.8-10.6) k/uL RBC 2.38 L (3.80-5.40) m/uL Hgb 8.1 L (11.4-16.0) gm/dL Hct 24.4 L (34.0-46.0) % MCV 102.2 H (80.0-100.0) fL Neutrophils # 9.7 H (1.3-7.7) k/uL Monocytes # 1.2 H (0-1.0) k/uL BUN/Creatinine Ratio 21.43 H (12.00-20.00) Ratio Glucose 116 H (70-110) mg/dL Calcium 8.4 L (8.7-10.3) mg/dL
[2020-07-05] MEDS: MIRTAZAPINE 15 MG TAB PO SCH (21:12)
[2020-07-05] MEDS: MELATONIN 3 MG TABLET PO SCH (21:12)
[2020-07-05] MEDS: ATORVASTATIN 10 MG TAB PO SCH (21:12)
[2020-07-05] MEDS: ACETAMINOPHEN TAB 325 MG TAB PO PRN (21:13)
[2020-07-05] MEDS: DONEPEZIL 5 MG TAB PO SCH (21:14)
[2020-07-06] MEDS: SODIUM CHLORIDE 0.9% 1,000 ML IV SCH ×2 (02:53→09:12)
[2020-07-06 06:34] LABS: Basophils # (A) 0.1 k/uL (0-0.2); Basophils % (A) 0 %; Eosinophils # (A) 0.5 k/uL (0-0.7); Eosinophils % (A) 3 %; HCT 24.2 % (34.0-46.0); Lymphocytes # (A) 2.8 k/uL (1.0-4.8); Lymphocytes % (A) 19 %; MCV 102.9 fL (80.0-100.0); Macrocytosis Slight; Mean Platelet Volume 7.6; Monocytes % (A) 7 %; Neutrophils # (A) 10.3 k/uL (1.3-7.7); Neutrophils % (A) 69 %; Platelet Count 334 k/uL (150-450); RBC 2.36 m/uL (3.80-5.40)
[2020-07-06] MEDS: FERROUS SULFATE 325 MG TAB PO SCH (06:56)
[2020-07-06 08:54] VITALS: RESP 16
[2020-07-06] MEDS: carvediloL 12.5 MG TAB PO SCH (09:09)
[2020-07-06] MEDS: ALPRAZolam 0.5 MG TAB PO SCH (09:09)
[2020-07-06] MEDS: FAMOTIDINE 20 MG TAB PO SCH (09:09)
[2020-07-06] MEDS: SENNOSIDES-DOCUSATE SODIUM 1 EACH TAB PO SCH (09:09)
[2020-07-06] MEDS: ISOSORBIDE MONONITRATE ER 30 MG TAB.ER.24H PO SCH (09:10)
[2020-07-06] MEDS: DULoxetine HCL 30 MG CAPSULE.DR PO SCH (09:10)
[2020-07-06] MEDS: ENOXAPARIN 40 MG/0.4 ML SYRINGE SQ SCH (09:10)
[2020-07-06 09:32] LABS: Anion Gap 7.1 mmol/L (4.00-12.00); BUN/Creat Ratio 21.43 Ratio (12.00-20.00); Carbon Dioxide 29.9 mmol/L (21.6-31.8); Potassium 3.9 mmol/L (3.5-5.5)
[2020-07-06 09:33] LABS: African American GFR (CKD) 92.2 (60.0-200.0); Calcium 8.5 mg/dL (8.7-10.3); Non-African American GFR(CKD) 79.6 (60.0-200.0)
[2020-07-06] MEDS: LACTATED RINGERS 1,000 ML IV SCH (09:35)
--- NOTE | 2020-07-06 09:35 | P.PN ---
Subjective Progress Note Date: 07/06/20 85-year-old female one of my office patient for many years with history of dementia hypertension hyperlipidemia and non-Hodgkin lymphoma has been remission for the last 5 years, patient had lost her independency this last year and has been in the [facility] [place] she has been having worsening memory loss worsening dementia she is fighting with her family about her placement, having spent time in assisted living with help, worsening confusion and dementia and not been able to sleep good part of the night. Family were started her on smaller dose of Xanax this past week which had, her sleep cycle down quite bed and help to be more relaxed. Patient had a fall at home doesn't remember any of the detail she was seen by the caregiver few hours early and found on the floor of her own place complaining of severe left hip pain not been able to move it or put any pressure weight on it. Ended up coming to demurs department by EMS x-ray showed left hip acute mildly displaced left femoral neck fracture with no dislocation with slight soft tissue swelling. She was seen and evaluated by orthopedic and they' re planning to do hemiarthroplasty of the left hip which patient currently doesn't want to go for any invasive procedure. The cardia and family would be communicated to her current management and based on their agreement patient will be going for hemiarthroplasty next 24 hours. 07/02: Patient apparently having a fall while in the emergency room early this morning. CAT scan of the brain showed no evidence of acute intracranial pathology. Pelvic x-ray showed interval impaction previously noted acute left femoral neck fracture. No other significant interval change. This morning, she was transferred to the [facility] floor. Patient denies having any injury. Patient has baseline confusion. She has been afebrile, heart rate 77, blood pressure 152/67, pulse ox 95% on room air. 07/03: Patient is postop day 1 for left hip hemiarthroplasty. Patient has had no concerns. No complaints of pain. She has been afebrile, heart rate 96, blood pressure 108/61, pulse ox 96% on room air. Repeat blood work reveals Nicole BC 23.1, hemoglobin 10.2. Patient has been very active following surgery and sitter is at the bedside for safety. Rosalba May possibly except patient for subacute rehab. Backup plan is for patient to return to [facility] [place] with paid caregiver's. 07/04: Patient is postop day 2 for a left hip hemiarthroplasty. Patient has no complaints or concerns at this time she is not in any acute distress. Anticipated discharge to [facility] today will be moved to Monday due to authorization. Repeat blood work reveals a WBC of 19.4 today, hemoglobin 8.5. We will repeat CBC tomorrow. Patient is unable for discharge to [facility] we'll plan to go to [facility]. 07/05: Patient is postop day 3 for left hip arthroplasty. She is to have any complaints or concerns at this time. In acute distress. Anticipate discharge tomorrow to [facility] depending on authorization. Patient is found lying in bed resting comfortably. Patient is afebrile, heart rate 68, respirations 17 nonlabored, blood pressure 107/62 pulse ox a 95% on room air 07/06: Afebrile, HR 73, BP 108/63, PO 96 RA. Patient's mental status is much improved. Pain is currently controlled. WBC 15, HGB 8. She is reaching 1250ml on IS. Patient is eating 50-100% of meals. Med rec reviewed. Patient is cleared for discharge to [facility] from Medicine. Patient will be followed by Dr. Garrett at [facility]. COVID-19 REVIEW OF SYSTEMS CONSTITUTIONAL: Well-developed no acute respiratory distress. No documented fevers. EYES: No icterus sclerae, no conjunctivitis. EARS, NOSE, MOUTH, THROAT, and FACE: No sore throat, lymphadenopathy, carotid bruits or deformity. Mild facial droop RESPIRATORY: Mild shortness of breath cough and wheezes. CARDIOVASCULAR: No CP, Palpitation, PND, Orthopnea, or angina. Mild arrhythmia GASTROINTESTINAL: No Abd pain, Nausea or vomiting, no Diarrhea or constipation, No GI Bleed, no distention or masses. GENITOURINARY: Negative for Hematuria or UTI, no kidney stones. Significant incontinence INTEGUMENT/BREAST: Negative for any muscular injury with mild osteoarthritis.. HEMATOLOGIC/LYMPHATIC: Negative for bleed or purpura. MUSCULOSKELTAL: Negative for Myalgia or arthralgia. Positive severe pain in the left hip area. NEURLOGICAL: No LOC, Sz or syncope, blurred vision dizziness or abnormality.. BEHAVIORAL/PSYCH: Negative. mental status improved ENDOCRINE: Negative. PHYSICAL EXAMINATION General Appearance: Alert, cooperative, no distress, appears stated age. Patient is in no acute distress. Neck HEENT: Supple, no lymphadenopathy, no thyroid enlargement, no carotid bruits. Lungs: Decreased breath some bilateral Rhonchi No Crackles or Wheezes. Chest Wall: Chest wall normal expansion with deep inspiration no tenderness and no deformity was found on exam, no costochondral pain or discomfort. Heart: Regular rate and rhythm, S1, S2 normal, no murmur, rub or gallop. Mild arrhythmia. Back: Symmetric, no curvature, ROM normal, no CVA tenderness. Abdomen: Soft, non-tender, bowel sounds active all four quadrants, no masses, no organomegaly. Extremities: Extremities normal, atraumatic, no cyanosis or edema. Pulses: 2+ and symmetric. Skin: Skin color, texture, tugor normal, no rashes or lesions. Neurologic: Alert oriented x3, cranial nerves II through XII intact, no motor deficit, no abnormal balance or gait. ASSESSMENT AND PLAN 1 left hip fracture status post hemiarthroplasty with Dr. Woodruff, postop day #4. 2 cognitive impairment and worsening dementia: Patient has been on Donepazil on duloxetine continue medication. 3 previous history of non-Hodgkin lymphoma: Has been in full remission. 4 hyperlipidemia: Remain on simvastatin 10 mg daily. 5 chronic fluid overload: Remain on diuretics and regular basis. 6 atherosclerotic heart disease: Remain on nitroglycerin and isosorbide mononitrate as an outpatient. 7 mild arrhythmia: Remain on Coreg 25 mg twice a day with good result so far. 8 DVT prophylaxis: Will be on Pepcid 20 mg daily. 9 GI prophylaxis: Can benefit from Pepcid 20 mg daily. 10. Leukocytosis most likely secondary to Decadron during surgery. CODE STATUS: Full code. DISCHARGE PLAN [facility] Impression and plan of care have been directed as dictated by the signing physician. Caityln Bryan nurse practitioner acting as scribe for signing physician. Objective - Vital Signs Vital signs: Vital Signs Temp 98.0 F 07/05/20 19:05 Pulse 82 07/05/20 19:05 Resp 18 07/05/20 14:35 BP 117/58 07/05/20 19:05 Pulse Ox 94 L 07/05/20 19:05 Intake & Output 11/15/20 11/16/20 11/16/20 18:59 06:59 18:59 Intake Total 540 Balance 540 Intake: Oral 540 Other: Voiding Method Bedside Commode Bedside Commode # Voids 1 1 - Labs CBC & Chem 7: 07/06/20 05:51 07/05/20 06:15 Labs: Abnormal Lab Results - Last 24 Hours (Table) 07/05/20 07/06/20 Range/Units 06:15 05:51 WBC 15.0 H (3.8-10.6) k/uL RBC 2.36 L (3.80-5.40) m/uL Hgb 8.0 L (11.4-16.0) gm/dL Hct 24.2 L (34.0-46.0) % MCV 102.9 H (80.0-100.0) fL Neutrophils # 10.3 H (1.3-7.7) k/uL BUN/Creatinine Ratio 21.43 H (12.00-20.00) Ratio Glucose 116 H (70-110) mg/dL Calcium 8.4 L (8.7-10.3) mg/dL
--- NOTE | 2020-07-06 13:42 | P.PN ---
Subjective Progress Note Date: 07/06/20 Principal diagnosis: Status post left hemiarthroplasty Patient was examined today at bedside, she is resting comfortably. Patient's hemoglobin has stayed around 8. Plan for discharge to rehab today. Objective - Vital Signs Vital signs: Vital Signs Temp 93.0 F L 07/06/20 08:53 Pulse 73 07/06/20 08:53 Resp 16 07/06/20 08:53 BP 108/63 07/06/20 08:53 Pulse Ox 96 07/06/20 08:53 Intake & Output 07/05/20 07/06/20 07/06/20 18:59 06:59 18:59 Intake Total 540 Balance 540 Intake: Oral 540 Other: Voiding Method Bedside Commode Bedside Commode Bedside Commode # Voids 1 1 - Exam Left lower extremity: Incision is clean, dry, and intact. The exofin fusion tape is in good condition. There is minimal soft tissue swelling and ecchymosis surrounding the medial and lateral aspects of the incision. Calf is soft, no tenderness with palpation. Plantar flexion, dorsiflexion, EHL, FHL are intact. Sensory exam to light touch throughout the extremity is intact, dorsal pedis pulses 2+. - Labs CBC & Chem 7: 07/06/20 05:51 07/06/20 05:51 Labs: Abnormal Lab Results - Last 24 Hours (Table) 07/06/20 07/06/20 Range/Units 05:51 05:51 WBC 15.0 H (3.8-10.6) k/uL RBC 2.36 L (3.80-5.40) m/uL Hgb 8.0 L (11.4-16.0) gm/dL Hct 24.2 L (34.0-46.0) % MCV 102.9 H (80.0-100.0) fL Neutrophils # 10.3 H (1.3-7.7) k/uL BUN/Creatinine Ratio 21.43 H (12.00-20.00) Ratio Glucose 112 H (70-110) mg/dL Calcium 8.5 L (8.7-10.3) mg/dL Assessment and Plan Assessment: Status post left hip hemiarthroplasty Acute blood loss anemia, expected surgical outcome Plan: Pain control, continue use of Tylenol. DVT prophylaxis, Lovenox at discharge for 14 days Continue work with physical therapy Encourage incentive spirometer Weight-bear as tolerated with walker Discharge planning: Plan for discharge today Time with Patient: Less than 30
--- NOTE | 2020-07-06 13:47 | P.DS ---
Providers Date of admission: 07/01/20 06:20 Expected date of discharge: 07/06/20 Attending physician: Abdiaziz Woodruff Consults: 07/01/20 06:21 Consult Physician Routine Consulting Provider: Marcus Garrett Reason/Comments: your patient. Medical management. Do you want consulting provider notified?: Yes Primary care physician: Marcus Gerry [facility] Course: Date of admission: 07/01/2020 Date of discharge: 07/06/2020 Admission diagnosis: Displaced subcapital left femur fracture Discharge diagnosis: Status post left hip hemiarthroplasty Attending physician: Dr. Woodruff Surgical procedures: Left hip hemiarthroplasty Brief history: Patient is a 85-year-old female who was initially brought to [facility] on 07/01/2020 after suspected fall. She was found on the floor at her assisted living home, and was unable to weight- bear. She was recently seen in the emergency room on 06/27/2020 with a suspected fall. It was determined that her most recent visit after imaging studies she had a displaced subcapital femur fracture on the left side. She was admitted under our orthopedic care with plan for surgical intervention, proper consults were placed for clearances and medical management. Hospital course: Details of patient's surgery can be found in operative report. Patient tolerated the procedure well and was subsequently transported to orthopedic floor. Patient's orthopeidc and medical care was provided daily. Patient had daily laboratory tests performed for evaluation of overall blood counts. Patient had daily physical therapy to include strengthening range of motion as well as education with walker ambulation. Patient was treated with Lovenox for their postoperative DVT prophylaxis during their inpatient stay. Patient was noted to have a relatively uneventful postoperative course. Patient reported satisfactory pain control with oral pain medications by postoperative day 0. Patient showed satisfactory progress with physical therapy. Patient moved steadily through the program and had no difficulty meeting the goals by postoperative day 4. Given patient's otherwise satisfactory course and having met physical therapy goals, plan is to discharge patient rehab on postoperative day 4. Discharge condition/disposition: Patient will be discharged rehab in stable condition. Discharge medications: Instructions are given on resumption of patient's normal daily medications per primary care recommendation, in addition patient will be prescribed Tylenol 650 mg, tramadol 50 mg, Lovenox 40 mg, Remeron 7.5 mg Melatonin 6 mg, Pepcid 20 mg Discharge instructions: 1. Wound care and infection precautions, keep incision dry and covered while showering, no lotions, creams, moisturizers. No soaking, tubs, pools, hottubs. Do not scrub over the incision. 2. Weight-bear as tolerated with walker / cane until follow-up. 3. Ice and elevate when necessary. Do not exceed 20 minutes per hour with ice pack. 4. Utilize compression sleeve until seen at first follow up appointment. 5. Visiting nursing care. 6. Home physical therapy 7. Pain meds and anticoagulants per prescription. 8. Pain medication has potential to cause constipation. Increase oral fluid and fiber intake. Contact primary care provider if you have not had a bowel movement within 48 hours after discharge 9. No anti-inflammatory medication until discussed at first post operative visit, this including Motrin, Aleve, Mobic, Diclofenac 10. Follow up in office at 2 weeks postop with Michael Arroyo PA-C 11. Follow up with your primary care doctor 7-10 days after discharge. 12. Contact [facility] with any questions, . Procedures: Left hip hemiarthroplasty Patient Condition at Discharge: Fair Plan - Discharge Summary New Discharge Prescriptions: New Famotidine [Pepcid] 20 mg PO DAILY tab Acetaminophen Tab [Tylenol] 650 mg PO Q6HR PRN tab PRN Reason: Mild Pain Or Fever > 100.5 Melatonin 6 mg PO HS tablet Mirtazapine [Remeron] 7.5 mg PO HS tab traMADol HCl [Ultram] 50 mg PO Q6HR PRN #12 tab PRN Reason: Pain Scale 1 To 5 Enoxaparin [Lovenox] 40 mg SQ DAILY #14 syringe Continue DULoxetine HCL [Cymbalta] 30 mg PO DAILY@1000 Nitroglycerin Sl Tabs [Nitrostat] 0.4 mg SL Q5M PRN PRN Reason: Chest Pain Carvedilol [Coreg] 25 mg PO BID@1000,2200 Simvastatin [Zocor] 10 mg PO HS@2200 Isosorbide Mononitrate ER [Imdur] 30 mg PO DAILY@1000 Donepezil [Aricept] 5 mg PO HS@2200 Furosemide [Lasix] 20 mg PO DAILY PRN PRN Reason: Edema ALPRAZolam [Xanax] 0.5 mg PO BID@1000,2200 #6 tab Discontinued Temazepam [Restoril] 30 mg PO HS Discharge Medication List DULoxetine HCL [Cymbalta] 30 mg PO DAILY@1000 11/12/14 [History] Nitroglycerin Sl Tabs [Nitrostat] 0.4 mg SL Q5M PRN 03/20/17 [History] Carvedilol [Coreg] 25 mg PO BID@1000,219901/14/19 [History] Donepezil [Aricept] 5 mg PO HS@219901/01/20 [History] Isosorbide Mononitrate ER [Imdur] 30 mg PO DAILY@99901/01/20 [History] Simvastatin [Zocor] 10 mg PO HS@219901/01/20 [History] Furosemide [Lasix] 20 mg PO DAILY PRN 06/15/20 [History] ALPRAZolam [Xanax] 0.5 mg PO BID@999,2199 #6 tab 07/03/20 [Rx] Acetaminophen Tab [Tylenol] 650 mg PO Q6HR PRN tab 07/03/20 [Rx] Enoxaparin [Lovenox] 40 mg SQ DAILY #14 syringe 07/03/20 [Rx] Famotidine [Pepcid] 20 mg PO DAILY tab 07/03/20 [Rx] Melatonin 6 mg PO HS tablet 07/03/20 [Rx] Mirtazapine [Remeron] 7.5 mg PO HS tab 07/03/20 [Rx] traMADol HCl [Ultram] 50 mg PO Q6HR PRN #12 tab 07/03/20 [Rx] Follow up Appointment(s)/Referral(s): Marcus Garrett MD [Primary Care Provider] - 1 Week (at [facility]) Alfredo Arroyo PAC [PHYSICIAN UTILITIES EQUIPMENT REPAIRER] - 2 Weeks Ambulatory/Diagnostic Orders: Complete Blood Count w/diff [LAB.AMB] Location: None Selected Activity/Diet/Wound Care/Special Instructions: Orthopedic Discharge Instructions: 1. Wound care and infection precautions, keep incision dry and covered while showering, no lotions, creams, moisturizers. No soaking, pools, hot tubs. Do not scrub over incision. 2. Weight-bear as tolerated with walker / cane until follow-up. 3. Ice and elevate when necessary. Do not exceed 20 minutes per hour with ice pack. 4. Utilize compression sleeve until seen at first follow up appointment. 5. Pain meds and anticoagulants per prescription. 6. Pain medication has potential to cause constipation. Increase oral fluid and fiber intake. Contact primary care provider if you have not had a bowel movement within 48 hours after discharge. 7. No anti-inflammatory medication until discussed at first post operative visit, this including Motrin, Aleve, Mobic, Diclofenac. 8. Follow up in office at 2 weeks postop with Michael Arroyo PA-C 9. Follow up with your primary care doctor 7-10 days after discharge. 10. Contact [facility] with any questions, . Discharge Disposition: TRANSFER TO SNF/ECF
[2020-07-06 16:10] VITALS: BP 131/65; PULSE 77; TEMP 98.4
== END 2020-07-06 16:19 | DRG 522 ==
LOC: EC 04:19 → 4SSUR 06:20 → 5NMEDONC 12:23 → 4SSUR 14:55 → 5NMEDONC 07-02 07:11 → 4SSUR 07-02 16:39
PROVIDERS: ADMIT Orthopaedic Surgery; ATTEND Orthopaedic Surgery
PROC: 0SRS0JA Replacement of Left Hip Joint, Femoral Surface with Synthetic Substitute, Uncemented, Open Approach (ICD-10-PCS; principal; 2020-07-02 07:30)
DX: S72.012A Unspecified intracapsular fracture of left femur, initial encounter for closed fracture (principal); D62 Acute posthemorrhagic anemia; F03.90 Unspecified dementia, unspecified severity, without behavioral disturbance, psychotic disturbance, mood disturbance, and anxiety; I50.9 Heart failure, unspecified; I11.0 Hypertensive heart disease with heart failure; M19.90 Unspecified osteoarthritis, unspecified site; Z20.828 Contact with and (suspected) exposure to other viral communicable diseases; D49.0 Neoplasm of unspecified behavior of digestive system; E78.5 Hyperlipidemia, unspecified; F32.9 Major depressive disorder, single episode, unspecified; R29.6 Repeated falls; I25.10 Atherosclerotic heart disease of native coronary artery without angina pectoris; D72.829 Elevated white blood cell count, unspecified; T38.0X5A Adverse effect of glucocorticoids and synthetic analogues, initial encounter; W19.XXXA Unspecified fall, initial encounter; Z79.899 Other long term (current) drug therapy; Z86.73 Personal history of transient ischemic attack (TIA), and cerebral infarction without residual deficits; Z85.72 Personal history of non-Hodgkin lymphomas; Z86.14 Personal history of Methicillin resistant Staphylococcus aureus infection; Z90.49 Acquired absence of other specified parts of digestive tract; Z90.710 Acquired absence of both cervix and uterus; Z96.652 Presence of left artificial knee joint; Z98.890 Other specified postprocedural states; Z98.42 Cataract extraction status, left eye; Z98.41 Cataract extraction status, right eye; Z98.82 Breast implant status; Z88.8 Allergy status to other drugs, medicaments and biological substances; Z88.5 Allergy status to narcotic agent; Z88.0 Allergy status to penicillin; Z91.013 Allergy to seafood; Z80.3 Family history of malignant neoplasm of breast
CPT/HCPCS: 36415; 70450; 71045; 72100; 72125; 72170; 73501; 73502; 80048; 81001; 84484; 85025; 85027; 85610; 86850; 86900; 86901; 87635; 88305; 88311; 93005; 96361; 96374; 96375; 96376; 99285

== ENCOUNTER 2021-10-19 07:18 | Inpatient (IN) | payer MEDICARE ==
[2021-10-19] MEDS ORDERED: HYDROmorphone 0.5 MG/0.5 ML SYRINGE IVP STA (07:28)
[2021-10-19 07:54] LABS: Basophils # (A) 0.1 k/uL (0-0.2); Basophils % (A) 1 %; Eosinophils # (A) 0.3 k/uL (0-0.7); Eosinophils % (A) 2 %; HCT 42.9 % (34.0-46.0); HGB 14.4 gm/dL (11.4-16.0); Lymphocytes # (A) 1.7 k/uL (1.0-4.8); Lymphocytes % (A) 15 %; MCH 35.3 pg (25.0-35.0); MCHC 33.6 g/dL (31.0-37.0); MCV 105.2 fL (80.0-100.0); Macrocytosis Slight; Mean Platelet Volume 7.4; Monocytes # (A) 1.1 k/uL (0-1.0); Monocytes % (A) 10 %; Neutrophils # (A) 7.8 k/uL (1.3-7.7); Neutrophils % (A) 70 %; Platelet Count 378 k/uL (150-450); RBC 4.08 m/uL (3.80-5.40); RDW 13.3 % (11.5-15.5); WBC 11.2 k/uL (3.8-10.6)
[2021-10-19 08:08] LABS: ALT 17 U/L (4-34); AST 28 U/L (14-36); African American GFR (CKD) >90 (>60 ml/min/1.73 sqM); Alkaline Phosphatase 64 U/L (38-126); Anion Gap 6 mmol/L; Blood Urea Nitrogen 14 mg/dL (7-17); Calcium 9.3 mg/dL (8.4-10.2); Carbon Dioxide 27 mmol/L (22-30); Chloride 102 mmol/L (98-107); Glucose 140 mg/dL (74-99); Non-African American GFR(CKD) 82 (>60 ml/min/1.73 sqM); Potassium 4.2 mmol/L (3.5-5.1); Sodium 135 mmol/L (137-145); Total Bilirubin 1.1 mg/dL (0.2-1.3); Total Protein 6.8 g/dL (6.3-8.2)
[2021-10-19 08:09] LABS: Partial Thromboplastin Time 23.2 sec (22.0-30.0); Prothrombin Time 10.6 sec (9.0-12.0)
--- NOTE | 2021-10-19 08:15 | ED ---
General Adult HPI - General Chief complaint: Fall Stated complaint: fall/rt hip injury Time Seen by Provider: 10/19/21 07:20 Source: patient, EMS, RN notes reviewed, old records reviewed Mode of arrival: EMS Limitations: language barrier - History of Present Illness Initial comments: This is an 86-year-old female who is deaf but she can lip read. Patient comes from a residential this morning she was walking and fell onto her right hip is been unable to move the right hip without significant pain. Patient states it does hurt a lot and she would like some pain medicine. Patient denies hitting her head or neck. Patient denies chest pain or back pain. Patient denies any other extremity pain. - Related Data Home Medications Medication Instructions Recorded Confirmed DULoxetine HCL [Cymbalta] 30 mg PO DAILY@0800 11/12/14 10/19/21 Nitroglycerin Sl Tabs [Nitrostat] 0.4 mg SL Q5M PRN 03/20/17 10/19/21 Isosorbide Mononitrate ER [Imdur] 30 mg PO DAILY@0800 01/01/20 10/19/21 Simvastatin [Zocor] 10 mg PO HS@209901/01/20 10/19/21 Furosemide [Lasix] 20 mg PO DAILY PRN 06/15/20 10/19/21 ALPRAZolam [Xanax] 0.5 mg PO TID@0800,1400,2100 10/19/21 10/19/21 Bisacodyl 10 mg PO BID PRN 10/19/21 10/19/21 Carvedilol [Coreg] 12.5 mg PO BID@0800,1700 10/19/21 10/19/21 Famotidine [Pepcid] 20 mg PO DAILY@0800 10/19/21 10/19/21 Ipratropium-Albuterol Nebulize 3 ml INHALATION RT-Q6H PRN 10/19/21 10/19/21 [Duoneb 0.5 mg-3 mg/3 ml Soln] Lactose-Reduced Food [Ensure Plus] 1 can PO DAILY@0800 10/19/21 10/19/21 Loperamide HCl [Imodium A-D] 4 mg PO Q12H PRN 10/19/21 10/19/21 Magnesium Hydroxide [Milk of 2,400 mg PO Q48H PRN 10/19/21 10/19/21 Magnesia] Na Phos,M-B/Na Phos,Di-Ba [Fleet 133 ml RECTAL DAILY PRN 10/19/21 10/19/21 Adult] Polyethylene Glycol 3350 [Clearlax] 1 packet PO DAILY@1200 10/19/21 10/19/21 Sennosides/Docusate Sodium [Senna 2 tab PO HS@209910/19/21 10/19/21 Plus 8.6-50 mg Tablet] bisacodyL [Dulcolax] 10 mg RECTAL DAILY PRN 10/19/21 10/19/21 risperiDONE [RisperDAL] 0.5 mg PO BID@0800,209910/19/21 10/19/21 risperiDONE [RisperDAL] 1 mg PO BID@0800,209910/19/21 10/19/21 traMADol HCl [Ultram] 50 mg PO Q6HR PRN 10/19/21 10/19/21 Previous Rx's Medication Instructions Recorded Acetaminophen Tab [Tylenol] 650 mg PO Q6HR PRN tab 07/03/20 Allergies Allergy/AdvReac Type Severity Reaction Status Date / Time codeine Allergy Rash/Hives Verified 10/19/21 07:53 iodine Allergy Rash/Hives Verified 10/19/21 07:53 Penicillins Allergy Unknown Verified 10/19/21 07:53 shellfish derived [Shellfish] Allergy Rash/Hives Verified 10/19/21 07:53 Review of Systems ROS Statement: Those systems with pertinent positive or pertinent negative responses have been documented in the HPI. ROS Other: All systems not noted in ROS Statement are negative. 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 per dr Reyna History of Any Multi-Drug Resistant Organisms: MRSA Date of last positivie culture/infection: 07/28/09 MDRO Source:: unknown Past Surgical History: Appendectomy, Hysterectomy, Orthopedic Surgery, Tonsillectomy Additional Past Surgical History / Comment(s): left knee replacement, breast biopsy which were benign - daughter states they there was some type of metal implanted in both breasts, bilat cataracts removed Past Anesthesia/Blood Transfusion Reactions: Previous Problems w/ Anesthesia Additional Past Anesthesia/Blood Transfusion Reaction / Comment(s): severe confusion for 2 weeks after surgery Past Psychological History: Depression Smoking Status: Never smoker Past Alcohol Use History: None Reported Past Drug Use History: None Reported - Past Family History Father Additional Family Medical History / Comment(s): Patient does not know anything a bout her father. Brother(s) Additional Family Medical History / Comment(s): Patient has one half-brother with no history of coronary artery disease. Mother History Unknown: Yes Family Medical History: Cancer Additional Family Medical History / Comment(s): Mother in her 70s with hist ory of heart murmur and Breast Cancer General Exam - General Exam Comments Initial Comments: GENERAL: Patient is well-developed and well-nourished. Patient is nontoxic and well- hydrated and is in moderate distress. ENT: Neck is soft and supple. No significant lymphadenopathy is noted. Oropharynx is clear. Moist mucous membranes. Neck has full range of motion without eliciting any pain. EYES: The sclera were anicteric and conjunctiva were pink and moist. Extraocular movements were intact and pupils were equal round and reactive to light. Eyelids were unremarkable. PULMONARY: Unlabored respirations. Good breath sounds bilaterally. No audible rales rhonchi or wheezing was noted. CARDIOVASCULAR: There is a regular rate and rhythm without any murmurs gallops or rubs. ABDOMEN: Soft and nontender with normal bowel sounds. SKIN: Skin is clear with no lesions or rashes and otherwise unremarkable. NEUROLOGIC: Patient is alert and oriented x3. Cranial nerves II through XII are grossly intact. Motor and sensory are also intact. Normal speech, volume and content. Symmetrical smile. MUSCULOSKELETAL: Patient's hip is tender laterally and anteriorly. Movement of the hip in any direction causes the patient pain. LYMPHATICS: No significant lymphadenopathy is noted PSYCHIATRIC: Normal psychiatric evaluation. Limitations: language barrier Course Vital Signs 10/19/21 07:20 Temperature 98.2 F Pulse Rate 79 Respiratory 18 Rate Blood Pressure 165/78 O2 Sat by Pulse 98 Oximetry Medical Decision Making - Medical Decision Making EKG shows sinus rhythm at 67 bpm [place] interval 293 QRS is 147 QT interval 446 QTC is 462. X-ray of the pelvis shows a intertrochanteric fracture with minimal displacement. Chest x-ray shows no acute abnormality. I spoke with the physician asset protection assistant fatuma for Dr. Woodruff and he agreed to take the admission and we admitted the patient I wrote admitting orders I consulted Dr. Garrett - Lab Data Result diagrams: 10/19/21 07:45 10/19/21 07:45 Lab Results 10/19/21 10/19/21 10/19/21 Range/Units 07:45 07:45 07:45 WBC 11.2 H (3.8-10.6) k/uL RBC 4.08 (3.80-5.40) m/uL Hgb 14.4 (11.4-16.0) gm/dL Hct 42.9 (34.0-46.0) % MCV 105.2 H (80.0-100.0) fL MCH 35.3 H (25.0-35.0) pg MCHC 33.6 (31.0-37.0) g/dL RDW 13.3 (11.5-15.5) % Plt Count 378 (150-450) k/uL MPV 7.4 Neutrophils % 70 % Lymphocytes % 15 % Monocytes % 10 % Eosinophils % 2 % Basophils % 1 % Neutrophils # 7.8 H (1.3-7.7) k/uL Lymphocytes # 1.7 (1.0-4.8) k/uL Monocytes # 1.1 H (0-1.0) k/uL Eosinophils # 0.3 (0-0.7) k/uL Basophils # 0.1 (0-0.2) k/uL Macrocytosis Slight PT 10.6 (9.0-12.0) sec INR 1.0 (<1.2) APTT 23.2 (22.0-30.0) sec Sodium 135 L (137-145) mmol/L Potassium 4.2 (3.5-5.1) mmol/L Chloride 102 (98-107) mmol/L Carbon Dioxide 27 (22-30) mmol/L Anion Gap 6 mmol/L BUN 14 (7-17) mg/dL Creatinine 0.63 (0.52-1.04) mg/dL Est GFR (CKD-EPI)AfAm >90 (>60 ml/min/1.73 sqM) Est GFR (CKD-EPI)NonAf 82 (>60 ml/min/1.73 sqM) Glucose 140 H (74-99) mg/dL Calcium 9.3 (8.4-10.2) mg/dL Total Bilirubin 1.1 (0.2-1.3) mg/dL AST 28 (14-36) U/L ALT 17 (4-34) U/L Alkaline Phosphatase 64 (38-126) U/L Total Protein 6.8 (6.3-8.2) g/dL Albumin 4.0 (3.5-5.0) g/dL Disposition Clinical Impression: Fall, Intertrochanteric fracture Disposition: ADMITTED IP TO THIS HOSP Referrals: Marcus Garrett MD [Primary Care Provider] - 1-2 days Time of Disposition: 10:04
--- NOTE | 2021-10-19 09:04 | XR ---
EXAMINATION TYPE: XR chest 1V portable DATE OF EXAM: 10/19/2021 COMPARISON: Chest x-ray July 01, 2020 HISTORY: Shortness of breath. TECHNIQUE: Single frontal supine view of the chest is obtained. FINDINGS: Stable subcentimeter medial right upper lung nodule favor benign granuloma. There is no aranda spicious focal air space opacity, pleural effusion, or pneumothorax seen. The cardiac silhouette siz e is mildly enlarged. Multilevel spurring in thoracic spine redemonstrated. IMPRESSION: Mild cardiomegaly without acute pulmonary process. No significant change from prior.
--- NOTE | 2021-10-19 09:06 | XR ---
EXAMINATION TYPE: XR Hip RT and AP Pelvis DATE OF EXAM: 10/19/2021 COMPARISON: Pelvic x-ray July 02, 2020 HISTORY: Fall injury with pelvic and right hip pain. TECHNIQUE: A single AP view of the pelvis is obtained. Two views of the right hip are obtained. FINDINGS: There is no acute fracture/dislocation evident in the pelvis. Metallic left hip prosthesis is partially imaged. Pubic symphysis remains intact. Sacroiliac joints are preserved. Two views of right hip show acute comminuted slightly displaced intertrochanteric fracture. No hip prince int dislocation. Moderate acetabular spurring redemonstrated. Overlying soft tissue is unremarkable. IMPRESSION: There is acute comminuted minimally displaced intertrochanteric fracture right proximal femur.
[2021-10-19] MEDS ORDERED: SODIUM CHLORIDE 0.9% 1,000 ML IV ONE (10:05)
--- NOTE | 2021-10-19 12:29 | P.HPOR ---
History of Present Illness H&P Date: 10/19/21 Chief Complaint: Right intertrochanteric femur fracture Patient is an 86-year-old female who presents [facility] after being brought in via EMS from a nursing facility. Patient apparently had a fall injuring her right lower extremity. She was unable to weight-bear after the fall. There is no history of her hitting her head during the fall. On arrival to the hospital, imaging test were done, this did demonstrate an intertrochanteric femur fracture on the right side. We were contacted by the emergency room team, I was able to review the images with attending Dr. Woodruff. Patient was examined today in the emergency room unit. Patient is very hard of hearing, she is able to read lips and I am able to have a conversation with her regarding her current condition. I did notify her that I would contact family regarding our treatment recommendations and plan. Patient denies any other significant orthopedic complaints at this time. She notes most pain in the right lower extremity with movement. She does have a history of a left hip hemiarthroplasty that was done by Dr. Woodruff a few years ago, she's been stable with regards to that. Currently has no headaches, lightheadedness, chest pain or shortness of breath. 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 per dr Reyna History of Any Multi-Drug Resistant Organisms: MRSA Date of last positivie culture/infection: 07/28/09 MDRO Source:: unknown Past Surgical History: Appendectomy, Hysterectomy, Orthopedic Surgery, Tonsillectomy Additional Past Surgical History / Comment(s): left knee replacement, breast biopsy which were benign - daughter states they there was some type of metal implanted in both breasts, bilat cataracts removed Past Anesthesia/Blood Transfusion Reactions: Previous Problems w/ Anesthesia Additional Past Anesthesia/Blood Transfusion Reaction / Comment(s): severe confusion for 2 weeks after surgery Past Psychological History: Depression Smoking Status: Never smoker Past Alcohol Use History: None Reported Past Drug Use History: None Reported - Past Family History Father Additional Family Medical History / Comment(s): Patient does not know anything about her father. Brother(s) Additional Family Medical History / Comment(s): Patient has one half-brother with no history of coronary artery disease. Mother History Unknown: Yes Family Medical History: Cancer Additional Family Medical History / Comment(s): Mother in her 70s with history of heart murmur and Breast Cancer Medications and Allergies Home Medications Medication Instructions Recorded Confirmed Type DULoxetine HCL [Cymbalta] 30 mg PO DAILY@0800 11/12/14 10/19/21 History Nitroglycerin Sl Tabs [Nitrostat] 0.4 mg SL Q5M PRN 03/20/17 10/19/21 History Isosorbide Mononitrate ER [Imdur] 30 mg PO DAILY@0800 01/01/20 10/19/21 History Simvastatin [Zocor] 10 mg PO HS@209901/01/20 10/19/21 History Furosemide [Lasix] 20 mg PO DAILY PRN 06/15/20 10/19/21 History Acetaminophen Tab [Tylenol] 650 mg PO Q6HR PRN tab 07/03/20 10/19/21 Rx ALPRAZolam [Xanax] 0.5 mg PO TID@0800,1400,2100 10/19/21 10/19/21 History Bisacodyl 10 mg PO BID PRN 10/19/21 10/19/21 History Carvedilol [Coreg] 12.5 mg PO BID@0800,1700 10/19/21 10/19/21 History Famotidine [Pepcid] 20 mg PO DAILY@0800 10/19/21 10/19/21 History Ipratropium-Albuterol Nebulize 3 ml INHALATION RT-Q6H PRN 10/19/21 10/19/21 History [Duoneb 0.5 mg-3 mg/3 ml Soln] Lactose-Reduced Food [Ensure Plus] 1 can PO DAILY@0800 10/19/21 10/19/21 History Loperamide HCl [Imodium A-D] 4 mg PO Q12H PRN 10/19/21 10/19/21 History Magnesium Hydroxide [Milk of 2,400 mg PO Q48H PRN 10/19/21 10/19/21 History Magnesia] Na Phos,M-B/Na Phos,Di-Ba [Fleet 133 ml RECTAL DAILY PRN 10/19/21 10/19/21 History Adult] Polyethylene Glycol 3350 [Clearlax] 1 packet PO DAILY@1200 10/19/21 10/19/21 History Sennosides/Docusate Sodium [Senna 2 tab PO HS@2100 10/19/21 10/19/21 History Plus 8.6-50 mg Tablet] bisacodyL [Dulcolax] 10 mg RECTAL DAILY PRN 10/19/21 10/19/21 History risperiDONE [RisperDAL] 0.5 mg PO BID@0800,2100 10/19/21 10/19/21 History risperiDONE [RisperDAL] 1 mg PO BID@0800,209910/19/21 10/19/21 History traMADol HCl [Ultram] 50 mg PO Q6HR PRN 10/19/21 10/19/21 History Allergies Allergy/AdvReac Type Severity Reaction Status Date / Time codeine Allergy Rash/Hives Verified 10/19/21 07:53 iodine Allergy Rash/Hives Verified 10/19/21 07:53 Penicillins Allergy Unknown Verified 10/19/21 07:53 shellfish derived [Shellfish] Allergy Rash/Hives Verified 10/19/21 07:53 Physical Examination Right lower extremity: No obvious open lesions or sores are visualized throughout the extremity, no stomach areas of erythema or soft tissue swelling Obvious shortening and external rotation of that extremity when compared to the contralateral side She demonstrates tenderness with palpation to the proximal femur, she's nontender surrounding the knee, lower leg, foot or ankle. Logroll maneuver does reproduce groin pain. She is unable to straight leg raise Compartments of the upper and lower leg are soft in the anterior and posterior areas, calf is soft, no tenderness with palpation Plantar flexion, dorsiflexion, EHL, FHL are intact Sensory exam to light touch is intact throughout the extremity, dorsalis pedis pulses 2+ Left lower extremity: Well-healed incision along the lateral aspect of the proximal left lower extremity. There are no signs of erythema or soft tissue swelling Range of motion is intact with regards to left lower extremity with hip flexion, knee extension, knee flexion, plantar flexion, dorsiflexion, EHL, FHL Logroll maneuver reproduces no pain of the extremity Distal neurovascular exam is intact Results - Labs Labs: Abnormal Lab Results - Last 24 Hours (Table) 10/19/21 10/19/21 Range/Units 07:45 07:45 WBC 11.2 H (3.8-10.6) k/uL MCV 105.2 H (80.0-100.0) fL MCH 35.3 H (25.0-35.0) pg Neutrophils # 7.8 H (1.3-7.7) k/uL Monocytes # 1.1 H (0-1.0) k/uL Sodium 135 L (137-145) mmol/L Glucose 140 H (74-99) mg/dL H & H 10/19/21 Range/Units 07:45 Hgb 14.4 (11.4-16.0) gm/dL Hct 42.9 (34.0-46.0) % Coagulation 10/19/21 Range/Units 07:45 INR 1.0 (<1.2) Result Diagrams: 10/19/21 07:45 10/19/21 07:45 - Diagnostic results Hip x-ray: report reviewed (Report and images are reviewed in the right hip. He does demonstrate minimally displaced right intertrochanteric femur fracture. Hip joint remains in adequate position. AP pelvis view did demonstrate well- placed hardware including the left hip hemiarthroplasty.), image reviewed Assessment and Plan Assessment: Minimally displaced right intertrochanteric femur fracture Status post fall from standing History of previous left femoral neck fracture and left hip hemiarthroplasty No vember 2019, stable appearing components Other medical comorbidities Plan: I was able to discuss the treatment plan with patient today at bedside. They are recommending surgery, this to include insertion of an intramedullary nail for the right intertrochanteric femur fracture. We are planning for surgery on 10/20/2021. I did notify the patient that I would contact her family regarding this. Risk and benefits of the procedure were discussed, this including but not excluding infection, blood loss, neurovascular injury, development of blood clots, need for subsequent surgery, etc. Patient has a good understanding and would like to proceed. Obtain consent prior to procedure Regular diet at this time, nothing by mouth after midnight Pain control, will start with low-dose medications, IV as needed GI and DVT prophylaxis, will utilize subcu medication Medical recommendations Nonweightbearing right lower extremity at this time Encourage incentive spirometer Further recommendations to follow Time with Patient: Less than 30
[2021-10-19] MEDS ORDERED: HYDROmorphone 1 MG/ML 1 ML SYRINGE IVP PRN (17:15)
[2021-10-19] MEDS ORDERED: ACETAMINOPHEN TAB 325 MG TAB PO PRN (19:49)
[2021-10-19] MEDS: risperiDONE 1 MG TAB PO SCH (20:30)
[2021-10-19] MEDS: traMADol 50 MG TAB PO PRN (20:30)
[2021-10-19] MEDS: ATORVASTATIN 10 MG TAB PO SCH (20:30)
[2021-10-20] MEDS: risperiDONE 1 MG TAB PO SCH ×2 (08:20→21:01)
[2021-10-20] MEDS: DULoxetine HCL 30 MG CAPSULE.DR PO SCH (08:21)
[2021-10-20] MEDS: ISOSORBIDE MONONITRATE ER 30 MG TAB.ER.24H PO SCH (08:21)
[2021-10-20] MEDS: FAMOTIDINE 20 MG TAB PO SCH (08:21)
[2021-10-20] MEDS: traMADol 50 MG TAB PO PRN ×3 (08:21→23:10)
[2021-10-20] MEDS: carvediloL 12.5 MG TAB PO SCH ×2 (08:21→17:35)
[2021-10-20] MEDS ORDERED: IV FLUID CONTINUATION 900 ML IV ONE (12:29)
[2021-10-20] MEDS ORDERED: KETAMINE 10 MG/ML 20 ML VIAL ONE (13:00)
[2021-10-20] MEDS ORDERED: fentaNYL (PF) 50 MCG/ML 2 ML AMP ONE (13:00)
[2021-10-20] MEDS ORDERED: SODIUM CHLORIDE 0.9% 100 ML with ceFAZolin 2,000 MG IV ONE ×2 (13:20)
--- NOTE | 2021-10-20 13:34 | P.CONS ---
History of Present Illness - Reason for Consult Consult date: 10/20/21 - Chief Complaint right hip fracture - History of Present Illness 86 year old female with past medical history of congestive heart failure, history of CVA, dementia baseline, hyperlipidemia, hypertension, non-Hodgkin lymphoma in remission for 5 years comes in from the longterm after patient had a fall. Patient was noted to be in extreme pain and unable to put weight on that leg. Patient was last admitted on in June/2020 after she had left hip fracture On evaluation in the ER patient was found to have low intertrochanteric femur fracture on the right side. Patient has significant pain in the right lower extremity but unable to provide much history. She denies any chest pain or shortness of breath. Denies any lightheadedness. Patient is currently comfortable. Vitals are reviewed. Afebrile pulse 70 respiratory rate 16 blood pressure 137/67. Overnight patient did have high blood pressure and needing oxygen. Labs reviewed with the patient mild leukocytosis of 11.2 MCV 105.2 platelet 278 hemoglobin stable at 14.4 INR normal sodium 135 BUN 14 creatinine 0.6 liver enzymes are normal Patient's home medications were reviewed chest x- ray on 10/19 mildly cardiomegaly without acute pulmonary process is no significant change from prior Hip x-ray suggests acute comminuted minimally displaced intertrochanteric fracture right proximal fever. Patient is planned for right hip hemiarthroplasty this evening ROS Constitutional: Denies chills, Denies fever, Denies lethargy, Denies malaise, Denies poor appetite, Denies weakness, Denies weight loss Eyes: denies decreased vision, denies diplopia, denies discharge, denies pain Ears: Hard of hearing Ears, nose, mouth and throat: Denies dental pain, Denies headache, Denies nasal discharge, Denies nose pain Cardiovascular: Denies chest pain, Denies decreased exercise tolerance, Denies edema, Denies high blood pressure, Denies irregular heart beat, Denies palpitations, Denies paroxysmal nocturnal dyspnea, Denies rapid heart beat, Denies shortness of breath Respiratory: Denies congestion, Denies cough, Denies cough with sputum, Denies dyspnea, Denies home oxygen, Denies wheezing Gastrointestinal: Denies abdominal pain, Denies change in bowel habits, Denies coffee ground emesis, Denies early satiety, Denies excessive gas, Denies heartburn, Denies hematemesis, Denies hematochezia, Denies loss of appetite, Denies nausea, Denies vomiting Genitourinary: Denies dysuria, Denies flank pain, Denies kidney stones, Denies m enorrhagia, Denies urgency, Denies urinary frequency Musculoskeletal: Endorses endorses gait dysfunction, Denies limitation of motion and pain on movement on the right lower extremity, Denies morning stiffness, Denies muscle cramps Integumentary: Denies rash, Denies wounds, Denies brittle nails, Denies change in hair/nails, Denies darkening of skin Neurological: Denies balance difficulties, Denies change in speech, Denies double vision, Denies gait dysfunction, Denies loss of vision, Denies motor disturbance, Denies numbness, Denies paralysis, Denies paresthesias, Denies seizures Psychiatric: Denies anxiety, Denies depression Endocrine: Denies excessive sweating, Denies excessive thirst, Denies high blood sugars, Denies palpitations Hematologic/Lymphatic: Denies easy bruising, Denies lymphadenopathy Social history Nonsmoker nondrinker lives at the longterm Family history Doesn't know anything about her father. His half-brother no significant history of coronary artery disease mother in her 70s with history of breast cancer Physical exam - Constitutional General appearance: cooperative, no acute distress, comfortable 86 years old laying in bed- EENT Eyes: anicteric sclerae, PERRLA, normal appearance ENT: Hard of hearing - Neck Neck: no lymphadenopathy, normal ROM, no other, no rigidity, no stridor, no thyromegaly - Respiratory Respiratory: bilateral: CTA, negative: diminished, dullness, rales, rhonchi - Cardiovascular Rhythm: regular Heart sounds: normal: S1, S2 Abnormal Heart Sounds: no systolic murmur, no diastolic murmur, no rub, no S3 Gallop, no S4 Gallop, no click, no other - Gastrointestinal General gastrointestinal: normal bowel sounds, soft nontender - Integumentary Integumentary: no rash - Neurologic Neurologic: No gross sensory deficit continueintact - Musculoskeletal Musculoskeletal: Pain on movement of the right lower extremity externally rotated. Unable to lift her legs against gravity. mild swelling noted compared to left ext - Psychiatric Psychiatric: A&O x'1, appropriate affect Assessment and plan #1 right hip fracture secondary to fall. Patient is cleared for the surgery EKG she has 6% risk of sudden heart attack OR or cardiac arrest. Incentive spirometry for pulmonary prophylaxis. Pain control per primary team. Avoid neck narcotics due to patient's age and dementia at baseline. #2 acute cognitive impairment. History of dementia. Continued on omeprazole and duloxetine. Patient on risperidone 0.5-1 mg twice a day. We'll continue respiratory meds 1 mg twice a day and hold benzodiazepine #3 leukocytosis with previous history of non-Hodgkin lymphoma in remission. MCV elevated white cell count mildly abnormal. Probably reactive Watch for any change #4 hyperlipidemia continue simvastatin 10 mg daily #5 history of lower extremity swelling hold Lasix to prevent hypotension postoperatively #6 atherosclerotic heart disease continue Imdur #7 history of arrhythmia unclear rhythm maintained on Coreg 12.5 twice daily #8 DVT prophylaxis postsurgery may benefit from aspirin twice daily for 35 days #9 GI prophylaxis with Pepcid 20 mg by mouth daily Thank you for the consult. I'll be happy to assist in patient's medical needs patient in the hospital Past Medical History Past Medical History: Coronary Artery Disease (CAD), Cancer, Heart Failure, Dem entia, Hyperlipidemia, Hypertension, Memory Impairment, Osteoarthritis (OA), Pneumonia, Syncope Additional Past Medical History / Comment(s): NOME bilaterally, nonhodgkins lymp jamee/chemo/in remission for many years, bronchitis, sinus issues, anemia, polio as a child, chronic back pain, migraines, heart valve prolapse, vertigo, FALLS, anemia, benign colon polyps History of Any Multi-Drug Resistant Organisms: MRSA Year Discovered:: 07/28/09 MDRO Source:: unknown Past Surgical History: Appendectomy, Heart Catheterization, Hysterectomy, Joint Replacement, Orthopedic Surgery, Tonsillectomy Additional Past Surgical History / Comment(s): L hip hemiarthroplasty, left knee replacement, bilateral breast biopsy which were benign, bone marrow biopsies, Past Anesthesia/Blood Transfusion Reactions: Previous Problems w/ Anesthesia, Postoperative Nausea & Vomiting (PONV) Additional Past Anesthesia/Blood Transfusion Reaction / Comm: severe confusion for 2 weeks after surgery Smoking Status: Never smoker - Past Family History Father History Unknown: Yes Additional Family Medical History / Comment(s): Patient does not know anything about her father. Brother(s) Additional Family Medical History / Comment(s): Patient has one half-brother with no history of coronary artery disease. Mother History Unknown: Yes Family Medical History: Cancer Additional Family Medical History / Comment(s): Mother in her 70s with history of heart murmur and Breast Cancer Medications and Allergies Home Medications Medication Instructions Recorded Confirmed Type DULoxetine HCL [Cymbalta] 30 mg PO DAILY@0800 11/12/14 10/19/21 History Nitroglycerin Sl Tabs [Nitrostat] 0.4 mg SL Q5M PRN 03/20/17 10/19/21 History Isosorbide Mononitrate ER [Imdur] 30 mg PO DAILY@0800 01/01/20 10/19/21 History Simvastatin [Zocor] 10 mg PO HS@209901/01/20 10/19/21 History Furosemide [Lasix] 20 mg PO DAILY PRN 06/15/20 10/19/21 History Acetaminophen Tab [Tylenol] 650 mg PO Q6HR PRN tab 07/03/20 10/19/21 Rx ALPRAZolam [Xanax] 0.5 mg PO TID@0800,1400,2100 10/19/21 10/19/21 History Bisacodyl 10 mg PO BID PRN 10/19/21 10/19/21 History Carvedilol [Coreg] 12.5 mg PO BID@0800,1700 10/19/21 10/19/21 History Famotidine [Pepcid] 20 mg PO DAILY@0800 10/19/21 10/19/21 History Ipratropium-Albuterol Nebulize 3 ml INHALATION RT-Q6H PRN 10/19/21 10/19/21 History [Duoneb 0.5 mg-3 mg/3 ml Soln] Lactose-Reduced Food [Ensure Plus] 1 can PO DAILY@0800 10/19/21 10/19/21 History Loperamide HCl [Imodium A-D] 4 mg PO Q12H PRN 10/19/21 10/19/21 History Magnesium Hydroxide [Milk of 2,400 mg PO Q48H PRN 10/19/21 10/19/21 History Magnesia] Na Phos,M-B/Na Phos,Di-Ba [Fleet 133 ml RECTAL DAILY PRN 10/19/21 10/19/21 History Adult] Polyethylene Glycol 3350 [Clearlax] 1 packet PO DAILY@1200 10/19/21 10/19/21 History Sennosides/Docusate Sodium [Senna 2 tab PO HS@2100 10/19/21 10/19/21 History Plus 8.6-50 mg Tablet] bisacodyL [Dulcolax] 10 mg RECTAL DAILY PRN 10/19/21 10/19/21 History risperiDONE [RisperDAL] 0.5 mg PO BID@0800,2100 10/19/21 10/19/21 History risperiDONE [RisperDAL] 1 mg PO BID@0800,2100 10/19/21 10/19/21 History traMADol HCl [Ultram] 50 mg PO Q6HR PRN 10/19/21 10/19/21 History Allergies Allergy/AdvReac Type Severity Reaction Status Date / Time codeine Allergy Rash/Hives Verified 10/20/21 12:28 iodine Allergy Rash/Hives Verified 10/20/21 12:28 Penicillins Allergy Unknown Verified 10/20/21 12:28 shellfish derived [Shellfish] Allergy Rash/Hives Verified 10/20/21 12:28 Physical Exam Vitals: Vital Signs Temp Pulse Pulse Resp BP BP Pulse Ox 10/20/21 12:28 97.9 F 70 16 137/67 95 10/20/21 07:50 98.1 F 73 16 161/75 95 10/20/21 00:57 99.7 F H 77 17 159/69 92 L 10/19/21 20:00 99.2 F 62 18 177/80 94 L 10/19/21 19:49 94 L 10/19/21 17:30 98.2 F 82 20 175/82 94 L 10/19/21 16:00 77 16 177/77 95 Intake and Output 10/19/21 10/20/21 10/20/21 22:59 06:59 14:59 Intake Total 750 100 Output Total 1300 700 Balance -550 -600 Intake: IV 100 Intake, IV Titration 750 Amount Sodium Chloride 0.9% 1, 750 000 ml @ 75 mls/hr IV . [id number] ONE Rx#:[id number] Output: Urine 1300 700 Other: Voiding Method Indwelling Catheter Indwelling Catheter Weight 58.967 kg Results CBC & Chem 7: 10/19/21 07:45 10/19/21 07:45
[2021-10-20] MEDS ORDERED: CLINDAMYCIN 600 MG in SODIUM CHLORIDE 0.9% 1,000 ML IRRIGATION ONE (13:46)
[2021-10-20] MEDS ORDERED: IV FLUID CONTINUATION 800 ML IV ONE (14:31)
[2021-10-20] MEDS ORDERED: NALOXONE 0.4 MG/ML 1 ML VIAL IV PRN (14:37)
[2021-10-20] MEDS ORDERED: ONDANSETRON 4 MG/2 ML VIAL IVP PRN (14:37)
--- NOTE | 2021-10-20 14:37 | P.OP ---
Date of Procedure: 10/20/21 Preoperative Diagnosis: Mildly displaced right 4 part intertrochanteric femur fracture Postoperative Diagnosis: Same Procedure(s) Performed: Trochanteric intramedullary nailing right intertrochanteric femur fracture Implants: Arthrex short 130 trochanteric nail, 100 mm compression screw, 4.5 x 35 mm distal locking screw. Anesthesia: spinal Surgeon: Abdiaziz Woodruff Estimated Blood Loss (ml): 50 Pathology: none sent Condition: stable Disposition: PACU Indications for Procedure: The patient's a 86-year-old female presents with right hip pain after a fall. Upon evaluation she was noted a closed mildly displaced 4 part right intertrochanteric femur fracture. A discussion of the risks and benefits of surgery was made with her family. Informed consent was obtained. Specific risks of surgery to include infection, neurovascular injury, development of blood clots, possible development nonunion/malunion need for subsequent procedures was discussed. Informed consent was obtained. Operative Findings: As below Description of Procedure: The patient was brought to the operating room, and after induction of spinal anesthesia was placed supine on the fracture table. The fracture was reduced with longitudinal traction and internal rotation of the right lower extremity. This was verified on the AP and lateral views with fluoroscopy. The well leg was well-padded. Bony prominences were appropriately padded. The right lower extremity was prepped and draped in normal fashion. An 8 cm incision was made just proximal to the greater trochanter. Skin and subcutaneous tissues were divided sharply. Electrocautery was used for hemostasis. The gluteus sonya fascia was split in line with the skin incision. Blunt dissection was then made down to level of the greater trochanter. A sharp awl was then inserted into the tip of the greater trochanter with the aid of fluoroscopy. A ball-tipped guidewire was inserted. The canal was reamed up to 11.5 mm. The proximal femur from the greater trochanter to the lesser trochanter was then reamed with a 16.5 mm reamer. A 10 mm/130 degree trochanteric nail was inserted over the guidewire. The guidewire was then removed. This was inserted to the appropriate level. A threaded guidepin was then inserted into the centercentral portion of the femoral head and neck to within 5 mm of the articular surface on the AP and lateral views. This was verified with fluoroscopy. A triple reamer was used to a depth of 100 mm. A 100 mm compression screw was inserted again to within 5 mm of the articular surface on the AP and lateral views. Good purchase was obtained. This was then locked into the nail. The compression mechanism was removed to allow for postoperative compression. The distal static locking screw was then inserted the appropriate guide. A 35mm distal compression screw was placed with good purchase. Final fluoroscopic views to include AP and lateral view showed adequate reduction of the fracture and placement of the implant. Traction was removed. The wounds were irrigated normal saline. The fascia was closed with running 0 Vicryl suture. The subcutaneous tissues reapproximated interrupted 2-0 Vicryl sutures. Skin was reprepped with yovanny. A sterile dressing was applied. The patient was then awoken from sedation and transferred to recovery room in fair condition. Blood loss was estimated at 50 mL. No complications were incurred. Sponge and needle counts were correct at the end of the case.
--- NOTE | 2021-10-20 14:46 | FL ---
Fluoroscopy HISTORY: Fracture of hip 55 seconds fluoroscopy time supplied to the referring clinician. 2 intraoperative C-arm images docum ent the procedure. See dictated report from orthopedic surgery.
[2021-10-20] MEDS: ALPRAZolam 0.5 MG TAB PO PRN (21:01)
[2021-10-20] MEDS: ATORVASTATIN 10 MG TAB PO SCH (21:01)
[2021-10-20] MEDS: HEPARIN SODIUM,PORCINE/PF 5,000 UNIT/0.5 ML SYRINGE SQ SCH (21:01)
[2021-10-21] MEDS: traMADol 50 MG TAB PO PRN ×3 (05:07→16:32)
[2021-10-21] MEDS: HEPARIN SODIUM,PORCINE/PF 5,000 UNIT/0.5 ML SYRINGE SQ SCH ×2 (07:17→22:31)
[2021-10-21] MEDS: DULoxetine HCL 30 MG CAPSULE.DR PO SCH (07:17)
[2021-10-21] MEDS: carvediloL 12.5 MG TAB PO SCH ×2 (07:17→16:32)
[2021-10-21] MEDS: FAMOTIDINE 20 MG TAB PO SCH (07:18)
[2021-10-21] MEDS: risperiDONE 1 MG TAB PO SCH ×2 (07:18→22:31)
[2021-10-21] MEDS: ISOSORBIDE MONONITRATE ER 30 MG TAB.ER.24H PO SCH (07:18)
[2021-10-21 07:39] LABS: Basophils # (A) 0.1 k/uL (0-0.2); Basophils % (A) 0 %; Eosinophils # (A) 0.1 k/uL (0-0.7); Eosinophils % (A) 0 %; HCT 36.9 % (34.0-46.0); HGB 12.3 gm/dL (11.4-16.0); Lymphocytes # (A) 1.7 k/uL (1.0-4.8); Lymphocytes % (A) 9 %; MCH 35.5 pg (25.0-35.0); MCHC 33.4 g/dL (31.0-37.0); MCV 106.1 fL (80.0-100.0); Macrocytosis Moderate; Mean Platelet Volume 7.3; Monocytes # (A) 1.8 k/uL (0-1.0); Monocytes % (A) 9 %; Neutrophils # (A) 15.4 k/uL (1.3-7.7); Neutrophils % (A) 79 %; Platelet Count 295 k/uL (150-450); RBC 3.48 m/uL (3.80-5.40); RDW 14.1 % (11.5-15.5); WBC 19.5 k/uL (3.8-10.6)
--- NOTE | 2021-10-21 09:24 | P.PN ---
Subjective Progress Note Date: 10/21/21 Principal diagnosis: Status post IM nail right intertrochanteric femur fracture Patient was evaluated at bedside, she is resting in her hospital chair. She has no acute complaints at this time. Vitals and labs remained stable at this time. Objective - Vital Signs Vital signs: Vital Signs Temp 97.5 F L 10/21/21 07:44 Pulse 84 10/21/21 07:44 Resp 19 10/21/21 07:44 BP 113/57 10/21/21 07:44 Pulse Ox 89 L 10/21/21 07:44 Intake & Output 10/20/21 10/21/21 10/21/21 18:59 06:59 18:59 Intake Total 1201 180 Output Total 965 150 Balance 236 -150 180 Intake: IV 905 Oral 296 180 Output: Urine 915 150 Straight 150 Estimated Blood Loss 50 Other: Voiding Method Indwelling Catheter Indwelling Catheter # Voids 2 - Exam Right lower extremity: Incisions are clean, dry and intact, yovanny are in good position and condition Minimal soft tissue swelling is present throughout the extremity Mild tenderness to palpation of the proximal femur Calf is soft, no tenderness with palpation Sensory exam to light touch is intact throughout the extremity, dorsalis pedis pulses 2+ - Labs CBC & Chem 7: 10/21/21 07:22 10/19/21 07:45 Labs: Abnormal Lab Results - Last 24 Hours (Table) 10/21/21 Range/Units 07:22 WBC 19.5 H (3.8-10.6) k/uL RBC 3.48 L (3.80-5.40) m/uL MCV 106.1 H (80.0-100.0) fL MCH 35.5 H (25.0-35.0) pg Neutrophils # 15.4 H (1.3-7.7) k/uL Monocytes # 1.8 H (0-1.0) k/uL Assessment and Plan Assessment: Postoperative day #1 status post IM nail right intertrochanteric Plan: Pain control, continue with current medication DVT prophylaxis, heparin 5000 units every 12 hours Wound care instructions, keep incisions covered and dry Weight-bear as tolerated with walker PT evaluation Medical recommendations Discharge planning: Plan for discharge back to rehab on 10/23/2019 Time with Patient: Less than 30
--- NOTE | 2021-10-21 13:43 | P.PN ---
Subjective Progress Note Date: 10/21/21 - History of Present Illness 86 year old female with past medical history of congestive heart failure, history of CVA, dementia baseline, hyperlipidemia, hypertension, non-Hodgkin lymphoma in remission for 5 years comes in from the skilled nursing after patient had a fall. Patient was noted to be in extreme pain and unable to put weight on that leg. Patient was last admitted on in June/2020 after she had left hip fracture On evaluation in the ER patient was found to have low intertrochanteric femur fracture on the right side. Patient has significant pain in the right lower extremity but unable to provide much history. She denies any chest pain or shortness of breath. Denies any lightheadedness. Patient is currently comfortable. Vitals are reviewed. Afebrile pulse 70 respiratory rate 16 blood pressure 137/67. Overnight patient did have high blood pressure and needing oxygen. Labs reviewed with the patient mild leukocytosis of 11.2 MCV 105.2 platelet 278 hemoglobin stable at 14.4 INR normal sodium 135 BUN 14 creatinine 0.6 liver enzymes are normal Patient's home medications were reviewed chest x- ray on 10/19 mildly cardiomegaly without acute pulmonary process is no significant change from prior Hip x-ray suggests acute comminuted minimally displaced intertrochanteric fracture right proximal fever. Patient is planned for right hip hemiarthroplasty this evening 10/21: Yesterday, patient underwent trochanteric IM nail. Today patient is seen sitting up and recliner and appears to be comfortable and in no acute distress. She's been afebrile, heart rate 84, blood pressure 113/57, pulse ox 89-96% on room air. Repeat blood work reveals WBC 19.5, hemoglobin 12.3 and platelet count 295. Welsh catheter was removed yesterday. Medication reconciliation completed today in anticipation of discharge back to [facility] tomorrow. Patient has been seen by physical therapy with recommendations for subacute rehab. ROS Constitutional: Denies chills, Denies fever, Denies lethargy, Denies malaise, Denies poor appetite, Denies weakness, Denies weight loss Eyes: denies decreased vision, denies diplopia, denies discharge, denies pain Ears: Hard of hearing Ears, nose, mouth and throat: Denies dental pain, Denies headache, Denies nasal discharge, Denies nose pain Cardiovascular: Denies chest pain, Denies decreased exercise tolerance, Denies edema, Denies high blood pressure, Denies irregular heart beat, Denies palpitations, Denies paroxysmal nocturnal dyspnea, Denies rapid heart beat, Denies shortness of breath Respiratory: Denies congestion, Denies cough, Denies cough with sputum, Denies dyspnea, Denies home oxygen, Denies wheezing Gastrointestinal: Denies abdominal pain, Denies change in bowel habits, Denies coffee ground emesis, Denies early satiety, Denies excessive gas, Denies heartburn, Denies hematemesis, Denies hematochezia, Denies loss of appetite, Denies nausea, Denies vomiting Genitourinary: Denies dysuria, Denies flank pain, Denies kidney stones, Denies menorrhagia, Denies urgency, Denies urinary frequency Musculoskeletal: Endorses endorses gait dysfunction, Denies limitation of motion and pain on movement on the right lower extremity, Denies morning stiffness, Denies muscle cramps Integumentary: Denies rash, Denies wounds, Denies brittle nails, Denies change in hair/nails, Denies darkening of skin Neurological: Denies balance difficulties, Denies change in speech, Denies double vision, Denies gait dysfunction, Denies loss of vision, Denies motor disturbance, Denies numbness, Denies paralysis, Denies paresthesias, Denies seizures Psychiatric: Denies anxiety, Denies depression Endocrine: Denies excessive sweating, Denies excessive thirst, Denies high blood sugars, Denies palpitations Hematologic/Lymphatic: Denies easy bruising, Denies lymphadenopathy Physical exam - Constitutional General appearance: cooperative, no acute distress, comfortable 86 years old laying in bed - EENT Eyes: anicteric sclerae, PERRLA, normal appearance ENT: Hard of hearing - Neck Neck: no lymphadenopathy, normal ROM, no other, no rigidity, no stridor, no thyromegaly - Respiratory Respiratory: bilateral: CTA, negative: diminished, dullness, rales, rhonchi - Cardiovascular Rhythm: regular Heart sounds: normal: S1, S2 Abnormal Heart Sounds: no systolic murmur, no diastolic murmur, no rub, no S3 Gallop, no S4 Gallop, no click, no other - Gastrointestinal General gastrointestinal: normal bowel sounds, soft nontender - Integumentary Integumentary: no rash - Neurologic Neurologic: No gross sensory deficit continueintact - Musculoskeletal Musculoskeletal: Pain on movement of the right lower extremity externally rotated. Unable to lift her legs against gravity. mild swelling noted compared to left ext - Psychiatric Psychiatric: A&O x'1, appropriate affect Assessment and plan #1 right hip fracture secondary to fall status post IM nail. Pain control per primary team. Avoid narcotics due to patient's age and dementia at baseline. #2 acute cognitive impairment. History of dementia. Continued on Risperdal and duloxetine. #3 leukocytosis with previous history of non-Hodgkin lymphoma in remission. MCV elevated white cell count mildly abnormal. Probably reactive Watch for any change #4 hyperlipidemia continue simvastatin 10 mg daily #5 history of lower extremity swelling hold Lasix to prevent hypotension postoperatively #6 atherosclerotic heart disease continue Imdur #7 history of arrhythmia unclear rhythm maintained on Coreg 12.5 twice daily #8 DVT prophylaxis postsurgery may benefit from aspirin twice daily for 35 days #9 GI prophylaxis with Pepcid 20 mg by mouth daily Thank you for the consult. I'll be happy to assist in patient's medical needs patient in the hospital DISCHARGE PLAN Return to [facility] for subacute rehab. Impression and plan of care have been directed as dictated by the signing physician. Caitlyn Bryan nurse practitioner acting as scribe for signing physician. Objective - Vital Signs Vital signs: Vital Signs Temp 97.5 F L 10/21/21 07:44 Pulse 84 10/21/21 07:44 Resp 19 10/21/21 07:44 BP 113/57 10/21/21 07:44 Pulse Ox 89 L 10/21/21 07:44 Intake & Output 10/20/21 10/21/21 10/21/21 18:59 06:59 18:59 Intake Total 1201 180 Output Total 965 150 Balance 236 -150 180 Intake: IV 905 Oral 296 180 Output: Urine 915 150 Straight 150 Estimated Blood Loss 50 Other: Voiding Method Indwelling Catheter Indwelling Catheter Diaper Incontinent # Voids 2 - Labs CBC & Chem 7: 10/21/21 07:22 10/19/21 07:45 Labs: Abnormal Lab Results - Last 24 Hours (Table) 10/21/21 Range/Units 07:22 WBC 19.5 H (3.8-10.6) k/uL RBC 3.48 L (3.80-5.40) m/uL MCV 106.1 H (80.0-100.0) fL MCH 35.5 H (25.0-35.0) pg Neutrophils # 15.4 H (1.3-7.7) k/uL Monocytes # 1.8 H (0-1.0) k/uL
[2021-10-21] MEDS: ALPRAZolam 0.5 MG TAB PO PRN (14:27)
[2021-10-21] MEDS ORDERED: risperiDONE 0.5 MG TAB PO STA (15:47)
[2021-10-21] MEDS ORDERED: risperiDONE 0.5 MG TAB PO PRN (15:47)
[2021-10-21 15:52] VITALS: RESP 17
[2021-10-21] MEDS: ATORVASTATIN 10 MG TAB PO SCH (22:31)
[2021-10-22] MEDS: FAMOTIDINE 20 MG TAB PO SCH (07:27)
[2021-10-22] MEDS: traMADol 50 MG TAB PO PRN (07:27)
[2021-10-22] MEDS: HEPARIN SODIUM,PORCINE/PF 5,000 UNIT/0.5 ML SYRINGE SQ SCH (07:27)
[2021-10-22] MEDS: carvediloL 12.5 MG TAB PO SCH (07:27)
[2021-10-22] MEDS: ISOSORBIDE MONONITRATE ER 30 MG TAB.ER.24H PO SCH (07:27)
[2021-10-22] MEDS: risperiDONE 1 MG TAB PO SCH (07:27)
[2021-10-22] MEDS: DULoxetine HCL 30 MG CAPSULE.DR PO SCH (07:27)
[2021-10-22 08:21] VITALS: BP 145/67; PULSE 75; TEMP 98.3
--- NOTE | 2021-10-22 09:36 | P.DS ---
Providers Date of admission: 10/19/21 10:10 Expected date of discharge: 10/22/21 Attending physician: Abdiaziz Woodruff Consults: 10/19/21 10:05 Consult Physician Stat Consulting Provider: Marcus Garrett Reason/Comments: Clearance for surgery Do you want consulting provider notified?: Yes 10/19/21 10:07 Consult Physician Routine Consulting Provider: Marcus Garrett Reason/Comments: Medical Management Do you want consulting provider notified?: Yes Primary care physician: Marcus Garertt Hospital Course: Date of admission: 10/19/2021 Date of discharge: 10/22/2021 Admission diagnosis: Minimally displaced right intertrochanteric femur fracture Discharge diagnosis: Status post IM nail right intertrochanteric femur fracture Attending physician: Dr. Woodruff Surgical procedures: Intramedullary nail right intertrochanteric femur fracture Brief history: Patient is a 86-year-old female who was brought to [facility] after falling at rehab injuring her right lower extremity. Upon arrival to the hospital, imaging test demonstrated a minimally displaced right intertrochanteric femur fracture. Patient was admitted under our orthopedic care with plan for surgical intervention. Internal medicine was placed on consult for medical management. Hospital course: Details of patient's surgery can be found in operative report. Patient tolerated the procedure well and was subsequently transported to orthopedic floor. Patient's orthopeidc and medical care was provided daily. Patient had daily laboratory tests performed for evaluation of overall blood counts. Patient had daily physical therapy to include strengthening range of motion as well as education with walker ambulation. Patient was treated with heparin for their postoperative DVT prophylaxis during their inpatient stay. Patient was noted to have a relatively uneventful postoperative course. Patient reported satisfactory pain control with oral pain medications by postoperative day 0. Patient showed satisfactory progress with physical therapy. Patient moved steadily through the program and had no difficulty meeting the goals by postoperative day 1. Given patient's otherwise satisfactory course and having met physical therapy goals, plan is to discharge patient rehab on postoperative day 2. Discharge condition/disposition: Patient will be discharged to rehab in stable condition. Discharge medications: Instructions are given on resumption of patient's normal daily medications per primary care recommendation, in addition patient will be prescribed heparin 5000 units. Discharge instructions: 1. Wound care and infection precautions, keep incision dry and covered while showering, no lotions, creams, moisturizers. No soaking, tubs, pools, hottubs. Do not scrub over the incision. 2. Weight-bear as tolerated with walker / cane until follow-up. 3. Ice and elevate when necessary. Do not exceed 20 minutes per hour with ice pack. 4. Utilize compression sleeve until seen at first follow up appointment. 5. Visiting nursing care. 6. Home physical therapy. 7. Pain meds and anticoagulants per prescription. 8. Pain medication has potential to cause constipation. Increase oral fluid and fiber intake. Contact primary care provider if you have not had a bowel movement within 48 hours after discharge 9. No anti-inflammatory medication until discussed at first post operative visit, this including Motrin, Aleve, Mobic, Diclofenac. 10. Follow up in office at 2 weeks postop with Michael Arroyo PA-C/Lupillo Muhammad 11. Follow up with your primary care doctor 7-10 days after discharge. 12. Contact [facility] with any questions, . Procedures: Intramedullary nail right intertrochanteric femur fracture Patient Condition at Discharge: Good Plan - Discharge Summary Discharge Rx Participant: No New Discharge Prescriptions: New Heparin Sodium,Porcine [Heparin Sodium] 5,000 unit SQ Q12HR #30 each Continue DULoxetine HCL [Cymbalta] 30 mg PO DAILY@0800 Nitroglycerin Sl Tabs [Nitrostat] 0.4 mg SL Q5M PRN PRN Reason: Chest Pain Simvastatin [Zocor] 10 mg PO HS@2100 Isosorbide Mononitrate ER [Imdur] 30 mg PO DAILY@0800 Furosemide [Lasix] 20 mg PO DAILY PRN PRN Reason: Edema Acetaminophen Tab [Tylenol] 650 mg PO Q6HR PRN tab PRN Reason: Mild Pain Or Fever > 100.5 Bisacodyl 10 mg PO BID PRN PRN Reason: Constipation bisacodyL [Dulcolax] 10 mg RECTAL DAILY PRN PRN Reason: Constipation Famotidine [Pepcid] 20 mg PO DAILY@0800 Ipratropium-Albuterol Nebulize [Duoneb 0.5 mg-3 mg/3 ml Soln] 3 ml INHALATION RT-Q6H PRN PRN Reason: COUGH/WHEEZING Lactose-Reduced Food [Ensure Plus] 1 can PO DAILY@0800 Arnaldo Godinez/Janee Phos,Di-Ba [Fleet Adult] 133 ml RECTAL DAILY PRN PRN Reason: Constipation Polyethylene Glycol 3350 [Clearlax] 1 packet PO DAILY@1200 risperiDONE [RisperDAL] 0.5 mg PO BID@0800,2100 Sennosides/Docusate Sodium [Senna Plus 8.6-50 mg Tablet] 2 tab PO HS@2100 Carvedilol [Coreg] 12.5 mg PO BID@0800,1700 Loperamide HCl [Imodium A-D] 4 mg PO Q12H PRN PRN Reason: Loose Stool Magnesium Hydroxide [Milk of Magnesia] 2,400 mg PO Q48H PRN PRN Reason: CONSTIPATION risperiDONE [RisperDAL] 1 mg PO BID@0800,2100 traMADol HCl [Ultram] 50 mg PO Q6HR PRN #12 tab PRN Reason: Pain Changed ALPRAZolam [Xanax] 0.5 mg PO TID@0800,1400,2100 #9 tab Discharge Medication List DULoxetine HCL [Cymbalta] 30 mg PO DAILY@0800 11/12/14 [History] Nitroglycerin Sl Tabs [Nitrostat] 0.4 mg SL Q5M PRN 03/20/17 [History] Isosorbide Mononitrate ER [Imdur] 30 mg PO DAILY@0800 01/01/20 [History] Simvastatin [Zocor] 10 mg PO HS@2100 01/01/20 [History] Furosemide [Lasix] 20 mg PO DAILY PRN 06/15/20 [History] Acetaminophen Tab [Tylenol] 650 mg PO Q6HR PRN tab 07/03/20 [Rx] Bisacodyl 10 mg PO BID PRN 10/19/21 [History] Carvedilol [Coreg] 12.5 mg PO BID@0800,1700 10/19/21 [History] Famotidine [Pepcid] 20 mg PO DAILY@0800 10/19/21 [History] Ipratropium-Albuterol Nebulize [Duoneb 0.5 mg-3 mg/3 ml Soln] 3 ml INHALATION RT-Q6H PRN 10/19/21 [History] Lactose-Reduced Food [Ensure Plus] 1 can PO DAILY@0800 10/19/21 [History] Loperamide HCl [Imodium A-D] 4 mg PO Q12H PRN 10/19/21 [History] Magnesium Hydroxide [Milk of Magnesia] 2,400 mg PO Q48H PRN 10/19/21 [History] Na Phos,M-B/Na Phos,Di-Ba [Fleet Adult] 133 ml RECTAL DAILY PRN 10/19/21 [History] Polyethylene Glycol 3350 [Clearlax] 1 packet PO DAILY@1200 10/19/21 [History] Sennosides/Docusate Sodium [Senna Plus 8.6-50 mg Tablet] 2 tab PO HS@209910/19/21 [History] bisacodyL [Dulcolax] 10 mg RECTAL DAILY PRN 10/19/21 [History] risperiDONE [RisperDAL] 0.5 mg PO BID@0800,209910/19/21 [History] risperiDONE [RisperDAL] 1 mg PO BID@0800,209910/19/21 [History] ALPRAZolam [Xanax] 0.5 mg PO TID@0800,1400,2099 #9 tab 10/21/21 [Rx] traMADol HCl [Ultram] 50 mg PO Q6HR PRN #12 tab 10/21/21 [Rx] Heparin Sodium,Porcine [Heparin Sodium] 5,000 unit SQ Q12HR #30 each 10/22/21 [Rx] Follow up Appointment(s)/Referral(s): Lupillo Weaver PAC [PHYSICIAN CRYPTOANALYSIS TEACHER] - 2 Weeks Marcus Garrett MD [Primary Care Provider] - 1-2 days Activity/Diet/Wound Care/Special Instructions: Orthopedic Discharge Instructions: 1. Resume home medications 2. Heparin 5000 units q12 hour for 4 weeks 3. Pain medication as needed 4. Ok to shower over incisions 5. Weight-bear as tolerated with walker 6. Plan for follow-up at [facility] 2 weeks Discharge Disposition: TRANSFER TO SNF/ECF
--- NOTE | 2021-10-22 10:57 | P.PN ---
Subjective Progress Note Date: 10/22/21 86 year old female with past medical history of congestive heart failure, history of CVA, dementia baseline, hyperlipidemia, hypertension, non-Hodgkin lymphoma in remission for 5 years comes in from the longterm after patient had a fall. Patient was noted to be in extreme pain and unable to put weight on that leg. Patient was last admitted on in June/2020 after she had left hip fracture On evaluation in the ER patient was found to have low intertrochanteric femur fracture on the right side. Patient has significant pain in the right lower extremity but unable to provide much history. She denies any chest pain or shortness of breath. Denies any lightheadedness. Patient is currently com fortable. Vitals are reviewed. Afebrile pulse 70 respiratory rate 16 blood pressure 137/67. Overnight patient did have high blood pressure and needing oxygen. Labs reviewed with the patient mild leukocytosis of 11.2 MCV 105.2 platelet 278 hemoglobin stable at 14.4 INR normal sodium 135 BUN 14 creatinine 0.6 liver enzymes are normal Patient's home medications were reviewed chest x- ray on 10/19 mildly cardiomegaly without acute pulmonary process is no significant change from prior Hip x-ray suggests acute comminuted minimally displaced intertrochanteric fracture right proximal fever. Patient is planned for right hip hemiarthroplasty this evening 10/21: Yesterday, patient underwent trochanteric IM nail. Today patient is seen sitting up and recliner and appears to be comfortable and in no acute distress. She's been afebrile, heart rate 84, blood pressure 113/57, pulse ox 89-96% on room air. Repeat blood work reveals WBC 19.5, hemoglobin 12.3 and platelet count 295. Welsh catheter was removed yesterday. Medication reconciliation completed today in anticipation of discharge back to [facility] tomorrow. Patient has been seen by physical therapy with recommendations for subacute rehab. 10/22 patient examined best served appears comfortable denies any pain. She is hard of hearing. She is a long-term resident of [facility] and has possible underlying dementia.Vitals are reviewed afebrile pulse 77 blood pressure 145/65 of sneezing and 95% on 2 L. No blood work from today. Patient medications and reconciled maintain him Xanax and tramadol for pain control. Side effects including constipation and increased selenium to be watched for on the medication. ROS Constitutional: Denies chills, Denies fever, Denies lethargy, Denies malaise, Denies poor appetite, Denies weakness, Denies weight loss Eyes: denies decreased vision, denies diplopia, denies discharge, denies pain Ears: Hard of hearing Ears, nose, mouth and throat: Denies dental pain, Denies headache, Denies nasal discharge, Denies nose pain Cardiovascular: Denies chest pain, Denies decreased exercise tolerance, Denies edema, Denies high blood pressure, Denies irregular heart beat, Denies palpitations, Denies paroxysmal nocturnal dyspnea, Denies rapid heart beat, Denies shortness of breath Respiratory: Denies congestion, Denies cough, Denies cough with sputum, Denies dyspnea, Denies home oxygen, Denies wheezing Gastrointestinal: Denies abdominal pain, Denies change in bowel habits, Denies coffee ground emesis, Denies early satiety, Denies excessive gas, Denies heartburn, Denies hematemesis, Denies hematochezia, Denies loss of appetite, Denies nausea, Denies vomiting Genitourinary: Denies dysuria, Denies flank pain, Denies kidney stones, Denies menorrhagia, Denies urgency, Denies urinary frequency Musculoskeletal: Endorses gait dysfunction, uncontrolled, Denies limitation of motion and pain on movement on the right lower extremity, Denies morning stiffness, Denies muscle cramps Integumentary: Denies rash, Denies wounds, Denies brittle nails, Denies change in hair/nails, Denies darkening of skin Neurological: Denies balance difficulties, Denies change in speech, Denies double vision, Denies gait dysfunction, Denies loss of vision, Denies motor disturbance, Denies numbness, Denies paralysis, Denies paresthesias, Denies seizures Psychiatric: Denies anxiety, Denies depression Endocrine: Denies excessive sweating, Denies excessive thirst, Denies high blood sugars, Denies palpitations Hematologic/Lymphatic: Denies easy bruising, Denies lymphadenopathy Physical exam - Constitutional General appearance: cooperative, no acute distress, comfortable 86 years old laying in bed - EENT Eyes: anicteric sclerae, PERRLA, normal appearance ENT: Hard of hearing - Neck Neck: no lymphadenopathy, normal ROM, no other, no rigidity, no stridor, no thyromegaly - Respiratory Respiratory: bilateral: CTA, negative: diminished, dullness, rales, rhonchi - Cardiovascular Rhythm: regular Heart sounds: normal: S1, S2 Abnormal Heart Sounds: no systolic murmur, no diastolic murmur, no rub, no S3 Gallop, no S4 Gallop, no click, no other - Gastrointestinal General gastrointestinal: normal bowel sounds, soft nontender - Integumentary Integumentary: no rash - Neurologic Neurologic: No gross sensory deficit continueintact - Musculoskeletal Musculoskeletal: Pain improved on movement of the right lower extremity. mild swelling noted compared to left ext dressing intact to drainage and noted - Psychiatric Psychiatric: A&O x'1, appropriate affect Assessment and plan #1 right hip fracture secondary to fall status post IM nail. Pain control per primary team. Avoid narcotics due to patient's age and dementia at baseline. #2 acute cognitive impairment. History of dementia. Continued on Risperdal and duloxetine. #3 leukocytosis with previous history of non-Hodgkin lymphoma in remission. MCV elevated white cell count mildly abnormal. Probably reactive Watch for any change #4 hyperlipidemia continue simvastatin 10 mg daily #5 history of lower extremity swelling hold Lasix to prevent hypotension postoperatively #6 atherosclerotic heart disease continue Imdur #7 history of arrhythmia unclear rhythm maintained on Coreg 12.5 twice daily #8 DVT prophylaxis postsurgery on heparin subcu twice a day for 30 days #9 GI prophylaxis with Pepcid 20 mg by mouth daily Objective - Vital Signs Vital signs: Vital Signs Temp 98.3 F 10/22/21 07:23 Pulse 75 10/22/21 07:23 Resp 17 10/22/21 02:03 BP 145/67 10/22/21 07:23 Pulse Ox 95 10/22/21 07:23 Intake & Output 10/21/21 10/22/21 10/22/21 18:59 06:59 18:59 Intake Total 420 200 Output Total 700 Balance 420 -500 Intake: Oral 420 200 Output: Urine 700 Straight 700 Other: Voiding Method Diaper Diaper Diaper Incontinent Incontinent Incontinent # Voids 1 0 # Bowel Movements 0 - Labs CBC & Chem 7: 10/21/21 07:22 10/19/21 07:45
--- NOTE | 2021-10-22 11:49 | P.PN ---
Subjective Progress Note Date: 10/22/21 Principal diagnosis: Status post IM nail right intertrochanteric femur fracture Patient was evaluated at bedside, she is resting in her hospital chair. She has no acute complaints at this time. Vitals and labs remained stable at this time. Objective - Vital Signs Vital signs: Vital Signs Temp 98.3 F 10/22/21 07:23 Pulse 75 10/22/21 07:23 Resp 17 10/22/21 02:03 BP 145/67 10/22/21 07:23 Pulse Ox 95 10/22/21 07:23 Intake & Output 10/21/21 10/22/21 10/22/21 18:59 06:59 18:59 Intake Total 420 200 Output Total 700 Balance 420 -500 Intake: Oral 420 200 Output: Urine 700 Straight 700 Other: Voiding Method Diaper Diaper Diaper Incontinent Incontinent Incontinent # Voids 1 0 # Bowel Movements 0 - Exam Right lower extremity: Incisions are clean, dry and intact, yovanny are in good position and condition Minimal soft tissue swelling is present throughout the extremity Mild tenderness to palpation of the proximal femur Calf is soft, no tenderness with palpation Sensory exam to light touch is intact throughout the extremity, dorsalis pedis pulses 2+ - Labs CBC & Chem 7: 10/21/21 07:22 10/19/21 07:45 Assessment and Plan Assessment: Postoperative day #2 status post IM nail right intertrochanteric Plan: Pain control, continue with current medication DVT prophylaxis, heparin 5000 units every 12 hours for 3 weeks Wound care instructions, keep incisions covered and dry Weight-bear as tolerated with walker PT evaluation Medical recommendations Discharge planning: Plan for discharge back to rehab today Time with Patient: Less than 30
== END 2021-10-22 11:35 | DRG 482 ==
LOC: EC 07:18 → 4SSUR 10:10
PROVIDERS: ADMIT Orthopaedic Surgery; ATTEND Orthopaedic Surgery
PROC: 0QS636Z Reposition Right Upper Femur with Intramedullary Internal Fixation Device, Percutaneous Approach (ICD-10-PCS; principal; 2021-10-20 13:10)
DX: S72.141A Displaced intertrochanteric fracture of right femur, initial encounter for closed fracture (principal); W19.XXXA Unspecified fall, initial encounter; H91.90 Unspecified hearing loss, unspecified ear; D72.829 Elevated white blood cell count, unspecified; E78.5 Hyperlipidemia, unspecified; F03.90 Unspecified dementia, unspecified severity, without behavioral disturbance, psychotic disturbance, mood disturbance, and anxiety; F32.A Depression, unspecified; I50.9 Heart failure, unspecified; I11.0 Hypertensive heart disease with heart failure; I25.10 Atherosclerotic heart disease of native coronary artery without angina pectoris; Z20.822 Contact with and (suspected) exposure to COVID-19; Z79.899 Other long term (current) drug therapy; Z80.3 Family history of malignant neoplasm of breast; Z85.72 Personal history of non-Hodgkin lymphomas; Z86.12 Personal history of poliomyelitis; Z86.73 Personal history of transient ischemic attack (TIA), and cerebral infarction without residual deficits; Z90.710 Acquired absence of both cervix and uterus; Z96.642 Presence of left artificial hip joint; Z96.652 Presence of left artificial knee joint
CPT/HCPCS: 36415; 71045; 73502; 80053; 85025; 85610; 85730; 87635; 93005; 96361; 96374; 99285